=== PATIENT | male | born 2005 | race Caucasian/White ===

== ENCOUNTER 2023-04-02 07:39 | Emergency (ER) | payer OTHER, SELFPAY ==
[2023-04-02 07:46] VITALS: BP 142/86; PULSE 94; RESP 16; TEMP 36.8; O2SAT 97; BMI 22.1
--- NOTE | 2023-04-02 08:41 | ED.GENADUL1 ---
HPI - General Adult General Chief complaint: Upper Respiratory Infection Stated complaint: URTI/ FEVER Time Seen by Provider: 04/02/23 08:37 Source: patient Mode of arrival: walk-in History of Present Illness HPI narrative: Patient is a 17-year-old male who is presenting to the ER with chief complaint of flulike symptoms that started 2 days ago. Patient has had nausea and vomiting as well, patient is able to keep liquids then, patient cannot keep food down. Patient is having intermittent body aches and chills. Patient's fianc? is at bedside. 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 Patient missed work today. Patient has no headache or neck pain. Mild sore throat. Myalgia, arthralgia, nausea. No other acute complaints. Patient is having yellowish productive cough intermittently. Patient has no rash. All systems are negative except as noted/marked. All systems reviewed and otherwise negative. Nurses note and vital signs reviewed and patient is not hypoxic. General: The patient appears well and in no apparent distress. Patient is resting comfortably on cart. Patient is not toxic, lethargic, or listless Skin: Warm, dry, no pallor noted. There is no rash noted. No petechiae, purpura. Head: Normocephalic, atraumatic Eye: Normal conjunctiva, no drainage, EOMI. PERRL Ears, Nose, Mouth, and Throat: oral mucosa is moist. Patient has clear drainage noted to the posterior pharynx, mild cobblestoning, no unilateral swelling, no other acute pathology. No intraoral pathology. Nares patent. Mouth without vesicles. Cardiovascular: Regular Rate and Rhythm, no murmur, gallop, rub Respiratory: Patient is in no distress, no accessory muscle use, lungs are clear to auscultation, no wheezing, rales or rhonchi Back: non-tender, no CVA tenderness bilaterally to percussion. No CT LS midline pain GI: no tenderness to palpation, no masses appreciated. No rebound, guarding, or rigidity noted. No distention Musculoskeletal: Patient has full range of motion of all of the extremities, no motor, sensory, or focal neurological deficits Neurological: A&O x4, normal speech Psychiatric: Cooperative Related Data Previous Rx's Medication Instructions Recorded ondansetron 4 mg disintegrating 4 mg PO Q4H PRN nausea and 04/02/23 tablet vomiting 3 days #6 tabs Allergies Allergy/AdvReac Type Severity Reaction Status Date / Time amoxicillin AdvReac Unknown Verified 04/02/23 07:44 Exam Constitutional Vital Signs, click to edit/add: Last Vital Signs Temp 98.3 F 04/02/23 07:46 Pulse 94 H 04/02/23 07:46 Resp 16 04/02/23 07:46 BP 142/86 H 04/02/23 07:46 Pulse Ox 97 04/02/23 07:46 O2 Del Method Room Air 04/02/23 07:46 Course Vital Signs Vital signs: Vital Signs Temperature 98.3 F 04/02/23 07:46 Pulse Rate 94 H 04/02/23 07:46 Respiratory Rate 16 04/02/23 07:46 Blood Pressure 142/86 H 04/02/23 07:46 Pulse Oximetry 97 04/02/23 07:46 Oxygen Delivery Method Room Air 04/02/23 07:46 Temperature 98.3 F 04/02/23 07:46 Pulse Rate 94 H 04/02/23 07:46 Respiratory Rate 16 04/02/23 07:46 Blood Pressure 142/86 H 04/02/23 07:46 Pulse Oximetry 97 04/02/23 07:46 Oxygen Delivery Method Room Air 04/02/23 07:46 Medical Decision Making MDM Narrative Medical decision making narrative: Patient has flulike symptoms. Patient needs a work note. Patient was sent home with a prescription for Zofran. Patient was educated on hydration, using [id number] products to help with his symptoms and follow-up with PCP. Patient understands this, no questions at discharge. patient was told several times that he needs to continue to increase fluids at home, he can go several days without eating as long as he is drinking Gatorade, Powerade, staying hydrated. Discharge Plan Discharge Chief Complaint: Upper Respiratory Infection Clinical Impression: Flu-like symptoms, Nausea & vomiting Patient Disposition: Home, Self-Care Condition: Fair Prescriptions / Home Meds: New ondansetron 4 mg tablet,disintegrating 4 mg PO Q4H PRN (Reason: nausea and vomiting) 3 Days Qty: 6 0RF Instructions: Sinusitis (ED), Acute Nausea and Vomiting (DC) Additional Instructions: Use DayQuil, NyQuil and Flonase daily. Alternate Tylenol and Motrin every 4 hours for aches and pains. Use nausea medication to help increase fluids, use Gatorade, Powerade, or water. Work note given. Follow-up with PCP if no improvement in the next 2 or 3 days. Stand Alone Forms: Work/School Release, Portal Instructions Referrals: FAUSTINO WADE [Primary Care Provider] - 1 week Discharge Date/Time: 04/02/23 08:51
== END 2023-04-02 08:51 | disposition home or self-care (01) ==
PROVIDERS: Emergency Provider Emergency Medicine; PCP Family Medicine
DX: R11.2 Nausea with vomiting, unspecified (principal); R52 Pain, unspecified; R68.83 Chills (without fever)
CPT/HCPCS: 99283

== ENCOUNTER 2024-02-13 21:11 | Emergency (ER) | payer OTHER, SELFPAY ==
[2024-02-13 21:17] VITALS: BP 154/75; PULSE 104; TEMP 38.8; O2SAT 99; BMI 26.7
--- OUTSIDE RECORDS SUMMARY | 2024-02-13 21:22 | XMS_ITS | CCD ---
Author Organization [facility] Care Team Providers Care Health Information Administrator Name Role Phone BRITTANY RAMIREZ Primary Care Physician [phone] Unavailable Primary Care Provider Unavailabl e Ashley BRACELET [employer] BR[employer]CH MAKER, Meredith Primary Care Provider [phone] Ashley RESENDIZ, Meredith Primary Care Provider [phone] Marcos Donato MD Unavailable Ashley RESENDIZ Meredith Primary Care Provider [phone] Marcos Donato MD Unavailable [phone] RANDY BROWN Attending Unavailable MARCOS DONATO Referring Unavailable [facility] Primary Care Unavailable RANDY BROWN Referring Unavailable RANDY BROWN Attending Unavailable [facility] Primary Care Unavailable RANDY BROWN Referring Unavailable RANDY BROWN Attending Unavailable [facility] Primary Care Unavailable RANDY BROWN Referring Unavailable BAILEYRATIL, MEREDITH Primary Care Unavailable RANDY BROWN Referring Unavailable NAVRATIL, MEREDITH Primary Care Unavailable MARIYA, DR RODRÍGUEZ Consulting Unavailable MARIYA, DR RODRÍGUEZ Admitting Unavailable NAVRATIL, BRITTANY Primary Care Unavailable DONATO, DR RODRÍGUEZ Attending Unavailable KARIE RUELAS Consulting Unavailable DONATO, DR RODRÍGUEZ Consulting Unavailable NAVRATIL, BRITTANY Primary Care Unavailable DONATO, DR RODRÍGUEZ Admitting Unavailable MARIYA, DR RODRÍGUEZ Attending Unavailable MARIYA, DR RODRÍGUEZ Consulting Unavailable NAVRATIL, BRITTANY Primary Care Unavailable DONATO, DR RODRÍGUEZ Admitting Unavailable MARIYA, DR RODRÍGUEZ Attending Unavailable DANIEL LI Consulting Unavailable MARCI MARCH Consulting Unavaila ble MARIYA, DR RODRÍGUEZ Consulting Unavailable MARIYA, DR RODRÍGUEZ Admitting Unavailable NAVRATIL, BRITTANY Primary Care Unavailable MARIYA, DR RODRÍGUEZ Attending Unavailable JOVAN, DR GERRY Ross Consulting Unavailable MARIYA, DR RODRÍGUEZ Attending Unavailable NAVRATIL, BRITTANY Primary Care Unavailable DONATO, DR RODRÍGUEZ Consulting Unavailable MARIYA, DR RODRÍGUEZ Admitting Unavailable JOVAN, DR GERRY Ross Consulting Unavailable MICA, DR LOCKHART Admitting Unavailable ASHLEY, BRITTANY Primary Care Unavailable MICA, DR LOCKHART Attending Unavailable MICA, DR LOCKHART Consulting Unavailable ASHLEY, BRITTANY Primary Care Unavailable MICA, DR LOCKHART Admitting Unavailable MICA, DR LOCKHART Attending Unavailable MICA, DR LOCKHART Consulting Unavailable JOVAN, DR GERRY Ross Consulting Unavailable HAIM CARMONA Consulting Unavailable DONATO, Marcos R Attending Unavailable NAVSOCRATES, BRITTANY Referring Unavailable DONATO, aMrcos R Attending Unavailable DONATO, Marcos R Attending Unavailable DONATO, Marcos R Attending Unavailable DONATO, Marcos R Attending Unavailable DONATO, Marcos R Attending Unavailable DONATO, Marcos Ross Attending Unavailable Donato, Marcos Admitting Unavailable Donato, Marcos Attending Unavailable NON STAFF Primary Care Unavailable NON STAFF Primary Care Provider MD Marcos Vivas Attending Provider [phone] Allergies Allergy Classification Reported Allergen(s) Allergy Type Date of Onset Reaction(s) Facility (12 sources) Amoxicillin; Translations: [amoxicillin] Drug Allergy 2 Weal (disorder), Hives [facility] (1 source) Amoxicillin Drug Allergy [facility] Repository Medications Current Medications Medication Drug Class(es) Dates Sig (Normalized) Sig (Original) doxycycline hyclate 100 mg oral capsule (1 source) Tetracycline-clas s Drug Start: 11-12-2021 End: 12-03-2021 take 1 capsule by mouth twice daily doxycycline hyclate 100 mg Cap 100 mg = 1 cap(s), Oral, BID, X 3 week(s), # 42 cap(s), Refills(s) 0, Pharmacy: [facility] #[id number], 187, cm, 11/12/21 10:47:00 EDT, Height/Length Dosing, 72, kg, 11/12/21 10:47:00 EDT, Weight Dosing Start Date: 11/12/21 Stop Date: 12/03/21 Status: Ordered fluconazole 50 mg oral tablet (1 source) Azole Antifungal Start: 11-12-2021 take 1 mg by mouth once daily fluconazole 50 mg oral tablet mg tab(s), Oral, Daily, Refills(s) 0 Start Date: 11/12/21 Status: Ordered Completed/Discontinued Medications Medication Drug Class(es) Dates Sig (Normalized) Sig (Original) enteric contrast (will be provided with radiology test) (1 source) Start: 04-29-2022 End: 04-30-2022 enteric contrast (will be provided with radiology test) For CT CHESTABD/PEL W IVCON Routine order Administer, As Directed One Time Only, via Oral, Rectal, both Oral and Rectal, Enteric Tube, Stoma or Indwelling Catheter, Enteric Contrast as designated per enteric contrast guidelines 1 Each 0 04/29/2022 04/30/2022 Comment on above: For CT CHESTABD/PEL W IVCON Routine order Administer, As Directed One Time Only, via Oral, Rectal, both Oral and Rectal, Enteric Tube, Stoma or Indwelling Catheter, Enteric Contrast as designated per enteric contrast guidelines iv contrast (will be provided with radiology test) (1 source) Start: 04-29-2022 End: 04-30-2022 iv contrast (will be provided with radiology test) CT Chest ABD/PEL-Inject, intravenously, once for 1 dose.No IV access, insert saline lock prior to the beginning of sedation, infusion, injection of imaging exam. Discontinue saline lock post exam. If Pt. has a central line or IVAD, may access for administration according to line specific nursing protocol. Once exam is complete flush line and de-access according to line specific nursing protocol in the CT contrast administration guidelines link. 1 Each 0 04/29/2022 04/30/2022 Comment on above: CT Chest ABD/PEL-Inj ect, intravenously, once for 1 dose.No IV access, insert saline lock prior to the beginning of sedation, infusion, injection of imaging exam. Discontinue saline lock post exam. If Pt. has a central line or IVAD, may access for administration according to line specific nursing protocol. Once exam is complete flush line and de-access according to line specific nursing protocol in the CT contrast administration guidelines link. 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; Translations: [CA IN SITU OTH MALE GENITAL ORGANS] Onset: 01-01-2022 Chronic Cancer of testis (17 sources) Malignant tumor of testis; Translations: [Malignant neoplasm of unspecified testis, unspecified whether descended or undescended] Onset: 12-28-2021 Chronic Other male genital disorders (2 sources) Disorder of male genital organ; Translations: [Other specified disorders of the male genital organs] Onset: 11-12-2021 Episodic Other male genital disorders (5 sources) Testicular mass 11-12-2021 Episodic Unclassified (1 source) CONTACT W/AND (SUSP) EXPOS COVID-19; Translations: [CONTACT W/AND (SUSP) EXPOS COVID-19] Onset: 12-19-2021 Past or Other Problems Problem Classification Problem Date Documented Da te Episodic/Chronic Other male genital disorders (4 sources) Other specified disorders of the male genital organs; Translations: [OTHER SPEC D/O MALE GENITAL ORGANS] Onset: 12-07-2021 Episodic Other male genital disorders (1 source) Disorder of male genital organs, unspecified; Translations: [DISORDER MALE GENITAL ORGANS UNS] Onset: 12-13-2021 Episodic Results Test Name Value Interpretation Reference Range Facility No Panel InformationOrdered By: Alfred Saunders on 10-25-2023 Semen Analysis Comment . [facility] Comment on above: No Abnormal specimen characteristics noted. Semen Round Cell Concentration Moderate [facility] Semen WBC Concentration <1.0 M/mL <0.9 [facility] Sperm % Non-Motile 74 % [facility] Sperm Motility Total 26.0 % Low >40 [facility] Qualitative semen viscosityO rdered By: Alfred Saunders on 10-25-2023 Viscosity Ql (Ashlie) Abnormal Abnormal Normal [facility] Semen Analysis, Fertilityon 10-25-2023 Debris/Round Cells Moderate Normal [facility] Comment on above: Order Comment: Metho d of Collection:: Masturbation Has the patient had a vasectomy?: N Type of Specimen Container:: Sterile Container Abstinence Period:: 2 DAYS Kept at body temperature?: Y Any Collection or Transport Problems?: N/A Performed By: #### S EMCOMP #### [address] Immotile Sperm 74 % Normal [facility] Comment on above: Order Comment: Metho d of Collection:: Masturbation Has the patient had a vasectomy?: N Type of Specimen Container:: Sterile Container Abstinence Period:: 2 DAYS Kept at body temperature?: Y Any Collection or Transport Problems?: N/A Performed By: #### S EMCOMP #### [address] Non-Progression Sperm Motili 24 % Normal [facility] Comment on above: Order Comment: Metho d of Collection:: Masturbation Has the patient had a vasectomy?: N Type of Specimen Container:: Sterile Container Abstinence Period:: 2 DAYS Kept at body temperature?: Y Any Collection or Transport Problems?: N/A Performed By: #### S EMCOMP #### [address] Normal Sperm Morphology 2.0 % Low >=4.0 [facility] Comment on above: Order Comment: Metho d of Collection:: Masturbation Has the patient had a vasectomy?: N Type of Specimen Container:: Sterile Container Abstinence Period:: 2 DAYS Kept at body temperature?: Y Any Collection or Transport Problems?: N/A Performed By: #### S EMCOMP #### [address] Rapid Progression Sperm Motili 2 % Normal [facility] Comment on above: Order Comment: Metho d of Collection:: Masturbation Has the patient had a vasectomy?: N Type of Specimen Container:: Sterile Container Abstinence Period:: 2 DAYS Kept at body temperature?: Y Any Collection or Transport Problems?: N/A Performed By: #### S EMCOMP #### [address] Semen Comment . Normal [facility] Comment on above: Order Comment: Metho d of Collection:: Masturbation Has the patient had a vasectomy?: N Type of Specimen Container:: Sterile Container Abstinence Period:: 2 DAYS Kept at body temperature?: Y Any Collection or Transport Problems?: N/A Result Comment: No A bnormal specimen characteristics noted. PERFORMED BY: [place] [address] PATHOLOGIST DETAIL ASSEMBLER JIANLAN SUN M.D. Performed By: #### S EMCOMP #### [address] Semen Liquefaction Abnormal Critically abnormal <=60 min [facility] Comment on above: Order Comment: Metho d of Collection:: Masturbation Has the patient had a vasectomy?: N Type of Specimen Container:: Sterile Container Abstinence Period:: 2 DAYS Kept at body temperature?: Y Any Collection or Transport Problems?: N/A Performed By: #### S EMCOMP #### [address] Semen Viscosity Abnormal Critically abnormal Normal [facility] Comment on above: Order Comment: Metho d of Collection:: Masturbation Has the patient had a vasectomy?: N Type of Specimen Container:: Sterile Container Abstinence Period:: 2 DAYS Kept at body temperature?: Y Any Collection or Transport Problems?: N/A Performed By: #### S EMCOMP #### [address] Semen Volume 4.0 mL Normal >=1.5 [facility] Comment on above: Order Comment: Metho d of Collection:: Masturbation Has the patient had a vasectomy?: N Type of Specimen Container:: Sterile Container Abstinence Period:: 2 DAYS Kept at body temperature?: Y Any Collection or Transport Problems?: N/A Performed By: #### S EMCOMP #### [place] [address] [place] Sperm Concentration 7.5 Low >=15 [facility] Comment on above: Order Comment: Metho d of Collection:: Masturbation Has the patient had a vasectomy?: N Type of Specimen Container:: Sterile Container Abstinence Period:: 2 DAYS Kept at body temperature?: Y Any Collection or Transport Problems?: N/A Performed By: #### S EMCOMP #### [place] [address] [place] Total Motility ([place]+HOSTEL MANAGER) 26.0 % Low >=40 ([place]+HOSTEL MANAGER) [facility] Comment on above: Order Comment: Metho d of Collection:: Masturbation Has the patient had a vasectomy?: N Type of Specimen Container:: Sterile Container Abstinence Period:: 2 DAYS Kept at body temperature?: Y Any Collection or Transport Problems?: N/A Performed By: #### S EMCOMP #### [facility] [address] [place] [address] WBC Concent, Semen <1.0 Normal <1.0 [facility] Comment on above: Order Comment: Metho d of Collection:: Masturbation Has the patient had a vasectomy?: N Type of Specimen Container:: Sterile Container Abstinence Period:: 2 DAYS Kept at body temperature?: Y Any Collection or Transport Problems?: N/A Performed By: #### S EMCOMP #### [facility] [address] [place] [address] Semen Analysis, FertilityOrd ered By: Alfred Saunders on 10-25-2023 Semen Appearance Normal Normal Normal [facility] Comment on above: Order Comment: Metho d of Collection:: Masturbation Has the patient had a vasectomy?: N Type of Specimen Container:: Sterile Container Abstinence Period:: 2 DAYS Kept at body temperature?: Y Any Collection or Transport Problems?: N/A Performed By: #### S EMCOMP #### [facility] [address] [place] [address] Semen pH 8.5 Normal >=7.2 [facility] Comment on above: Order Comment: Metho d of Collection:: Masturbation Has the patient had a vasectomy?: N Type of Specimen Container:: Sterile Container Abstinence Period:: 2 DAYS Kept at body temperature?: Y Any Collection or Transport Problems?: N/A Performed By: #### S EMCOMP #### [facility] [address] [place] [address] Semen liquefaction time sherita urementOrdered By: Alfred Saunders on 10-25-2023 Liquefaction (Ashlie) [Time] Abnormal Abnormal <=60 min [facility] Semen volumeOrdered By: Yannick Saunders on 10-25-2023 Specimen volume (Ashlie) 4.0 mL >1.5 [facility] Sperm countOrdered By: Alfred Saunders on 10-25-2023 Spermatozoa (Ashlie) [#/Vol] 7.5 M/mL Low >15 [facility] Sperm morphologyOrdered By: Alfred Saunders on 10-25-2023 Spermat[place] Nom (Ashlie) 2.0 % Low >4.0 [facility] Provider Letteron 10-18-2022 Provider Letter (Inserted Image. Rosalva ble to display) October 18, 2022 [facility] [address] [place] [id number] : 2005 Dear Omaira Zavala , This letter is to inform you the the providers of [employer] (Dr. Marcos Donato) will no longer be responsible for your routine medical care due to your repeated non compliance with your cancer care follow up appointments. Emergency care only will be provided for the thirty (30) days following this letter. During this time period we suggest that you find another physician for your medical needs. A listing of area physicians can be found on [facility]'s website at [email or web address] or you may contact your health plan. We will be glad to forward your records to your new physician as long as we receive a signed release of records form. Sincerely, Marcos Donato M.D., F.A.C.S. [facility] [address] [place] [address] , option 3 SENT REGULAR/CERT MAIL [facility] Provider Letter (Inserted Image. Rosalva ble to display) October 18, 2022 OMAIRA ZAVALA [address] [address] : 2005 Dear Omaira Zavala , This letter is to inform you the the providers of [employer] (Dr. Marcos Donato) will no longer be responsible for your routine medical care due to your repeated non compliance with your cancer care follow up appointments. Emergency care only will be provided for the thirty (30) days following this letter. During this time period we suggest that you find another physician for your medical needs. A listing of area physicians can be found on [facility]'s website at [email or web address] or you may contact your health plan. We will be glad to forward your records to your new physician as long as we receive a signed release of records form. Sincerely, Marcos Donato M.D., F.A.C.S. [facility] [address] [place], [place] [address] , option 3 [facility] Provider Letter (Inserted Image. Rosalva ble to display) October 18, 2022 OMAIRA ZAVALA [address] [phone] : 2005 Dear Omaira Zavala , This letter is to inform you the the providers of [facility] [employer] [facility], [facility] (Dr. Marcos Donato) will no longer be responsible for your routine medical care due to your repeated non compliance with your cancer care. Emergency care only will be provided for the thirty (30) days following this letter. During this time period we suggest that you find another physician for your medical needs. A listing of area physicians can be found on [facility]'s website at [email or web address] or you may contact your health plan. We will be glad to forward your records to your new physician as long as we receive a signed release of records form. Sincerely, Marcos Donato M.D., F.A.C.S. [facility] [address] [place], [place] [address] , option 3 [facility] Patient Letter FTon 2022 Patient Letter [facility] (Inserted Image. Rosalva ble to display) August 01, 2022 OMAIRA ZAVALA [address] [address] Dear Mr. Omaira Cohen, Our records indicate you have missed 2 follow up appointments to your testicular cancer. It is very important you are seen and evaluated after surgery and treatments , so we can continue to monitor your progress. You advised the office you now are living in [place]. We will be more than willing to send your records to a new urologist and oncologist in your area if you schedule an appointment. Please call the office to get back on the schedule for a follow up appointment, or to forward your records. Thank you for your cooperation in this matter. Sincerely, Marcos Donato M.D., F.A.C.S. [facility] [address] [place], [place] [address] Option #3 SENT REGULAR/CERTIFIED MAIL [facility] Patient Letter [facility] (Inserted Image. Rosalva ble to display) August 01, 2022 OMAIRA ZAVALA [address] [address] Dear Frank Omaira Ole, Our records indicate you have missed 2 follow up appointments to your testicular cancer. It is very important you are seen and evaluated after surgery and treatments , so we can continue to monitor your progress. You advised the office you now are living in [place]. We will be more than willing to send your records to a new urologist and oncologist in your area if you schedule an appointment. Please call the office to get back on the schedule for a follow up appointment, or to forward your records. Thank you for your cooperation in this matter. Sincerely, Marcos Donato M.D., F.A.C.S. [facility] [address] [place], [place] [address] [facility] RAD - CT Reporton 07-25-20[address] - [address] Report [id number]:127 [facility] RAD - CT Report [id number]:127 [facility] Provider Letteron 07-19-2022 Provider Letter (Inserted Image. Rosalva ble to display) July 19, 2022 OMAIRA ZAVALA [address] [address] OMAIRA ZAVALA 2005 Dear Omaira , You missed your scheduled appointment on: July 19, [address] Marcos Donato and the purpose of this letter is to inform you of our *No Show Policy*. Our appointment slots fill rapidly and when we have a no show appointment that time is lost. We could have used that time slot to care for a patient who needed to see one of our providers. Therefore, we ask that you call 24 hours in advance to cancel your appointment. This policy is in place so that we can meet the needs of all of our patients and we do appreciate your understanding. Sincerely, [facility] [address], [place] [address] [facility] CT ABD/PELV W CONon 05-20-19 CT ABD/PELV W CON EXAMINATION: CT ABD/ PELV W CON HISTORY: Primary malignant neoplasm of descended testis COMPARISON: CT abdomen pelvis 12/31/2021 TECHNIQUE: Axial, Coronal, and Sagittal images were obtained without and/or with IV contrast as indicated by examination type. Dose reduction techniques were achieved by using automated exposure control and/or adjustment of mA and/or kV according to patient size and/or use of iterative reconstruction technique. FINDINGS: LUNG BASES: No visible pulmonary or pleural disease. LIVER: No enlargement, atrophy, suspicious density, or significant focal lesion. BILIARY: 4 mm stone within noninflamed gallbladder. PANCREAS: No lesion, fluid collection, or abnormal duct dilatation. SPLEEN: No enlargement or focal lesion. ADRENALS: No mass or enlargement. KIDNEYS: Incidental 5 mm left renal cyst. No mass, obstruction, or calcification. BOWEL/MESENTERY: No visible mass, obstruction, or bowel wall thickening. AORTA/VASCULAR: No aneurysm or dissection. RETROPERITONEUM: No mass or adenopathy. LYMPH NODES: No enlarged lymph nodes within the pelvis. Multiple lymph nodes within the subcutaneous tissue of the groin region bilaterally, not unexpected for patient's age. No suspicious lymph nodes. URINARY BLADDER: No visible focal wall thickening, lesion, or calculus. PELVIC ORGANS: No visible mass. Pelvic organs appropriate for patient age. ABDOMINAL WALL: No mass or hernia. BONES: No bony lesion or fracture. OTHER: Negative. IMPRESSION: 1. No mass or lymphadenopathy to suggest metastatic disease. 2.Cholelithiasis. Electronically authenticated by: GERRY ALDANA Date: 2022-05-20 16:27 [facility] CT CHEST W CONon 05-19-2022 CT CHEST W CON EXAMINATION: CT CHES T W CON HISTORY: Primary malignant neoplasm of descended testis diagnosed in 2022, status post left orchiectomy. No current complaints. This is a routine surveillance imaging. COMPARISON: Comparison is made to the study 12/31/2021. TECHNIQUE: Computed tomography of the chest was performed with intravenous contrast. Coronal sagittal reformations were provided. Concurrent CT of the abdomen and pelvis was performed. Dose reduction techniques were achieved by using automated exposure control and/or adjustment of mA and/or kV according to patient size and/or use of iterative reconstruction technique. FINDINGS: Lungs are well-expanded and clear. There is no discrete or suspicious noncalcified pulmonary nodule. No focal lung consolidation, effusion, or pneumothorax. There is no mediastinal, hilar, or axillary lymphadenopathy. Small amount of amorphous soft tissue in anterior mediastinum compatible with residual thymus. Thoracic aorta is normal. Heart size within normal limits. No pericardial effusion. Refer to separate report for findings of the abdomen and pelvis. Bony structures are normal for age. Bone scan would be more sensitive in detection of bony metastases, however. IMPRESSION: 1. Well-expanded and clear lungs. No acute pulmonary process. 2. No findings for soft tissue metastatic disease in the chest. Negative for thoracic lymphadenopathy, and no discrete or suspicious noncalcified pulmonary nodule. Continued surveillance is recommended. 3. Patient underwent concurrent CT of the abdomen and pelvis today. Refer to separate report for details. Electronically authenticated by: HAIM CARMONA Date: 2022-05-19 16:03 [facility] Consultation Noteon 05-06-19 Consultation Note [id number]:127 [facility] CNOVSPon 04-29-2022 CNOVS Visit (SP) Office ([facility]) -- OMAIRA COHEN ([id number]) 1 M Date Time Provider Department 04/29/22 3:45 PM RANDY BROWN During your visit today, we recorded the following information about you: Temperature Pulse Respiration Blood pressure 98.5 degrees 62/minute 16/minute 138/64 Weight Height 83.6 kg 1.905 m Randy Brown MD 05/01/2022 6:57 AM Signed PATIENT NAME: Omaira Cohen DATE: 04/29/2022 PRIMARY CARE PHYSICIAN: RYANN Jane OTHER PHYSICIANS: Dr. Donato Portions of this encounter note have been copied from my note from 01/29/2022 and has been updated where appropriate, and reflect my current medical decision making from today. CC: This is an 17 year old male with a history of testicular cancer, seen for scheduled follow-up. INTERIM HISTORY: Since the patient's last visit here he has had no significant medical changes. No new abnormalities involving his right testicle. No unusual pain, genitourinary symptoms, or other systemic complaints. He continues to work full-time and overall is doing quite well. MEDICATIONS: No current outpatient medications on file. No current facility-administered medications for this visit. ALLERGIES: ALLERGIES Allergen Reactions Amoxicillin Hives PAST MEDICAL HISTORY: PAST MEDICAL HISTORY Diagnosis Date Testicular cancer (HCC) 12/2021 PAST SURGICAL HISTORY: No past surgical history on file. FAMILY HISTORY: No family history on file. SOCIAL HISTORY: Social History Tobacco Use Smoking status: Never Passive exposure: Past Smokeless tobacco: Never Substance Use Topics Alcohol use: Not Currently Drug use: Never COMPLETE REVIEW OF SYSTEMS: CONSTITUTION: Negative for pain, fatigue, weight loss, or appetite loss. EENT: Negative for mouth soreness, antibiotics use, epistaxis, visual problems, neck or facial swelling, fever/chills, bleeding gums, or hearing loss. CV: Negative for edema, calf swelling, palpitations, or chest pain. RESPIRATORY: Negative for cough, SOB, hemoptysis, or wheezing. GI: Negative for nausea/vomiting, heartburn, vomiting blood, dysphasia, diarrhea, blood in stool, constipation, early satiety, PICA, vegetarian, poor nutrition, abdominal fullness, or abdominal pain. NEUROLOGICAL: Negative for numbness/tingling, dizziness, gait disturbance, headache, speech disturbance, tremor, hemiparesis/sensory loss, or change in mental status. MUSCULOSKELETAL: Negative for joint pain, joint swelling, or proximal muscle weakness. SKIN: Negative for hair loss, bruising, nail changes, rash, itching, pallor, or jaundice. ENDO/URO: Negative for hot flashes, cold or heat intolerance, urinary frequency, urinary hesitancy, menorrhagia, or hematuria. PSYCH: Negative for anxiety, depression, or other. PHYSICAL EXAM: BP 138/64 Pulse 62 Temp 36.9 ?C (98.5 ?F) (Temporal) Resp 16 Ht 190.5 cm (6' 3 ) Wt 83.6 kg (184 lb 6.4 oz) SpO2 99% BMI 23.05 kg/m? GENERAL EXAM: Well developed/well nourished; in no acute distress. SKIN: Negative for lesions, rashes, or ulcers on the upper and lower extremities and face. Negative for palpations/nodules, purpura, and ecchymosis. EENT: Negative for conjunctiva, mucosal pallor, JVD, LAP, thyromegaly, and glossitis. Supple AND PERRL. EXTREMITIES: Negative for cyanosis, clubbing, and crepitus. LUNGS: Negative to auscultation, respiratory effort, and percussion. CARDIOVASCULAR: Regular rate. Negative for murmurs/S3S4/abnormal sounds, edema, and carotid bruits. ABDOMEN: Negative for masses, hernia, and spleen/liver abnormalities. RECTAL: Not done PSYCHIATRIC: Negative for mood/affect changes, recent AND remote memory changes, and judgement and insight. NEUROLOGICAL: Alert, oriented x person, place, time. Cranial nerves 2-12 intact. Sensory for pain, light touch, vibration intact on all 4 extremities. Reflexes symmetric for biceps/brachioradial/mallory la/achilles. MUSCULOSKELETAL: Negative examination of joints, bones, muscles/tendons of all four extremities for inspection, percussion, and palpation. Negative for misallignment, asymmetry, crepitation, tenderness, mass, effusions. Range of motion normal. Negative for joint instability, laxity, dislocation. Gait steady. Negative for swelling, erythema, tenderness, soft tissue swelling, and atrophy. 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 The scar area measures 1.3 cm in greatest dimension. It is limited to the testis. Germ cell neoplasia in situ. Epididymis and spermatic cord with no significant pathological findings. LABS: 12/11/2021: CMP and CBC within normal limits AFP hCG LDH 12/11/2021 2.4 <1 164 04/08/2022 2.8 <1 136 RADIOLOGY/OTHER STUDIES: 12/31/2021 CT chest, abdomen, pelvis ([facility]) No evidence o (more content not included)... Normal [facility] AFP (TUMOR MARKER)on 022 AFP, Serum, Tumor Marker 2.8 ng/mL Normal 0.0-5.7 [facility] Comment on above: Result Comment: [employer] Electrochemiluminescence Immunoassay (ECLIA) . Values obtained with different assay methods or kits cannot be used interchangeably. Results cannot be interpreted as absolute evidence of the presence or absence of malignant disease. . This test is not interpretable in females. Performed By: #### A FP. ####[facility] [id number] [address]Dr. Janee Ordaz HCG QUANT TUMOR MARKERon HCG QNT TUMOR MARKER <1 Normal 0-3 [facility] Comment on above: Result Comment: Invisible Electrochemiluminescence Immunoassay (ECLIA) . The [employer] HCG + beta assay recognizes the holo-hormone, human chorionic gonadotropin (hCG), nicked forms of hCG, the beta-core fragment and the free beta-subunit in human serum and plasma. . Results obtained with different test methods or kits cannot be used interchangeably. This assay is intended for the early detection of . The result should not be used for treatment or for diagnostic purposes without confirmation of the diagnosis by another medically established diagnostic product or procedure. . This test was developed and its performance characteristics determined by [employer] It has not been cleared or approved by the Food and Drug Administration for use as a tumor marker. . This test is not interpretable as a tumor marker in females. Performed By: #### H CGTMOR ####[facility] [id number] [address]Dr. Janee rOdaz Lab Reportson 2022 Lab Reports [id number]:127 Normal [facility] Lab Reports [id number]:127 Normal [facility] CBC AUTO DIFFon 04-08-2022 BASO # 0.0 103/ul Normal 0.0-0.1 [facility] Comment on above: Performed By: #### C BC #### [facility] [address] [address] [address] Janee Ordaz Basophils/100 WBC (Bld) 0.3 % Normal 0.2-2.0 [facility] Comment on above: Performed By: #### C BC #### [facility] [address] [address] [address] Janee Ordaz EO # 0.8 103/ul Critically high 0.0-0.7 [facility] Comment on above: Performed By: #### C BC #### [facility] [address] [place] [address] Dr. Janee Ordaz Eosinophils/100 WBC (Bld) 5.9 % Normal 0.9-7.0 [facility] Comment on above: Performed By: #### C BC #### [facility] [address] [place] [address] Dr. Janee Ordaz Erythrocyte distribution width (RBC) [Ratio] 12.3 % Normal 11.0-15.0 [facility] Comment on above: Performed By: #### C BC #### [facility] [address] [place] [address] Dr. Janee Ordaz Hematocrit (Bld) [Volume fraction] 41.8 % Critically low 42.0-54.0 [facility] Comment on above: Performed By: #### C BC #### [facility] [address] [place] [address] Dr. Janee Ordaz Hemoglobin (Bld) [Mass/Vol] 13.9 g/dL Critically low 14.0-18.0 [facility] Comment on above: Performed By: #### C BC #### [facility] [address] [place] [address] Dr. Janee Ordaz IG # 0.05 10e3/ul Critically high 0.00-0.03 [facility] Comment on above: Performed By: #### C BC #### [facility] [address] [place] [address] Dr. Janee Ordaz IG % 0.4 % Normal 0.0-0.5 [facility] Comment on above: Performed By: #### C BC #### [facility] [address] [place] [address] Dr. Janee Ordaz LYMPH # 2.7 103/ul Normal 1.2-3.8 [facility] Comment on above: Performed By: #### C BC #### [facility] [address] [place] [address] Dr. Janee Ordaz Lymphocytes/100 WBC (Bld) 19.3 % Critically low 20.5-60.0 [facility] Comment on above: Performed By: #### C BC #### [facility] [address] [place] [address] Dr. Janee Ordaz MANUAL DIFF REQ NO Normal [facility] Comment on above: Performed By: #### C BC #### [facility] [address] [place] [address] Dr. Janee Ordaz MCH (RBC) [Entitic mass] 28.4 pg Normal 25.9-34.0 [facility] Comment on above: Performed By: #### C BC #### [facility] [address] [place] [address] Dr. Janee Ordaz MCHC (RBC) [Mass/Vol] 33.3 g/dL Normal 29.9-35.2 [facility] Comment on above: Performed By: #### C BC #### [facility] [address] [place] [address] Dr. Janee Ordaz MCV (RBC) [Entitic vol] 85.5 fL Normal 80.0-94.0 [facility] Comment on above: Performed By: #### C BC #### [facility] [address] [place] [address] Dr. Janee Ordaz MONO # 1.2 103/ul Critically high 0.3-0.8 [facility] Comment on above: Performed By: #### C BC #### [facility] [address] [place] [address] Dr. Janee Ordaz Monocytes/100 WBC (Bld) 8.5 % Normal 1.7-12.0 [facility] Comment on above: Performed By: #### C BC #### [facility] [address] [place] [address] Dr. Janee Ordaz NEUT # 9.2 103/ul Critically high 1.4-6.5 [facility] Comment on above: Performed By: #### C BC #### [facility] [address] [place] [address] Dr. Janee Ordaz Neutrophils/100 WBC (Bld) 65.6 % Normal 43.0-75.0 [facility] Comment on above: Performed By: #### C BC #### [facility] [address] [place] [address] Dr. Janee Ordaz Platelet mean volume (Bld) [Entitic vol] 10.3 fL Normal 9.5-13.5 [facility] Comment on above: Performed By: #### C BC #### [facility] [address] [place] [address] Dr. Janee Ordaz PLT 226 103/ul Normal 150-450 [facility] Comment on above: Performed By: #### C BC #### [facility] [address] [place] [address] Dr. Janee Ordaz RBC 4.89 106/ul Normal 4.70-6.10 [facility] Comment on above: Performed By: #### C BC #### [facility] [address] [place] [address] Dr. Janee Ordaz WBC 14.0 103/ul Critically high 4.0-11.0 [facility] Comment on above: Performed By: #### C BC #### [facility] [address] [place] [address] Dr. Janee Ordaz LDHon 04-08-2022 LDH 136 U/L Normal 85-227 [facility] Comment on above: Performed By: #### L DH, CMP #### [facility] [address] [place] [address] Dr. Janee Ordaz PROF 14(COMP METB)on 12-19-2 022 Albumin [Mass/Vol] 4.5 g/dL Normal 3.4-5.0 [facility] Comment on above: Performed By: #### L , CMP #### [facility] [address] [place] [address] Dr. Janee Ordaz Albumin/Globulin [Mass ratio] 1.3 {ratio} Normal [facility] Comment on above: Performed By: #### L , CMP #### [facility] [address] [place] [address] Dr. Janee Ordaz ALP [Catalytic activity/Vol] 87 U/L Normal 46-116 [facility] Comment on above: Performed By: #### L RITA, CMP #### [facility] [address] [place] [address] Dr. Janee Ordaz ALT [Catalytic activity/Vol] 17 U/L Normal 16-63 [facility] Comment on above: Performed By: #### L , CMP #### [facility] [address] [place] [address] Dr. Janee Ordaz Anion gap [Moles/Vol] 14.2 mmol/L Normal [facility] Comment on above: Performed By: #### L , CMP #### [facility] [address] [place] [address] Dr. Janee Ordaz AST [Catalytic activity/Vol] 15 U/L Normal 15-37 [facility] Comment on above: Performed By: #### L RITA, CMP #### [facility] [address] [place] [address] Dr. Janee Ordaz Bilirubin [Mass/Vol] 0.4 mg/dL Normal 0.2-1.0 [facility] Comment on above: Performed By: #### L , CMP #### [facility] [address] [place] [address] Dr. Janee Ordaz Calcium [Mass/Vol] 9.3 mg/dL Normal 8.5-10.1 [facility] Comment on above: Performed By: #### L RITA, CMP #### [facility] [address] [place] [address] Dr. Janee Ordaz Chloride [Moles/Vol] 103 mmol/L Normal 98-107 [facility] Comment on above: Performed By: #### L DH, CMP #### [facility] [address] [place] [address] Dr. Janee Ordaz CO2 [Moles/Vol] 28.8 mmol/L Normal 21.0-32.0 [facility] Comment on above: Performed By: #### L DH, CMP #### [facility] [address] [place] [address] Dr. Janee Ordaz Creatinine [Mass/Vol] 0.91 mg/dL Normal 0.70-1.30 [facility] Comment on above: Performed By: #### L DH, CMP #### [facility] [address] [place] [address] Dr. Janee Ordaz EGFR-AF CAMBODIAN >60 Normal >=60 [facility] Comment on above: Performed By: #### L DH, CMP #### [facility] [address] [place] [address] Dr. Janee Ordaz EGFR-NON AF CAMBODIAN >60 Normal >=60 [facility] Comment on above: Performed By: #### L DH, CMP #### [facility] [address] [place] [address] Dr. Janee Ordaz Globulin (S) [Mass/Vol] 3.4 g/dL Normal [facility] Comment on above: Performed By: #### L DH, CMP #### [facility] [address] [place] [address] Dr. Janee Ordaz Glucose [Mass/Vol] 55 mg/dL Critically low 74-106 [facility] Comment on above: Performed By: #### L DH, CMP #### [facility] [address] [place] [address] Dr. Janee Ordaz Potassium [Moles/Vol] 4.0 mmol/L Normal 3.5-5.1 [facility] Comment on above: Performed By: #### L DH, CMP #### [facility] [address] [place] [address] Dr. Janee Ordaz Protein [Mass/Vol] 7.9 g/dL Normal 6.4-8.2 [facility] Comment on above: Performed By: #### L DH, CMP #### [facility] [address] [address] [address] Janee Ordaz Sodium [Moles/Vol] 142 mmol/L Normal 136-145 [facility] Comment on above: Performed By: #### L DH, CMP #### [facility] [address] [address] [address] Janee Ordaz Urea nitrogen [Mass/Vol] 16.0 mg/dL Normal 6.4-19.3 [facility] Comment on above: Performed By: #### L DH, CMP #### [facility] [address] [address] [address] Janee Ordaz Urea nitrogen/Creatinine [Mass ratio] 17.6 mg/mg Normal [facility] Comment on above: Performed By: #### L DH, CMP #### [facility] [address] [address] [address] Janee Ordaz Pathology Noteon 02-01-2022 Pathology Note [id number]:127 Normal [facility] Consultation Noteon 01-31-20 Consultation Note [id number]:127 Normal [facility] CNOVSPon 01-29-2022 CNOVS Visit (SP) Office ([facility]) -- OMAIRA COHEN ([id number]) 1 M Date Time Provider Department 01/29/22 1:30 PM RANDY BROWN During your visit today, we recorded the following information about you: Temperature Pulse Respiration Blood pressure 97.1 degrees 64/minute 16/minute 133/62 Weight Height 84.8 kg 1.905 m Randy Brown MD 01/30/2022 6:53 AM Signed PATIENT NAME: Omaira Cohen DATE: 01/29/2022 PRIMARY CARE PHYSICIAN: RYANN Jane OTHER PHYSICIANS: Dr. Donato Portions of this encounter note have been copied from my note from 01/01/2022 and has been updated where appropriate, and reflect my current medical decision making from today. CC: This is an 16 year old male with recently diagnosed testicular cancer, referred for further management. 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 Since the patient's last visit here he has had no significant medical changes, and currently feels well. He has recovered from surgery. No genitourinary abnormalities or complaints. MEDICATIONS: No current outpatient medications on file. No current facility-administered medications for this visit. ALLERGIES: ALLERGIES Allergen Reactions Amoxicillin Hives PAST MEDICAL HISTORY: PAST MEDICAL HISTORY Diagnosis Date Testicular cancer (HCC) 12/2021 PAST SURGICAL HISTORY: No past surgical history on file. FAMILY HISTORY: No family history on file. SOCIAL HISTORY: Social History Tobacco Use Smoking status: Never Passive exposure: Past Smokeless tobacco: Never Substance Use Topics Alcohol use: Not Currently Drug use: Never COMPLETE REVIEW OF SYSTEMS: CONSTITUTION: Negative for pain, fatigue, weight loss, or appetite loss. EENT: Negative for mouth soreness, antibiotics use, epistaxis, visual problems, neck or facial swelling, fever/chills, bleeding gums, or hearing loss. CV: Negative for edema, calf swelling, palpitations, or chest pain. RESPIRATORY: Negative for cough, SOB, hemoptysis, or wheezing. GI: Negative for nausea/vomiting, heartburn, vomiting blood, dysphasia, diarrhea, blood in stool, constipation, early satiety, PICA, vegetarian, poor nutrition, abdominal fullness, or abdominal pain. NEUROLOGICAL: Negative for numbness/tingling, dizziness, gait disturbance, headache, speech disturbance, tremor, hemiparesis/sensory loss, or change in mental status. MUSCULOSKELETAL: Negative for joint pain, joint swelling, or proximal muscle weakness. SKIN: Negative for hair loss, bruising, nail changes, rash, itching, pallor, or jaundice. ENDO/URO: Negative for hot flashes, cold or heat intolerance, urinary frequency, urinary hesitancy, menorrhagia, or hematuria. PSYCH: Negative for anxiety, depression, or other. PHYSICAL EXAM: BP 133/62 Pulse 64 Temp 36.2 ?C (97.1 ?F) (Temporal) Resp 16 Ht 190.5 cm (6' 3 ) Wt 84.8 kg (187 lb) SpO2 100% BMI 23.37 kg/m? GENERAL EXAM: Well developed/well nourished; in no acute distress. SKIN: Negative for lesions, rashes, or ulcers on the upper and lower extremities and face. Negative for palpations/nodules, purpura, and ecchymosis. EENT: Negative for conjunctiva, mucosal pallor, JVD, LAP, thyromegaly, and glossitis. Supple AND PERRL. EXTREMITIES: Negative for cyanosis, clubbing, and crepitus. LUNGS: Negative to auscultation, respiratory effort, and percussion. CARDIOVASCULAR: Regular rate. Negative for murmurs/S3S4/abnormal sounds, edema, and carotid bruits. ABDOMEN: Negative for masses, hernia, and spleen/liver abnormalities. RECTAL: Not done PSYCHIATRIC: Negative for mood/affect changes, recent AND remote memory changes, and judgement and insight. NEUROLOGICAL: Alert, oriented x person, place, time. Cranial nerves 2-12 intact. Sensory for pain, light touch, vibration intact on all 4 extremities. Reflexes symmetric for biceps/brachioradial/mallory la/achilles. MUSCULOSKELETAL: Negative examination of joints, bones, muscles/tendons of all four extremities for inspection, percussion, and palpation. Negative for misallignment, asymmetry, crepitation, tenderness, mass, effusions. Range of motion normal. Negative for joint instability, laxity, dislocation. Gait steady. Negative for swelling, erythema, tenderness, soft tissue swelling, and atrophy. 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 The scar area measures 1.3 cm in greatest dimension. It is limited to the testis. Germ cell neoplasia in situ. Epididymis and spermatic cord with no significant pathological findings. LABS: 12/11/2021: CMP and CBC within normal limits AFP hCG LDH 12/11/2021 2.4 <1 164 RADIOLOGY/OTHER STUDIES: (more content not included)... Normal [facility] Ambulatory Visit Summaryon 1 Ambulatory Visit Summary OMAIRA ZAVALA :2005 Visit Date:11/06/2021 Ambulatory Visit Instructions Your Care Team Primary Care Physician - BRITTANY JORDAN Performed Orchiectomy (12/20/2021). What to do next Scheduled Follow-Up Appointments Friday 8:30 AM EST With: Marcos DONATO MD Where: [facility] Patient Educationon 01-26-20 22 Patient Education Oncology Testicular Cancer Testicular cancer is the presence of a cancerous (malignant) tumor in one or both of the male sex glands that produce testosterone and sperm (testicles). A tumor is an abnormal growth of cells and tissue. Testicular cancer is the most common cancer in men 20?45 years old. What are the causes? The cause of this condition is not known. What increases the risk? The following factors may make you more likely to develop this condition: ? Having had an undescended testicle. ? Having had abnormal development of the testicles. ? Having had testicular cancer in the past. ? Having a family history of testicular cancer, especially a father or brother. ? Having Klinefelter syndrome. This is a condition in which a male child shows some female characteristics. ? Being white. ? Having HIV infection. What are the signs or symptoms? Symptoms of this condition include: ? Swelling of the scrotum. ? A change in how your testicle feel. ? A painless bump or swelling in the testicle. ? Dull ache in the lower abdomen. ? Pain or discomfort in the testicles or scrotum. ? Sudden buildup of fluid in the scrotum. ? Growth of breast tissue. The breast area may feel painful or sore. Advanced symptoms of the condition include: ? Lower back pain. ? Shortness of breath. ? Chest pain. ? A cough. ? Abdominal pain. ? Headache. ? Feeling confused. How is this diagnosed? This condition is diagnosed based on your medical history and a physical exam, which will include checking your testicles for lumps, swelling, or pain. You may also have tests done, including: ? Testicle ultrasonogram. ? A blood test that looks for substances that are linked to specific types of cancer (serum tumor marker test). ? A biopsy to remove the entire testicle in order to test it for cancer cells (radical inguinal orchiectomy and biopsy). ? Imaging tests such as a CT scan, MRI, or bone scan. If testicular cancer is confirmed, it will be staged to determine its severity and extent. Staging is an assessment of: ? The size of the tumor. ? Whether or not the cancer has spread. ? Where the cancer has spread. How is this treated? Once your cancer has been diagnosed and staged, you should discuss a treatment plan with your health care provider. Based on the stage of the cancer, one treatment or a combination of treatments may be recommended. The most common forms of treatment are: ? Surgery. ? Radiation therapy. ? Chemotherapy. ? High-dose chemotherapy followed by stem cell transplant. Certain treatments for testicular cancer can cause infertility, a condition that could become permanent. Talk to your health care provider about the risks of treatment and your options if you want to have children. Follow these instructions at home: ? Take [id number] and prescription medicines only as told by your health care provider. ? Maintain a healthy diet. Talk with your dietitian, or your health care provider, about what dietary choices are best for you. ? If you have to go to the hospital, let your cancer specialist know. ? Consider joining a support group. This may help you learn to cope with the stress of having testicular cancer. ? Seek advice to help you manage treatment side effects. ? Keep all follow-up visits as told by your health care provider. This is important. Contact a health care provider if: ? You have a dull ache in your lower abdomen or groin. ? You have a sudden buildup of fluid in your scrotum. ? You have new symptoms such as headache, abdominal pain, or lower back pain. Get help right away if: ? You have an increase in pain, discomfort, or swelling in your testicle or scrotum. ? You have a cough, shortness of breath, or chest pain. ? You feel confused. Summary ? Testicular cancer is the presence of a cancerous (malignant) tumor in one or both of the male sex glands that produce testosterone and sperm (testicles). ? Once your testicular cancer has been diagnosed and staged, you should discuss a treatment plan with your health care provider. ? Based on the stage of the cancer, one treatment or a combination of treatments may be recommended. The most common forms of treatment are: surgery, radiation therapy, chemotherapy, and high-dose chemotherapy followed by stem cell transplant. This information is not intended to replace advice given to you by your health care provider. Make sure you discuss any questions you have with your health care provider. Document Released: 02/28/2006 Document Revised: 07/29/2019 Document Reviewed: 07/04/2017 [facility] Patient Education ? [address] [facility] Provider Letteron 01-25-2022 Provider Letter (Inserted Image. Rosalva ble to display) January 25, 2022 OMAIRA ZAVALA [address] [address] OMAIRA ZAVALA 2005 To Whom It May Concern, Please excuse above patient from work. Date of illness: From: _ To: 02/01/22 May Return to Work On:02/04/2022 Restrictions: None Comments: Any questions, please call our office. Sincerely, [facility] [address] [facility], [place] [address] [facility] Urology Office/Clinic Noteon 01-25-2022 Urology Office/Clinic Note Chief Complaint 1 month PO HPI Staff Omaira is a 16 y/o male here for a 1 month f/u PO Orchiectomy. Previous DX; testicular cancer. Dysuria: _Denies Incomplete bladder emptying: _Denies Hematuria: _Denies Frequency: _Denies Urgency: _Denies Nocturia: _Denies Stream: _steady Leaking: _Denies Post void dripping: _Denies Wearing pads/ Depends: _Denies Urge incontinence: _Denies Stress incontinence: _Denies Incontinence without Sensory Awareness: _Denies Abdominal pain: _Denies Flank pain: _Denies Sexual complaints: _ History of Present Illness Tests reviewed: reviewed CT. I have reviewed the previous health record information and history for this patient from Dr. Donato. I have reviewed and verified the staff HPI to be accurate for this encounter. There have been no associated fever, chills, flank pain, or blood in the urine. Denies any urinary infections since last encounter. Review of Systems ROS - Provider Constitutional: denies weight loss, denies hot flashes. Eyes: denies eye problems. Gastrointestinal: denies nausea, denies vomiting. Cardiovascular: denies chest pain or angina. Integumentary: no dryness Musculoskeletal: denies musculoskeletal symptoms. ENMT: denies otolaryngeal symptoms. Respiratory: no shortness of breath. Heme/Lymph: denies easy bleeding tendency, denies easy bruising tendency. Psychiatric: no confusion, no anxiety. Genitourinary: denies dysuria, denies hematuria, denies discharge, denies urinary frequency, denies urinary hesitancy, denies nocturia, denies incontinence, denies genital sores, denies decreased libido, and denies erectile dysfunction. Physical Exam Vitals & Measurements HR: 61(Peripheral) BP: 123/67 HT: 74 in HT: 187 cm WT: 82.9 kg WT: 182.38 lb BMI: 23.71 General Appearance: alert, no distress, well nourished, well developed male. Genitourinary: normal scrotum, normal testes, normal urethra, normal epididymis, normal vas deferens/spermatic cord. Flank Pain: none. Bladder: nonpalpable. Assessment/Plan 1. Testicular cancer (C62.90: Malignant neoplasm of unspecified testis, unspecified whether descended or undescended) Scrotal US done 12/06/21 showed a left 1.4 cm hypoechoic vascular mass within inferior pole. S/p Left Orchiectomy 12/20/21. 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 Findings explained to patient in full detail. Sutures removed in office today without complications, steri-strips applied. CT chest & AP done 12/31/21 shows no evidence of metastatic disease, no suspicious findings. Consulted with Dr. Brown on 01/01/22, consultation note reviewed. Surgical specimen was sent to [facility] pathology for second opinion. Assuming the diagnosis of a regressed germ cell tumor is confirmed and labs remain negative standard of care would be routine follow-up. Pt to follow up with Dr. Brown next week (1 month). thereafter, he will get repeat tumor markers and ct tests. Follow up in 5 months and then annually from there. 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 Follow-up With When Contact Information MARIYA VICENTE, Marcos Ross, [address] [place] [address]- Additional Instructions: 5 months Patient Education Testicular Cancer I, Yusra Kahn, personally scribed for Dr. Donato on 01/25/2022 11:16:54. . Documentation recorded by the scribe, Yusra Kahn, accurately reflects the services(s) I performed and decisions made by me. Authenticated by Dr. Donato on 01/25/2022 11:19:45. Problem List/Past Medical History Ongoing Testicular cancer Testicular mass Historical No qualifying data Procedure/Surgical History Orchiectomy (12/20/2021). Medications No active medications Allergies amoxicillin (Hives) Social History Tobacco Never (less than 100 in lifetime) Tobacco Use:., 12/28/2021 Immunizations Vaccine Date Status meningococcal conjugate vaccine 10/14/2019 Recorded human papillomavirus vaccine 10/14/2019 Recorded human papillomavirus vaccine 10/12/2018 Recorded diphtheria/pertussis, acel/tetanus adult 02/15/2016 Recorded meningococcal conjugate vaccine 02/15/2016 Recorded influenza virus vaccine, H1N1, live 02/23/2009 Recorded varicella virus vaccine 01/10/2009 Recorded measles/mumps/rubella virus vaccine 01/10/2009 Recorded diphtheria/pertussis,acel/ tetanus/polio 01/10/2009 Recorded diphtheria/pertussis, acel/tetanus ped 12/28/2007 Recorded measles/mumps/rubella/vari jae vaccine 05/20/2006 Recorded haemophilus b conjugate (PRP-T) vaccine 04/24/2006 Recorded diphth/hepB/pertussis,acel /polio/tetanus 04/24/2006 Recorded haemophilus b conjugate (PRP-T) vaccine 2003 Recorded dip (more content not included)... [facility] Comment on above: Result Comment: Elec tronically Signed By: Marcos DONATO MD\.br\Date and Time Signed: 01/25/22 11:19 EDT\.br\Electronically Co-Signed By: Yusra Kahn\Date and Time Co-Signed: 01/25/22 11:17 EDT OUTSIDE SURG PATH SLIDE REVI Kristopher 01-09-2022 CASE REPORT Normal [facility] Comment on above: Order Comment: Speci men Type: SLIDE Ordering Facility: [facility] Address: ATTN: [place] [address] Result Comment: Surg ical Pathology Report Case: [id number] Authorizing Provider: Randy Brown MD Collected: 01/09/2022 11:02 AM Ordering Location: [facility] Main Received: 01/09/2022 11:00 AM Pathologist: Morteza Larios MD Specimen: SLIDE(S), 12 SLIDES; [id number] Performed By: #### L [id number] #### [facility] CLIA [id number] [address] [place] [address] DIAGNOSIS COMMENT 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 The slides are reviewed with Dr. Thorne who concurs. 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 - Epididymis with no significant pathologic findings. - Spermatic cord with no significant pathologic findings. LEXIS/vipin 01/10/2022 Performed By: #### L [id number] #### [facility] CLIA [id number] [address] [place] [address] [place] FINAL PERFORMING LAB Normal [facility] Comment on above: Order Comment: Speci men Type: SLIDE Ordering Facility: [facility] Address: ATTN: [facility]ESSION[facility] DEPT, [place] [address] Result Comment: Diag nostic interpretation performed at [facility], [address] [place] [address] CLIA# [id number] Barrel Loader And Cleaner: Nilton Rubin M.D. Performed By: #### L [id number] #### [facility] CLIA [id number] [address] [place] [address] [place] Consultation Noteon 01-03-20 22 Consultation Note [id number]:127 Normal [facility] RAD - CT Reporton 01-02-2022 RAD - CT Report [id number]:127 Normal [facility] RAD - CT Report [id number]:127 Normal [facility] RAD - CT Report [id number]:127 Normal [facility] AFP SerPl-mCncon 01-01-2022 AFP [Mass/Vol] 3.2 ng/mL Normal <11.0 [facility] Comment on above: Order Comment: Speci men Type: BLOOD SPECIMEN Ordering Facility: [facility] Address: [address] [place], [place] [address] Result Comment: Resu lt rechecked. The test is typically used as an aid in managing hepatocellular carcinoma and non-seminomatous testicular cancer when used in conjunction with physical examination, histology, and other clinical evaluation procedures. Normal levels of AFP do not entirely exclude the possibility of the above-mentioned conditions, other malignancies, and chronic liver diseases. The normal range has not been established for newborns. The Siemens Centaur XP is used. Results obtained with different assay methods or kits cannot be used interchangeably. Performed By: #### 1 834-1 #### [facility] CLIA [id number] [address] [place], [place] [address] BETA HCG QUANT TUMOR MARKERo n 01-01-2022 BETA HCG QUANT TUMOR MARKER <1 Normal 0-3 [facility] Comment on above: Order Comment: Speci men Type: BLOOD SPECIMEN Ordering Facility: [facility] Address: [address] [place] [address] Result Comment: INTE RPRETIVE INFORMATION: Beta hCG, Serum Quantitation Tumor Marker Human chorionic gonadotropin (hCG) is a valuable aid in the management of patients with trophoblastic tumors, nonseminomatous testicular tumors and seminomas when used in conjunction with information available from the clinical evaluation and other diagnostic procedures. Increased serum HCG concentrations have also been observed in melanoma, carcinomas of the breast, gastrointestinal tract, lung, and ovaries, and in benign conditions, including cirrhosis, duodenal ulcer, and inflammatory bowel disease. This result cannot be interpreted as absolute evidence of the presence or absence of malignant disease. This result is not interpretable as a tumor marker in females. The combination of the specific monoclonal antibodies used in the Jody Beta HCG electrochemiluminescent immunoassay recognize the holo-hormone, nicked forms of hCG, the beta-core fragment, and the free beta-subunit. Results obtained with different test methods or kits cannot be used interchangeably. Although this assay is FDA cleared for use in the detection of , it is not labeled for use as a tumor marker. Access complete set of age- and/or gender-specific reference intervals for this test in the [facility] Test Directory (ItsOn). This test was developed and its performance characteristics determined by [facility]. It has not been cleared or approved by the US Food and Drug Administration. This test was performed in a CLIA certified laboratory and is intended for clinical purposes. Performed By: [facility] [address] [place] [address] Barrel Loader And Cleaner: Morteza Kay MD, PhD Performed By: #### B HCG #### [facility] CLIA [id number] [address] [place] [address] CBC W Auto Differential pane l (Bld)on 01-01-2022 Basophils (Bld) [#/Vol] 0.03 10*3/uL Normal <0.11 [facility] Comment on above: Order Comment: Speci men Type: BLOOD SPECIMEN Ordering Facility: [facility] Address: [address] [place] [place] [address] Performed By: #### 5 7021-8 #### [facility] CLIA [id number] [address] [place] [address] Basophils/100 WBC (Bld) 0.3 % Normal [facility] Comment on above: Order Comment: Speci men Type: BLOOD SPECIMEN Ordering Facility: [facility] Address: [address] [place] [address] Performed By: #### 5 7021-8 #### [facility] CLIA [id number] [address] [place] [address] Differential cell count method Nom (Bld) Auto Normal [facility] Comment on above: Order Comment: Speci men Type: BLOOD SPECIMEN Ordering Facility: [facility] Address: [address] [place] [address] Performed By: #### 5 7021-8 #### [facility] CLIA [id number] [address] [place] [address] Eosinophils (Bld) [#/Vol] 0.51 10*3/uL High <0.46 [facility] Comment on above: Order Comment: Speci men Type: BLOOD SPECIMEN Ordering Facility: [facility] Address: [address] [place] [address] Performed By: #### 5 7021-8 #### [facility] CLIA [id number] [address] [place] [address] Eosinophils/100 WBC (Bld) 5.4 % Normal [facility] Comment on above: Order Comment: Speci men Type: BLOOD SPECIMEN Ordering Facility: [facility] Address: [address] [place] [address] Performed By: #### 5 7021-8 #### [facility] CLIA [id number] [address] [place] [address] Erythrocyte distribution width (RBC) [Ratio] 12.3 % Normal 11.5-15.0 [facility] Comment on above: Order Comment: Speci men Type: BLOOD SPECIMEN Ordering Facility: [facility] Address: [address] [place] [address] Performed By: #### 5 7021-8 #### [facility] CLIA [id number] [address] [place] [address] Hematocrit (Bld) [Volume fraction] 42.8 % Normal 39.0-51.0 [facility] Comment on above: Order Comment: Speci men Type: BLOOD SPECIMEN Ordering Facility: [facility] Address: [address] [place] [address] Performed By: #### 5 7021-8 #### [facility] CLIA [id number] [address] [place] [address] Hemoglobin (Bld) [Mass/Vol] 14.4 g/dL Normal 13.0-17.0 [facility] Comment on above: Order Comment: Speci men Type: BLOOD SPECIMEN Ordering Facility: [facility] Address: [address] [place] [address] Performed By: #### 5 7021-8 #### [facility] CLIA [id number] [address] [place] [address] IMMATURE GRAN % 0.5 % Normal [facility] Comment on above: Order Comment: Speci men Type: BLOOD SPECIMEN Ordering Facility: [facility] Address: [address] [place] [address] Performed By: #### 5 7021-8 #### [facility] CLIA [id number] [address] [place] [address] IMMATURE GRAN ABS 0.05 k/uL Normal <0.10 [facility] Comment on above: Order Comment: Speci men Type: BLOOD SPECIMEN Ordering Facility: [facility] Address: [address] [place] [address] Performed By: #### 5 7021-8 #### [facility] CLIA [id number] [address] [place] [address] Lymphocytes (Bld) [#/Vol] 1.80 10*3/uL Normal 1.00-4.00 [facility] Comment on above: Order Comment: Speci men Type: BLOOD SPECIMEN Ordering Facility: [facility] Address: [address] [place] [address] Performed By: #### 5 7021-8 #### [facility] CLIA [id number] [address] [place] [address] Lymphocytes/100 WBC (Bld) 18.9 % Normal [facility] Comment on above: Order Comment: Speci men Type: BLOOD SPECIMEN Ordering Facility: [facility] Address: [address] [place] [address] Performed By: #### 5 7021-8 #### [facility] CLIA [id number] [address] [place] [address] MCH (RBC) [Entitic mass] 28.8 pg Normal 26.0-34.0 [facility] Comment on above: Order Comment: Speci men Type: BLOOD SPECIMEN Ordering Facility: [facility] Address: [address] [place], [place] [address] Performed By: #### 5 7021-8 #### [facility] CLIA [id number] [address] [place] [address] MCHC (RBC) [Mass/Vol] 33.6 g/dL Normal 30.5-36.0 [facility] Comment on above: Order Comment: Speci men Type: BLOOD SPECIMEN Ordering Facility: [facility] Address: [address] [place], [place] [address] Performed By: #### 5 7021-8 #### [facility] CLIA [id number] [address] [place] [address] MCV (RBC) [Entitic vol] 85.6 fL Normal 80.0-100.0 [facility] Comment on above: Order Comment: Speci men Type: BLOOD SPECIMEN Ordering Facility: [facility] Address: [address] [place] [address] Performed By: #### 5 7021-8 #### [facility] CLIA [id number] [address] [place] [address] Monocytes (Bld) [#/Vol] 0.87 10*3/uL High <0.87 [facility] Comment on above: Order Comment: Speci men Type: BLOOD SPECIMEN Ordering Facility: [facility] Address: [address] [place] [address] Performed By: #### 5 7021-8 #### [facility] CLIA [id number] [address] [place] [address] Monocytes/100 WBC (Bld) 9.2 % Normal [facility] Comment on above: Order Comment: Speci men Type: BLOOD SPECIMEN Ordering Facility: [facility] Address: [address] [place] [address] Performed By: #### 5 7021-8 #### [facility] CLIA [id number] [address] [place] [address] Neutrophils (Bld) [#/Vol] 6.24 10*3/uL Normal 1.45-7.50 [facility] Comment on above: Order Comment: Speci men Type: BLOOD SPECIMEN Ordering Facility: [facility] Address: [address] [place], [place] [address] Performed By: #### 5 7021-8 #### [facility] CLIA [id number] [address] [place] [address] Neutrophils/100 WBC (Bld) 65.7 % Normal [facility] Comment on above: Order Comment: Speci men Type: BLOOD SPECIMEN Ordering Facility: [facility] Address: [address] Performed By: #### 5 7021-8 #### [facility] CLIA [id number] [address] [place] [address] Nucleated RBC (Bld) [#/Vol] 10*3/uL Normal <0.01 [facility] Comment on above: Order Comment: Speci men Type: BLOOD SPECIMEN Ordering Facility: [facility] Address: [address] [place], [place] [address] Performed By: #### 5 7021-8 #### [facility] CLIA [id number] [address] [place] [address] Nucleated RBC/100 WBC (Bld) [Ratio] 0.0 /100 WBC Normal [facility] Comment on above: Order Comment: Speci men Type: BLOOD SPECIMEN Ordering Facility: [facility] Address: [address] [place], [place] [address] Performed By: #### 5 7021-8 #### [facility] CLIA [id number] [address] [place] [address] Platelet mean volume (Bld) [Entitic vol] 9.8 fL Normal 9.0-12.7 [facility] Comment on above: Order Comment: Speci men Type: BLOOD SPECIMEN Ordering Facility: [facility] Address: [address] [place], [place] [address] Performed By: #### 5 7021-8 #### [facility] CLIA [id number] [address] [place] [address] Platelets (Bld) [#/Vol] 202 10*3/uL Normal 150-400 [facility] Comment on above: Order Comment: Speci men Type: BLOOD SPECIMEN Ordering Facility: [facility] Address: [address] [place], [place] [address] Performed By: #### 5 7021-8 #### [facility] CLIA [id number] [address] [place] [address] RBC (Bld) [#/Vol] 5.00 10*6/uL Normal 4.20-6.00 [facility] Comment on above: Order Comment: Speci men Type: BLOOD SPECIMEN Ordering Facility: [facility] Address: [address] [place] [address] Performed By: #### 5 7021-8 #### [facility] CLIA [id number] [address] [place] [address] WBC (Bld) [#/Vol] 9.50 10*3/uL Normal 3.70-11.00 [facility] Comment on above: Order Comment: Speci men Type: BLOOD SPECIMEN Ordering Facility: [facility] Address: [address] [place] [address] Performed By: #### 5 7021-8 #### [facility] CLIA [id number] [address] [place], [place] [address] Abs Immature Gran 0.05 k/uL <0.10 k/uL [facility] Basophils (Bld) [#/Vol] 0.03 10*3/uL <0.11 k/uL [facility] Basophils/100 WBC (Bld) 0.3 % [facility] Differential cell count method Nom (Bld) Auto [facility] Eosinophils (Bld) [#/Vol] 0.51 10*3/uL High <0.46 k/uL [facility] Eosinophils/100 WBC (Bld) 5.4 % [facility] Erythrocyte distribution width (RBC) [Ratio] 12.3 % 11.5 - 15.0 % [facility] Hematocrit (Bld) [Volume fraction] 42.8 % 39.0 - 51.0 % [facility] Hemoglobin (Bld) [Mass/Vol] 14.4 g/dL 13.0 - 17.0 g/dL [facility] Immature Gran % 0.5 % [facility] Lymphocytes (Bld) [#/Vol] 1.80 10*3/uL 1.00 - 4.00 k/uL [facility] Lymphocytes/100 WBC (Bld) 18.9 % [facility] MCH (RBC) [Entitic mass] 28.8 pg 26.0 - 34.0 pg [facility] MCHC (RBC) [Mass/Vol] 33.6 g/dL 30.5 - 36.0 g/dL [facility] MCV (RBC) [Entitic vol] 85.6 fL 80.0 - 100.0 fL [facility] Monocytes (Bld) [#/Vol] 0.87 10*3/uL High <0.87 k/uL [facility] Monocytes/100 WBC (Bld) 9.2 % [facility] Neutrophils (Bld) [#/Vol] 6.24 10*3/uL 1.45 - 7.50 k/uL [facility] Neutrophils/100 WBC (Bld) 65.7 % [facility] Nucleated RBC (Bld) [#/Vol] <0.01 k/uL [facility] Nucleated RBC/100 WBC (Bld) [Ratio] 0.0 /100 WBC [facility] Platelet mean volume (Bld) [Entitic vol] 9.8 fL 9.0 - 12.7 fL [facility] Platelets (Bld) [#/Vol] 202 10*3/uL 150 - 400 k/uL [facility] RBC (Bld) [#/Vol] 5.00 10*6/uL 4.20 - 6.0 0 m/uL [facility] WBC (Bld) [#/Vol] 9.50 10*3/uL 3.70 - 11.00 k/uL [facility] CNOVSPon 01-01-2022 CNOVSP Visit (SP) Office ([facility]) -- OMAIRA COHEN ([id number]) 1 M Date Time Provider Department 01/01/22 11:00 AM RANDY BROWN During your visit today, we recorded the following information about you: Temperature Pulse Respiration Blood pressure 98.1 degrees 56/minute 16/minute 128/62 Weight Height 81.5 kg 1.905 m Randy Brown MD 01/02/2022 9:04 AM Signed PATIENT NAME: Omaira Cohen DATE: 01/01/2022 PRIMARY CARE PHYSICIAN: RYANN Jane OTHER PHYSICIANS: Dr. Donato HPI: This is an 16 year old male with recently diagnosed testicular cancer, referred for further management. The patient has no significant past medical history. He presented in October 2021 with a left scrotal mass. He was given a trial of antibiotics with doxycycline with no improvement. Scrotal ultrasound 12/05/2021 confirmed a 1.4 cm mass involving the left testicle. Subsequently the patient underwent a radical left orchiectomy on 12/20/2021. 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 The scar area measures 1.3 cm in greatest dimension and was limited to the testis. Also seen was germ cell neoplasia in situ. The patient has recovered from surgery, and currently feels back to baseline. He has no past medical history and currently takes no medications. He does not smoke or drink. Family history is negative. 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 MEDICATIONS: No current outpatient medications on file. No current facility-administered medications for this visit. ALLERGIES: ALLERGIES Allergen Reactions Amoxicillin Hives PAST MEDICAL HISTORY: PAST MEDICAL HISTORY Diagnosis Date Testicular cancer (HCC) 12/2021 PAST SURGICAL HISTORY: No past surgical history on file. FAMILY HISTORY: No family history on file. SOCIAL HISTORY: COMPLETE REVIEW OF SYSTEMS: CONSTITUTION: Negative for pain, fatigue, weight loss, or appetite loss. EENT: Negative for mouth soreness, antibiotics use, epistaxis, visual problems, neck or facial swelling, fever/chills, bleeding gums, or hearing loss. CV: Negative for edema, calf swelling, palpitations, or chest pain. RESPIRATORY: Negative for cough, SOB, hemoptysis, or wheezing. GI: Negative for nausea/vomiting, heartburn, vomiting blood, dysphasia, diarrhea, blood in stool, constipation, early satiety, PICA, vegetarian, poor nutrition, abdominal fullness, or abdominal pain. NEUROLOGICAL: Negative for numbness/tingling, dizziness, gait disturbance, headache, speech disturbance, tremor, hemiparesis/sensory loss, or change in mental status. MUSCULOSKELETAL: Negative for joint pain, joint swelling, or proximal muscle weakness. SKIN: Negative for hair loss, bruising, nail changes, rash, itching, pallor, or jaundice. ENDO/URO: Negative for hot flashes, cold or heat intolerance, urinary frequency, urinary hesitancy, menorrhagia, or hematuria. PSYCH: Negative for anxiety, depression, or other. PHYSICAL EXAM: BP 128/62 Pulse (!) 56 Temp 36.7 ?C (98.1 ?F) (Temporal) Resp 16 Ht 190.5 cm (6' 3 ) Wt 81.5 kg (179 lb 9.6 oz) SpO2 98% BMI 22.45 kg/m? GENERAL EXAM: Well developed/well nourished; in no acute distress. SKIN: Negative for lesions, rashes, or ulcers on the upper and lower extremities and face. Negative for palpations/nodules, purpura, and ecchymosis. EENT: Negative for conjunctiva, mucosal pallor, JVD, LAP, thyromegaly, and glossitis. Supple AND PERRL. EXTREMITIES: Negative for cyanosis, clubbing, and crepitus. LUNGS: Negative to auscultation, respiratory effort, and percussion. CARDIOVASCULAR: Regular rate. Negative for murmurs/S3S4/abnormal sounds, edema, and carotid bruits. ABDOMEN: Negative for masses, hernia, and spleen/liver abnormalities. RECTAL: Not done PSYCHIATRIC: Negative for mood/affect changes, recent AND remote memory changes, and judgement and insight. NEUROLOGICAL: Alert, oriented x person, place, time. Cranial nerves 2-12 intact. Sensory for pain, light touch, vibration intact on all 4 extremities. Reflexes symmetric for biceps/brachioradial/mallory la/achilles. MUSCULOSKELETAL: Negative examination of joints, bones, muscles/tendons of all four extremities for inspection, percussion, and palpation. Negative for misallignment, asymmetry, crepitation, tenderness, mass, effusions. Range of motion normal. Negative for joint instability, laxity, dislocation. Gait steady. Negative for swelling, erythema, tenderness, soft tissue swelling, and atrophy. 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 The scar area measures 1.3 cm in greatest dimension. It is limited to the testis. Germ cell neoplasia in situ. Epididymis and spermatic cord with no significant (more content not included)... Normal [facility] CNPNon 01-01-2022 CNPN Telephone ([facility]) -- OMAIRA COHEN ([id number]) 1 M Date Time Provider Department 01/01/22 RANDY BROWN During your visit today, we recorded the following information about you: Sherry Haile 01/01/2022 12:49 PM Signed 2nd opinion pathology requested to be sent from [facility] to [facility] for review. Allergies As of Date: 01/01/2022 Noted Allergy Reaction AMOXICILLIN 12/31/2021 4 - Hives Date Reviewed: 12/31/2021 Reviewed by: Montse Pederson - Fully Assessed Reason for Visit: 2nd opinion pathology [Other] Problem List As Of Date: 01/01/2022 (None) Encounter Status:Closed by SHERRY ARAYA on 01/01/22 Normal [facility] Comprehensive metabolic 2000 panelon 01-01-2022 Albumin [Mass/Vol] 5.1 g/dL High 3.9-4.9 [facility] Comment on above: Order Comment: Speci men Type: BLOOD SPECIMEN Ordering Facility: [facility] Address: [address] [place] [address] Performed By: #### 2 4323-8, 2531-0 #### [facility] CLIA [id number] [address] [place] [address] ALP [Catalytic activity/Vol] 90 U/L Normal 55-149 [facility] Comment on above: Order Comment: Speci men Type: BLOOD SPECIMEN Ordering Facility: [facility] Address: [address] [place] [address] Performed By: #### 2 4323-, 2532-0 #### [facility] CLIA [id number] [address] [place] [address] ALT [Catalytic activity/Vol] 15 U/L Normal 10-54 [facility] Comment on above: Order Comment: Speci men Type: BLOOD SPECIMEN Ordering Facility: [facility] Address: [address] [place] [place] [address] Performed By: #### 2 4323-8, 2-0 #### [facility] CLIA [id number] [address] [place] [address] Anion gap [Moles/Vol] 10 mmol/L Normal 9-18 [facility] Comment on above: Order Comment: Speci men Type: BLOOD SPECIMEN Ordering Facility: [facility] Address: [address] [place] [address] Performed By: #### 2 4328, 2531-0 #### [facility] CLIA [id number] [address] [place] [address] AST [Catalytic activity/Vol] 18 U/L Normal 14-40 [facility] Comment on above: Order Comment: Speci men Type: BLOOD SPECIMEN Ordering Facility: [facility] Address: [address] [place] [address] Performed By: #### 2 4328, 2531-0 #### [facility] CLIA [id number] [address] [place] [address] Bilirubin [Mass/Vol] 0.4 mg/dL Normal 0.2-1.3 [facility] Comment on above: Order Comment: Speci men Type: BLOOD SPECIMEN Ordering Facility: [facility] Address: [address] [place] [address] Performed By: #### 2 4323-8, 2532-0 #### [facility] CLIA [id number] [address] [place] [address] Calcium [Mass/Vol] 10.4 mg/dL High 8.5-10.2 [facility] Comment on above: Order Comment: Speci men Type: BLOOD SPECIMEN Ordering Facility: [facility] Address: [address] Performed By: #### 2 4323-8, 2532-0 #### [facility] CLIA [id number] [address] [place] [address] Chloride [Moles/Vol] 100 mmol/L Normal 97-105 [facility] Comment on above: Order Comment: Speci men Type: BLOOD SPECIMEN Ordering Facility: [facility] Address: [address] Performed By: #### 2 4323-8, 2532-0 #### [facility] CLIA [id number] [address] [place] [address] CO2 [Moles/Vol] 28 mmol/L Normal 22-30 [facility] Comment on above: Order Comment: Speci men Type: BLOOD SPECIMEN Ordering Facility: [facility] Address: [address] [place] [address] Performed By: #### 2 4323-8, 2532-0 #### [facility] CLIA [id number] [address] [place] [address] Creatinine [Mass/Vol] 0.87 mg/dL Normal 0.73-1.22 [facility] Comment on above: Order Comment: Speci men Type: BLOOD SPECIMEN Ordering Facility: [facility] Address: [address] Performed By: #### 2 4323-8, 2532-0 #### [facility] CLIA [id number] [address] [place] [address] ESTIMATED GLOMERULAR FILTRATION RATE 128 mL/min/1.73m??? Normal >=60 [facility] Comment on above: Order Comment: Speci men Type: BLOOD SPECIMEN Ordering Facility: [facility] Address: [address] [place] [address] Result Comment: Nannette mated Glomerular Filtration Rate (eGFR) is calculated using the 2020 CKD-EPI creatinine equation. This equation utilizes serum creatinine, sex, and age as parameters. The creatinine assay has traceable calibration to isotope dilution-mass spectrometry. Refer to KDIGO guidelines for clinical interpretation. In patients with unstable renal function, e.g. those with acute kidney injury, the eGFR may not accurately reflect actual GFR. Performed By: #### 2 4323-8, 2531-0 #### [facility] CLIA [id number] [address] [place] [address]693 Glucose [Mass/Vol] 102 mg/dL High 74-99 [facility] Comment on above: Order Comment: Edwin mcmillan Type: BLOOD SPECIMEN Ordering Facility: [facility] Address: [address] [place] [place] [id number] Result Comment: The [place] Diabetes [employer] (ADA) provides guidance for cutoff values for fasting glucose and random glucose. The ADA defines fasting as no caloric intake for at least 8 hours. Fasting plasma glucose results between 100 to 125 mg/dL indicate increased risk for diabetes (prediabetes). Fasting plasma glucose results greater than or equal to 126 mg/dL meet the criteria for diagnosis of diabetes. In the absence of unequivocal hyperglycemia, results should be confirmed by repeat testing. In a patient with classic symptoms of hyperglycemia or hyperglycemic crisis, random plasma glucose results greater than or equal to 200 mg/dL meet the criteria for diagnosis of diabetes. Reference: Standards of Medical Care in Diabetes 2016, [place] [employer]. Diabetes Care. 2016.39(Suppl 1). Performed By: #### 2 4323-8, 2531-0 #### [facility] CLIA [id number] [address] [place] [address] Potassium [Moles/Vol] 4.4 mmol/L Normal 3.7-5.1 [facility] Comment on above: Order Comment: Edwin mcmillan Type: BLOOD SPECIMEN Ordering Facility: [facility] Address: [address] [place] [address] Performed By: #### 2 4323-8, 2531-0 #### [facility] CLIA [id number] [address] [place] [address] Protein [Mass/Vol] 7.5 g/dL Normal 6.3-8.0 [facility] Comment on above: Order Comment: Speci men Type: BLOOD SPECIMEN Ordering Facility: [facility] Address: [address] Performed By: #### 2 4323-8, 2531-0 #### [facility] CLIA [id number] [address] [place] [address] Sodium [Moles/Vol] 138 mmol/L Normal 136-144 [facility] Comment on above: Order Comment: Speci men Type: BLOOD SPECIMEN Ordering Facility: [facility] Address: [facility] [place] [address] Performed By: #### 2 4323-8, 2531-0 #### [facility] CLIA [id number] [address] [place] [address]27 Urea nitrogen [Mass/Vol] 17 mg/dL Normal 9-24 [facility] Comment on above: Order Comment: Speci men Type: BLOOD SPECIMEN Ordering Facility: [facility] Address: [facility] [place] [address] Performed By: #### 2 4323-8, 0 #### [facility] CLIA [id number] [address] [place] [address] Albumin [Mass/Vol] 5.1 g/dL High 3.9 - 4.9 g/dL [facility] ALP [Catalytic activity/Vol] 90 U/L 55 - 149 U/L [facility] ALT [Catalytic activity/Vol] 15 U/L 10 - 54 U/L [facility] Anion gap [Moles/Vol] 10 mmol/L 9 - 18 mmol/L [facility] AST [Catalytic activity/Vol] 18 U/L 14 - 40 U/L [facility] Bilirubin [Mass/Vol] 0.4 mg/dL 0.2 - 1 .3 mg/dL [facility] Calcium [Mass/Vol] 10.4 mg/dL High 8.5 - 10. 2 mg/dL [facility] Chloride [Moles/Vol] 100 mmol/L 97 - 10 5 mmol/L [facility] CO2 [Moles/Vol] 28 mmol/L 22 - 30 mmol/L [facility] Creatinine [Mass/Vol] 0.87 mg/dL 0.73 - 1.22 mg/dL [facility] Estimated Glomerular Filtration Rate 128 mL/min/1.73m >=60 mL/min/1.73 m [facility] Glucose [Mass/Vol] 102 mg/dL High 74 - 99 mg/dL [facility] Potassium [Moles/Vol] 4.4 mmol/L 3.7 - 5.1 mmol/L [facility] Protein [Mass/Vol] 7.5 g/dL 6.3 - 8.0 g/dL [facility] Sodium [Moles/Vol] 138 mmol/L 136 - 144 mmol/L [facility] Urea nitrogen [Mass/Vol] 17 mg/dL 9 - 24 mg/dL [facility] LD LACTATE DEHYDROon 022 LDH [Catalytic activity/Vol] 164 U/L 135 - 225 U/L [facility] LDH SerPl-cCncon 01-01-2022 LDH [Catalytic activity/Vol] 164 U/L Normal 135-225 [facility] Comment on above: Order Comment: Speci men Type: BLOOD SPECIMEN Ordering Facility: [facility] Address: [address] [place], [place] [id number] Result Comment: Hemo lysis present. The origin of the hemolysis, in vitro versus an in vivo hemolytic process, cannot be distinguished via this assay alone. In vitro hemolysis may lead to non-physiological (spurious) elevation in lactate dehydrogenase (LDH) results. The result should be interpreted in context of the clinical setting and other test results. Suggest reorder as clinically indicated. Performed By: #### 2 4323-8, 2532-0 #### [facility] CLIA [id number] [address] [place], [place] [address] CT CHEST W CONon 12-31-2021 CT CHEST W CON EXAMINATION: CT CHES T W CON, CT ABD/PELV W CON HISTORY: Primary malignant neoplasm of testis COMPARISON: Ultrasound scrotum 12/05/2021 TECHNIQUE: Axial, Coronal, and Sagittal CT images were obtained without and/or with IV contrast as indicated by examination type. Dose reduction techniques were achieved by using automated exposure control and/or adjustment of mA and/or kV according to patient size and/or use of iterative reconstruction technique. FINDINGS: LUNGS: No visible pulmonary disease. PLEURA: No mass or effusion. VASCULATURE: No visible pulmonary arterial thrombus or attenuation. DARIAN: No mass or adenopathy. MEDIASTINUM: No mass or adenopathy. CARDIAC: No enlargement, pericardial thickening, or pericardial effusion. CHEST WALL: No mass or axillary adenopathy. LIVER: No enlargement, atrophy, abnormal density, or significant focal lesion. BILIARY: No dilatation or calcification. PANCREAS: No lesion, fluid collection, ductal dilatation, or atrophy. SPLEEN: No enlargement or focal lesion. ADRENALS: No mass or enlargement. KIDNEYS: 6 mm left renal cyst. No mass, obstruction, or calcification. BOWEL/MESENTERY: No visible mass, obstruction, or bowel wall thickening. AORTA/VASCULAR: No aneurysm. RETROPERITONEUM: No mass or adenopathy. LYMPH NODES: No adenopathy. URINARY BLADDER: No visible focal wall thickening, lesion, or calculus. PELVIC ORGANS: No visible mass. Pelvic organs appropriate for patient age. ABDOMINAL WALL: No mass or hernia. BONES: No bony lesion or fracture. OTHER: Negative. IMPRESSION: 1. No evidence of metastatic disease. 2. No suspicious findings. Electronically authenticated by: GERRY ALDANA Date: 2021-12-31 13:31 Normal [facility] Pathology Noteon 12-31-2021 Pathology Note [id number] Normal [facility] Ambulatory Visit Summaryon 0 12-28-2021 Ambulatory Visit Summary OMAIRA ZAVALA :2005 Visit Date:12/28/2021 Ambulatory Visit Instructions Your Diagnosis Testicular cancer Tests Performed CT Abdomen/Pelvis w/ Contrast -- Results Pending -- CT Chest w/ Contrast -- Results Pending -- Please visit your patient portal for your results or contact your primary care physician. Your Care Team Attending Physician - Marcos DONATO MD Primary Care Physician - BRITTANY JORDAN Discharge Vitals Heart Rate (Peripheral) 69 Respiratory Rate 16 Blood Pressure 125/68 Height 187.0 cm Height 187 cm Weight 72.0 kg Weight 72 kg BMI 20.59 What to do next You Need to Schedule the Following Appointments Follow Up with MARIYA VICENTE, BERNARDO Hines When: Where: [facility] [place] [address]- Someone Will Contact You Regarding These Appointments [facility] Ambulatory Referral, Oncology, [facility] oncology for testicular cancer, 12/28/21 9:36:00 EDT Allergies amoxicillin (Hives) Problems Ongoing - Any problem that you are currently receiving treatment for. Testicular cancer Testicular mass Education Materials Orchiectomy An orchiectomy is the removal of one or both testicles. It is most often done to treat cancer of the prostate or testicles. It may be done in men with breast cancer, or to prevent cancer in men whose testicles did not develop normally. An orchiectomy may also be needed when an injury to a testicle cannot be repaired. The testicles can be replaced with artificial testicles (prosthesis). Tell a health care provider about: ? Any allergies you have. ? All medicines you are taking, including vitamins, herbs, eye drops, creams, and dnij-tws-knehfsq medicines. ? Any problems you or family members have had with anesthetic medicines. ? Any blood disorders you have. ? Any surgeries you have had. ? Any medical conditions you have. What are the risks? ? Infection of the surgical site. ? Bleeding inside the sac that holds the testicles (scrotum). This is called a scrotal hematoma. ? Discharge from the surgical site. What happens before the procedure? Staying hydrated Follow instructions from your health care provider about hydration, which may include: ? Up to 2 hours before the procedure ? you may continue to drink clear liquids, such as water, clear fruit juice, black coffee, and plain tea. Eating and drinking restrictions Follow instructions from your health care provider about eating and drinking, which may include: ? 8 hours before the procedure ? stop eating heavy meals or foods such as meat, fried foods, or fatty foods. ? 6 hours before the procedure ? stop eating light meals or foods, such as toast or cereal. ? 6 hours before the procedure ? stop drinking milk or drinks that contain milk. ? 2 hours before the procedure ? stop drinking clear liquids. General instructions ? Ask your health care provider about: ? Changing or stopping your regular medicines. This is especially important if you are taking diabetes medicines or blood thinners. ? Taking medicines such as aspirin and ibuprofen. These medicines can thin your blood. Do not take these medicines before your procedure if your health care provider instructs you not to. ? You may be given an oral antibiotic medicine. Ask your health care provider about taking this medicine with a sip of water on the morning of the procedure. ? You may be asked to wash your genital area with germ-killing soap the morning of your procedure. ? Plan to have someone take you home from the hospital or clinic. What happens during the procedure? ? To reduce your risk of infection: ? Your health care team will wash or sanitize their hands. ? Your skin will be washed with soap. ? Hair may be removed from the surgical area. ? An IV tube will be inserted into one of your veins. You will be given one or more of the following: ? A medicine to help you relax (sedative). ? A medicine to numb the area (local anesthetic). ? A medicine to make you fall asleep (general anesthetic). ? This procedure may involve removal of one or both testicles. The steps for the procedure will depend on the reason for the procedure. ? If your procedure is for treatment of prostate cancer: ? A cut (incision) will be made in the scrotum. ? The testicle will be removed through the incision in the scrotum. ? A prosthetic filled with saline may be inserted to fill the space in the scrotum where the testicle was removed. ? If your procedure is for treatment of testicular cancer: ? A cut (incision) will be made in the groin. ? The testicle and the spermatic cord will be removed through the groin incision. ? A prosthetic filled with saline may be inserted to fill the space in the scrotum where the testicle was removed. ? After the removal, the incision will b (more content not included)... Normal [facility] Patient Educationon 12-29-19 Patient Education Oncology Orchiectomy An orchiectomy is the removal of one or both testicles. It is most often done to treat cancer of the prostate or testicles. It may be done in men with breast cancer, or to prevent cancer in men whose testicles did not develop normally. An orchiectomy may also be needed when an injury to a testicle cannot be repaired. The testicles can be replaced with artificial testicles (prosthesis). Tell a health care provider about: ? Any allergies you have. ? All medicines you are taking, including vitamins, herbs, eye drops, creams, and taga-gdx-fuukrrs medicines. ? Any problems you or family members have had with anesthetic medicines. ? Any blood disorders you have. ? Any surgeries you have had. ? Any medical conditions you have. What are the risks? ? Infection of the surgical site. ? Bleeding inside the sac that holds the testicles (scrotum). This is called a scrotal hematoma. ? Discharge from the surgical site. What happens before the procedure? Staying hydrated Follow instructions from your health care provider about hydration, which may include: ? Up to 2 hours before the procedure ? you may continue to drink clear liquids, such as water, clear fruit juice, black coffee, and plain tea. Eating and drinking restrictions Follow instructions from your health care provider about eating and drinking, which may include: ? 8 hours before the procedure ? stop eating heavy meals or foods such as meat, fried foods, or fatty foods. ? 6 hours before the procedure ? stop eating light meals or foods, such as toast or cereal. ? 6 hours before the procedure ? stop drinking milk or drinks that contain milk. ? 2 hours before the procedure ? stop drinking clear liquids. General instructions ? Ask your health care provider about: ? Changing or stopping your regular medicines. This is especially important if you are taking diabetes medicines or blood thinners. ? Taking medicines such as aspirin and ibuprofen. These medicines can thin your blood. Do not take these medicines before your procedure if your health care provider instructs you not to. ? You may be given an oral antibiotic medicine. Ask your health care provider about taking this medicine with a sip of water on the morning of the procedure. ? You may be asked to wash your genital area with germ-killing soap the morning of your procedure. ? Plan to have someone take you home from the hospital or clinic. What happens during the procedure? ? To reduce your risk of infection: ? Your health care team will wash or sanitize their hands. ? Your skin will be washed with soap. ? Hair may be removed from the surgical area. ? An IV tube will be inserted into one of your veins. You will be given one or more of the following: ? A medicine to help you relax (sedative). ? A medicine to numb the area (local anesthetic). ? A medicine to make you fall asleep (general anesthetic). ? This procedure may involve removal of one or both testicles. The steps for the procedure will depend on the reason for the procedure. ? If your procedure is for treatment of prostate cancer: ? A cut (incision) will be made in the scrotum. ? The testicle will be removed through the incision in the scrotum. ? A prosthetic filled with saline may be inserted to fill the space in the scrotum where the testicle was removed. ? If your procedure is for treatment of testicular cancer: ? A cut (incision) will be made in the groin. ? The testicle and the spermatic cord will be removed through the groin incision. ? A prosthetic filled with saline may be inserted to fill the space in the scrotum where the testicle was removed. ? After the removal, the incision will be closed with stitches (sutures), skin glue, or adhesive strips. ? A sterile bandage (dressing) will be applied to the incision site. The procedure may vary among health care providers and hospitals. What happens after the procedure? ? Your blood pressure, heart rate, breathing rate, and blood oxygen level will be monitored until the medicines you were given have worn off. ? Once you are awake, stable, and taking fluids well, without other problems, you will be allowed to go home. ? You may have scrotal support. If the scrotal support irritates your incision site, you may remove the support. ? You will have a sterile dressing. It is okay if the dressing comes off, especially at night. Air will help a scab to form, which will eliminate the need for dressings during the day. ? Do not drive for 24 hours if you were given a sedative. Summary ? Orchiectomy is a surgical procedure to remove one or both testicles. ? Orchiectomy is most often done to treat cancer of the prostate or testicles. ? A prosthetic filled with saline may be inserted to fill the space in the scrotum where the testicle was removed. This information is not intended to replace advice given to you by your health care provider (more content not included)... [facility] Urology Office/Clinic Noteon 12-28-2021 Urology Office/Clinic Note Chief Complaint PO orchiectomy HPI Staff Omaira is here today PO orchiectomy done on 12/20/21. 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 Previous DX: Testicular mass. Pt states he has been doing okay since the procedure, pt states he is still sore and has noticed some bruising. Dysuria: _Denies Incomplete bladder emptying: _Denies Hematuria: _Denies Frequency: _Denies Urgency: _Denies Nocturia: _Denies Stream: _steady Leaking: _Denies Post void dripping: _Denies Wearing pads/ Depends: _Denies Urge incontinence: _Denies Stress incontinence: _Denies Incontinence without Sensory Awareness: _Denies Abdominal pain: _Denies Flank pain: _Denies Sexual complaints: _ History of Present Illness Tests reviewed: reviewed path report. I have reviewed the previous health record information and history for this patient from Dr. Donato. I have reviewed and verified the staff HPI to be accurate for this encounter. There have been no associated fever, chills, flank pain, or blood in the urine. Denies any urinary infections since last encounter. Review of Systems ROS - Provider Constitutional: denies weight loss, denies hot flashes. Eyes: denies eye problems. Gastrointestinal: denies nausea, denies vomiting. Cardiovascular: denies chest pain or angina. Integumentary: no dryness Musculoskeletal: denies musculoskeletal symptoms. ENMT: denies otolaryngeal symptoms. Respiratory: no shortness of breath. Heme/Lymph: denies easy bleeding tendency, denies easy bruising tendency. Psychiatric: no confusion, no anxiety. Genitourinary: denies dysuria, denies hematuria, denies discharge, denies urinary frequency, denies urinary hesitancy, denies nocturia, denies incontinence, denies genital sores, denies decreased libido, and denies erectile dysfunction. Physical Exam Vitals & Measurements HR: 69(Peripheral) RR: 16 BP: 125/68 HT: 187.0 cm HT: 187 cm WT: 72.0 kg WT: 72 kg BMI: 20.59 General Appearance: alert, no distress, well nourished, well developed male. Genitourinary: normal scrotum, normal testes, normal urethra, normal epididymis, normal vas deferens/spermatic cord. Flank Pain: none. Bladder: nonpalpable. L inguinal incision looks great. maribeth removed and steris placed. Assessment/Plan 1. Testicular cancer (C62.90: Malignant neoplasm of unspecified testis, unspecified whether descended or undescended) Scrotal US done 12/06/21 showed a left 1.4 cm hypoechoic vascular mass within inferior pole. S/p Left Orchiectomy 12/20/21. 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 Findings explained to patient in full detail. Sutures removed in office today without complications, steri-strips applied. Will order CT chest & AP. Referral placed to [facility] oncology for a second opinion. Follow up in 1 month. Follow-up With When Contact Information MARIYA VICENTE, Marcos Ross, L [facility] [place] [id number]- Additional Instructions: 1 month Patient Education Orchiectomy I, Yusra Kahn, personally scribed for Dr. Donato on 12/28/2021 09:44:19. . Documentation recorded by the scribe, Yusra Kahn, accurately reflects the services(s) I performed and decisions made by me. Authenticated by Dr. Donato on 12/28/2021 09:46:29. Problem List/Past Medical History Ongoing Testicular cancer Testicular mass Historical No qualifying data Medications No active medications Allergies amoxicillin (Hives) Social History Tobacco Never (less than 100 in lifetime) Tobacco Use:., 12/28/2021 Immunizations Vaccine Date Status meningococcal conjugate vaccine 10/14/2019 Recorded human papillomavirus vaccine 10/14/2019 Recorded human papillomavirus vaccine 10/12/2018 Recorded diphtheria/pertussis, acel/tetanus adult 02/15/2016 Recorded meningococcal conjugate vaccine 02/15/2016 Recorded influenza virus vaccine, H1N1, live 02/23/2009 Recorded varicella virus vaccine 01/10/2009 Recorded measles/mumps/rubella virus vaccine 01/10/2009 Recorded diphtheria/pertussis,acel/ tetanus/polio 01/10/2009 Recorded diphtheria/pertussis, acel/tetanus ped 12/28/2007 Recorded measles/mumps/rubella/vari jae vaccine 05/20/2006 Recorded haemophilus b conjugate (PRP-T) vaccine 04/24/2006 Recorded diphth/hepB/pertussis,acel /polio/tetanus 04/24/2006 Recorded haemophilus b conjugate (PRP-T) vaccine 2003 Recorded diphth/hepB/pertussis,acel /polio/tetanus 2003 Recorded haemophilus b conjugate (PRP-T) vaccine 2003 Recorded diphth/hepB/pertussis,acel /polio/tetanus 2003 Recorded hepa (more content not included)... [facility] Comment on above: Result Comment: Elec tronically Signed By: Marcos DONATO MD\.br\Date and Time Signed: 12/28/21 09:46 EDT\.br\Electronically Co-Signed By: Yusra Kahn.br\Date and Time Co-Signed: 12/28/21 09:44 EDT Operative Reporton Operative Report [id number]:127 [facility] Lab Reportson 12-19-2021 Lab Reports [id number]:127 [facility] Covid-19 PCR (CVDTB)on 11-20 SARS-CoV-2 (COVID-19) RNA CHRISTIANO+probe Ql (Unsp spec) Not detected Normal NOT DETECTED [facility] Comment on above: Result Comment: This test is not yet approved or cleared by the [place] FDA. When there are no FDA-approved or cleared tests available, and other criteria are met, FDA can make tests available under an emergency access mechanism called an Emergency Use Authorization (EUA). The EUA for this test is supported by the [place] of Health and Human Service's (HHS's) declaration that circumstances exist to justify the emergency use of in vitro diagnostics for the detection and/or diagnosis of the virus that causes COVID-19. This EUA will remain in effect (meaning this test can be used) for the duration of the COVID-19 declaration justifying emergency of IVDs, unless it is terminated or revoked by FDA (after which the test may no longer be used). When diagnostic testing is negative, the possibility of a false negative should be considered in the context of a patient's recent exposures and the presence of clinical signs and symptoms consistent with SARS-CoV-2. Performed By: #### [facility] #### [facility] [address] [place] [address] Dr. Janee Ordaz Insurance Correspondenceon 0 12-14-2021 Insurance Correspondence [id number]:127 [facility] Lab Reportson 12-14-2021 Lab Reports [id number]:127 [facility] AFP (TUMOR MARKER)on 022 AFP, Serum, Tumor Marker 2.4 ng/mL Normal 0.0-5.7 [facility] Comment on above: Result Comment: Invisible Electrochemiluminescence Immunoassay (ECLIA) . Values obtained with different assay methods or kits cannot be used interchangeably. Results cannot be interpreted as absolute evidence of the presence or absence of malignant disease. . This test is not interpretable in females. Performed By: #### A . #### [facility] [address] [place] [address] Dr. Janee Ordaz HCG QUANT TUMOR MARKERon HCG QNT TUMOR MARKER <1 Normal 0-3 [facility] Comment on above: Result Comment: [employer] Electrochemiluminescence Immunoassay (ECLIA) . The [employer] Elecsys HCG + beta assay recognizes the holo-hormone, human chorionic gonadotropin (hCG), nicked forms of hCG, the beta-core fragment and the free beta-subunit in human serum and plasma. . Results obtained with different test methods or kits cannot be used interchangeably. This assay is intended for the early detection of . The result should not be used for treatment or for diagnostic purposes without confirmation of the diagnosis by another medically established diagnostic product or procedure. . This test was developed and its performance characteristics determined by [employer] It has not been cleared or approved by the Food and Drug Administration for use as a tumor marker. . This test is not interpretable as a tumor marker in females. Performed By: #### H CGTMOR ####[facility] [address] [place] [address]DrFrank Janee Orlin RAD - Ultrasound Reporton RAD - Ultrasound Report [id number]:127 [facility] CBC AUTO DIFFon 12-11-2021 BASO # 0.0 103/ul Normal 0.0-0.1 [facility] Comment on above: Performed By: #### C BC ####[facility] [address] [place] [address]DrFrank Ordaz Basophils/100 WBC (Bld) 0.4 % Normal 0.2-2.0 [facility] Comment on above: Performed By: #### C BC ####[facility] [address] [place], [place] [address]DrFrank Ordaz EO # 0.6 103/ul Normal 0.0-0.7 [facility] Comment on above: Performed By: #### C BC ####[facility] [address] [place] [address]DrFrank Ordaz Eosinophils/100 WBC (Bld) 7.7 % Critically high 0.9-7.0 [facility] Comment on above: Performed By: #### C BC ####[facility] [address] [place] [address]Dr. Janee Ordaz Erythrocyte distribution width (RBC) [Ratio] 12.6 % Normal 11.0-15.0 [facility] Comment on above: Performed By: #### C BC ####[facility] [address] [place], [place] [address]DrFrank Ordaz Hematocrit (Bld) [Volume fraction] 45.1 % Normal 42.0-54.0 [facility] Comment on above: Performed By: #### C BC ####[facility] [address] [place], [place] [address]DrFrank Ordaz Hemoglobin (Bld) [Mass/Vol] 14.8 g/dL Normal 14.0-18.0 [facility] Comment on above: Performed By: #### C BC ####[facility] [address] [place] [address]Dr. Janee Ordaz IG # 0.02 10e3/ul Normal 0.00-0.03 [facility] Comment on above: Performed By: #### C BC ####[facility] [address] [place] [address]Dr. Janee Ordaz IG % 0.2 % Normal 0.0-0.5 [facility] Comment on above: Performed By: #### C BC ####[facility] [address] [place], [place] [address]DrFrank Ordaz LYMPH # 2.2 103/ul Normal 1.2-3.8 [facility] Comment on above: Performed By: #### C BC ####[facility] [address] [place], [place] [address]Dr. Janee Ordaz Lymphocytes/100 WBC (Bld) 27.2 % Normal 20.5-60.0 [facility] Comment on above: Performed By: #### C BC ####[facility] [address] [place], [place] [address]DrFrank Ordaz MANUAL DIFF REQ NO Normal [facility] Comment on above: Performed By: #### C BC ####[facility] [address] [place] [address]Dr. Janee Ordaz MCH (RBC) [Entitic mass] 28.7 pg Normal 25.9-34.0 [facility] Comment on above: Performed By: #### C BC ####[facility] [address] [place], [place] [address]Dr. Janee Ordaz MCHC (RBC) [Mass/Vol] 32.8 g/dL Normal 29.9-35.2 [facility] [place] [facility] Comment on above: Performed By: #### C BC ####[facility] [address] [place] [address]Dr. Janee Ordaz MCV (RBC) [Entitic vol] 87.4 fL Normal 80.0-94.0 [facility] Comment on above: Performed By: #### C BC ####[facility] [address] [place] [address]Dr. Janee Ordaz MONO # 0.8 103/ul Normal 0.3-0.8 [facility] Comment on above: Performed By: #### C BC ####[facility] [address] [place] [address]Dr. Janee Ordaz Monocytes/100 WBC (Bld) 9.5 % Normal 1.7-12.0 [facility] Comment on above: Performed By: #### C BC ####[facility] N[address] [place], [place] [address]Dr. Janee Ordaz NEUT # 4.5 103/ul Normal 1.4-6.5 [facility] Comment on above: Performed By: #### C BC ####[facility] [address] [place], [place] [address]Dr. Janee Ordaz Neutrophils/100 WBC (Bld) 55.0 % Normal 43.0-75.0 [facility] Comment on above: Performed By: #### C BC ####[facility] [address] [place], [place] [address]Dr. Janee Ordaz Platelet mean volume (Bld) [Entitic vol] 9.9 fL Normal 9.5-13.5 [facility] Comment on above: Performed By: #### C BC ####[facility] [address] [place] [address]Dr. Janee Ordaz PLT 211 103/ul Normal 150-450 [facility] Comment on above: Performed By: #### C BC ####[facility] [address] [place], [place] [address]Dr. Janee Ordaz RBC 5.16 106/ul Normal 4.70-6.10 [facility] [place] [facility] Comment on above: Performed By: #### C BC ####[facility] [address] [place] [address]Dr. Janee Ordaz WBC 8.2 103/ul Normal 4.0-11.0 [facility] Comment on above: Performed By: #### C BC ####[facility] [address] [place] [address]Dr. Maddisonmaico Orlin LDHon 12-11-2021 LDH 135 U/L Normal 85-227 [facility] Comment on above: Performed By: #### B MP, LDH ####[facility] [address] [place] [address]Dr. Janee Ordaz PROF CHEM 8 (BAS METB)on Anion gap [Moles/Vol] 11.3 mmol/L Normal [facility] Comment on above: Performed By: #### B MP, LDH ####[facility] [address] [place] [address]Dr. Janee Ordaz Calcium [Mass/Vol] 9.8 mg/dL Normal 8.5-10.1 [facility] Comment on above: Performed By: #### B MP, LDH ####[facility] [address] [place], [place] [address]Dr. Janee Ordaz Chloride [Moles/Vol] 103 mmol/L Normal 98-107 [facility] Comment on above: Performed By: #### B MP, LDH ####[facility] [address] [place], [place] [address]Dr. Janee Ordaz CO2 [Moles/Vol] 30.7 mmol/L Normal 21.0-32.0 [facility] Comment on above: Performed By: #### B MP, LDH ####[facility] [address] [place], [place] [address]Dr. Janee Ordaz Creatinine [Mass/Vol] 0.96 mg/dL Normal 0.70-1.30 [facility] Comment on above: Performed By: #### B MP, LDH ####[facility] [address] [place] [address]Dr. Janee Ordaz EGFR-AF CAMBODIAN >60 Normal >=60 [facility] Comment on above: Performed By: #### B MP, LDH ####[facility] [address] [place] [address]Dr. Janee Ordaz EGFR-NON AF CAMBODIAN >60 Normal >=60 [facility] Comment on above: Performed By: #### B MP, LDH ####[facility] [address] [place] [address]Dr. Janee Ordaz Glucose [Mass/Vol] 90 mg/dL Normal 74-106 [facility] Comment on above: Performed By: #### B MP, LDH ####[facility] [address] [place] [address]Dr. Janee Ordaz Potassium [Moles/Vol] 4.0 mmol/L Normal 3.5-5.1 [facility] Comment on above: Performed By: #### B MP, LDH ####[facility] [address] [place] [address]Dr. Janee Ordaz Sodium [Moles/Vol] 141 mmol/L Normal 136-145 [facility] Comment on above: Performed By: #### B MP, LDH ####[facility] [address] [place] [address]Dr. Janee Ordaz Urea nitrogen [Mass/Vol] 18.0 mg/dL Normal 6.4-19.3 [facility] Comment on above: Performed By: #### B MP, LDH ####[facility] [address] [place] [address]Dr. Janee Ordaz Urea nitrogen/Creatinine [Mass ratio] 18.8 mg/mg Normal [facility] Comment on above: Performed By: #### B MP, LDH ####[facility] [address] [place] [address]Dr. Janee Ordaz PROTIMEon 12-11-2021 INR Coag (PPP) [Relative time] 1.00 {INR} Normal [facility] Comment on above: Performed By: #### P T, PTT #### [facility] [address] [place] [address] [address] Janee Ordaz INR GUIDELINES SEE BELOW Normal [facility] Comment on above: Result Comment: ADITYA RED INR: 2.0 - 3.0 CONDITIONS NOT LISTED BELOW 2.5 - 3.5 FOR PROSTHETIC HEART VALVE REPLACEMENT 2.5 - 3.5 RECURRENT THROMBOSIS Performed By: #### P T, PTT #### [facility] [address] [place], [place] [address] Dr. Janee Ordaz PT Coag (PPP) [Time] 10.8 s Normal 9.0-11.6 [facility] Comment on above: Performed By: #### P T, PTT #### [facility] [address] [place], [place] [address] Dr. Janee Ordaz PTTon 12-11-2021 aPTT Coag (Bld) [Time] 28.8 s Normal 22.3-36.2 [facility] Comment on above: Performed By: #### P T, PTT #### [facility] [address] [address] [address] Janee Ordaz Ambulatory Visit Summaryon 0 12-07-2021 Ambulatory Visit Summary OMAIRA ZAVALA Juhi :2005 Visit Date:12/07/2021 Ambulatory Visit Instructions Your Diagnosis Testicular mass Tests Performed Urnls Dip Stick Auto w/o Microscopy POC 30777 Your Care Team Attending Physician - Marcos DONATO MD Primary Care Physician - BRITTANY JORDAN Discharge Vitals Heart Rate (Peripheral) 61 Respiratory Rate 16 Blood Pressure 120/74 Height 187.0 cm Height 187 cm Weight 72.0 kg Weight 72 kg BMI 20.59 What to do next You Need to Schedule the Following Appointments Follow Up with Marcos DONATO MD, URL When: Where: [facility] [address] [place] [address]- Test Results Urnls Dip Stick Auto w/o Microscopy POC 32464 (12/07/2021) Bilirubin Urine Dipstick - Negative Blood Urine Dipstick - Trace-intact Glucose Urine Dipstick - Negative Ketones Urine Dipstick - Negative Leukocytes Urine Dipstick - Negative Nitrite Urine Dipstick - Negative Protein Urine Dipstick - Negative Specific Lindsay Urine Dipstick - 1.025 Urine Appearance Urine Dipstick - Clear Urine Color Urine Dipstick - Yellow Urobilinogen Urine Dipstick - Normal 0.2-1 EU/dl pH Urine Dipstick - 6.5 Allergies amoxicillin (Hives) Problems Ongoing - Any problem that you are currently receiving treatment for. Testicular mass Education Materials Testicular Self-Exam A self-examination of your testicles (testicular self-exam) involves looking at and feeling your testicles for abnormal lumps or swelling. Several things can cause swelling, lumps, or pain in your testicles. Some of these causes are: ? Injuries. ? Inflammation. ? Infection. ? Buildup of fluids around your testicle (hydrocele). ? Twisted testicles (testicular torsion). ? Testicular cancer. Why is it important to do a testicular self-exam? Self-examination of the testicles and the left and right groin areas may be recommended if you are at risk for testicular cancer. Your groin is where your lower abdomen meets your upper thighs. You may be at risk for testicular cancer if you have: ? An undescended testicle (cryptorchidism). ? A history of previous testicular cancer. ? A family history of testicular cancer. How to do a testicular self-exam The testicles are easiest to examine after a warm bath or shower. They are more difficult to examine when you are cold. This is because the muscles attached to the testicles retract and pull them up higher or into the abdomen. A normal testicle is egg-shaped and feels firm. It is smooth and not tender. The spermatic cord can be felt as a firm, spaghetti-like cord at the back of your testicle. Look and feel for changes ? Stand and hold your penis away from your body. ? Look at each testicle to check for lumps or swelling. ? Roll each testicle between your thumb and forefinger, feeling the entire testicle. Feel for: ? Lumps. ? Swelling. ? Discomfort. ? Check the groin area between your abdomen and upper thighs on both sides of your body. Look and feel for any swelling or bumps that are tender. These could be enlarged lymph nodes. Contact a health care provider if: ? You find any bumps or lumps, such as a small, hard, pea-sized lump. ? You find swelling, pain, or soreness. ? You see or feel any other changes in your testicles. Summary ? A self-examination of your testicles (testicular self-exam) involves looking at and feeling your testicles for any changes. ? Self-examination of the testicles and the left and right groin areas may be recommended if you are at risk for testicular cancer. ? You should check each of your testicles for lumps, swelling, or discomfort. ? You should check for swelling or tender bumps in your groin area between your lower abdomen and upper thighs. This information is not intended to replace advice given to you by your health care provider. Make sure you discuss any questions you have with your health care provider. Document Released: 07/14/2001 Document Revised: 07/29/2019 Document Reviewed: 03/03/2017 [employer] Patient Education ? [address] [facility] Patient Educationon 12-08-19 Patient Education Urology Testicular Self-Exam A self-examination of your testicles (testicular self-exam) involves looking at and feeling your testicles for abnormal lumps or swelling. Several things can cause swelling, lumps, or pain in your testicles. Some of these causes are: ? Injuries. ? Inflammation. ? Infection. ? Buildup of fluids around your testicle (hydrocele). ? Twisted testicles (testicular torsion). ? Testicular cancer. Why is it important to do a testicular self-exam? Self-examination of the testicles and the left and right groin areas may be recommended if you are at risk for testicular cancer. Your groin is where your lower abdomen meets your upper thighs. You may be at risk for testicular cancer if you have: ? An undescended testicle (cryptorchidism). ? A history of previous testicular cancer. ? A family history of testicular cancer. How to do a testicular self-exam The testicles are easiest to examine after a warm bath or shower. They are more difficult to examine when you are cold. This is because the muscles attached to the testicles retract and pull them up higher or into the abdomen. A normal testicle is egg-shaped and feels firm. It is smooth and not tender. The spermatic cord can be felt as a firm, spaghetti-like cord at the back of your testicle. Look and feel for changes ? Stand and hold your penis away from your body. ? Look at each testicle to check for lumps or swelling. ? Roll each testicle between your thumb and forefinger, feeling the entire testicle. Feel for: ? Lumps. ? Swelling. ? Discomfort. ? Check the groin area between your abdomen and upper thighs on both sides of your body. Look and feel for any swelling or bumps that are tender. These could be enlarged lymph nodes. Contact a health care provider if: ? You find any bumps or lumps, such as a small, hard, pea-sized lump. ? You find swelling, pain, or soreness. ? You see or feel any other changes in your testicles. Summary ? A self-examination of your testicles (testicular self-exam) involves looking at and feeling your testicles for any changes. ? Self-examination of the testicles and the left and right groin areas may be recommended if you are at risk for testicular cancer. ? You should check each of your testicles for lumps, swelling, or discomfort. ? You should check for swelling or tender bumps in your groin area between your lower abdomen and upper thighs. This information is not intended to replace advice given to you by your health care provider. Make sure you discuss any questions you have with your health care provider. Document Released: 07/14/2001 Document Revised: 07/29/2019 Document Reviewed: 03/03/2017 [employer] Patient Education ? 2019 [employer] [facility] Physician Orderon 12-07-2021 Physician Order [id number]:127 [facility] Provider Letter FTMCon 12-07 Provider Letter [facility] (Inserted Image. Un able to display) December 07, 2021 OMAIRA ZAVALA [address] [id number] OMAIRA ZAVALA 2005 To Whom It May Concern, Please excuse above patient from work. Date of Illness: From: 12/20/2021 To: 01/31/2022 May Return to Work On:02/01/2022 Restrictions: No work 12/20/21 to 01/31/2022, return to work 02/01/2022. Comments: Patient has appt 12/11/21 @ 8am, [facility], and surgery scheduled 12/20/2021. Sincerely, Marcos Donato M.D., F.A.C.S. [facility] [address] [place], [place] [address]dg D [place], [place] [address] Wally Issa [facility] Urology Office/Clinic Noteon 12-07-2021 Urology Office/Clinic Note Chief Complaint F/u to scrotal US187 HPI Staff Pt is here to f/u from scrotal US done 12/05/21. Previous dx of left testicular mass. Pt states he is doing well overall. Has some tenderness to the left side of his scrotum sometimes from the rubbing of his pants when he is physically active. He completed 3 weeks of Doxycycline BID. Dysuria: no Incomplete bladder emptying: no Hematuria: no Frequency: no Urgency: no Nocturia: pt does not get up Stream: good steady no straining Leaking: no Post void dripping: no Wearing pads/ Depends: no Urge incontinence: no Stress incontinence: no Incontinence without Sensory Awareness: no Abdominal pain: no Flank pain: no Sexual complaints: no History of Present Illness Tests Reviewed: Reviewed UA. I have reviewed and verified the staff HPI to be accurate for this encounter. I have reviewed the previous health record information and history for this patient from Dr. Donato There have been no associated fever, chills, flank pain, or blood in the urine. Denies any urinary infections since last encounter. Review of Systems PHQ Score Initial Depression Screen Score: 0 ROS - Provider Constitutional: denies weight loss, denies hot flashes. Eyes: denies eye problems. Gastrointestinal: denies nausea, denies vomiting. Cardiovascular: denies chest pain or angina. Integumentary: no dryness Musculoskeletal: denies musculoskeletal symptoms. ENMT: denies otolaryngeal symptoms. Respiratory: no shortness of breath. Heme/Lymph: denies easy bleeding tendency, denies easy bruising tendency. Psychiatric: no confusion, no anxiety. Genitourinary: denies dysuria, denies hematuria, denies discharge, denies urinary frequency, denies urinary hesitancy, denies nocturia, denies incontinence, denies genital sores, denies decreased libido, and denies erectile dysfunction. Physical Exam Vitals & Measurements HR: 61(Peripheral) RR: 16 BP: 120/74 HT: 187.0 cm HT: 187 cm WT: 72.0 kg WT: 72 kg BMI: 20.59 General Appearance: alert, no distress, well nourished, well developed male. Genitourinary: normal scrotum, abnormal L with indurated mass...stable. testes, normal urethra, normal epididymis, normal vas deferens/spermatic cord. Assessment/Plan UA today shows trace intact blood, but no signs of any infections 1. Testicular mass (N50.89: Other specified disorders of the male genital organs) Scrotal US done 12/06/21 at [facility] shows left 1.4cm hypoechoic vascular mass within inferior pole Pt was started on ABX Doxycycline BID for 3 weeks at last visit, and finished this course of ABX. Pt stated he did not notice any difference. Educated pt that there are 3 things that we can be dealing with, which are testicular infection, testicular cancer, or an infarction, but testicular infection was ruled out because pt was on ABX and the mass remained the same in size. Explained to pt that the next step will be to remove the mass, and that there is a chance that it may can be cancer, but won't know until the mass is removed. we discussed future fertility issues and possibly donating sperm. he wishes to forgo this for now. Also explained to pt that he can not to do any heavy lifting for 6 weeks after the procedure. Pt will like to move forward with left radical orchiectomy . All questions were answered, and pt acknowledges and understand. Discussed with pt about his fertility options (sperm banking). Educated pt that as long as his right testicle functions normally, it should produce enough sperm and testosterone for a normal male existence, but at this time he is not interested in sperm banking. Left radical orchiectomy under general with be scheduled. Follow-up With When Contact Information MARIYA VICENTE, Marcos Ross, URL [facility] [address], [place] [address]- Additional Instructions: Patient Education Testicular Self-Exam Maida, Yvrose Márquez, personally scribed for Dr. Donato on 12/07/2021 10:49:37. . Documentation recorded by the scribe, Yvrose Márquez, accurately reflects the services(s) I performed and decisions made by me. Authenticated by Dr. Donato on 12/07/2021 10:54:00. Problem List/Past Medical History Ongoing Testicular mass Historical No qualifying data Medications No active medications Allergies amoxicillin (Hives) Social History Tobacco Never (less than 100 in lifetime) Tobacco Use:., 11/12/2021 Lab Results Ambulatory Point of Care Results Bilirubin Urine Dipstick: Negative (12/07/21 09:30:00) Blood Urine Dipstick: Trace-intact (12/07/21 09:30:00) Glucose Urine Dipstick: Negative (12/07/21 09:30:00) Ketones Urine Dipstick: Negative (12/07/21 09:30:00) Leukocytes Urine Dipstick: Negative (12/07/21 09:30:00) Nitrite Urine Dipstick: Negative (12/07/21 09:30:00) Protein Urine Dipstick: Negative (12/07/21 09:30:00) Specific Lindsay Urine Dipstick: 1.025 (12/07/21 09:30:00 (more content not included)... [facility] Comment on above: Result Comment: Elec tronically Signed By: Tamra Vang.br\Date and Time Signed: 12/07/21 11:41 EDT US SCROTUMon 12-06-2021 US SCROTUM EXAMINATION: US SCRO LULU HISTORY: Disorder of male genital organ ; left scrotal mass COMPARISON: No relevant comparison available. TECHNIQUE: High-resolution sonographic imaging of the scrotum and contents was performed. FINDINGS: RIGHT TESTICLE: Homogeneous echotexture. No visible mass. Color Doppler flow is present. Spectral Doppler demonstrates normal arterial waveform and flow, 7/2 cm/s (PSV/EDV), and normal venous wave flow averaging 1 cm/s. LEFT TESTICLE: 1.4 x 1.3 x 0.8 cm hypoechoic area within pole of testicle with blood flow on color Doppler, and containing central calcification. Anechoic 1.7 x 1.3 x 0.8 cm benign-appearing cyst within left hemiscrotum. Color Doppler flow is present. Spectral Doppler demonstrates arterial waveform and flow, 4/1 cm/s (PSV/EDV), and normal venous flow averaging 1 cm/s. RIGHT EPIDIDYMIS: Normal size and echogenicity. LEFT EPIDIDYMIS: Normal size and echogenicity. OTHER: None. IMPRESSION: 1. Left testicle contains a 1.4 cm hypoechoic vascular mass within inferior pole months etiology; infectious etiology is felt less likely. No prior studies or reports available for comparison. Electronically authenticated by: GERRY ALDANA Date: 2021-12-06 09:30 Normal [facility] [place] [facility] Ambulatory Visit Summaryon 0 11-12-2021 Ambulatory Visit Summary OMAIRA ZAVALA :2005 Visit Date:11/12/2021 Ambulatory Visit Instructions Your Diagnosis Testicular mass Tests Performed Urnls Dip Stick Auto w/o Microscopy POC 54809 US Scrotum (Contents) -- Results Pending -- Please visit your patient portal for your results or contact your primary care physician. Your Care Team Attending Physician - Marcos DONATO MD Primary Care Physician - Meredith Wilkinson Referring Physician - BRITTANY JORDAN This Is Your Medications List doxycycline (doxycycline hyclate 100 mg Cap) Contact prescribing physician if questions or concerns fluconazole (fluconazole 50 mg oral tablet) Discharge Vitals Heart Rate (Peripheral) 80 Respiratory Rate 16 Blood Pressure 103/80 Height 187.0 cm Height 187 cm Weight 72.0 kg Weight 72 kg BMI 20.59 What to do next You Need to Schedule the Following Appointments Follow Up with Marcos DONATO MD, URL When: In 4 weeks 12/10/2021 EDT Comments: Scrotal US Where: [facility] [address] [place] [address] [phone] Medications What How Much When Instructions New doxycycline (doxycycline hyclate 100 mg Cap) 1 Capsules By Mouth 2 times a day Duration: 3 Weeks Pickup at [id number] Unchanged fluconazole (fluconazole 50 mg oral tablet) By Mouth Every day Contact prescribing physician if questions or concerns Pharmacy Information [id number]: [address] [place], [place] [phone] Test Results Urnls Dip Stick Auto w/o Microscopy POC 29123 (11/12/2021) Bilirubin Urine Dipstick - Negative Blood Urine Dipstick - Negative Glucose Urine Dipstick - Negative Ketones Urine Dipstick - Negative Leukocytes Urine Dipstick - Negative Nitrite Urine Dipstick - Negative Protein Urine Dipstick - Negative Specific Lindsay Urine Dipstick - 1.020 Urine Appearance Urine Dipstick - Clear Urine Color Urine Dipstick - Yellow Urobilinogen Urine Dipstick - Normal 0.2-1 EU/dl pH Urine Dipstick - 7 Allergies amoxicillin (Hives) Problems Ongoing - Any problem that you are currently receiving treatment for. Testicular mass Education Materials Testicular Self-Exam A self-exam of your testicles (testicular self-exam) is looking at and feeling your testicles for unusual lumps or swelling. Swelling, lumps, or pain can be caused by: ? Injuries. ? Puffiness, redness, and soreness (inflammation). ? Infection. ? Extra fluids around your testicle (hydrocele). ? Twisted testicles (testicular torsion). ? Cancer of the testicle (testicular cancer). Why is it important to do a self-exam of testicles? You may need to do self-exams if you are at risk for cancer of the testicles. You may be at risk if you have: ? A testicle that has not descended (cryptorchidism). ? A history of cancer of the testicle. ? A family history of cancer of the testicle. How to do a self-exam of testicles It is easiest to do a self-exam after a warm bath or shower. Testicles are harder to examine when you are cold. A normal testicle is egg-shaped and feels firm. It is smooth, and it is not tender. At the back of your testicles, there is a firm cord that feels like spaghetti (spermatic cord). Look and feel for changes ? Stand and hold your penis away from your body. ? Look at each testicle to check for lumps or swelling. ? Roll each testicle between your thumb and finger. Feel the whole testicle. Feel for: ? Lumps. ? Swelling. ? Discomfort. ? Check for swelling or tender bumps in the groin area. Your groin is where your lower belly (abdomen) meets your upper thighs. Contact a health care provider if: ? You find a bump or lump. This may be like a small, hard bump that is the size of a pea. ? You find swelling. ? You find pain. ? You find soreness. ? You see or feel any other changes. Summary ? A self-exam of your testicles is looking at and feeling your testicles for lumps or swelling. ? You may need to do self-exams if you are at risk for cancer of the testicle. ? You should check each of your testicles for lumps, swelling, or discomfort. ? You should check for swelling or tender bumps in the groin area. Your groin is where your lower belly (abdomen) meets your upper thighs. This information is not intended to replace advice given to you by your health care provider. Make sure you discuss any questions you have with your health care provider. Document Released: 07/04/2009 Document Revised: 07/29/2019 Document Reviewed: 03/03/2017 [employer] Patient Education ? [address] [facility] Formson 11-12-2021 Forms [id number]:127 [facility] Patient Educationon 11-13-19 Patient Education Urology Testicular Self-Exam A self-exam of your testicles (testicular self-exam) is looking at and feeling your testicles for unusual lumps or swelling. Swelling, lumps, or pain can be caused by: ? Injuries. ? Puffiness, redness, and soreness (inflammation). ? Infection. ? Extra fluids around your testicle (hydrocele). ? Twisted testicles (testicular torsion). ? Cancer of the testicle (testicular cancer). Why is it important to do a self-exam of testicles? You may need to do self-exams if you are at risk for cancer of the testicles. You may be at risk if you have: ? A testicle that has not descended (cryptorchidism). ? A history of cancer of the testicle. ? A family history of cancer of the testicle. How to do a self-exam of testicles It is easiest to do a self-exam after a warm bath or shower. Testicles are harder to examine when you are cold. A normal testicle is egg-shaped and feels firm. It is smooth, and it is not tender. At the back of your testicles, there is a firm cord that feels like spaghetti (spermatic cord). Look and feel for changes ? Stand and hold your penis away from your body. ? Look at each testicle to check for lumps or swelling. ? Roll each testicle between your thumb and finger. Feel the whole testicle. Feel for: ? Lumps. ? Swelling. ? Discomfort. ? Check for swelling or tender bumps in the groin area. Your groin is where your lower belly (abdomen) meets your upper thighs. Contact a health care provider if: ? You find a bump or lump. This may be like a small, hard bump that is the size of a pea. ? You find swelling. ? You find pain. ? You find soreness. ? You see or feel any other changes. Summary ? A self-exam of your testicles is looking at and feeling your testicles for lumps or swelling. ? You may need to do self-exams if you are at risk for cancer of the testicle. ? You should check each of your testicles for lumps, swelling, or discomfort. ? You should check for swelling or tender bumps in the groin area. Your groin is where your lower belly (abdomen) meets your upper thighs. This information is not intended to replace advice given to you by your health care provider. Make sure you discuss any questions you have with your health care provider. Document Released: 07/04/2009 Document Revised: 07/29/2019 Document Reviewed: 03/03/2017 [employer] Patient Education ? 2019 [employer] [facility] Physician Referralon 022 Physician Referral [id number]:127 [facility] Physician Referral [id number]:127 [facility] US Testicular/Scrotumon 10-19 US Testicular/Scrotum HISTORY: Lump FINDINGS: Right Testicle4.6 x 2.8 x 2.0 cm Left Testicle3.2 x 2.7 x 2.0 cm RIGHT HEMISCROTUM: Normal testicle and epididymis. No hydrocele. Small varicocele. LEFT HEMISCROTUM: Ill defined hypoechogenic intratesticular 1.5 x 1.0 x 1.5 cm intratesticular mass with lobular and somewhat ill defined margins. No extracapsular extension. Slight increase in vascularity. 1.0 x 1.0 x 2.0 cm epididymal head cyst. Small varicocele. Regional lymphadenopathy was not assessed on this examination. IMPRESSION: Left intratesticular approximately 1.0 x 1.5 cm mass. No additional evidence of regional inflammation. 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 Recommend urology consultation (chest, abdomen and pelvis CT Imaging for staging). Report reported and signed by Rich Banda on 11/05/2021 1102 Normal [facility] Specialist Vital Signs Date Time Vital Sign Value Performing Clinician Facility 04-29-2022 15:48-0500 Body height 190.5 cm Randy Brown MD Work Phone: [facility] 04-29-2022 15:48-0500 Body temperature 98.49 [degF] Randy Brown MD Work Phone: [facility] 04-29-2022 15:48-0500 Body weight 83.64 kg Randy Brown MD Work Phone: [facility] 04-29-2022 15:48-0500 Diastolic blood pressure 64 mm[Hg] Randy Brown MD Work Phone: [facility] 04-29-2022 15:48-0500 Heart rate 62 /min Randy Brown MD Work Phone: [facility] 04-29-2022 15:48-0500 Respiratory rate 16 /min Randy Brown MD Work Phone: [facility] 04-29-2022 15:48-0500 SaO2% (BldA) [Mass fraction] 99 % Randy Brown MD Work Phone: [facility] 04-29-2022 15:48-0500 Systolic blood pressure 138 mm[Hg] Randy Brown MD Work Phone: [facility] 01-29-2022 13:06-0400 Body height 190.5 cm Randy Brown MD Work Phone: [facility] 01-29-2022 13:06-0400 Body mass index (BMI) [Percentile] Per age and sex 62.51 % Randy Brown MD Work Phone: [facility] 01-29-2022 13:06-0400 Body temperature 97.11 [degF] Randy Brown MD Work Phone: [facility] 01-29-2022 13:06-0400 Body weight 84.82 kg Randy Brown MD Work Phone: [facility] 01-29-2022 13:06-0400 Diastolic blood pressure 62 mm[Hg] Randy Brown MD Work Phone: [facility] 01-29-2022 13:06-0400 Heart rate 64 /min Randy Brown MD Work Phone: [facility] 01-29-2022 13:06-0400 Respiratory rate 16 /min Randy Borwn MD Work Phone: [facility] 01-29-2022 13:06-0400 SaO2% (BldA) [Mass fraction] 100 % Randy Brown MD Work Phone: [facility] 01-29-2022 13:06-0400 Systolic blood pressure 133 mm[Hg] Randy Brown MD Work Phone: [facility] 01-25-2022 10:56-0400 Blood Pressure Location Marcos DONATO [facility] 01-25-2022 10:56-0400 Diastolic blood pressure 67 mm[Hg] Marcos DONATO [facility] 01-25-2022 10:56-0400 Heart rate 61 /min Marcos DONATO [facility] 01-25-2022 10:56-0400 Systolic blood pressure 123 mm[Hg] Marcos DONATO [facility] 01-01-2022 10:34-0400 Body height 190.5 cm Randy Brown MD Work Phone: [facility] 01-01-2022 10:34-0400 Body mass index (BMI) [Percentile] Per age and sex 51.74 % Randy Brown MD Work Phone: [facility] 01-01-2022 10:34-0400 Body temperature 98.1 [degF] Randy Brown MD Work Phone: [facility] 01-01-2022 10:34-0400 Body weight 81.47 kg Randy Brown MD Work Phone: [facility] 01-01-2022 10:34-0400 Diastolic blood pressure 62 mm[Hg] Randy Brown MD Work Phone: [facility] 01-01-2022 10:34-0400 Heart rate 56 /min Randy Brown MD Work Phone: [facility] 01-01-2022 10:34-0400 Respiratory rate 16 /min Randy Brown MD Work Phone: [facility] 01-01-2022 10:34-0400 SaO2% (BldA) [Mass fraction] 98 % Randy Brown MD Work Phone: [facility] 01-01-2022 10:34-0400 Systolic blood pressure 128 mm[Hg] Randy Brown MD Work Phone: [facility] 12-28-2021 09:04-0400 Blood Pressure Location Marcos DONATO [facility] 12-28-2021 09:04-0400 Diastolic blood pressure 68 mm[Hg] Marcos DONATO [facility] 12-28-2021 09:04-0400 Heart rate 69 /min Marcos DONATO [facility] 12-28-2021 09:04-0400 Respiratory rate 16 /min Marcos DONATO [facility] 12-28-2021 09:04-0400 Systolic blood pressure 125 mm[Hg] Marcos DONATO [facility] 12-07-2021 09:28-0400 Blood Pressure Location Marcos DONATO [facility] 12-07-2021 09:28-0400 Diastolic blood pressure 74 mm[Hg] Marcos DONATO [facility] 12-07-2021 09:28-0400 Heart rate 61 /min Marcos DONATO [facility] 12-07-2021 09:28-0400 Respiratory rate 16 /min Marcos DONATO [facility] 12-07-2021 09:28-0400 Systolic blood pressure 120 mm[Hg] Marcos DONATO [facility] 11-12-2021 10:30-0400 Blood Pressure Location Marcos DONATO [facility] 11-12-2021 10:30-0400 Diastolic blood pressure 80 mm[Hg] Marcos DOANTO [facility] 11-12-2021 10:30-0400 Heart rate 80 /min Marcos DONATO [facility] 11-12-2021 10:30-0400 Respiratory rate 16 /min Marcos DONATO [facility] 11-12-2021 10:30-0400 Systolic blood pressure 103 mm[Hg] Marcos DONATO [facility] Encounters Encounter Date Encounter Type Care Provider Facility Start: 10-25-2023 End: 10-25-2023 Patient encounter procedure [facility] Work Phone: Start: 10-25-2023 End: 10-25-2023 ambulatory Marcos Donato Facility:[facility] Start: 07-19-2022 End: 07-20-2022 ambulatory Marcos DONATO Facility:[facility] Start: 07-19-2022 End: 07-19-2022 Patient encounter procedure Marcos DONATO [facility] Start: 06-28-2022 End: 06-29-2022 ambulatory Marcos DONATO Facility:[facility] Start: 05-18-2022 End: 05-19-2022 ambulatory BRITTANY RAMIREZ Facility: Start: 04-29-2022 End: 04-29-2022 ambulatory RANDY BROWN Facility:[facility] Start: 04-29-2022 End: 04-29-2022 ambulatory Randy Brown MD Work Phone: Hematology/Oncology Comment on above: 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) Start: 04-29-2022 End: 04-29-2022 Patient encounter procedure Randy Brown MD Work Phone: [facility] Start: 04-08-2022 End: [address] RANDY BROWN Facility: Start: 01-29-2022 End: 01-29-2022 ambulatory RANDY BROWN Facility:[facility] Start: 01-29-2022 End: 01-29-2022 ambulatory Randy Brown MD Work Phone: Hematology/Oncology Comment on above: 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) Start: 01-29-2022 End: 01-29-2022 Patient encounter procedure Randy Brown MD Work Phone: [facility] Start: 01-25-2022 End: 01-26-2022 ambulatory Marcos DONATO Facility:[facility] Start: 01-25-2022 End: 01-25-2022 Patient encounter procedure Marcos DONATO [facility] Start: 01-01-2022 Telephone encounter Randy combs MD Work Phone: [facility] Comment on above: 2nd opinion patholog y Start: 01-01-2022 End: 01-01-2022 ambulatory Randy Brown MD Work Phone: Hematology/Oncology Comment on above: 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) Start: 01-01-2022 End: 01-01-2022 Patient encounter procedure Randy Brown MD Work Phone: [facility] Start: 12-31-2021 Chart abstracting Randy edge MD Work Phone: Hematology/Oncology Start: 12-31-2021 End: 01-01-[address] MARCOS DONATO Facility:[facility] Start: 12-28-2021 End: 12-29-2021 ambulatory Marcos DONATO Facility:[facility] Start: 12-28-2021 End: 12-28-2021 Patient encounter procedure Marcos DONATO [facility] Start: 12-20-2021 End: 12-21-[address] MARCOS DONATO Facility:[facility] Start: 12-19-2021 Encounter for preprocedural laboratory examination DR MARCOS DONATO [facility] Start: 12-17-2021 End: 12-18-[address] MARCOS DONATO Facility:[facility] Start: 12-17-2021 End: 12-18-2021 Encounter for preprocedural laboratory examination DR MARCOS DONATO Facility:[facility] Start: 12-11-2021 End: 12-12-[address] MARCOS DONATO Facility: Start: 12-07-2021 End: 12-08-2021 ambulatory Marcos DONATO Facility:[facility] [place] Start: 12-07-2021 End: 12-07-2021 Patient encounter procedure Marcos DONATO [facility] Start: 12-05-2021 End: 12-06-[address] MARCOS DONATO Facility: Start: 11-12-2021 End: 11-13-2021 ambulatory Marcos DONATO Facility:[facility] [place] Start: 11-12-2021 End: 11-12-2021 Patient encounter procedure Marcos DONATO [facility] Start: 11-06-2021 ambulatory Marcos DONATO Facility :[facility] [place] Start: 11-06-2021 ambulatory Marcos DONATO Facility : [facility] Procedures Date Procedure Procedure Detail Performing Clinician Start: 12-20-2021 Total orchidectomy Lisa DONATO Plan of Treatment Date Care Activity Detail Author Start: 02-14-2026 Urine microalbumin profile DTAP,TDAP,TD (6 - Td or Tdap) [facility] Start: 04-29-2022 End: 06-29-2022 Rmkio-0-[id number] [Mass/volume] in Serum or Plasma ALPHA FETOPROTEIN BL Lab Routine 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) Expected: 04/29/2022, Expires: 06/29/2022 [facility] Work Phone: Comment on above: Expected: 04/29/2022 , Expires: 06/29/2022 Start: 04-29-2022 End: 06-29-2022 CBC W Auto Differential panel - Blood CBC + DIFF Lab Routine 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) Expected: 04/29/2022, Expires: 06/29/2022 [facility] Work Phone: Comment on above: Expected: 04/29/2022 , Expires: 06/29/2022 Start: 04-29-2022 End: 06-29-2022 Choriogonadotropin.beta subunit [Units/volume] in Serum or Plasma BETA HCG QUANT TUMOR MARKER Lab Routine 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) Expected: 04/29/2022, Expires: 06/29/2022 [facility] Work Phone: Comment on above: Expected: 04/29/2022 , Expires: 06/29/2022 Start: 04-29-2022 End: 06-29-2022 Comprehensive metabolic 2000 panel - Serum or Plasma COMP METABOLIC PANEL Lab Routine 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) Expected: 04/29/2022, Expires: 06/29/2022 [facility] Work Phone: Comment on above: Expected: 04/29/2022 , Expires: 06/29/2022 Start: 04-29-2022 End: 06-29-2022 Lactate dehydrogenase [Enzymatic activity/volume] in Serum or Plasma LD LACTATE DEHYDRO Lab Routine 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) Expected: 04/29/2022, Expires: 06/29/2022 [facility] Work Phone: Comment on above: Expected: 04/29/2022 , Expires: 06/29/2022 Start: 04-21-2022 DEPRESSION ASSESSMENT DEPRESSION ASS ESSMENT [facility] Start: 02-26-2022 End: 04-28-2022 Bdioc-2-Rjxjfvmpktq [Mass/volume] in Serum or Plasma ALPHA FETOPROTEIN BL Lab Routine 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) Expected: 02/26/2022 (Approximate), Expires: 04/28/2022 [facility] Work Phone: Comment on above: Expected: 02/26/2022 (Approximate), Expires: 04/28/2022 Start: 02-26-2022 End: 04-28-2022 CBC W Auto Differential panel - Blood CBC + DIFF Lab Routine 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) Expected: 02/26/2022 (Approximate), Expires: 04/28/2022 [facility] Work Phone: Comment on above: Expected: 02/26/2022 (Approximate), Expires: 04/28/2022 Start: 02-26-2022 End: 04-28-2022 Choriogonadotropin.beta subunit [Units/volume] in Serum or Plasma BETA HCG QUANT TUMOR MARKER Lab Routine 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) Expected: 02/26/2022 (Approximate), Expires: 04/28/2022 [facility] Work Phone: Comment on above: Expected: 02/26/2022 (Approximate), Expires: 04/28/2022 Start: 02-26-2022 End: 04-28-2022 Comprehensive metabolic 2000 panel - Serum or Plasma COMP METABOLIC PANEL Lab Routine 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) Expected: 02/26/2022 (Approximate), Expires: 04/28/2022 [facility] Work Phone: Comment on above: Expected: 02/26/2022 (Approximate), Expires: 04/28/2022 Start: 02-26-2022 End: 04-28-2022 Lactate dehydrogenase [Enzymatic activity/volume] in Serum or Plasma LD LACTATE DEHYDRO Lab Routine 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) Expected: 02/26/2022 (Approximate), Expires: 04/28/2022 [facility] Work Phone: Comment on above: Expected: 02/26/2022 (Approximate), Expires: 04/28/2022 Start: 01-01-2022 End: 03-03-2022 Iqjuv-2-Smbqlgjnkbm [Mass/volume] in Serum or Plasma [facility] Work Phone: Comment on above: Expected: 01/01/2022 , Expires: 03/03/2022 Start: 01-01-2022 End: 03-03-2022 Choriogonadotropin.beta subunit [Units/volume] in Serum or Plasma [facility] Work Phone: Comment on above: Expected: 01/01/2022 , Expires: 03/03/2022 Start: 12-20-2021 Influenza vaccination INFLUENZA (#1) [facility] Start: 04-21-2021 DEPRESSION ASSESSMENT DEPRESSION ASS ESSMENT [facility] Start: 2021 HEPATITIS C SCREENING HEPATITIS C SC REENING [facility] Start: 2021 HIV SCREENING HIV SCREENING [facility] Start: 02-13-2020 HPV VACCINE (3 - Mal e 3-dose series) HPV VACCINE (3 - Male 3-dose series) [facility] Start: 2019 MENINGOCOCCAL CONJUG ATE (1 - 2-dose series) MENINGOCOCCAL CONJUGATE (1 - 2-dose series) [facility] Start: 2017 PEDS TO ADULT TRANSI TION ANNUAL ASSESSMENT PEDS TO ADULT TRANSITION ANNUAL ASSESSMENT [facility] Start: 2015 Adult depression screening assessment DEPRESSION SCREENING [facility] Start: 2015 PEDS TO ADULT TRANSI TION INITIAL DISCUSSION PEDS TO ADULT TRANSITION INITIAL DISCUSSION [facility] Start: 2014 HPV VACCINE (1 - Mal e 2-dose series) HPV VACCINE (1 - Male 2-dose series) [facility] Start: 2010 Urine microalbumin profile DTAP,TDAP,TD (1 - Tdap) [facility] Start: 2003 COVID-19 VACCINE (#1) COVID-19 VACCI NE (#1) [facility] Start: 2003 HEPATITIS B (1 of 3 - 3-dose series) HEPATITIS B (1 of 3 - 3-dose series) [facility] End: 05-29-2023 Ct abdomen & pelvis w/contrast material CT ABD/PEL W IVCON Radiology Routine 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) 1 Occurrences starting 04/29/2022 until 05/29/2023 [facility] Work Phone: Comment on above: 1 Occurrences starti ng 04/29/2022 until 05/29/2023 End: 05-29-2023 CT CHEST W IVCON CT CHEST W IVCON Radiology Routine 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) 1 Occurrences starting 04/29/2022 until 05/29/2023 [facility] Work Phone: Comment on above: 1 Occurrences starti ng 04/29/2022 until 05/29/2023 OUTSIDE SURG PATH SL MARLEE REVIEW OUTSIDE SURG PATH SLIDE REVIEW Lab Routine Ordered: 01/01/2022 [facility] Work Phone: Comment on above: Ordered: 01/01/2022 [facility] Immunizations Immunization Date Immunization Notes Care Provider Fa [facility] 10-14-2019 HPV, unspecified formulation Marcos DONATO [facility] 10-14-2019 human papilloma viru s vaccine, quadrivalent Randy Brown MD Work Phone: [facility] 10-14-2019 meningococcal ACWY vaccine, unspecified formulation Marcos DONATO [facility] 10-14-2019 meningococcal oligosaccharide (groups A, C, Y and W-135) diphtheria toxoid conjugate vaccine (MCV4O) Randy Brown MD Work Phone: [facility] 10-12-2018 HPV, unspecified formulation Marcos DONATO [facility] 10-12-2018 human papilloma viru s vaccine, quadrivalent Randy Brown MD Work Phone: [facility] 02-15-2016 meningococcal ACWY vaccine, unspecified formulation Marcos DONATO [facility] 02-15-2016 meningococcal oligosaccharide (groups A, C, Y and W-135) diphtheria toxoid conjugate vaccine (MCV4O) Randy Brown MD Work Phone: [facility] 02-15-2016 tetanus toxoid, redu ximena diphtheria toxoid, and acellular pertussis vaccine, adsorbed Marcos DONATO [facility] 02-23-2009 influenza virus vacc ine, H1N1, live Marcos DONATO [facility] 02-23-2009 novel Influenza-H1N1 -09, live virus for nasal administration Randy Brown MD Work Phone: [facility] 01-10-2009 Diphtheria, tetanus toxoids and acellular pertussis vaccine, and poliovirus vaccine, inactivated Marcos DONATO [facility] 01-10-2009 measles, mumps and rubella virus vaccine Marcos DONATO [facility] 01-10-2009 varicella virus vaccine Jessicar noemígraham DONATO [facility] 12-28-2007 diphtheria, tetanus toxoids and acellular pertussis vaccine Marcos DONATO [facility] 05-20-2006 measles, mumps, rube lla, and varicella virus vaccine Marcos DONATO [facility] 04-24-2006 DTaP-hepatitis B and poliovirus vaccine Marcos DONATO [facility] 04-24-2006 haemophilus influenz ae type b vaccine, PRP-T conjugate Marcos DONATO [facility] 04-24-2006 pneumococcal conjuga te vaccine, 7 valent Randy Brown MD Work Phone: [facility] 2003 DTaP-hepatitis B and poliovirus vaccine Marcoswin DONATO [facility] 2003 haemophilus influenz ae type b vaccine, PRP-T conjugate Marcoswin DONATO [facility] 2003 pneumococcal conjuga te vaccine, 7 valent Randy Brown MD Work Phone: [facility] 2003 DTaP-hepatitis B and poliovirus vaccine Marcos DONATO [facility] 2003 haemophilus influenz ae type b vaccine, PRP-T conjugate Marcos DONATO [facility] 2003 hepatitis B vaccine, pediatric or pediatric/adolescent dosage Marcos DONATO [facility] Payers Date Payer Category Payer Self-pay 2023 Unknown [id number] 2017 Private Health Insurance [employer] A ETNA CHOICE POS II [id number] 2017-Present [phone] [address] [place] [address] POS [id number] 2003 Unknown [id number] [id number]. 593 2003 Unknown [id number] 2.16.840.1.312491.3.579.2. 593 2003 Unknown [id number] 2.16.840.1.982657.3.579.2. 593 2003 Unknown [id number] 2.16.840.1.470373.3.579.2. 593 2003 Unknown [id number] 2.16.840.1.916935.3.579.2. 593 2003 Unknown [id number] 2.16.840.1.374880.3.579.2. 593 2003 Unknown [id number] 2.16.840.1.705681.3.579.2. 593 2003 Unknown [id number] 2.16.840.1.801284.3.579.2. 727 2003 Unknown [id number] 2.16.840.1.272918.3.579.2. 727 2003 Unknown [id number] 2.16.840.1.737415.3.579.2. 727 2003 Unknown [id number] 2.16.840.1.438231.3.579.2. 727 2003 Unknown [id number] 2.16.840.1.002853.3.579.2. 727 2003 Unknown [id number] 2.16.840.1.844344.3.579.2. 727 2003 Unknown [id number] 2.16.840.1.561696.3.579.2. 727 2003 Unknown [id number] 2.16.840.1.493188.3.579.2. 727 2003 Unknown [id number] 2.16.840.1.206851.3.579.2. 727 1959 Private Health Insurance [facility] [id number] Unknown [id number]. 531 Social History Date Type Detail Facility Start: 11-12-2021 End: 12-28-2021 Tobacco smoking status Never smoked tobacco (finding) [facility] Sex Assigned At Male [facility] Tobacco smoking status NHIS Tobacco smoking consumption unknown [facility] Start: 2003 Sex Assigned At Not on file [facility] History of tobacco use Passive smoker [facility] Start: 01-01-2022 Tobacco use and exposure Smokeless tobacco non-user [facility] Start: 01-01-2022 End: 04-29-2022 Alcohol intake Ex-drinker (finding) [facility] Start: 12-22-2021 End: 01-29-2022 Exposure to SARS-CoV-2 (event) Not sure [facility] Start: 2003 Sex Assigned At Male F [facility] Functional Status Date Assessment Result Facility 01-25-2022 Functional Status N/A [facility] 12-28-2021 Functional Status N/A [facility] 12-07-2021 N/A [facility] 11-12-2021 Functional Status N/A [facility] Clinical Notes 11-12-2021 to 10-25-2023 Randy Brown MD - 04/29/2022 8:16 AM Radha Brown MD - 01/29/2022 7:51 AM EDTTelephone Encounter - Sherry Turner [facility] - 01/01/2022 12:48 PM Jessica Brown MD - 01/01/2022 6:51 AM EDT Note Date & Type Note Facility 10-25-2023 Note [facility] Sperm Rapid Progressive October 25, 2023 11:20am 2 % 10-25-2023 Note [facility] Sperm Non-Progressive October 25, 2023 11:20am 24 % 06-28-2022 Hospital Discharge instructions Follow Up Care 06/28/2022 09:10:09 With:MARIYA VICENTE, Marcos Ross, URL Address: [address] [place], [place] [id number]- When: Unknown [facility] 04-29-2022 Note HNO ID: [id number] Author: Randy Brown MD Service: ? Author Type: Physician Type: Progress Notes Filed: 05/01/2022 6:57 AM Note Text: PATIENT NAME: Omaira Cohen DATE: 04/29/2022 PRIMARY CARE PHYSICIAN: Brittany Navratil, USED [employer] SAL[employer] OTHER PHYSICIANS: Dr. Donato Portions of this encounter note have been copied from my note from 01/29/2022 and has been updated where appropriate, and reflect my current medical decision making from today. CC: This is an 17 year old male with a history of testicular cancer, seen for scheduled follow-up. INTERIM HISTORY: Since the patient's last visit here he has had no significant medical changes. No new abnormalities involving his right testicle. No unusual pain, genitourinary symptoms, or other systemic complaints. He continues to work full-time and overall is doing quite well. MEDICATIONS: No current outpatient medications on file. No current facility-administered medications for this visit. ALLERGIES: ALLERGIES Allergen Reactions Amoxicillin Hives PAST MEDICAL HISTORY: PAST MEDICAL HISTORY Diagnosis Date Testicular cancer (HCC) 12/2021 PAST SURGICAL HISTORY: No past surgical history on file. FAMILY HISTORY: No family history on file. SOCIAL HISTORY: Social History Tobacco Use Smoking status: Never Passive exposure: Past Smokeless tobacco: Never Substance Use Topics Alcohol use: Not Currently Drug use: Never COMPLETE REVIEW OF SYSTEMS: CONSTITUTION: Negative for pain, fatigue, weight loss, or appetite loss. EENT: Negative for mouth soreness, antibiotics use, epistaxis, visual problems, neck or facial swelling, fever/chills, bleeding gums, or hearing loss. CV: Negative for edema, calf swelling, palpitations, or chest pain. RESPIRATORY: Negative for cough, SOB, hemoptysis, or wheezing. GI: Negative for nausea/vomiting, heartburn, vomiting blood, dysphasia, diarrhea, blood in stool, constipation, early satiety, PICA, vegetarian, poor nutrition, abdominal fullness, or abdominal pain. NEUROLOGICAL: Negative for numbness/tingling, dizziness, gait disturbance, headache, speech disturbance, tremor, hemiparesis/sensory loss, or change in mental status. MUSCULOSKELETAL: Negative for joint pain, joint swelling, or proximal muscle weakness. SKIN: Negative for hair loss, bruising, nail changes, rash, itching, pallor, or jaundice. ENDO/URO: Negative for hot flashes, cold or heat intolerance, urinary frequency, urinary hesitancy, menorrhagia, or hematuria. PSYCH: Negative for anxiety, depression, or other. PHYSICAL EXAM: BP 138/64 Pulse 62 Temp 36.9 ?C (98.5 ?F) (Temporal) Resp 16 Ht 190.5 cm (6' 3 ) Wt 83.6 kg (184 lb 6.4 oz) SpO2 99% BMI 23.05 kg/m? GENERAL EXAM: Well developed/well nourished; in no acute distress. SKIN: Negative for lesions, rashes, or ulcers on the upper and lower extremities and face. Negative for palpations/nodules, purpura, and ecchymosis. EENT: Negative for conjunctiva, mucosal pallor, JVD, LAP, thyromegaly, and glossitis. Supple AND PERRL. EXTREMITIES: Negative for cyanosis, clubbing, and crepitus. LUNGS: Negative to auscultation, respiratory effort, and percussion. CARDIOVASCULAR: Regular rate. Negative for murmurs/S3S4/abnormal sounds, edema, and carotid bruits. ABDOMEN: Negative for masses, hernia, and spleen/liver abnormalities. RECTAL: Not done PSYCHIATRIC: Negative for mood/affect changes, recent AND remote memory changes, and judgement and insight. NEUROLOGICAL: Alert, oriented x person, place, time. Cranial nerves 2-12 intact. Sensory for pain, light touch, vibration intact on all 4 extremities. Reflexes symmetric for biceps/brachioradial/patella/achil les. MUSCULOSKELETAL: Negative examination of joints, bones, muscles/tendons of all four extremities for inspection, percussion, and palpation. Negative for misallignment, asymmetry, crepitation, tenderness, mass, effusions. Range of motion normal. Negative for joint instability, laxity, dislocation. Gait steady. Negative for swelling, erythema, tenderness, soft tissue swelling, and atrophy. 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 The scar area measures 1.3 cm in greatest dimension. It is limited to the testis. Germ cell neoplasia in situ. Epididymis and spermatic cord with no significant pathological findings. LABS: 12/11/2021: CMP and CBC within normal limits AFP hCG LDH 12/11/2021 2.4 <1 164 04/08/2022 2.8 <1 136 RADIOLOGY/OTHER STUDIES: 12/31/2021 CT chest, abdomen, pelvis ([facility]) No evidence of metastatic disease. No suspicious findings. 12/06/2021 Scrotal ultrasound ([facility]) Left testicle contains a 1.4 cm hypoechoic vascular mass within the inferior pole. Right testicle homogeneous texture, no visible mass. ASSESSMENT/PLAN: 1. Malignant neoplasm of descended left testis (H (more content not included)... [facility] 04-29-2022 History of Present illness Narrative PATIENT NAME: Omaira Cohen DATE: 04/29/2022 PRIMARY CARE PHYSICIAN: RYANN Jane OTHER PHYSICIANS: Dr. Donato Portions of this encounter note have been copied from my note from 01/29/2022 and has been updated where appropriate, and reflect my current medical decision making from today. CC: This is an 17 year old male with a history of testicular cancer, seen for scheduled follow-up. INTERIM HISTORY: Since the patient's last visit here he has had no significant medical changes. No new abnormalities involving his right testicle. No unusual pain, genitourinary symptoms, or other systemic complaints. He continues to work full-time and overall is doing quite well. MEDICATIONS: No current outpatient medications on file. No current facility-administered medications for this visit. ALLERGIES: ALLERGIES Allergen Reactions Amoxicillin Hives PAST MEDICAL HISTORY: PAST MEDICAL HISTORY Diagnosis Date Testicular cancer (HCC) 12/2021 PAST SURGICAL HISTORY: No past surgical history on file. FAMILY HISTORY: No family history on file. SOCIAL HISTORY: Social History Tobacco Use Smoking status: Never Passive exposure: Past Smokeless tobacco: Never Substance Use Topics Alcohol use: Not Currently Drug use: Never COMPLETE REVIEW OF SYSTEMS: CONSTITUTION: Negative for pain, fatigue, weight loss, or appetite loss. EENT: Negative for mouth soreness, antibiotics use, epistaxis, visual problems, neck or facial swelling, fever/chills, bleeding gums, or hearing loss. CV: Negative for edema, calf swelling, palpitations, or chest pain. RESPIRATORY: Negative for cough, SOB, hemoptysis, or wheezing. GI: Negative for nausea/vomiting, heartburn, vomiting blood, dysphasia, diarrhea, blood in stool, constipation, early satiety, PICA, vegetarian, poor nutrition, abdominal fullness, or abdominal pain. NEUROLOGICAL: Negative for numbness/tingling, dizziness, gait disturbance, headache, speech disturbance, tremor, hemiparesis/sensory loss, or change in mental status. MUSCULOSKELETAL: Negative for joint pain, joint swelling, or proximal muscle weakness. SKIN: Negative for hair loss, bruising, nail changes, rash, itching, pallor, or jaundice. ENDO/URO: Negative for hot flashes, cold or heat intolerance, urinary frequency, urinary hesitancy, menorrhagia, or hematuria. PSYCH: Negative for anxiety, depression, or other. PHYSICAL EXAM: BP 138/64 Pulse 62 Temp 36.9 C (98.5 F) (Temporal) Resp 16 Ht 190.5 cm (6' 3 ) Wt 83.6 kg (184 lb 6.4 oz) SpO2 99% BMI 23.05 kg/m GENERAL EXAM: Well developed/well nourished; in no acute distress. SKIN: Negative for lesions, rashes, or ulcers on the upper and lower extremities and face. Negative for palpations/nodules, purpura, and ecchymosis. EENT: Negative for conjunctiva, mucosal pallor, JVD, LAP, thyromegaly, and glossitis. Supple & PERRL. EXTREMITIES: Negative for cyanosis, clubbing, and crepitus. LUNGS: Negative to auscultation, respiratory effort, and percussion. CARDIOVASCULAR: Regular rate. Negative for murmurs/S3S4/abnormal sounds, edema, and carotid bruits. ABDOMEN: Negative for masses, hernia, and spleen/liver abnormalities. RECTAL: Not done PSYCHIATRIC: Negative for mood/affect changes, recent & remote memory changes, and judgement and insight. NEUROLOGICAL: Alert, oriented x person, place, time. Cranial nerves 2-12 intact. Sensory for pain, light touch, vibration intact on all 4 extremities. Reflexes symmetric for biceps/brachioradial/patella/achil les. MUSCULOSKELETAL: Negative examination of joints, bones, muscles/tendons of all four extremities for inspection, percussion, and palpation. Negative for misallignment, asymmetry, crepitation, tenderness, mass, effusions. Range of motion normal. Negative for joint instability, laxity, dislocation. Gait steady. Negative for swelling, erythema, tenderness, soft tissue swelling, and atrophy. 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 The scar area measures 1.3 cm in greatest dimension. It is limited to the testis. Germ cell neoplasia in situ. Epididymis and spermatic cord with no significant pathological findings. LABS: 12/11/2021: CMP and CBC within normal limits AFP hCG LDH 12/11/2021 2.4 <1 164 04/08/2022 2.8 <1 136 RADIOLOGY/OTHER STUDIES: 12/31/2021 CT chest, abdomen, pelvis ([facility]) No evidence of metastatic disease. No suspicious findings. 12/06/2021 Scrotal ultrasound ([facility]) Left testicle contains a 1.4 cm hypoechoic vascular mass within the inferior pole. Right testicle homogeneous texture, no visible mass. ASSESSMENT/PLAN: 1. 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 The patient presented in October 2021 with a left scrotal mass. Scrotal ultrasound 12/05/2021 confirmed a 1.4 cm mass involving the left testicle. He underwent a radical left orchiectomy on 12/20/2021. 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 The scar area measured 1.3 cm in greatest dimension and was limited to the testis. Baseline staging scans revealed no evidence of metastases. Adjuvant therapy not indicated, and postop observation recommended. Currently the patient has no evidence of disease. At this time we will continue routine surveillance, to include follow-up with labs every 2 months the first year, every 3 months the second year, then every 6 months until year 5. Staging scans every 6 months the first 2 years, then annually year 3 through year 5. We will arrange for his next scans to be done at [facility] at the end of this month. I will see him back in 2 months for follow-up and labs. Randy Brown MD CC: Dr. Donato documented in this encounter [facility] 01-29-2022 Note HNO ID: [id number] Author: Randy Brown MD Service: ? Author Type: Physician Type: Progress Notes Filed: 01/30/2022 6:53 AM Note Text: PATIENT NAME: Omaira Cohen DATE: 01/29/2022 PRIMARY CARE PHYSICIAN: Brittany Ramirez, USED CAR SALESPERSON OTHER PHYSICIANS: Dr. Donato Portions of this encounter note have been copied from my note from 01/01/2022 and has been updated where appropriate, and reflect my current medical decision making from today. CC: This is an 16 year old male with recently diagnosed testicular cancer, referred for further management. 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 Since the patient's last visit here he has had no significant medical changes, and currently feels well. He has recovered from surgery. No genitourinary abnormalities or complaints. MEDICATIONS: No current outpatient medications on file. No current facility-administered medications for this visit. ALLERGIES: ALLERGIES Allergen Reactions Amoxicillin Hives PAST MEDICAL HISTORY: PAST MEDICAL HISTORY Diagnosis Date Testicular cancer (HCC) 12/2021 PAST SURGICAL HISTORY: No past surgical history on file. FAMILY HISTORY: No family history on file. SOCIAL HISTORY: Social History Tobacco Use Smoking status: Never Passive exposure: Past Smokeless tobacco: Never Substance Use Topics Alcohol use: Not Currently Drug use: Never COMPLETE REVIEW OF SYSTEMS: CONSTITUTION: Negative for pain, fatigue, weight loss, or appetite loss. EENT: Negative for mouth soreness, antibiotics use, epistaxis, visual problems, neck or facial swelling, fever/chills, bleeding gums, or hearing loss. CV: Negative for edema, calf swelling, palpitations, or chest pain. RESPIRATORY: Negative for cough, SOB, hemoptysis, or wheezing. GI: Negative for nausea/vomiting, heartburn, vomiting blood, dysphasia, diarrhea, blood in stool, constipation, early satiety, PICA, vegetarian, poor nutrition, abdominal fullness, or abdominal pain. NEUROLOGICAL: Negative for numbness/tingling, dizziness, gait disturbance, headache, speech disturbance, tremor, hemiparesis/sensory loss, or change in mental status. MUSCULOSKELETAL: Negative for joint pain, joint swelling, or proximal muscle weakness. SKIN: Negative for hair loss, bruising, nail changes, rash, itching, pallor, or jaundice. ENDO/URO: Negative for hot flashes, cold or heat intolerance, urinary frequency, urinary hesitancy, menorrhagia, or hematuria. PSYCH: Negative for anxiety, depression, or other. PHYSICAL EXAM: BP 133/62 Pulse 64 Temp 36.2 ?C (97.1 ?F) (Temporal) Resp 16 Ht 190.5 cm (6' 3 ) Wt 84.8 kg (187 lb) SpO2 100% BMI 23.37 kg/m? GENERAL EXAM: Well developed/well nourished; in no acute distress. SKIN: Negative for lesions, rashes, or ulcers on the upper and lower extremities and face. Negative for palpations/nodules, purpura, and ecchymosis. EENT: Negative for conjunctiva, mucosal pallor, JVD, LAP, thyromegaly, and glossitis. Supple AND PERRL. EXTREMITIES: Negative for cyanosis, clubbing, and crepitus. LUNGS: Negative to auscultation, respiratory effort, and percussion. CARDIOVASCULAR: Regular rate. Negative for murmurs/S3S4/abnormal sounds, edema, and carotid bruits. ABDOMEN: Negative for masses, hernia, and spleen/liver abnormalities. RECTAL: Not done PSYCHIATRIC: Negative for mood/affect changes, recent AND remote memory changes, and judgement and insight. NEUROLOGICAL: Alert, oriented x person, place, time. Cranial nerves 2-12 intact. Sensory for pain, light touch, vibration intact on all 4 extremities. Reflexes symmetric for biceps/brachioradial/patella/achil les. MUSCULOSKELETAL: Negative examination of joints, bones, muscles/tendons of all four extremities for inspection, percussion, and palpation. Negative for misallignment, asymmetry, crepitation, tenderness, mass, effusions. Range of motion normal. Negative for joint instability, laxity, dislocation. Gait steady. Negative for swelling, erythema, tenderness, soft tissue swelling, and atrophy. 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 The scar area measures 1.3 cm in greatest dimension. It is limited to the testis. Germ cell neoplasia in situ. Epididymis and spermatic cord with no significant pathological findings. LABS: 12/11/2021: CMP and CBC within normal limits AFP hCG LDH 12/11/2021 2.4 <1 164 RADIOLOGY/OTHER STUDIES: 12/31/2021 CT chest, abdomen, pelvis ([facility]) No evidence of metastatic disease. No suspicious findings. 12/06/2021 Scrotal ultrasound ([facility]) Left testicle contains a 1.4 cm hypoechoic vascular mass within the inferior pole. Right testicle homogeneous texture, no visible mass. (more content not included)... [facility] 01-29-2022 History of Present illness Narrative PATIENT NAME: Omaira Cohen DATE: 01/29/2022 PRIMARY CARE PHYSICIAN: Brittany Ramirez, USED CAR SALESPERSON OTHER PHYSICIANS: Dr. Donato Portions of this encounter note have been copied from my note from 01/01/2022 and has been updated where appropriate, and reflect my current medical decision making from today. CC: This is an 16 year old male with recently diagnosed testicular cancer, referred for further management. 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 Since the patient's last visit here he has had no significant medical changes, and currently feels well. He has recovered from surgery. No genitourinary abnormalities or complaints. MEDICATIONS: No current outpatient medications on file. No current facility-administered medications for this visit. ALLERGIES: ALLERGIES Allergen Reactions Amoxicillin Hives PAST MEDICAL HISTORY: PAST MEDICAL HISTORY Diagnosis Date Testicular cancer (HCC) 12/2021 PAST SURGICAL HISTORY: No past surgical history on file. FAMILY HISTORY: No family history on file. SOCIAL HISTORY: Social History Tobacco Use Smoking status: Never Passive exposure: Past Smokeless tobacco: Never Substance Use Topics Alcohol use: Not Currently Drug use: Never COMPLETE REVIEW OF SYSTEMS: CONSTITUTION: Negative for pain, fatigue, weight loss, or appetite loss. EENT: Negative for mouth soreness, antibiotics use, epistaxis, visual problems, neck or facial swelling, fever/chills, bleeding gums, or hearing loss. CV: Negative for edema, calf swelling, palpitations, or chest pain. RESPIRATORY: Negative for cough, SOB, hemoptysis, or wheezing. GI: Negative for nausea/vomiting, heartburn, vomiting blood, dysphasia, diarrhea, blood in stool, constipation, early satiety, PICA, vegetarian, poor nutrition, abdominal fullness, or abdominal pain. NEUROLOGICAL: Negative for numbness/tingling, dizziness, gait disturbance, headache, speech disturbance, tremor, hemiparesis/sensory loss, or change in mental status. MUSCULOSKELETAL: Negative for joint pain, joint swelling, or proximal muscle weakness. SKIN: Negative for hair loss, bruising, nail changes, rash, itching, pallor, or jaundice. ENDO/URO: Negative for hot flashes, cold or heat intolerance, urinary frequency, urinary hesitancy, menorrhagia, or hematuria. PSYCH: Negative for anxiety, depression, or other. PHYSICAL EXAM: BP 133/62 Pulse 64 Temp 36.2 C (97.1 F) (Temporal) Resp 16 Ht 190.5 cm (6' 3 ) Wt 84.8 kg (187 lb) SpO2 100% BMI 23.37 kg/m GENERAL EXAM: Well developed/well nourished; in no acute distress. SKIN: Negative for lesions, rashes, or ulcers on the upper and lower extremities and face. Negative for palpations/nodules, purpura, and ecchymosis. EENT: Negative for conjunctiva, mucosal pallor, JVD, LAP, thyromegaly, and glossitis. Supple & PERRL. EXTREMITIES: Negative for cyanosis, clubbing, and crepitus. LUNGS: Negative to auscultation, respiratory effort, and percussion. CARDIOVASCULAR: Regular rate. Negative for murmurs/S3S4/abnormal sounds, edema, and carotid bruits. ABDOMEN: Negative for masses, hernia, and spleen/liver abnormalities. RECTAL: Not done PSYCHIATRIC: Negative for mood/affect changes, recent & remote memory changes, and judgement and insight. NEUROLOGICAL: Alert, oriented x person, place, time. Cranial nerves 2-12 intact. Sensory for pain, light touch, vibration intact on all 4 extremities. Reflexes symmetric for biceps/brachioradial/patella/achil les. MUSCULOSKELETAL: Negative examination of joints, bones, muscles/tendons of all four extremities for inspection, percussion, and palpation. Negative for misallignment, asymmetry, crepitation, tenderness, mass, effusions. Range of motion normal. Negative for joint instability, laxity, dislocation. Gait steady. Negative for swelling, erythema, tenderness, soft tissue swelling, and atrophy. 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 The scar area measures 1.3 cm in greatest dimension. It is limited to the testis. Germ cell neoplasia in situ. Epididymis and spermatic cord with no significant pathological findings. LABS: 12/11/2021: CMP and CBC within normal limits AFP hCG LDH 12/11/2021 2.4 <1 164 RADIOLOGY/OTHER STUDIES: 12/31/2021 CT chest, abdomen, pelvis ([facility]) No evidence of metastatic disease. No suspicious findings. 12/06/2021 Scrotal ultrasound ([facility]) Left testicle contains a 1.4 cm hypoechoic vascular mass within the inferior pole. Right testicle homogeneous texture, no visible mass. ASSESSMENT/PLAN: 1. 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 Scrotal ultrasound 12/05/2021 confirmed a 1.4 cm mass involving the left testicle. He underwent a radical left orchiectomy on 12/20/2021. 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 The scar area measured 1.3 cm in greatest dimension and was limited to the testis. Also seen was germ cell neoplasia in situ. (The diagnosis of regressed germ cell tumor was confirmed by [facility] pathology.) Staging scans showed no evidence of metastases. Currently the patient has no evidence of disease. Options for further management were discussed at length with the patient and his mother. At this time we will continue surveillance per NCCN guidelines for low risk stage I testicular cancer. He will return in 1 month for follow-up and labs. We will restage again at 4 months (April 2022). Randy Brown MD CC: Dr. Donato documented in this encounter [facility] 01-25-2022 Hospital Discharge instructions Patient Education 01/25/2022 11:11:29 Testicular Cancer Testicular Cancer Testicular cancer is the presence of a cancerous (malignant) tumor in one or both of the male sex glands that produce testosterone and sperm (testicles). A tumor is an abnormal growth of cells and tissue. Testicular cancer is the most common cancer in men 20 45 years old. What are the causes? The cause of this condition is not known. What increases the risk? The following factors may make you more likely to develop this condition: Having had an undescended testicle. Having had abnormal development of the testicles. Having had testicular cancer in the past. Having a family history of testicular cancer, especially a father or brother. Having Klinefelter syndrome. This is a condition in which a male child shows some female characteristics. Being white. Having HIV infection. What are the signs or symptoms? Symptoms of this condition include: Swelling of the scrotum. A change in how your testicle feel. A painless bump or swelling in the testicle. Dull ache in the lower abdomen. Pain or discomfort in the testicles or scrotum. Sudden buildup of fluid in the scrotum. Growth of breast tissue. The breast area may feel painful or sore. Advanced symptoms of the condition include: Lower back pain. Shortness of breath. Chest pain. A cough. Abdominal pain. Headache. Feeling confused. How is this diagnosed? This condition is diagnosed based on your medical history and a physical exam, which will include checking your testicles for lumps, swelling, or pain. You may also have tests done, including: Testicle ultrasonogram. A blood test that looks for substances that are linked to specific types of cancer (serum tumor marker test). A biopsy to remove the entire testicle in order to test it for cancer cells (radical inguinal orchiectomy and biopsy). Imaging tests such as a CT scan, MRI, or bone scan. If testicular cancer is confirmed, it will be staged to determine its severity and extent. Staging is an assessment of: The size of the tumor. Whether or not the cancer has spread. Where the cancer has spread. How is this treated? Once your cancer has been diagnosed and staged, you should discuss a treatment plan with your health care provider. Based on the stage of the cancer, one treatment or a combination of treatments may be recommended. The most common forms of treatment are: Surgery. Radiation therapy. Chemotherapy. High-dose chemotherapy followed by stem cell transplant. Certain treatments for testicular cancer can cause infertility, a condition that could become permanent. Talk to your health care provider about the risks of treatment and your options if you want to have children. Follow these instructions at home: Take [id number] and prescription medicines only as told by your health care provider. Maintain a healthy diet. Talk with your dietitian, or your health care provider, about what dietary choices are best for you. If you have to go to the hospital, let your cancer specialist know. Consider joining a support group. This may help you learn to cope with the stress of having testicular cancer. Seek advice to help you manage treatment side effects. Keep all follow-up visits as told by your health care provider. This is important. Contact a health care provider if: You have a dull ache in your lower abdomen or groin. You have a sudden buildup of fluid in your scrotum. You have new symptoms such as headache, abdominal pain, or lower back pain. Get help right away if: You have an increase in pain, discomfort, or swelling in your testicle or scrotum. You have a cough, shortness of breath, or chest pain. You feel confused. Summary Testicular cancer is the presence of a cancerous (malignant) tumor in one or both of the male sex glands that produce testosterone and sperm (testicles). Once your testicular cancer has been diagnosed and staged, you should discuss a treatment plan with your health care provider. Based on the stage of the cancer, one treatment or a combination of treatments may be recommended. The most common forms of treatment are: surgery, radiation therapy, chemotherapy, and high-dose chemotherapy followed by stem cell transplant. This information is not intended to replace advice given to you by your health care provider. Make sure you discuss any questions you have with your health care provider. Document Released: 02/28/2006 Document Revised: 07/29/2019 Document Reviewed: 07/04/2017 [employer] Patient Education [address] Follow Up Care 12/28/2021 09:47:13 With:MARIYA VICENTE, Marcos Ross, URL Address: [address] [place], [place] [id number]- When: Unknown [facility] 01-01-2022 Miscellaneous Notes 2nd opinion pathology requested to be sent from [facility] to [facility] for review. documented in this encounter [facility] 01-01-2022 Note HNO ID: [id number] Author: Randy Brown MD Service: ? Author Type: Physician Type: Progress Notes Filed: 01/02/2022 9:04 AM Note Text: PATIENT NAME: Omaira Cohen DATE: 01/01/2022 PRIMARY CARE PHYSICIAN: Brittany Ramirez, RYANN OTHER PHYSICIANS: Dr. Donato HPI: This is an 16 year old male with recently diagnosed testicular cancer, referred for further management. The patient has no significant past medical history. He presented in October 2021 with a left scrotal mass. He was given a trial of antibiotics with doxycycline with no improvement. Scrotal ultrasound 12/05/2021 confirmed a 1.4 cm mass involving the left testicle. Subsequently the patient underwent a radical left orchiectomy on 12/20/2021. 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 The scar area measures 1.3 cm in greatest dimension and was limited to the testis. Also seen was germ cell neoplasia in situ. The patient has recovered from surgery, and currently feels back to baseline. He has no past medical history and currently takes no medications. He does not smoke or drink. Family history is negative. 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 MEDICATIONS: No current outpatient medications on file. No current facility-administered medications for this visit. ALLERGIES: ALLERGIES Allergen Reactions Amoxicillin Hives PAST MEDICAL HISTORY: PAST MEDICAL HISTORY Diagnosis Date Testicular cancer (HCC) 12/2021 PAST SURGICAL HISTORY: No past surgical history on file. FAMILY HISTORY: No family history on file. SOCIAL HISTORY: COMPLETE REVIEW OF SYSTEMS: CONSTITUTION: Negative for pain, fatigue, weight loss, or appetite loss. EENT: Negative for mouth soreness, antibiotics use, epistaxis, visual problems, neck or facial swelling, fever/chills, bleeding gums, or hearing loss. CV: Negative for edema, calf swelling, palpitations, or chest pain. RESPIRATORY: Negative for cough, SOB, hemoptysis, or wheezing. GI: Negative for nausea/vomiting, heartburn, vomiting blood, dysphasia, diarrhea, blood in stool, constipation, early satiety, PICA, vegetarian, poor nutrition, abdominal fullness, or abdominal pain. NEUROLOGICAL: Negative for numbness/tingling, dizziness, gait disturbance, headache, speech disturbance, tremor, hemiparesis/sensory loss, or change in mental status. MUSCULOSKELETAL: Negative for joint pain, joint swelling, or proximal muscle weakness. SKIN: Negative for hair loss, bruising, nail changes, rash, itching, pallor, or jaundice. ENDO/URO: Negative for hot flashes, cold or heat intolerance, urinary frequency, urinary hesitancy, menorrhagia, or hematuria. PSYCH: Negative for anxiety, depression, or other. PHYSICAL EXAM: BP 128/62 Pulse (!) 56 Temp 36.7 ?C (98.1 ?F) (Temporal) Resp 16 Ht 190.5 cm (6' 3 ) Wt 81.5 kg (179 lb 9.6 oz) SpO2 98% BMI 22.45 kg/m? GENERAL EXAM: Well developed/well nourished; in no acute distress. SKIN: Negative for lesions, rashes, or ulcers on the upper and lower extremities and face. Negative for palpations/nodules, purpura, and ecchymosis. EENT: Negative for conjunctiva, mucosal pallor, JVD, LAP, thyromegaly, and glossitis. Supple AND PERRL. EXTREMITIES: Negative for cyanosis, clubbing, and crepitus. LUNGS: Negative to auscultation, respiratory effort, and percussion. CARDIOVASCULAR: Regular rate. Negative for murmurs/S3S4/abnormal sounds, edema, and carotid bruits. ABDOMEN: Negative for masses, hernia, and spleen/liver abnormalities. RECTAL: Not done PSYCHIATRIC: Negative for mood/affect changes, recent AND remote memory changes, and judgement and insight. NEUROLOGICAL: Alert, oriented x person, place, time. Cranial nerves 2-12 intact. Sensory for pain, light touch, vibration intact on all 4 extremities. Reflexes symmetric for biceps/brachioradial/patella/achil les. MUSCULOSKELETAL: Negative examination of joints, bones, muscles/tendons of all four extremities for inspection, percussion, and palpation. Negative for misallignment, asymmetry, crepitation, tenderness, mass, effusions. Range of motion normal. Negative for joint instability, laxity, dislocation. Gait steady. Negative for swelling, erythema, tenderness, soft tissue swelling, and atrophy. 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 The scar area measures 1.3 cm in greatest dimension. It is limited to the testis. Germ cell neoplasia in situ. Epididymis and spermatic cord with no significant pathological findings. LABS: 12/11/2021: CMP and CBC within normal limits AFP hCG LDH 12/11/2021 2.4 <1 RADIOLOGY/OTHER STUDIES: 12/31/2021 CT chest, abdomen, pelvis ([facility]) No evidence of metastatic disease. No suspicious findings. 12/06/2021 Scrotal ultrasound ([facility]) Left (more content not included)... [facility] 01-01-2022 History of Present illness Narrative PATIENT NAME: Omaira Cohen DATE: 01/01/2022 PRIMARY CARE PHYSICIAN: Brittany Ramirez, USED CAR SALESPERSON OTHER PHYSICIANS: Dr. Donato HPI: This is an 16 year old male with recently diagnosed testicular cancer, referred for further management. The patient has no significant past medical history. He presented in October 2021 with a left scrotal mass. He was given a trial of antibiotics with doxycycline with no improvement. Scrotal ultrasound 12/05/2021 confirmed a 1.4 cm mass involving the left testicle. Subsequently the patient underwent a radical left orchiectomy on 12/20/2021. 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 The scar area measures 1.3 cm in greatest dimension and was limited to the testis. Also seen was germ cell neoplasia in situ. The patient has recovered from surgery, and currently feels back to baseline. He has no past medical history and currently takes no medications. He does not smoke or drink. Family history is negative. 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 MEDICATIONS: No current outpatient medications on file. No current facility-administered medications for this visit. ALLERGIES: ALLERGIES Allergen Reactions Amoxicillin Hives PAST MEDICAL HISTORY: PAST MEDICAL HISTORY Diagnosis Date Testicular cancer (HCC) 12/2021 PAST SURGICAL HISTORY: No past surgical history on file. FAMILY HISTORY: No family history on file. SOCIAL HISTORY: COMPLETE REVIEW OF SYSTEMS: CONSTITUTION: Negative for pain, fatigue, weight loss, or appetite loss. EENT: Negative for mouth soreness, antibiotics use, epistaxis, visual problems, neck or facial swelling, fever/chills, bleeding gums, or hearing loss. CV: Negative for edema, calf swelling, palpitations, or chest pain. RESPIRATORY: Negative for cough, SOB, hemoptysis, or wheezing. GI: Negative for nausea/vomiting, heartburn, vomiting blood, dysphasia, diarrhea, blood in stool, constipation, early satiety, PICA, vegetarian, poor nutrition, abdominal fullness, or abdominal pain. NEUROLOGICAL: Negative for numbness/tingling, dizziness, gait disturbance, headache, speech disturbance, tremor, hemiparesis/sensory loss, or change in mental status. MUSCULOSKELETAL: Negative for joint pain, joint swelling, or proximal muscle weakness. SKIN: Negative for hair loss, bruising, nail changes, rash, itching, pallor, or jaundice. ENDO/URO: Negative for hot flashes, cold or heat intolerance, urinary frequency, urinary hesitancy, menorrhagia, or hematuria. PSYCH: Negative for anxiety, depression, or other. PHYSICAL EXAM: BP 128/62 Pulse (!) 56 Temp 36.7 C (98.1 F) (Temporal) Resp 16 Ht 190.5 cm (6' 3 ) Wt 81.5 kg (179 lb 9.6 oz) SpO2 98% BMI 22.45 kg/m GENERAL EXAM: Well developed/well nourished; in no acute distress. SKIN: Negative for lesions, rashes, or ulcers on the upper and lower extremities and face. Negative for palpations/nodules, purpura, and ecchymosis. EENT: Negative for conjunctiva, mucosal pallor, JVD, LAP, thyromegaly, and glossitis. Supple & PERRL. EXTREMITIES: Negative for cyanosis, clubbing, and crepitus. LUNGS: Negative to auscultation, respiratory effort, and percussion. CARDIOVASCULAR: Regular rate. Negative for murmurs/S3S4/abnormal sounds, edema, and carotid bruits. ABDOMEN: Negative for masses, hernia, and spleen/liver abnormalities. RECTAL: Not done PSYCHIATRIC: Negative for mood/affect changes, recent & remote memory changes, and judgement and insight. NEUROLOGICAL: Alert, oriented x person, place, time. Cranial nerves 2-12 intact. Sensory for pain, light touch, vibration intact on all 4 extremities. Reflexes symmetric for biceps/brachioradial/patella/achil les. MUSCULOSKELETAL: Negative examination of joints, bones, muscles/tendons of all four extremities for inspection, percussion, and palpation. Negative for misallignment, asymmetry, crepitation, tenderness, mass, effusions. Range of motion normal. Negative for joint instability, laxity, dislocation. Gait steady. Negative for swelling, erythema, tenderness, soft tissue swelling, and atrophy. 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 The scar area measures 1.3 cm in greatest dimension. It is limited to the testis. Germ cell neoplasia in situ. Epididymis and spermatic cord with no significant pathological findings. LABS: 12/11/2021: CMP and CBC within normal limits AFP hCG LDH 12/11/2021 2.4 <1 RADIOLOGY/OTHER STUDIES: 12/31/2021 CT chest, abdomen, pelvis ([facility]) No evidence of metastatic disease. No suspicious findings. 12/06/2021 Scrotal ultrasound ([facility]) Left testicle contains a 1.4 cm hypoechoic vascular mass within the inferior pole. Right testicle homogeneous texture, no visible mass. ASSESSMENT/PLAN: 1. 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 Scrotal ultrasound 12/05/2021 confirmed a 1.4 cm mass involving the left testicle. He underwent a radical left orchiectomy on 12/20/2021. 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 The scar area measures 1.3 cm in greatest dimension and was limited to the testis. Also seen was germ cell neoplasia in situ. Staging scans showed no evidence of metastases. Currently the patient has no evidence disease. Options for further management were discussed at length with the patient and his mother. We have elected to refer his recent surgical specimen to [facility] pathology for second opinion. We will repeat labs today. Assuming the diagnosis of a regressed germ cell tumor is confirmed and labs remain negative standard of care would be routine follow-up. I will see him back in 4 weeks for follow-up. Randy Brown MD documented in this encounter [facility] 12-28-2021 Hospital Discharge instructions Patient Education 12/28/2021 09:43:48 Orchiectomy Orchiectomy An orchiectomy is the removal of one or both testicles. It is most often done to treat cancer of the prostate or testicles. It may be done in men with breast cancer, or to prevent cancer in men whose testicles did not develop normally. An orchiectomy may also be needed when an injury to a testicle cannot be repaired. The testicles can be replaced with artificial testicles (prosthesis). Tell a health care provider about: Any allergies you have. All medicines you are taking, including vitamins, herbs, eye drops, creams, and ihii-pvi-lvtfxer medicines. Any problems you or family members have had with anesthetic medicines. Any blood disorders you have. Any surgeries you have had. Any medical conditions you have. What are the risks? Infection of the surgical site. Bleeding inside the sac that holds the testicles (scrotum). This is called a scrotal hematoma. Discharge from the surgical site. What happens before the procedure? Staying hydrated Follow instructions from your health care provider about hydration, which may include: Up to 2 hours before the procedure you may continue to drink clear liquids, such as water, clear fruit juice, black coffee, and plain tea. Eating and drinking restrictions Follow instructions from your health care provider about eating and drinking, which may include: 8 hours before the procedure stop eating heavy meals or foods such as meat, fried foods, or fatty foods. 6 hours before the procedure stop eating light meals or foods, such as toast or cereal. 6 hours before the procedure stop drinking milk or drinks that contain milk. 2 hours before the procedure stop drinking clear liquids. General instructions Ask your health care provider about: ?Changing or stopping your regular medicines. This is especially important if you are taking diabetes medicines or blood thinners. ?Taking medicines such as aspirin and ibuprofen. These medicines can thin your blood. Do not take these medicines before your procedure if your health care provider instructs you not to. You may be given an oral antibiotic medicine. Ask your health care provider about taking this medicine with a sip of water on the morning of the procedure. You may be asked to wash your genital area with germ-killing soap the morning of your procedure. Plan to have someone take you home from the hospital or clinic. What happens during the procedure? To reduce your risk of infection: ?Your health care team will wash or sanitize their hands. ?Your skin will be washed with soap. ?Hair may be removed from the surgical area. An IV tube will be inserted into one of your veins. You will be given one or more of the following: ?A medicine to help you relax (sedative). ?A medicine to numb the area (local anesthetic). ?A medicine to make you fall asleep (general anesthetic). This procedure may involve removal of one or both testicles. The steps for the procedure will depend on the reason for the procedure. ?If your procedure is for treatment of prostate cancer: ?A cut (incision) will be made in the scrotum. ?The testicle will be removed through the incision in the scrotum. ?A prosthetic filled with saline may be inserted to fill the space in the scrotum where the testicle was removed. ?If your procedure is for treatment of testicular cancer: ?A cut (incision) will be made in the groin. ?The testicle and the spermatic cord will be removed through the groin incision. ?A prosthetic filled with saline may be inserted to fill the space in the scrotum where the testicle was removed. ?After the removal, the incision will be closed with stitches (sutures), skin glue, or adhesive strips. ?A sterile bandage (dressing) will be applied to the incision site. The procedure may vary among health care providers and hospitals. What happens after the procedure? Your blood pressure, heart rate, breathing rate, and blood oxygen level will be monitored until the medicines you were given have worn off. Once you are awake, stable, and taking fluids well, without other problems, you will be allowed to go home. You may have scrotal support. If the scrotal support irritates your incision site, you may remove the support. You will have a sterile dressing. It is okay if the dressing comes off, especially at night. Air will help a scab to form, which will eliminate the need for dressings during the day. Do not drive for 24 hours if you were given a sedative. Summary Orchiectomy is a surgical procedure to remove one or both testicles. Orchiectomy is most often done to treat cancer of the prostate or testicles. A prosthetic filled with saline may be inserted to fill the space in the scrotum where the testicle was removed. This information is not intended to replace advice given to you by your health care provider. Make sure you discuss any questions you have with your health care provider. Document Released: 03/07/2006 Document Revised: 03/20/2018 Document Reviewed: 02/27/2017 [employer] Patient Education [address] Follow Up Care 12/07/2021 10:58:41 With:MARIYA VICENTE, Marcos Ross, URL Address: [address] [place] [address] [place] [id number]- When: Unknown [facility] 12-07-2021 Hospital Discharge instructions Patient Education 12/07/2021 09:55:32 Testicular Self-Exam Testicular Self-Exam A self-examination of your testicles (testicular self-exam) involves looking at and feeling your testicles for abnormal lumps or swelling. Several things can cause swelling, lumps, or pain in your testicles. Some of these causes are: Injuries. Inflammation. Infection. Buildup of fluids around your testicle (hydrocele). Twisted testicles (testicular torsion). Testicular cancer. Why is it important to do a testicular self-exam? Self-examination of the testicles and the left and right groin areas may be recommended if you are at risk for testicular cancer. Your groin is where your lower abdomen meets your upper thighs. You may be at risk for testicular cancer if you have: An undescended testicle (cryptorchidism). A history of previous testicular cancer. A family history of testicular cancer. How to do a testicular self-exam The testicles are easiest to examine after a warm bath or shower. They are more difficult to examine when you are cold. This is because the muscles attached to the testicles retract and pull them up higher or into the abdomen. A normal testicle is egg-shaped and feels firm. It is smooth and not tender. The spermatic cord can be felt as a firm, spaghetti-like cord at the back of your testicle. Look and feel for changes Stand and hold your penis away from your body. Look at each testicle to check for lumps or swelling. Roll each testicle between your thumb and forefinger, feeling the entire testicle. Feel for: ?Lumps. ?Swelling. ?Discomfort. Check the groin area between your abdomen and upper thighs on both sides of your body. Look and feel for any swelling or bumps that are tender. These could be enlarged lymph nodes. Contact a health care provider if: You find any bumps or lumps, such as a small, hard, pea-sized lump. You find swelling, pain, or soreness. You see or feel any other changes in your testicles. Summary A self-examination of your testicles (testicular self-exam) involves looking at and feeling your testicles for any changes. Self-examination of the testicles and the left and right groin areas may be recommended if you are at risk for testicular cancer. You should check each of your testicles for lumps, swelling, or discomfort. You should check for swelling or tender bumps in your groin area between your lower abdomen and upper thighs. This information is not intended to replace advice given to you by your health care provider. Make sure you discuss any questions you have with your health care provider. Document Released: 07/14/2001 Document Revised: 07/29/2019 Document Reviewed: 03/03/2017 [employer] Patient Education [address] Follow Up Care 11/12/2021 11:41:21 With:MARIYA VICENTE, Marcos Ross, URL Address: [facility] [address], [place] [address]- When: Unknown [facility] 11-12-2021 Note Chief Complaint Referral for testicular mass HPI Staff New pt referral for testicular mass. Scrotal US done 11/05/21 shows left intratesticular mass measuring 1.5x1.0x1.5 cm. Pt states that he does have some pain off and on and when it comes on he rates it at 6. Pt is currently taking Fluconazole 50mg qd for the rash he was having on his skin. Dysuria: no Incomplete bladder emptying: no Hematuria: no Frequency: no Urgency: no Nocturia: no Stream: good steady stream Leaking: no Post void dripping: no Wearing pads/ Depends: no Urge incontinence: no Stress incontinence: no Incontinence without Sensory Awareness: no Abdominal pain: no Flank pain: no Sexual complaints: no History of Present Illness I have reviewed and verified the staff HPI to be accurate for this encounter. Review of Systems PHQ Score Initial Depression Screen Score: 0 ROS - Provider Constitutional: denies weight loss, denies hot flashes. Eyes: denies eye problems. Gastrointestinal: denies nausea, denies vomiting. Cardiovascular: denies chest pain or angina. Integumentary: no dryness Musculoskeletal: denies musculoskeletal symptoms. ENMT: denies otolaryngeal symptoms. Respiratory: no shortness of breath. Heme/Lymph: denies easy bleeding tendency, denies easy bruising tendency. Psychiatric: no confusion, no anxiety. Genitourinary: denies dysuria, denies hematuria, denies discharge, denies urinary frequency, denies urinary hesitancy, denies nocturia, denies incontinence, denies genital sores, denies decreased libido, and denies erectile dysfunction. Physical Exam Vitals & Measurements HR: 80(Peripheral) RR: 16 BP: 103/80 HT: 187.0 cm HT: 187 cm WT: 72.0 kg WT: 72 kg BMI: 20.59 General Appearance: alert, no distress, well nourished, well developed male. Head: normocephalic . Eyes: normal orbit and globe. ENMT: normal examination of external ears. Chest: Lungs CTA, respirations non labored. Cardiovascular: regular rate and rhythm. Abdomen: soft, non distended, no tenderness, no mass or organomegaly, no hernia. Genitourinary: left intratesticular mass in upper half 1,5-2cm. indurated and mildly tender. Flank Pain: none. Bladder: nonpalpable. Penis: normal shaft, normal glans. Lymph Nodes: unremarkable palpation of the cervical area. Skin: warm, dry, no bruising. Psychiatric: cooperative, affect appropriate for age, normal judgement, euthymic mood. Assessment/Plan 1. Testicular mass (N50.89: Other specified disorders of the male genital organs) Scrotal US done 11/05/21 shows left intratesticular mass measuring 1.5x1.0x1.5 cm. Pt states that he does have some pain off and on and when it comes on he rates it at 6. Pt states he initially felt a lump in the shower and then later he started to have pain in his testicle. Pt states that in the past week he woke up at night and had excruciating pain. Educated pt that there are 3 things that we can be dealing with, which are testicular infection, testicular cancer, or an infarction. Discussed with pt that we want to have him on ABX for 3 weeks and then do a repeat Scrotal US. Will send Doxycycline BID to pt's pharmacy today for 3 weeks. Discussed with pt about his fertility options (sperm banking) if this turns about to be testicular cancer. Educated pt that as long as his right testicle functions normally, it will produce enough sperm and testosterone for a normal male existence. Follow-up With When Contact Information MARIYA VICENTE, BERNARDO Hines In 4 weeks 12/10/2021 EDT [facility] [address], [place] [address]- [phone] Additional Instructions: Scrotal US Patient Education Testicular Self-Exam, [id number] I, Terrie Almendarez, personally scribed for Dr. Donato on 11/12/2021 11:30:59. . Documentation recorded by the scribe, Terrie Almendarez, accurately reflects the services(s) I performed and decisions made by me. Problem List/Past Medical History Ongoing Testicular mass Historical No qualifying data Medications fluconazole 50 mg oral tablet, Oral, Daily Allergies amoxicillin (Hives) Social History Tobacco Never (less than 100 in lifetime) Tobacco Use:., 11/12/2021 Lab Results Ambulatory Point of Care Results Bilirubin Urine Dipstick: Negative (11/12/21 10:39:00) Blood Urine Dipstick: Negative (11/12/21 10:39:00) Glucose Urine Dipstick: Negative (11/12/21 10:39:00) Ketones Urine Dipstick: Negative (11/12/21 10:39:00) Leukocytes Urine Dipstick: Negative (11/12/21 10:39:00) Nitrite Urine Dipstick: Negative (11/12/21 10:39:00) Protein Urine Dipstick: Negative (11/12/21 10:39:00) Specific Lindsay Urine Dipstick: 1.020 (11/12/21 10:39:00) Urine Appearance Urine Dipstick: Clear (11/12/21 10:39:00) Urine Color Urine Dipstick: Yellow (11/12/21 10:39:00) Urobilinogen Urine Dipstick: Normal 0.2-1 EU/dl (11/12/21 10:39:00) pH Urine Dipstick: 7 (11/12/21 10:39:00) D (more content not included)... [facility] Comment on above: Result Comment: Elec tronically Signed By: Marcos DONATO MD\.br\Date and Time Signed: 11/12/21 11:37 EDT\.br\Electronically Co-Signed By: Terrie Almendarez MA\.br\Date and Time Co-Signed: 11/12/21 11:31 EDT 11-12-2021 Hospital Discharge instructions Patient Education 11/12/2021 11:14:03 Testicular Self-Exam, [id number] Testicular Self-Exam A self-exam of your testicles (testicular self-exam) is looking at and feeling your testicles for unusual lumps or swelling. Swelling, lumps, or pain can be caused by: Injuries. Puffiness, redness, and soreness (inflammation). Infection. Extra fluids around your testicle (hydrocele). Twisted testicles (testicular torsion). Cancer of the testicle (testicular cancer). Why is it important to do a self-exam of testicles? You may need to do self-exams if you are at risk for cancer of the testicles. You may be at risk if you have: A testicle that has not descended (cryptorchidism). A history of cancer of the testicle. A family history of cancer of the testicle. How to do a self-exam of testicles It is easiest to do a self-exam after a warm bath or shower. Testicles are harder to examine when you are cold. A normal testicle is egg-shaped and feels firm. It is smooth, and it is not tender. At the back of your testicles, there is a firm cord that feels like spaghetti (spermatic cord). Look and feel for changes Stand and hold your penis away from your body. Look at each testicle to check for lumps or swelling. Roll each testicle between your thumb and finger. Feel the whole testicle. Feel for: ?Lumps. ?Swelling. ?Discomfort. Check for swelling or tender bumps in the groin area. Your groin is where your lower belly (abdomen) meets your upper thighs. Contact a health care provider if: You find a bump or lump. This may be like a small, hard bump that is the size of a pea. You find swelling. You find pain. You find soreness. You see or feel any other changes. Summary A self-exam of your testicles is looking at and feeling your testicles for lumps or swelling. You may need to do self-exams if you are at risk for cancer of the testicle. You should check each of your testicles for lumps, swelling, or discomfort. You should check for swelling or tender bumps in the groin area. Your groin is where your lower belly (abdomen) meets your upper thighs. This information is not intended to replace advice given to you by your health care provider. Make sure you discuss any questions you have with your health care provider. Document Released: 07/04/2009 Document Revised: 07/29/2019 Document Reviewed: 03/03/2017 [employer] Patient Education [address] Follow Up Care 11/06/2021 11:13:38 With:Marcos DONATO MD, URL Address: [facility] [address], [place] [address]- [phone] When:12/10/2021 Comments:Scrotal US [facility] Evaluation + Plan note Future Appointments Appointment Date:12/07/2021 09:15:00 AM Scheduled Provider:Marcos DONATO MD Location:[facility] Appointment Type:URO Office Visit [facility] Evaluation + Plan note Future Appointments Appointment Date:12/28/2021 08:45:00 AM Scheduled Provider:Marcos DONATO MD Location:[facility] Appointment Type:URO Office Visit [facility] Evaluation + Plan note Future Appointments Appointment Date:01/25/2022 09:45:00 AM Scheduled Provider:Marcos DONATO MD Location:[facility] Appointment Type:URO Office Visit [facility] Evaluation + Plan note Future Appointments Appointment Date:06/28/2022 08:30:00 AM Scheduled Provider:Marcos DONATO MD Location:[facility] Appointment Type:URO Office Visit [facility] [place] Evaluation note Diagnosis 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 Malignant neoplasm of other and unspecified 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 Malignant neoplasm of other and unspecified testis [facility] Diagnosis 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 Malignant neoplasm of other and unspecified testis [facility] Work Phone: Hospital course Narrative No data available for this section [facility] progress note No data available for this section [facility] reason for referral (narrative) Referred by: Marcos DONATO MD [facility] Summary Purpose Family History No Family History Records FoundNo Family History Records FoundNo Family History Records FoundNo Family History Records FoundNo Family History Records Found Advance Directives Advance Directive Response Recorded Date/ Time Advance Directives No October 12 11:58am Reason for Referral Specialty Diagnoses / Procedures Referred By Contdomonique t Referred To Contact CT IMAGING Diagnoses 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) Procedures CT CHEST W IVCON DIAGNOSTIC COMPUTED TOMOGRAPHY THORAX W/CONTRAST Randy Brown MD [address] [place] [address] [place] [address] Ct Imaging Referral ID Status Reason Start Date Expiration Date Visits Requested Visits Authorized [id number] Pending Review Auto-Generat ed Referral 04/29/2022 05/29/2023 1 1 Specialty Diagnoses / Procedures Referred By Doug montalvo Referred To Contact CT IMAGING Diagnoses 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) Procedures CT ABD/PEL W IVCON CT ABD & PELVIS W/CONTRAST Randy Brown MD [address] [place] [address] [place] [address] Ct Imaging Referral ID Status Reason Start Date Expiration Date Visits Requested Visits Authorized [id number] Pending Review Auto-Generat ed Referral 04/29/2022 05/29/2023 1 1 Chief Complaint and Reason for Visit Chief Complaint See order Additional Source Comments (unrecognized sect ion and content) No Status Records FoundNo Status Records FoundNo Status Records FoundNo Status Records FoundNo Status Records Found INFORMATION SOURCE (unrecogn ized section and content) DATE CREATED AUTHOR 11/09/2021 [facility] dical Specialist DATE CREATED AUTHOR AUTHOR'S ORGANIZ ATION 05/01/2022 [facility] DATE CREATED AUTHOR AUTHOR'S ORGANIZ ATION 05/23/2022 [facility] DATE CREATED AUTHOR AUTHOR'S ORGANIZ ATION 10/19/2022 [facility] DATE CREATED AUTHOR AUTHOR'S ORGANIZ ATION 10/26/2023 [facility] Care Team (unrecognized sect ion and content) Health Information Administrator Relationship Specialty Start Date End Date KarlenehayleyMeredith, [employer] [address] [place] [address] PCP - General Family Practice 01/01/22 Health Information Administrator Relationship Specialty Start Date End Date KarlenehayleyMeredith, [employer] [address] [place] [address] PCP - General Family Practice 01/01/22 Health Information Administrator Relationship Specialty Start Date End Date Ashley Meredith, [employer] [address] [place] [address] PCP - General Family Medicine 01/01/22 Marcos Donato MD [address] [place] [address] Urology 01/29/22 Health Information Administrator Relationship Specialty Start Date End Date Meredith Ramirez, [employer] [address] [place], [place] [id number] PCP - General Family Medicine 01/01/22 Marcos Donato MD [address] [place] [address] Urology 01/29/22 Team Status: Active Member Role Status Dates NON STAFF Primary Care Provider Active Team Status: Inactive Member Role Status Dates NON STAFF Primary Care Provider Active Start: October 25, 2023 End: October 25, 2023 Marcos Donato MD Attending Provider Active St art: October 25, 2023 End: October 25, 2023 Source Comments (unrecognize d section and content) In the event this informatio n is protected by the Federal Confidentiality of Alcohol and Drug Abuse Patient Records regulations: The Federal rules restrict any use of the information to criminally investigate or prosecute any alcohol or drug abuse patient.[facility] the event this information is protected by the Federal Confidentiality of Alcohol and Drug Abuse Patient Records regulations: The Federal rules restrict any use of the information to criminally investigate or prosecute any alcohol or drug abuse patient.[facility] MemorialIn the event this information is protected by the Federal Confidentiality of Alcohol and Drug Abuse Patient Records regulations: The Federal rules restrict any use of the information to criminally investigate or prosecute any alcohol or drug abuse patient.[facility] MemorialIn the event this information is protected by the Federal Confidentiality of Alcohol and Drug Abuse Patient Records regulations: The Federal rules restrict any use of the information to criminally investigate or prosecute any alcohol or drug abuse patient.[facility] MemorialIn the event this information is protected by the Federal Confidentiality of Alcohol and Drug Abuse Patient Records regulations: The Federal rules restrict any use of the information to criminally investigate or prosecute any alcohol or drug abuse patient.[facility] Reason for Visit (unrecogniz ed section and content) Reason Comments 2nd opinion pathology Reason Comments Testicular Cancer New patient consulta tion ref Dr Donato Reason Comments Testicular Cancer Follow up Reason Comments Testicular Cancer 4 week follow up Goals (unrecognized section and content) Goals may be documented in a n alternate section FOR RECORDS PERTAINING TO PATIENTS WHO ARE OR HAVE BEEN ENROLLED IN A CHEMICAL DEPENDENCY/SUBSTANCEABUSE PROGRAM, SOME INFORMATION MAY BE OMITTED. This clinical summary was aggregated from multiple sources. Caution should be exercised in using it in the provision of clinical care. This summary normalizes information from multiple sources, and as a consequence, information in this document may materially change the coding, format and clinical context of patient data. In addition, data may be omitted in some cases. CLINICAL DECISIONS SHOULD BE BASED ON THE PRIMARY CLINICAL RECORDS. [facility]. provides no warranty or guarantee of the accuracy or completeness of information in this document.
--- NOTE | 2024-02-13 21:33 | XR_ITS ---
[facility] [place] [address] Patient Name: OMAIRA ZAVAAL MRN: [id number] date: 2005 Sex: M Assigned Patient Location: ER Current Patient Location: ER Accession/Order Number: [id number] Exam Date: 02/13/2024 21:40 Report Date: 02/13/2024 23:27 At the request of: ALECIA JIMENEZ Procedure: XR chest 1V PORTABLE CHEST X-RAY. INDICATION: Fever. COMPARISON: None. TECHNIQUE: Single AP portable chest radiograph. FINDINGS: TUBES AND LINES: None. LUNGS: There is a subtle right perihilar focal opacity. PLEURA: No effusions or pneumothorax. HEART AND MEDIASTINUM: Within normal limits for portable technique. OSSEOUS STRUCTURES: No acute abnormality. XR/XR chest 1V IMPRESSION: Subtle right perihilar focal opacity suspicious for pneumonia. Electronically authenticated by: JAX LOPEZ Date: 02/13/2024 23:27
--- NOTE | 2024-02-13 21:34 | ED.BACK1 ---
HPI HPI - Back Pain/Injury General Chief Complaint: Back Pain/Injury Stated Complaint: BWC-BACK PAIN Time Seen by Provider: 02/13/24 21:29 Source: patient Mode of arrival: walk-in Limitations: no limitations History of Present Illness HPI Narrative: describes lifting and pulling on a heavy cable at work and injuring his right thoracic back. Has been taking ibuprofen and it has been helping. Continued to work. Now has pain that is tolerable but also has a cough and fever. not short of breath. No nausea Related Data Allergies Allergy/AdvReac Type Severity Reaction Status Date / Time amoxicillin AdvReac Unknown Hives Verified 02/13/24 21:17 Opioid HPI Opioid Management Most Recent Opioid Data: Last Pain Scale 4 02/13/24 21:53 02/13/24 Review of Systems ROS Status of ROS 10 or more systems reviewed and unremarkable except as noted in history and below PFSH PFSH Social History Little interest or pleasure in doing things: not at all Feeling down, depressed, or hopeless: not at all Exam Constitutional Vital Signs, click to edit/add: Last Vital Signs Temp 101.2 F H 02/13/24 23:30 Pulse 104 H 02/13/24 21:17 Resp 20 02/13/24 21:17 BP 154/75 H 02/13/24 21:17 Pulse Ox 99 02/13/24 21:17 O2 Del Method Room Air 02/13/24 21:17 Common normals: no apparent distress, average body habitus, oriented x3, no limitations, healthy appearing, alert and well nourished [facility] Common normals: normocephalic and head/scalp atraumatic Eye Common normals: EOMs intact bilaterally and conjunctivae normal Chest Other: mild tenderness mid thoracic right back. No pain noted when rising from supine to sitting or leaning forward from sitting position Respiratory Common normals: normal respiratory effort, no retractions, no use of accessory muscles and clear to auscultation bilaterally Cardio Common normals: regular rate, regular rhythm, S1 normal heart sound and S2 normal heart sound GI Common normals: Normal to inspection, nondistended, normoactive bowel sounds present, soft to palpation and non-tender Extremity Common normals: normal to inspection and full ROM Neuro Common normals: oriented x3, CN's II-XII intact bilaterally and moves all extremities Psych Appearance: grossly normal Course Vital Signs Vital signs: Vital Signs Temperature 101.8 F H 02/13/24 21:17 Pulse Rate 104 H 02/13/24 21:17 Respiratory Rate 20 02/13/24 21:17 Blood Pressure 154/75 H 02/13/24 21:17 Pulse Oximetry 99 02/13/24 21:17 Oxygen Delivery Method Room Air 02/13/24 21:17 Temperature 101.2 F H 02/13/24 23:30 Pulse Rate 104 H 02/13/24 21:17 Respiratory Rate 20 02/13/24 21:17 Blood Pressure 154/75 H 02/13/24 21:17 Pulse Oximetry 99 02/13/24 21:17 Oxygen Delivery Method Room Air 02/13/24 21:17 MDM - Back Pain/Injury MDM Narrative Medical decision making narrative: patient describes straining right back earlier this week at work. Was able to continue working and use Advil for pain with successful control . Pain has increased again and he has a fever and decided to come in. Found to have mild tenderness or right thoracic musculature but no problem sitting up or changing position. Fever 101.2. cxray demonstrated early infiltrate right chest. Patient provided a prescription for ceftin and zithromax to treat CAP and discharged home Lab Data Labs: Lab Results 02/13/24 02/13/24 Range/Units 21:45 21:50 WBC 10.4 (4.0-11.0) 10^3/uL RBC 4.81 (4.70-6.10) 10^6/uL Hgb 14.1 (14.0-18.0) g/dL Hct 41.7 L (42.0-54.0) % MCV 86.7 (80.0-94.0) fL MCH 29.3 (25.9-34.0) pg MCHC 33.8 (29.9-35.2) g/dL RDW 12.2 (11.0-15.0) % Plt Count 196 (150-450) 10^3/uL MPV 10.2 (9.5-13.5) fL Neut % (Auto) 77.0 H (43.0-75.0) % Lymph % (Auto) 10.3 L (20.5-60.0) % [place] % (Auto) 10.7 (1.7-12.0) % Eos % (Auto) 1.5 (0.9-7.0) % Baso % (Auto) 0.3 (0.2-2.0) % Neut # (Auto) 8.0 H (1.4-6.5) 10^3/uL Lymph # (Auto) 1.1 L (1.2-3.8) 10^3/uL [place]land # (Auto) 1.1 H (0.3-0.8) 10^3/uL Eos # (Auto) 0.2 (0.0-0.7) 10^3/uL Baso # (Auto) 0.0 (0.0-0.1) 10^3/uL Abs Immat Gran (auto) 0.02 (0.00-0.03) 10^3/uL Imm/Tot Granulo (auto) 0.2 (0.0-0.5) % Sodium 138 (136-145) mmol/L Potassium 3.6 (3.5-5.1) mmol/L Chloride 101 (98-107) mmol/L Carbon Dioxide 25.1 (21.0-32.0) mmol/L Anion Gap 15.5 BUN 12.0 (7.0-18.0) mg/dL Creatinine 1.34 H (0.70-1.30) mg/dL Est GFR ( Amer) >60 (>=60 mL/min/1.73m^2) Est GFR (Non-Af Amer) >60 (>=60 mL/min/1.73m^2) BUN/Creatinine Ratio 9.0 Glucose 121 H (74-106) mg/dL Calcium 9.4 (8.5-10.1) mg/dL Influenza Type A Ag Negative Influenza Type B Ag Negative SARS-CoV-2 Ag (CV2AG) Negative (NEGATIVE) Imaging Data Chest x-ray: Radiologist's impression: ITS Impressions Chest X-Ray 02/13/24 21:33 IMPRESSION: Subtle right perihilar focal opacity suspicious for pneumonia. Electronically authenticated by: JAX LOPEZ Date: 02/13/2024 23:27 Discharge Plan Discharge Chief Complaint: Back Pain/Injury Clinical Impression: Thoracic back pain, Pneumonia Patient Disposition: Home, Self-Care Print Language: Romanian Instructions: Thoracic Pain (ED), Pneumonia (ED) Additional Instructions: continue ibuprofen for back pain and fever Referrals: FAUSTINO WADE [Primary Care Provider] - 1 week
[2024-02-13] MEDS: IBUPROFEN 400 MG TABLET 800 MG PO (21:43)
[2024-02-13 21:57] LABS: Basophils Percent Auto 0.3 % (0.2-2.0); Eosinophils Absolute Auto 0.2 10^3/uL (0.0-0.7); Eosinophils Percent Auto 1.5 % (0.9-7.0); Hematocrit 41.7 % (42.0-54.0); Hemoglobin 14.1 g/dL (14.0-18.0); Immature Granulocytes Abs Auto 0.02 10^3/uL (0.00-0.03); Immature Granulocytes Pct Auto 0.2 % (0.0-0.5); Lymphocytes Absolute Auto 1.1 10^3/uL (1.2-3.8); Lymphocytes Percent Auto 10.3 % (20.5-60.0); Mean Corpuscular HGB Conc 33.8 g/dL (29.9-35.2); Mean Corpuscular Hemoglobin 29.3 pg (25.9-34.0); Mean Corpuscular Volume 86.7 fL (80.0-94.0); Mean Platelet Volume 10.2 fL (9.5-13.5); Monocytes Absolute Auto 1.1 10^3/uL (0.3-0.8); Monocytes Percent Auto 10.7 % (1.7-12.0); Platelet Count 196 10^3/uL (150-450); Red Blood Count 4.81 10^6/uL (4.70-6.10); Red Cell Distribution Width 12.2 % (11.0-15.0); White Blood Count 10.4 10^3/uL (4.0-11.0)
[2024-02-13 22:07] LABS: Anion Gap 15.5; Calcium 9.4 mg/dL (8.5-10.1); Carbon Dioxide 25.1 mmol/L (21.0-32.0); Chloride 101 mmol/L (98-107); Estimated GFR (African America >60 (>=60 mL/min/1.73m^2); Estimated GFR (Non-African Ame >60 (>=60 mL/min/1.73m^2); Glucose 121 mg/dL (74-106); Potassium 3.6 mmol/L (3.5-5.1); Sodium 138 mmol/L (136-145)
[2024-02-13 22:10] LABS: Influenza Virus A Antigen Negative; Influenza Virus B Antigen Negative; Internal Control Within Normal Limits; SARS-CoV-2 Ag NEGATIVE (NEGATIVE)
[2024-02-13 23:24] VITALS: TEMP 38.4
[2024-02-13 23:30] VITALS: TEMP 38.4
[2024-02-13] MEDS: ACETAMINOPHEN 500 MG TABLET 1000 MG PO (23:30)
[2024-02-13] MEDS: AZITHROMYCIN 250 MG TABLET 500 MG PO (23:40)
[2024-02-14 00:03] VITALS: BP 140/88; PULSE 100; TEMP 38.3; O2SAT 98
== END 2024-02-14 00:05 | disposition home or self-care (01) ==
PROVIDERS: Emergency Provider Internal Medicine; PCP Family Medicine
DX: S29.012A Strain of muscle and tendon of back wall of thorax, initial encounter (principal); J18.9 Pneumonia, unspecified organism; M54.6 Pain in thoracic spine; Z20.822 Contact with and (suspected) exposure to COVID-19
CPT/HCPCS: 36415; 71045; 80048; 85025; 87804; 87811; 99284

== ENCOUNTER 2024-10-16 09:44 | Outpatient (OUT) | payer OTHER, BC, SELFPAY ==
--- OUTSIDE RECORDS SUMMARY | 2024-10-15 15:47 | XMS_ITS | Clinical Summary ---
Author Organization [facility] Healthcare Address [address] [place] [address] Care Team Providers Care Pad Machine Offbearer Name Role Phone Dorothy Posey MD Primary Care Provider [phone] Social History Tobacco Use Types Packs/Day Years Used Date Smoking Tobacco: Never Assessed Sex and Gender Information Value Date Recorded Sex Assigned at Not on file Legal Sex Male 9:34 PM EDT Gender Identity Not on file Sexual Orientation Not on file Last Filed Vital Signs Vital Sign Reading Time Taken Comments Blood Pressure 140/86 11/02/2021 12:00 PM EDT Pulse - - Temperature - - Respiratory Rate - - Oxygen Saturation - - Inhaled Oxygen Concentration - - Weight 78.9 kg (174 lb) 11/02/2021 12:00 PM EDT Height 188 cm (6' 2 ) 11/02/2021 12:00 PM EDT Body Mass Index 22.34 11/02/2021 12:00 PM EDT Plan of Treatment Health Maintenance Due Date Last Done Comments Influenza Vaccine (Season Ended) 2024 Insurance [facility] [place] [facility] [place] Address: [facility] [id number] [place] [phone] Care Teams Pad Machine Offbearer Relationship Specialty Start Date End Date Dorothy Posey MD [address] [place] [address] PCP - General Family Medicine 08/27/22
--- OUTSIDE RECORDS SUMMARY | 2024-10-15 15:47 | XMS_ITS | Encounter Summary ---
Author Organization [facility] Address [address] [place] [address] Care Team Providers Care Dairy Lab Technician Name Role Phone Marisol Billingsberly ADAN.HUMAN RESOURCE CONSULTANT Primary Care Provide r Jacky Donato MD Unavailable [phone] Source Comments In the event this information is protected by the Federal Confidentiality of Alcohol and Drug AbusePatient Records regulations: The Federal rules restrict any use of the information to criminally investigate or prosecute any alcohol or drug abuse patient.[facility] Encounter Details Date Type Department Care Team (Late st Contact Info) Description 01/09/2022 Lab Requisition [facility] [address] [place] [id number] Randy Brown MD [address] [place] [address] [place] [address] Person encountering health services to consult on behalf of another person Social History Tobacco Use Types Packs/Day Years Used Date Smoking Tobacco: Never Passive Smoke Exposure: Past Smokeless Tobacco: Never Alcohol Use Standard Drinks/Week Comments Not Currently 0 (1 standard drink = 0.6 oz pur e alcohol) Sex and Gender Information Value Date Recorded Sex Assigned at Not on file Legal Sex Male 9:52 AM EDT Gender Identity Not on file Sexual Orientation Not on file COVID-19 Exposure Response Date Recorded In the last 10 days, have yo u been in contact with someone who was confirmed or suspected to have Coronavirus/COVID-19? No / Unsure 01/01/2022 10:23 AM EDT documented as of this encounter Plan of Treatment Not on file documented as of this encounter Procedures Procedure Name Priority Date/Time Associated Diagnosis Comments OUTSIDE SURG PATH SLIDE REVIEW Routine 01/09/2022 11:02 AM EDT Person encountering health services to consult on behalf of another person documented in this encounter Results * OUTSIDE SURG PATH SLIDE REVIEW (01/09/2022 11:02 AM EDT) Case Report Surgical Pathology Report Case: [id number] Authorizing Provider: Randy Brown MD Collected: 01/09/2022 11:02 AM Ordering Location[facility] Received: 01/09/2022 11:00 AM Pathologist: Morteza Larios MD Specimen: SLIDE(S), 12 SLIDES; [id number] 01/10/2022 8:42 AM EDT [facility] FINAL DIAGNOSIS Left testicle, orchiectomy ([id number], 12/20/2021): - 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 - Epididymis with no significant pathologic findings. - Spermatic cord with no significant pathologic findings. LEXIS/vipin 01/10/2022 01/10/2022 8:42 AM EDT [facility] at 0842 EDT Diagnosis Comment 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 The slides are reviewed with Dr. Thorne who concurs. 01/10/2022 8:42 AM EDT [facility] Performing Lab Diagnostic interpretation performed at [facility], [address] [place], [place] [address]IA# [id number] Experimental Mechanic Electrical: Nilton Rubin M.D. 01/10/2022 8:42 AM EDT [facility] Blocks or Slides MICROSCOPE SLIDE / Unknown 01/09/2022 11:02 AM EDT 01/09/2022 11:00 AM EDT us Randy Brown MD SURGICAL PATHOLOGY Final Resul t [facility] [address] documented in this encounter Visit Diagnoses Diagnosis Person encountering health services to consult on behalf of another person Other person consulting on behalf of another person documented in this encounter Care Teams Dairy Lab Technician Relationship Specialty Start Date End Date Meredith Billings APRN.CNS PCP - General Family Medicine 01/01/22 Jacky Donato MD Urology 01/29/22 documented as of this encounter
--- OUTSIDE RECORDS SUMMARY | 2024-10-15 15:59 | XMS_ITS | CCD ---
Author Organization [facility] Care Team Providers Care Welfare Specialist Name Role Phone BRITTANY RAMIREZ Primary Care Physician [phone] Unavailable Primary Care Provider Unavailabl e Ashley BELT GLASS SANDER, Meredith Primary Care Provider [phone] Ashley RESENDIZ, Meredith Primary Care Provider [phone] Marcos Donato MD Unavailable [phone] Ashley RESENDIZ Meredith Primary Care Provider [phone] Marcos Donato MD Unavailable [phone] RANDY BROWN Attending Unavailable MARCOS DONATO Referring Unavailable [facility] Primary Care Unavailable RANDY BROWN Referring Unavailable RANDY BROWN Attending Unavailable [facility] Primary Care Unavailable RANDY BROWN Referring Unavailable RANDY BROWN Attending Unavailable [facility] Primary Care Unavailable RANDY BROWN Referring [...] Attending Unavailable NAVSOCRATES, BRITTANY Referring Unavailable DONATO, Marcos R Attending Unavailable DONATO, Marcos R Attending Unavailable DONATO, Marcos R Attending Unavailable DONATO, Marcos R Attending Unavailable DONATO, Marcos R Attending Unavailable DONATO, Marcos Ross Attending Unavailable Donato, Marcos Admitting Unavailable Donato, Marcos Attending Unavailable NON STAFF Primary Care Unavailable NON STAFF Primary Care Provider MD Marcos Vivas Attending Provider Allergies Allergy Classification Reported Allergen(s) Allergy Type Date of Onset Reaction(s) Facility (12 sources) Amoxicillin; Translations: [amoxicillin] Drug Allergy 2 Weal (disorder), Hives [facility] (1 source) Amoxicillin Drug Allergy [facility] Repository Medications Current Medications Medication Drug Class(es) Dates Sig (Normalized) Sig (Original) doxycycline hyclate 100 mg oral capsule (1 source) Tetracycline-clas s Drug Start: 11-12-2021 End: 12-03-2021 take 1 capsule by mouth twice daily doxycycline hyclate 100 mg Cap 100 mg = 1 cap(s), Oral, BID, X 3 week(s), # 42 cap(s), Refills(s) 0, Pharmacy: [facility] #[id number], 187, cm, 11/12/21 10:47:00 EDT, Height/Length Dosing, [...] Saunders on 10-25-2023 Semen Analysis Comment . [facility] Comment on above: No Abnormal specimen characteristics noted. Semen Round Cell Concentration Moderate [facility] Semen WBC Concentration <1.0 M/mL <0.9 [facility] Sperm % Non-Motile 74 % [facility] Sperm Motility Total 26.0 % Low >40 [facility] Qualitative semen viscosityO rdered By: Alfred Saunders on 10-25-2023 Viscosity Ql (Ashlie) Abnormal Abnormal Normal [facility] Semen Analysis, Fertilityon 10-25-2023 Debris/Round Cells Moderate Normal [facility] Comment on above: Order Comment: Metho d of Collection:: Masturbation Has the patient had a vasectomy?: N Type of Specimen Container:: Sterile Container Abstinence Period:: 2 DAYS Kept at body temperature?: Y Any Collection or Transport Problems?: N/A Performed By: #### S EMCOMP #### [address] Immotile Sperm 74 % Normal [facility] Comment on above: Order Comment: Metho d of Collection:: Masturbation Has the patient had a vasectomy?: N Type of Specimen Container:: Sterile Container Abstinence Period:: 2 DAYS Kept at body temperature?: Y Any Collection or Transport Problems?: N/A Performed By: #### S EMCOMP #### [address] Non-Progression Sperm Motili 24 % Normal [facility] Comment on above: Order Comment: Metho d of Collection:: Masturbation Has the patient had a vasectomy?: N Type of Specimen Container:: Sterile Container Abstinence Period:: 2 DAYS Kept at body temperature?: Y Any Collection or Transport Problems?: N/A Performed By: #### S EMCOMP #### [address] Normal Sperm Morphology 2.0 % Low >=4.0 [facility] Comment on above: Order Comment: Metho d of Collection:: Masturbation Has the patient had a vasectomy?: N Type of Specimen Container:: Sterile Container Abstinence Period:: 2 DAYS Kept at body temperature?: Y Any Collection or Transport Problems?: N/A Performed By: #### S EMCOMP #### [address] Rapid Progression Sperm Motili 2 % Normal [facility] Comment on above: Order Comment: Metho d of Collection:: Masturbation Has the patient had a vasectomy?: N Type of Specimen Container:: Sterile Container Abstinence Period:: 2 DAYS Kept at body temperature?: Y Any Collection or Transport Problems?: N/A Performed By: #### S EMCOMP #### [address] Semen Comment . Normal [facility] Comment on above: Order Comment: Metho d of Collection:: Masturbation Has the patient had a vasectomy?: N Type of Specimen Container:: Sterile Container Abstinence Period:: 2 DAYS Kept at body temperature?: Y Any Collection or Transport Problems?: N/A Result Comment: No A bnormal specimen characteristics noted. PERFORMED BY: [place] [address] PATHOLOGIST BRAKE LINING DRILLER JIANLAN SUN M.D. Performed By: #### S EMCOMP #### [address] Semen Liquefaction Abnormal Critically abnormal <=60 min [facility] Comment on above: Order Comment: Metho d of Collection:: Masturbation Has the patient had a vasectomy?: N Type of Specimen Container:: Sterile Container Abstinence Period:: 2 DAYS Kept at body temperature?: Y Any Collection or Transport Problems?: N/A Performed By: #### S EMCOMP #### [address] Semen Viscosity Abnormal Critically abnormal Normal [facility] Comment on above: Order Comment: Metho d of Collection:: Masturbation Has the patient had a vasectomy?: N Type of Specimen Container:: Sterile Container Abstinence Period:: 2 DAYS Kept at body temperature?: Y Any Collection or Transport Problems?: N/A Performed By: #### S EMCOMP #### [address] Semen Volume 4.0 mL Normal >=1.5 [facility] Comment on above: Order Comment: Metho d of Collection:: Masturbation Has the patient had a vasectomy?: N Type of Specimen Container:: Sterile Container Abstinence Period:: 2 DAYS Kept at body temperature?: Y Any Collection or Transport Problems?: N/A Performed By: #### S EMCOMP #### [place] [address] [place] Sperm Concentration 7.5 Low >=15 [facility] Comment on above: Order Comment: Metho d of Collection:: Masturbation Has the patient had a vasectomy?: N Type of Specimen Container:: Sterile Container Abstinence Period:: 2 DAYS Kept at body temperature?: Y Any Collection or Transport Problems?: N/A Performed By: #### S EMCOMP #### [place] [address] [place] Total Motility (UT+AGILE TESTER) 26.0 % Low >=40 (UT+AGILE TESTER) [facility] Comment on above: Order Comment: Metho d of Collection:: Masturbation Has the patient had a vasectomy?: N Type of Specimen Container:: Sterile Container Abstinence Period:: 2 DAYS Kept at body temperature?: Y Any Collection or Transport Problems?: N/A Performed By: #### S EMCOMP #### [facility] [address] [place] [address] WBC Concent, Semen <1.0 Normal <1.0 [facility] Comment on above: Order Comment: Metho d of Collection:: Masturbation Has the patient had a vasectomy?: N Type of Specimen Container:: Sterile Container Abstinence Period:: 2 DAYS Kept at body temperature?: Y Any Collection or Transport Problems?: N/A Performed By: #### S EMCOMP #### [facility] [address] [place] [address] Semen Analysis, FertilityOrd ered By: Alfred Saunders on 10-25-2023 Semen Appearance Normal Normal Normal [facility] Comment on above: Order Comment: Metho d of Collection:: Masturbation Has the patient had a vasectomy?: N Type of Specimen Container:: Sterile Container Abstinence Period:: 2 DAYS Kept at body temperature?: Y Any Collection or Transport Problems?: N/A Performed By: #### S EMCOMP #### [facility] [address] [place] [address] Semen pH 8.5 Normal >=7.2 [facility] Comment on above: Order Comment: Metho d of Collection:: Masturbation Has the patient had a vasectomy?: N Type of Specimen Container:: Sterile Container Abstinence Period:: 2 DAYS Kept at body temperature?: Y Any Collection or Transport Problems?: N/A Performed By: #### S EMCOMP #### [facility] [address] [place] [address] Semen liquefaction time sherita urementOrdered By: Alfred Saunders on 10-25-2023 Liquefaction (Ashlie) [Time] Abnormal Abnormal <=60 min [facility] Semen volumeOrdered By: Yannick Saunders on 10-25-2023 Specimen volume (Ashlie) 4.0 mL >1.5 [facility] Sperm countOrdered By: Alfred Saunders on 10-25-2023 Spermatozoa (Ashlie) [#/Vol] 7.5 M/mL Low >15 [facility] Sperm morphologyOrdered By: Alfred Saunders on 10-25-2023 Spermatozoa Nom (Ashlie) 2.0 % Low >4.0 [facility] Provider Letteron 10-18-2022 Provider Letter (Inserted Image. Rosalva ble to display) October 18, 2022 OMAIRA JERSEY [facility] JOEY [address] [place] [id number] : 2005 Dear Omaira Zavala , This letter is to inform you the the providers of [facility] [employer] (Dr. Marcos Donato) will no longer be [...] of area physicians can be found on [facility]'s website at [email or web address] or you may contact your health plan. We will be glad to forward your records to your new physician as long as we receive a signed release of records form. Sincerely, Marcos Donato M.D., F.A.C.S. [facility] [address] [place] [address] , option 3 SENT REGULAR/CERT MAIL Normal [facility] Provider Letter (Inserted Image. Rosalva ble to display) October 18, 2022 OMAIRA ZAVALA [address] [address] : 2005 Dear Omaira Zavala , This letter is to inform you the the providers of [employer] (Dr. Marcos Donato) will no longer be [...] of area physicians can be found on [facility]'s website at [email or web address] or you may contact your health plan. We will be glad to forward your records to your new physician as long as we receive a signed release of records form. Sincerely, Marcos Donato M.D., F.A.C.S. [facility] [address] [place], [place] [address] , option 3 Normal [facility] Provider Letter (Inserted Image. Rosalva ble to display) October 18, 2022 OMAIRA ZAVALA [address] [address] : 2005 Dear Omaira Zavala , This letter is to inform you the the providers of [facility] [employer] [facility] (Dr. Marcos Donato) will no longer be responsible for your routine medical care due to your repeated non compliance with your cancer care. Emergency care only will be provided for the thirty (30) days following this letter. During this time period we suggest that you find another physician for your medical needs. A listing of area physicians can be found on [facility]'s website at [email or web address] or you may contact your health plan. We will be glad to forward your records to your new physician as long as we receive a signed release of records form. Sincerely, Marcos Donato M.D., F.A.C.S. [facility] [address] [place], [place] [address] , option 3 Normal [facility] Patient Letter FTon 2022 Patient Letter [facility] (Inserted Image. Rosalva ble to display) August 01, 2022 OMAIRA ZAVALA [address] [address] Dear Mr. Omaira Cohen, Our records indicate you have missed 2 follow up appointments to your testicular cancer. It is very important you are seen and evaluated after surgery and treatments , so we can continue to monitor your progress. You advised the office you now are living in [place]. We will be more than willing to send your records to a new urologist and oncologist in your area if you schedule an appointment. Please call the office to get back on the schedule for a follow up appointment, or to forward your records. Thank you for your cooperation in this matter. Sincerely, Marcos Donato M.D., F.A.C.S. [facility] [address] [place], [place] [address] Option #3 SENT REGULAR/CERTIFIED MAIL [facility] Patient Letter [facility] (Inserted Image. Rosalva ble to display) August 01, 2022 OMAIRA ZAVALA [address] [address] Dear Frank Omaira Ole, Our records indicate you have missed 2 follow up appointments to your testicular cancer. It is very important you are seen and evaluated after surgery and treatments , so we can continue to monitor your progress. You advised the office you now are living in [place]. We will be more than willing to send your records to a new urologist and oncologist in your area if you schedule an appointment. Please call the office to get back on the schedule for a follow up appointment, or to forward your records. Thank you for your cooperation in this matter. Sincerely, Marcos Donato M.D., F.A.C.S. [facility] [address] [place], [place] [address] [facility] RAD - CT Reporton 07-25-2022 RAD - CT Report [id number]:127 [facility] RAD - CT Report [id number]:127 [facility] Provider Letteron 07-19-2022 Provider Letter (Inserted Image. Rosalva ble to display) July 19, 2022 OMAIRA ZAVALA [address] [address] OMAIRA ZAVALA 2005 Dear Omaira , You [...] [facility] [address], [place] [address] Normal [facility] CT ABD/PELV W CONon 05-20-19 CT ABD/PELV [...] by: GERRY ALDANA Date: 2022-05-20 16:27 Normal [facility] CT CHEST W CONon 05-19-2022 CT CHEST [...] by: HAIM CARMONA Date: 2022-05-19 16:03 Normal [facility] Consultation Noteon 05-06-19 Consultation Note [id number]:127 Normal [facility] CNOVSPon 04-29-2022 CNOVS Visit (SP) Office ([facility]) -- OMAIRA COHEN ([id number]) 1 M Date Time Provider Department 04/29/22 [...] swelling, and atrophy. 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 The scar area measures 1.3 cm in greatest dimension. It is limited to the testis. Germ cell neoplasia in situ. Epididymis and spermatic cord with no significant pathological findings. LABS: 12/11/2021: CMP and CBC within normal limits AFP hCG LDH 12/11/2021 2.4 <1 164 04/08/2022 2.8 <1 136 RADIOLOGY/OTHER STUDIES: 12/31/2021 CT chest, abdomen, pelvis ([facility]) No evidence o (more content not included)... Normal [facility] AFP (TUMOR MARKER)on 022 AFP, Serum, Tumor Marker 2.8 ng/mL Normal 0.0-5.7 [facility] Comment on above: Result Comment: [employer] Electrochemiluminescence Immunoassay (ECLIA) . Values obtained with different assay methods or kits cannot be used interchangeably. Results cannot be interpreted as absolute evidence of the presence or absence of malignant disease. . This test is not interpretable in females. Performed By: #### A FP. ####[facility] [id number] [address]Dr. Janee Ordaz HCG QUANT TUMOR MARKERon HCG QNT TUMOR MARKER <1 Normal 0-3 [facility] Comment on above: Result Comment: [employer] Electrochemiluminescence Immunoassay (ECLIA) . The [employer] [...] developed and its performance characteristics determined by [employer]. It has not been cleared or approved by the Food and Drug Administration for use as a tumor marker. . This test is not interpretable as a tumor marker in females. Performed By: #### H CGTMOR ####[facility] [id number] [place] [address]Dr. aJnee Ordaz Lab Reportson 2022 Lab Reports [id number]:127 Normal [facility] Lab Reports [id number]:127 Normal [facility] CBC AUTO DIFFon 04-08-2022 BASO # 0.0 103/ul Normal 0.0-0.1 [facility] Comment on above: Performed By: #### C BC #### [facility] Laboratory [address] [address] [address] Janee Ordaz Basophils/100 WBC (Bld) 0.3 % Normal 0.2-2.0 [facility] Comment on above: Performed By: #### C BC #### [facility] [address] [address] [address] Janee Ordaz EO # 0.8 103/ul Critically high 0.0-0.7 [facility] Comment on above: Performed By: #### C BC #### [facility] [address] [place] [address] Dr. Janee Ordaz Eosinophils/100 WBC (Bld) 5.9 % Normal 0.9-7.0 [facility] Comment on above: Performed By: #### C BC #### [facility] [address] [place] [address] Dr. Janee Ordaz Erythrocyte distribution width (RBC) [Ratio] 12.3 % Normal 11.0-15.0 [facility] Comment on above: Performed By: #### C BC #### [facility] [address] [place] [address] Dr. Janee Ordaz Hematocrit (Bld) [Volume fraction] 41.8 % Critically low 42.0-54.0 [facility] Comment on above: Performed By: #### C BC #### [facility] [address] [place] [address] Dr. Janee Ordaz Hemoglobin (Bld) [Mass/Vol] 13.9 g/dL Critically low 14.0-18.0 [facility] Comment on above: Performed By: #### C BC #### [facility] [address] [place] [address] Dr. Janee Ordaz IG # 0.05 10e3/ul Critically high 0.00-0.03 [facility] Comment on above: Performed By: #### C BC #### [facility] [address] [place] [address] Dr. Janee Ordaz IG % 0.4 % Normal 0.0-0.5 [facility] Comment on above: Performed By: #### C BC #### [facility] [address] [place] [address] Dr. Janee Ordaz LYMPH # 2.7 103/ul Normal 1.2-3.8 [facility] Comment on above: Performed By: #### C BC #### [facility] [address] [place] [address] Dr. Janee Ordaz Lymphocytes/100 WBC (Bld) 19.3 % Critically low 20.5-60.0 [facility] Comment on above: Performed By: #### C BC #### [facility] [address] [place] [address] Dr. Janee Ordaz MANUAL DIFF REQ NO Normal [facility] Comment on above: Performed By: #### C BC #### [facility] [address] [place] [address] Dr. Janee Ordaz MCH (RBC) [Entitic mass] 28.4 pg Normal 25.9-34.0 [facility] Comment on above: Performed By: #### C BC #### [facility] [address] [place] [address] Dr. Janee Ordaz MCHC (RBC) [Mass/Vol] 33.3 g/dL Normal 29.9-35.2 [facility] Comment on above: Performed By: #### C BC #### [facility] [address] [place] [address] Dr. Janee Ordaz MCV (RBC) [Entitic vol] 85.5 fL Normal 80.0-94.0 [facility] Comment on above: Performed By: #### C BC #### [facility] [address] [place] [address] Dr. Janee Ordaz MONO # 1.2 103/ul Critically high 0.3-0.8 [facility] Comment on above: Performed By: #### C BC #### [facility] [address] [place] [address] Dr. Janee Ordaz Monocytes/100 WBC (Bld) 8.5 % Normal 1.7-12.0 [facility] Comment on above: Performed By: #### C BC #### [facility] [address] [place] [address] Dr. Janee Ordaz NEUT # 9.2 103/ul Critically high 1.4-6.5 [facility] Comment on above: Performed By: #### C BC #### [facility] [address] [place] [address] Dr. Janee Ordaz Neutrophils/100 WBC (Bld) 65.6 % Normal 43.0-75.0 [facility] Comment on above: Performed By: #### C BC #### [facility] [address] [place] [address] Dr. Janee Ordaz Platelet mean volume (Bld) [Entitic vol] 10.3 fL Normal 9.5-13.5 [facility] Comment on above: Performed By: #### C BC #### [facility] [address] [place] [address] Dr. Janee Ordaz PLT 226 103/ul Normal 150-450 [facility] Comment on above: Performed By: #### C BC #### [facility] [address] [place] [address] Dr. Janee Ordaz RBC 4.89 106/ul Normal 4.70-6.10 [facility] Comment on above: Performed By: #### C BC #### [facility] [address] [place] [address] Dr. Janee Ordaz WBC 14.0 103/ul Critically high 4.0-11.0 [facility] Comment on above: Performed By: #### C BC #### [facility] [address] [place] [address] Dr. Janee Ordaz LDHon 04-08-2022 LDH 136 U/L Normal 85-227 [facility] Comment on above: Performed By: #### L DH, CMP #### [facility] [address] [place] [address] Dr. Janee Ordaz PROF 14(COMP METB)on 12-19-2 022 Albumin [Mass/Vol] 4.5 g/dL Normal 3.4-5.0 [facility] Comment on above: Performed By: #### L , CMP #### [facility] [address] [place] [address] Dr. Janee Ordaz Albumin/Globulin [Mass ratio] 1.3 {ratio} Normal [facility] Comment on above: Performed By: #### L , CMP #### [facility] [address] [place] [address] Dr. Janee Ordaz ALP [Catalytic activity/Vol] 87 U/L Normal 46-116 [facility] Comment on above: Performed By: #### L RITA, CMP #### [facility] [address] [place] [address] Dr. Janee Ordaz ALT [Catalytic activity/Vol] 17 U/L Normal 16-63 [facility] Comment on above: Performed By: #### L , CMP #### [facility] [address] [place] [address] Dr. Janee Ordaz Anion gap [Moles/Vol] 14.2 mmol/L Normal [facility] Comment on above: Performed By: #### L , CMP #### [facility] [address] [place] [address] Dr. Janee Ordaz AST [Catalytic activity/Vol] 15 U/L Normal 15-37 [facility] Comment on above: Performed By: #### L RITA, CMP #### [facility] [address] [place] [address] Dr. Janee Ordaz Bilirubin [Mass/Vol] 0.4 mg/dL Normal 0.2-1.0 [facility] Comment on above: Performed By: #### L , CMP #### [facility] [address] [place] [address] Dr. Janee Ordaz Calcium [Mass/Vol] 9.3 mg/dL Normal 8.5-10.1 [facility] Comment on above: Performed By: #### L RITA, CMP #### [facility] [address] [place] [address] Dr. Janee Ordaz Chloride [Moles/Vol] 103 mmol/L Normal 98-107 [facility] Comment on above: Performed By: #### L DH, CMP #### [facility] [address] [place] [address] Dr. Janee Ordaz CO2 [Moles/Vol] 28.8 mmol/L Normal 21.0-32.0 [facility] Comment on above: Performed By: #### L DH, CMP #### [facility] [address] [place] [address] Dr. Janee Ordaz Creatinine [Mass/Vol] 0.91 mg/dL Normal 0.70-1.30 [facility] Comment on above: Performed By: #### L DH, CMP #### [facility] [address] [place] [address] Dr. Janee Ordaz EGFR-AF JAMAICAN >60 Normal >=60 [facility] Comment on above: Performed By: #### L DH, CMP #### [facility] [address] [place] [address] Dr. Janee Ordaz EGFR-NON AF JAMAICAN >60 Normal >=60 [facility] Comment on above: Performed By: #### L DH, CMP #### [facility] [address] [place] [address] Dr. Janee Ordaz Globulin (S) [Mass/Vol] 3.4 g/dL Normal [facility] Comment on above: Performed By: #### L DH, CMP #### [facility] [address] [place] [address] Dr. Janee Ordaz Glucose [Mass/Vol] 55 mg/dL Critically low 74-106 [facility] Comment on above: Performed By: #### L DH, CMP #### [facility] [address] [place] [address] Dr. Janee Ordaz Potassium [Moles/Vol] 4.0 mmol/L Normal 3.5-5.1 [facility] Comment on above: Performed By: #### L DH, CMP #### [facility] [address] [place] [address] Dr. Janee Ordaz Protein [Mass/Vol] 7.9 g/dL Normal 6.4-8.2 [facility] Comment on above: Performed By: #### L DH, CMP #### [facility] [address] [address] [address] Janee Ordaz Sodium [Moles/Vol] 142 mmol/L Normal 136-145 [facility] Comment on above: Performed By: #### L DH, CMP #### [facility] [address] [address] [address] Janee Ordaz Urea nitrogen [Mass/Vol] 16.0 mg/dL Normal 6.4-19.3 [facility] Comment on above: Performed By: #### L DH, CMP #### [facility] [address] [address] [address] Janee Ordaz Urea nitrogen/Creatinine [Mass ratio] 17.6 mg/mg Normal [facility] Comment on above: Performed By: #### L DH, CMP #### [facility] [address] [address] [address] Janee Ordaz Pathology Noteon 02-01-2022 Pathology Note [id number]#[id number]:127 Normal [facility] Consultation Noteon 01-31-20 Consultation Note [id number]#1.00CD:127 Normal [facility] CNOVSPon 01-29-2022 CNOVS Visit (SP) Office ([facility]) -- OMAIRA COHEN ([id number]) 1 M Date Time Provider Department 01/29/22 [...] visit here his pathology was reviewed at [facility], and the diagnosis of testicular scar [...] swelling, and atrophy. 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 The scar area measures 1.3 cm in greatest dimension. It is limited to the testis. Germ cell neoplasia in situ. Epididymis and spermatic cord with no significant pathological findings. LABS: 12/11/2021: CMP and CBC within normal limits AFP hCG LDH 12/11/2021 2.4 <1 164 RADIOLOGY/OTHER STUDIES: (more content not included)... Normal [facility] Ambulatory Visit Summaryon 1 Ambulatory Visit Summary OMAIRA ZAVALA :2005 Visit Date:11/06/2021 Ambulatory Visit Instructions Your Care Team Primary Care Physician - BRITTANY JORDAN Performed Orchiectomy (12/20/2021). What to do next Scheduled Follow-Up Appointments Friday 8:30 AM EST With: Marcos DONATO MD Where: [facility] Patient Educationon 01-26-20 22 Patient [...] Follow these instructions at home: ? Take fszx-blr-diutaug and prescription medicines only as told by [...] 02/28/2006 Document Revised: 07/29/2019 Document Reviewed: 07/04/2017 [employer] Patient Education ? 2019 [employer]. [facility] Provider Letteron 01-25-2022 Provider Letter (Inserted Image. Rosalva ble to display) January 25, 2022 OMAIRA ZAVALA [address] [address] OMAIRA ZAVALA 2005 To Whom It May Concern, Please excuse above patient from work. Date of illness: From: _ To: 02/01/22 May Return to Work On:02/04/2022 Restrictions: None Comments: Any questions, please call our office. Sincerely, [facility] [address] [facility], [place] [address] [facility] Urology Office/Clinic Noteon 01-25-2022 Urology Office/Clinic [...] note reviewed. Surgical specimen was sent to [facility] pathology for second opinion. Assuming the [...] Information MARIYA VICENTE, Marcos Ross, URL [address] [place] [address]- Additional Instructions: 5 months Patient Education Testicular [...] 2005 Recorded dip (more content not included)... [facility] Comment on above: Result Comment: Elec tronically Signed By: Marcos DONATO MD\.br\Date and Time Signed: 01/25/22 11:19 EDT\.br\Electronically Co-Signed By: Yusra Kahn\Date and Time Co-Signed: 01/25/22 11:17 EDT OUTSIDE SURG PATH SLIDE REVI Kristopher 01-09-2022 CASE REPORT Normal [facility] Comment on above: Order Comment: Speci men Type: SLIDE Ordering Facility: [facility] Address: ATTN: [place] [address] Result Comment: Surg ical Pathology Report Case: [id number] Authorizing Provider: Randy Brown MD Collected: 01/09/2022 11:02 AM Ordering Location: 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 The slides are reviewed with Dr. Thorne who concurs. 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 - Epididymis with no significant pathologic findings. - Spermatic cord with no significant pathologic findings. LEXIS/vipin 01/10/2022 Performed By: #### L [id number] #### [facility] CLIA [id number] [address] [place] [address] [place] FINAL PERFORMING LAB Normal [facility] Comment on above: Order Comment: Speci men Type: SLIDE Ordering Facility: [facility] Address: ATTN: SPECIMEN ACCESSIONING DEPT, [place] [address] Result Comment: Diag nostic interpretation performed at [facility], [address] [place] [address] CLIA# [id number] Tungsten Refiner: Nilton Rubin M.D. Performed By: #### L [id number] #### [facility] CLIA [id number] [address] [place] [address] [place] Consultation Noteon 01-03-20 22 Consultation Note [id number]#1.00CD:127 Normal [facility] RAD - CT Reporton 01-02-2022 RAD - CT Report [id number]#1.00CD:127 Normal [facility] RAD - CT Report [id number]#1.00CD:127 Normal [facility] RAD - CT Report [id number]#1.00CD:127 Normal [facility] AFP SerPl-mCncon 01-01-2022 AFP [Mass/Vol] 3.2 ng/mL Normal <11.0 [facility] Comment on above: Order Comment: Speci men Type: BLOOD SPECIMEN Ordering Facility: [facility] Address: [address] [place], [place] [address] Result Comment: Resu lt rechecked. The test [...] interchangeably. Performed By: #### 1 834-1 #### [facility] CLIA [id number] [address] [place], [place] [address] BETA HCG QUANT TUMOR MARKERo n 01-01-2022 BETA HCG QUANT TUMOR MARKER <1 Normal 0-3 [facility] Comment on above: Order Comment: Speci men Type: BLOOD SPECIMEN Ordering Facility: [facility] Address: [address] [place] [address] Result Comment: INTE RPRETIVE INFORMATION: Beta hCG, [...] reference intervals for this test in the [facility] Test Directory (nWay). This test was developed and its performance characteristics determined by [facility]. It has not been cleared or approved by the [place] Food and Drug Administration. This test was performed in a CLIA certified laboratory and is intended for clinical purposes. Performed By: [facility] [address] [place] [address] Tungsten Refiner: Morteza Kay MD, PhD Performed By: #### B HCG #### [facility] CLIA [id number] [address] [place] [address] CBC W Auto Differential pane l (Bld)on 01-01-2022 Basophils (Bld) [#/Vol] 0.03 10*3/uL Normal <0.11 [facility] Comment on above: Order Comment: Speci men Type: BLOOD SPECIMEN Ordering Facility: [facility] Address: [address] [place] [address] Performed By: #### 5 7021-8 #### [facility] CLIA [id number] [address] [place] [address] Basophils/100 WBC (Bld) 0.3 % Normal [facility] Comment on above: Order Comment: Speci men Type: BLOOD SPECIMEN Ordering Facility: [facility] Address: [address] [place] [address] Performed By: #### 5 7021-8 #### [facility] CLIA [id number] [address] [place] [address] Differential cell count method Nom (Bld) Auto Normal [facility] Comment on above: Order Comment: Speci men Type: BLOOD SPECIMEN Ordering Facility: [facility] Address: [address] [place] [address] Performed By: #### 5 7021-8 #### [facility] CLIA [id number] [address] [place] [address] Eosinophils (Bld) [#/Vol] 0.51 10*3/uL High <0.46 [facility] Comment on above: Order Comment: Speci men Type: BLOOD SPECIMEN Ordering Facility: [facility] Address: [address] [place] [address] Performed By: #### 5 7021-8 #### [facility] CLIA [id number] [address] [place] [address] Eosinophils/100 WBC (Bld) 5.4 % Normal [facility] Comment on above: Order Comment: Speci men Type: BLOOD SPECIMEN Ordering Facility: [facility] Address: [address] [place] [address] Performed By: #### 5 7021-8 #### [facility] CLIA [id number] [address] [place] [address] Erythrocyte distribution width (RBC) [Ratio] 12.3 % Normal 11.5-15.0 [facility] Comment on above: Order Comment: Speci men Type: BLOOD SPECIMEN Ordering Facility: [facility] Address: [address] [place] [address] Performed By: #### 5 7021-8 #### [facility] CLIA [id number] [address] [place] [address] Hematocrit (Bld) [Volume fraction] 42.8 % Normal 39.0-51.0 [facility] Comment on above: Order Comment: Speci men Type: BLOOD SPECIMEN Ordering Facility: [facility] Address: [address] [place] [address] Performed By: #### 5 7021-8 #### [facility] CLIA [id number] [address] [place] [address] Hemoglobin (Bld) [Mass/Vol] 14.4 g/dL Normal 13.0-17.0 [facility] Comment on above: Order Comment: Speci men Type: BLOOD SPECIMEN Ordering Facility: [facility] Address: [address] [place] [address] Performed By: #### 5 7021-8 #### [facility] CLIA [id number] [address] [place] [address] IMMATURE GRAN % 0.5 % Normal [facility] Comment on above: Order Comment: Speci men Type: BLOOD SPECIMEN Ordering Facility: [facility] Address: [address] [place] [address] Performed By: #### 5 7021-8 #### [facility] CLIA [id number] [address] [place] [address] IMMATURE GRAN ABS 0.05 k/uL Normal <0.10 [facility] Comment on above: Order Comment: Speci men Type: BLOOD SPECIMEN Ordering Facility: [facility] Address: [address] [place] [address] Performed By: #### 5 7021-8 #### [facility] CLIA [id number] [address] [place] [address]359 Lymphocytes (Bld) [#/Vol] 1.80 10*3/uL Normal 1.00-4.00 [facility] Comment on above: Order Comment: Speci men Type: BLOOD SPECIMEN Ordering Facility: [facility] Address: [address] [place] [address] Performed By: #### 5 7021-8 #### [facility] CLIA [id number] [address] [place] [address]99 Lymphocytes/100 WBC (Bld) 18.9 % Normal [facility] Comment on above: Order Comment: Speci men Type: BLOOD SPECIMEN Ordering Facility: [facility] Address: [address] [place] [address] Performed By: #### 5 7021-8 #### [facility] CLIA [id number] [address] [place] [address]50 MCH (RBC) [Entitic mass] 28.8 pg Normal 26.0-34.0 [facility] Comment on above: Order Comment: Speci men Type: BLOOD SPECIMEN Ordering Facility: [facility] Address: [address] [place], [place] [address] Performed By: #### 5 7021-8 #### [facility] CLIA [id number] [address] [place] [address] 29099 MCHC (RBC) [Mass/Vol] 33.6 g/dL Normal 30.5-36.0 [facility] Comment on above: Order Comment: Speci men Type: BLOOD SPECIMEN Ordering Facility: [facility] Address: [address] [place], [place] [address] Performed By: #### 5 7021-8 #### [facility] CLIA [id number] [address] [place] [address]69 MCV (RBC) [Entitic vol] 85.6 fL Normal 80.0-100.0 [facility] Comment on above: Order Comment: Speci men Type: BLOOD SPECIMEN Ordering Facility: [facility] Address: [address] [place] [address] Performed By: #### 5 7021-8 #### [facility] CLIA [id number] [address] [place] [address] 60021 Monocytes (Bld) [#/Vol] 0.87 10*3/uL High <0.87 [facility] Comment on above: Order Comment: Speci men Type: BLOOD SPECIMEN Ordering Facility: [facility] Address: [address] [place] [address] Performed By: #### 5 7021-8 #### [facility] CLIA [id number] [address] [place] [address]804 Monocytes/100 WBC (Bld) 9.2 % Normal [facility] Comment on above: Order Comment: Speci men Type: BLOOD SPECIMEN Ordering Facility: [facility] Address: [address] [place] [address] Performed By: #### 5 7021-8 #### [facility] CLIA [id number] [address] [place] [address]647 Neutrophils (Bld) [#/Vol] 6.24 10*3/uL Normal 1.45-7.50 [facility] Comment on above: Order Comment: Speci men Type: BLOOD SPECIMEN Ordering Facility: [facility] Address: [address] [place], [place] [address] Performed By: #### 5 7021-8 #### [facility] CLIA [id number] [address] [place] [address] 12674 Neutrophils/100 WBC (Bld) 65.7 % Normal [facility] Comment on above: Order Comment: Speci men Type: BLOOD SPECIMEN Ordering Facility: [facility] Address: [address] Performed By: #### 5 7021-8 #### [facility] CLIA [id number] [address] [place] [address]69 Nucleated RBC (Bld) [#/Vol] 10*3/uL Normal <0.01 [facility] Comment on above: Order Comment: Speci men Type: BLOOD SPECIMEN Ordering Facility: [facility] Address: [address] [place], [place] [address] Performed By: #### 5 7021-8 #### [facility] CLIA [id number] [address] [place] [address]9932 Nucleated RBC/100 WBC (Bld) [Ratio] 0.0 /100 WBC Normal [facility] Comment on above: Order Comment: Speci men Type: BLOOD SPECIMEN Ordering Facility: [facility] Address: [address] [place], [place] [address] Performed By: #### 5 7021-8 #### [facility] CLIA [id number] [address] [place] [address]236 Platelet mean volume (Bld) [Entitic vol] 9.8 fL Normal 9.0-12.7 [facility] Comment on above: Order Comment: Speci men Type: BLOOD SPECIMEN Ordering Facility: [facility] Address: [address] [place], [place] [address] Performed By: #### 5 7021-8 #### [facility] CLIA [id number] [address] [place] [address]88 Platelets (Bld) [#/Vol] 202 10*3/uL Normal 150-400 [facility] Comment on above: Order Comment: Speci men Type: BLOOD SPECIMEN Ordering Facility: [facility] Address: [address] [place], [place] [address] Performed By: #### 5 7021-8 #### [facility] CLIA [id number] [address] [place] [address] 43794 RBC (Bld) [#/Vol] 5.00 10*6/uL Normal 4.20-6.00 [facility] Comment on above: Order Comment: Speci men Type: BLOOD SPECIMEN Ordering Facility: [facility] Address: [address] [place] [address] Performed By: #### 5 7021-8 #### [facility] CLIA [id number] [address] [place] [address]64 WBC (Bld) [#/Vol] 9.50 10*3/uL Normal 3.70-11.00 [facility] Comment on above: Order Comment: Speci men Type: BLOOD SPECIMEN Ordering Facility: [facility] Address: [address] [place] [address] Performed By: #### 5 7021-8 #### [facility] CLIA [id number] [address] [place], [place] [address] Abs Immature Gran 0.05 k/uL <0.10 k/uL [facility] Basophils (Bld) [#/Vol] 0.03 10*3/uL <0.11 k/uL [facility] Basophils/100 WBC (Bld) 0.3 % [facility] Differential cell count method Nom (Bld) Auto [facility] Eosinophils (Bld) [#/Vol] 0.51 10*3/uL High <0.46 k/uL [facility] Eosinophils/100 WBC (Bld) 5.4 % [facility] Erythrocyte distribution width (RBC) [Ratio] 12.3 % 11.5 - 15.0 % [facility] Hematocrit (Bld) [Volume fraction] 42.8 % 39.0 - 51.0 % [facility] Hemoglobin (Bld) [Mass/Vol] 14.4 g/dL 13.0 - 17.0 g/dL [facility] Immature Gran % 0.5 % [facility] Lymphocytes (Bld) [#/Vol] 1.80 10*3/uL 1.00 - 4.00 k/uL [facility] Lymphocytes/100 WBC (Bld) 18.9 % [facility] MCH (RBC) [Entitic mass] 28.8 pg 26.0 - 34.0 pg [facility] MCHC (RBC) [Mass/Vol] 33.6 g/dL 30.5 - 36.0 g/dL [facility] MCV (RBC) [Entitic vol] 85.6 fL 80.0 - 100.0 fL [facility] Monocytes (Bld) [#/Vol] 0.87 10*3/uL High <0.87 k/uL [facility] Monocytes/100 WBC (Bld) 9.2 % [facility] Neutrophils (Bld) [#/Vol] 6.24 10*3/uL 1.45 - 7.50 k/uL [facility] Neutrophils/100 WBC (Bld) 65.7 % [facility] Nucleated RBC (Bld) [#/Vol] <0.01 k/uL [facility] Nucleated RBC/100 WBC (Bld) [Ratio] 0.0 /100 WBC [facility] Platelet mean volume (Bld) [Entitic vol] 9.8 fL 9.0 - 12.7 fL [facility] Platelets (Bld) [#/Vol] 202 10*3/uL 150 - 400 k/uL [facility] RBC (Bld) [#/Vol] 5.00 10*6/uL 4.20 - 6.0 0 m/uL [facility] WBC (Bld) [#/Vol] 9.50 10*3/uL 3.70 - 11.00 k/uL [facility] CNOVSPon 01-01-2022 CNOVSP Visit (SP) Office ([facility]) -- OMAIRA COHEN ([id number]) 1 M Date Time Provider Department 01/01/22 [...] 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 MEDICATIONS: No current outpatient medications on [...] swelling, and atrophy. 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 The scar area measures 1.3 cm in greatest dimension. It is limited to the testis. Germ cell neoplasia in situ. Epididymis and spermatic cord with no significant (more content not included)... Normal [facility] CNPNon 01-01-2022 CNPN Telephone ([facility]) -- OMAIRA COHEN ([id number]) 1 M Date Time Provider Department 01/01/22 RANDY BROWN During your visit today, we recorded the following information about you: Sherry Haile 01/01/2022 12:49 PM Signed 2nd opinion pathology requested to be sent from [facility] to [facility] for review. Allergies As of Date: 01/01/2022 Noted Allergy Reaction AMOXICILLIN 12/31/2021 4 - Hives Date Reviewed: 12/31/2021 Reviewed by: Montse Pederson - Fully Assessed Reason for Visit: 2nd opinion pathology [Other] Problem List As Of Date: 01/01/2022 (None) Encounter Status:Closed by SHERRY ARAYA on 01/01/22 Normal [facility] Comprehensive metabolic 2000 panelon 01-01-2022 Albumin [Mass/Vol] 5.1 g/dL High 3.9-4.9 [facility] Comment on above: Order Comment: Speci men Type: BLOOD SPECIMEN Ordering Facility: [facility] Address: [address] [place] [address] Performed By: #### 2 4323-8, 2531-0 #### [facility] CLIA [id number] [address] [place] [address] ALP [Catalytic activity/Vol] 90 U/L Normal 55-149 [facility] Comment on above: Order Comment: Speci men Type: BLOOD SPECIMEN Ordering Facility: [facility] Address: [address] [place] [address] Performed By: #### 2 4323-, 2532-0 #### [facility] CLIA [id number] [address] [place] [address] ALT [Catalytic activity/Vol] 15 U/L Normal 10-54 [facility] Comment on above: Order Comment: Speci men Type: BLOOD SPECIMEN Ordering Facility: [facility] Address: [address] [place] [address] Performed By: #### 2 4323-8, 2-0 #### [facility] CLIA [id number] [address] [place] [address] Anion gap [Moles/Vol] 10 mmol/L Normal 9-18 [facility] Comment on above: Order Comment: Speci men Type: BLOOD SPECIMEN Ordering Facility: [facility] Address: [address] [place] [address] Performed By: #### 2 4328, 2531-0 #### [facility] CLIA [id number] [address] [place] [address]71 AST [Catalytic activity/Vol] 18 U/L Normal 14-40 [facility] Comment on above: Order Comment: Speci men Type: BLOOD SPECIMEN Ordering Facility: [facility] Address: [address] [place] [address] Performed By: #### 2 4328, 2531-0 #### [facility] CLIA [id number] [address] [place] [address] Bilirubin [Mass/Vol] 0.4 mg/dL Normal 0.2-1.3 [place] [facility] Comment on above: Order Comment: Speci men Type: BLOOD SPECIMEN Ordering Facility: [facility] Address: [address] [place] [address] Performed By: #### 2 4323-8, 2532-0 #### [facility] CLIA [id number] [address] [place] [address]007 Calcium [Mass/Vol] 10.4 mg/dL High 8.5-10.2 [facility] Comment on above: Order Comment: Speci men Type: BLOOD SPECIMEN Ordering Facility: [facility] Address: [address] Performed By: #### 2 4323-8, 2532-0 #### [facility] CLIA [id number] [address] [place] [address] 70163 Chloride [Moles/Vol] 100 mmol/L Normal 97-105 [facility] Comment on above: Order Comment: Speci men Type: BLOOD SPECIMEN Ordering Facility: [facility] Address: [address] Performed By: #### 2 4323-8, 2532-0 #### [facility] CLIA [id number] [address] [place] [address] 14661 CO2 [Moles/Vol] 28 mmol/L Normal 22-30 [facility] Comment on above: Order Comment: Speci men Type: BLOOD SPECIMEN Ordering Facility: [facility] Address: [address] [place] [address] Performed By: #### 2 4323-8, 2532-0 #### [facility] CLIA [id number] [address] [place] [address] 33518 Creatinine [Mass/Vol] 0.87 mg/dL Normal 0.73-1.22 [facility] Comment on above: Order Comment: Speci men Type: BLOOD SPECIMEN Ordering Facility: [facility] Address: [address] Performed By: #### 2 4323-8, 2532-0 #### [facility] CLIA [id number] [address] [place] [address] 12513 ESTIMATED GLOMERULAR FILTRATION RATE 128 mL/min/1.73m??? Normal >=60 [facility] Comment on above: Order Comment: Speci men Type: BLOOD SPECIMEN Ordering Facility: [facility] Address: [address] [place] [address] Result Comment: Nannette mated Glomerular Filtration Rate [...] Performed By: #### 2 4323-8, 2531-0 #### [facility] CLIA [id number] [address] [place] [address] 71202 Glucose [Mass/Vol] 102 mg/dL High 74-99 [facility] Comment on above: Order Comment: Edwin mcmillan Type: BLOOD SPECIMEN Ordering Facility: [facility] Address: [address] [id number] Result Comment: The [place] Diabetes Association (ADA) provides guidance for cutoff [...] Standards of Medical Care in Diabetes 2016, [place] Diabetes Association. Diabetes Care. 2016.39(Suppl 1). Performed By: #### 2 4323-8, 2531-0 #### [facility] CLIA [id number] [address] [place] [address] 25169 Potassium [Moles/Vol] 4.4 mmol/L Normal 3.7-5.1 [facility] Comment on above: Order Comment: Edwin mcmillan Type: BLOOD SPECIMEN Ordering Facility: [facility] Address: [address] [place] [address] Performed By: #### 2 4323-8, 2531-0 #### [facility] CLIA [id number] [address] [place] [address] 61903 Protein [Mass/Vol] 7.5 g/dL Normal 6.3-8.0 [facility] Comment on above: Order Comment: Speci men Type: BLOOD SPECIMEN Ordering Facility: [facility] Address: [address] Performed By: #### 2 4323-8, 2531-0 #### [facility] CLIA [id number] [address] [place] [address] 47655 Sodium [Moles/Vol] 138 mmol/L Normal 136-144 [facility] Comment on above: Order Comment: Speci men Type: BLOOD SPECIMEN Ordering Facility: [facility] Address: [facility] [address] [place] [address] Performed By: #### 2 4323-8, 2531-0 #### [facility] CLIA [id number] [address] [place] [address] 20747 Urea nitrogen [Mass/Vol] 17 mg/dL Normal 9-24 [facility] Comment on above: Order Comment: Speci men Type: BLOOD SPECIMEN Ordering Facility: [facility] Address: [facility] [address] [place] [address] Performed By: #### 2 4323-8, 0 #### [facility] CLIA [id number] [address] [place] [address] 47158 Albumin [Mass/Vol] 5.1 g/dL High 3.9 - 4.9 g/dL [facility] ALP [Catalytic activity/Vol] 90 U/L 55 - 149 U/L [facility] ALT [Catalytic activity/Vol] 15 U/L 10 - 54 U/L [facility] Anion gap [Moles/Vol] 10 mmol/L 9 - 18 mmol/L [facility] AST [Catalytic activity/Vol] 18 U/L 14 - 40 U/L [facility] Bilirubin [Mass/Vol] 0.4 mg/dL 0.2 - 1 .3 mg/dL [facility] Calcium [Mass/Vol] 10.4 mg/dL High 8.5 - 10. 2 mg/dL [facility] Chloride [Moles/Vol] 100 mmol/L 97 - 10 5 mmol/L [facility] CO2 [Moles/Vol] 28 mmol/L 22 - 30 mmol/L [facility] Creatinine [Mass/Vol] 0.87 mg/dL 0.73 - 1.22 mg/dL [facility] Estimated Glomerular Filtration Rate 128 mL/min/1.73m >=60 mL/min/1.73 m [facility] Glucose [Mass/Vol] 102 mg/dL High 74 - 99 mg/dL [facility] Potassium [Moles/Vol] 4.4 mmol/L 3.7 - 5.1 mmol/L [facility] Protein [Mass/Vol] 7.5 g/dL 6.3 - 8.0 g/dL [facility] Sodium [Moles/Vol] 138 mmol/L 136 - 144 mmol/L [facility] Urea nitrogen [Mass/Vol] 17 mg/dL 9 - 24 mg/dL [facility] LD LACTATE DEHYDROon 022 LDH [Catalytic activity/Vol] 164 U/L 135 - 225 U/L [facility] LDH SerPl-cCncon 01-01-2022 LDH [Catalytic activity/Vol] 164 U/L Normal 135-225 [facility] Comment on above: Order Comment: Speci men Type: BLOOD SPECIMEN Ordering Facility: [facility] Address: [address] [place], [place] [address] Result Comment: Hemo lysis present. The origin [...] Performed By: #### 2 4323-8, 2532-0 #### [facility] CLIA [id number] [address] [place], [place] [address] CT CHEST W CONon 12-31-2021 CT CHEST [...] by: GERRY ALDANA Date: 2021-12-31 13:31 Normal [facility] Pathology Noteon 12-31-2021 Pathology Note [id number]#[id number]:127 Normal [facility] Ambulatory Visit Summaryon 0 12-28-2021 Ambulatory Visit [...] with MARIYA VICENTE, BERNARDO Hines When: Where: [facility] [facility] [address]- Someone Will Contact You Regarding These Appointments [facility] Ambulatory Referral, Oncology, [facility]ology for [...] including vitamins, herbs, eye drops, creams, and sgep-buj-khpibrm medicines. ? Any problems you or family [...] will b (more content not included)... Normal [facility] Patient Educationon 12-29-19 Patient Education Oncology Orchiectomy [...] including vitamins, herbs, eye drops, creams, and txnk-sdm-hhendce medicines. ? Any problems you or family [...] care provider (more content not included)... Normal [facility] Urology Office/Clinic Noteon 12-28-2021 Urology Office/Clinic Note [...] CT chest & AP. Referral placed to [facility] oncology for a second opinion. Follow up in 1 month. Follow-up With When Contact Information MARIYA VICENTE, Marcos Ross, L [facility] [place] [phone]- Additional Instructions: 1 month Patient Education Orchiectomy [...] Recorded hepa (more content not included)... Normal [facility] Comment on above: Result Comment: Elec tronically Signed By: Marcos DONATO MD\.br\Date and Time Signed: 12/28/21 09:46 EDT\.br\Electronically Co-Signed By: Yusra Kahn.br\Date and Time Co-Signed: 12/28/21 09:44 EDT Operative Reporton Operative Report [id number]#1.00CD:127 Normal [facility] Lab Reportson 12-19-2021 Lab Reports [id number]#[id number]:127 [facility] Covid-19 PCR (CVDTB)on 11-20 SARS-CoV-2 (COVID-19) RNA CHRISTIANO+probe Ql (Unsp spec) Not detected Normal NOT DETECTED [facility] Comment on above: Result Comment: This test is not yet approved or cleared by the [place] FDA. When there are no FDA-approved or cleared tests available, and other criteria are met, FDA can make tests available under an emergency access mechanism called an Emergency Use Authorization (EUA). The EUA for this test is supported by the [employer] Operator of Health and Human Service's (HHS's) declaration [...] consistent with SARS-CoV-2. Performed By: #### [facility] #### [facility] Laboratory [address] [place] [address] Dr. Janee Ordaz Insurance Correspondenceon 0 12-14-2021 Insurance Correspondence [id number]:127 Normal [facility] Lab Reportson 12-14-2021 Lab Reports [id number]#1.00CD:127 Normal [facility] AFP (TUMOR MARKER)on 022 AFP, Serum, Tumor Marker 2.4 ng/mL Normal 0.0-5.7 [facility] Comment on above: Result Comment: [employer] Electrochemiluminescence Immunoassay (ECLIA) . Values obtained with different assay methods or kits cannot be used interchangeably. Results cannot be interpreted as absolute evidence of the presence or absence of malignant disease. . This test is not interpretable in females. Performed By: #### A . #### [facility] [address] [place] [address] Dr. Janee Ordaz HCG QUANT TUMOR MARKERon HCG QNT TUMOR MARKER <1 Normal 0-3 [facility] Comment on above: Result Comment: [employer] Electrochemiluminescence Immunoassay (ECLIA) . The Jody [...] developed and its performance characteristics determined by [employer]. It has not been cleared or approved by the Food and Drug Administration for use as a tumor marker. . This test is not interpretable as a tumor marker in females. Performed By: #### H CGTMOR ####[facility] [address] [address]DrFrank Janee Orlin RAD - Ultrasound Reporton RAD - Ultrasound Report [id number]:127 Normal [facility] CBC AUTO DIFFon 12-11-2021 BASO # 0.0 103/ul Normal 0.0-0.1 [facility] Comment on above: Performed By: #### C BC ####[facility] [address] [place] [address]DrFrank Ordaz Basophils/100 WBC (Bld) 0.4 % Normal 0.2-2.0 [facility] Comment on above: Performed By: #### C BC ####[facility] [address] [place], [place] [address]DrFrank Ordaz EO # 0.6 103/ul Normal 0.0-0.7 [facility] Comment on above: Performed By: #### C BC ####[facility] [address] [place] [address]DrFrank Ordaz Eosinophils/100 WBC (Bld) 7.7 % Critically high 0.9-7.0 [facility] Comment on above: Performed By: #### C BC ####[facility] [address] [place] [address]Dr. Janee Ordaz Erythrocyte distribution width (RBC) [Ratio] 12.6 % Normal 11.0-15.0 [facility] Comment on above: Performed By: #### C BC ####[facility] [address] [place], [place] [address]DrFrank Ordaz Hematocrit (Bld) [Volume fraction] 45.1 % Normal 42.0-54.0 [facility] Comment on above: Performed By: #### C BC ####[facility] [address] [place], [place] [address]DrFrank Ordaz Hemoglobin (Bld) [Mass/Vol] 14.8 g/dL Normal 14.0-18.0 [facility] Comment on above: Performed By: #### C BC ####[facility] [address] [place] [address]Dr. Janee Ordaz IG # 0.02 10e3/ul Normal 0.00-0.03 [facility] Comment on above: Performed By: #### C BC ####[facility] [address] [place] [address]Dr. Janee Ordaz IG % 0.2 % Normal 0.0-0.5 [facility] Comment on above: Performed By: #### C BC ####[facility] [address] [place], [place] [address]DrFrank Ordaz LYMPH # 2.2 103/ul Normal 1.2-3.8 [facility] Comment on above: Performed By: #### C BC ####[facility] [address] [place], [place] [address]Dr. Janee Ordaz Lymphocytes/100 WBC (Bld) 27.2 % Normal 20.5-60.0 [facility] Comment on above: Performed By: #### C BC ####[facility] [address] [place], [place] [address]DrFrank Ordaz MANUAL DIFF REQ NO Normal [facility] Comment on above: Performed By: #### C BC ####[facility] [address] [place] [address]Dr. Janee Ordaz MCH (RBC) [Entitic mass] 28.7 pg Normal 25.9-34.0 [facility] Comment on above: Performed By: #### C BC ####[facility] [address] [place], [place] [address]Dr. Janee Ordaz MCHC (RBC) [Mass/Vol] 32.8 g/dL Normal 29.9-35.2 [facility] Comment on above: Performed By: #### C BC ####[facility] [address] [place] [address]Dr. Janee Ordaz MCV (RBC) [Entitic vol] 87.4 fL Normal 80.0-94.0 [facility] Comment on above: Performed By: #### C BC ####[facility] [address] [place] [id number]. Janee Ordaz MONO # 0.8 103/ul Normal 0.3-0.8 [facility] Comment on above: Performed By: #### C BC ####[facility] [address] [place] [address]Dr. Janee Ordaz Monocytes/100 WBC (Bld) 9.5 % Normal 1.7-12.0 [facility] Comment on above: Performed By: #### C BC ####[facility] [address] [place], [place] [address]Dr. Janee Ordaz NEUT # 4.5 103/ul Normal 1.4-6.5 [facility] Comment on above: Performed By: #### C BC ####[facility] [address] [place], [place] [address]Dr. aJnee Ordaz Neutrophils/100 WBC (Bld) 55.0 % Normal 43.0-75.0 [facility] Comment on above: Performed By: #### C BC ####[facility] [address] [place], [place] [address]Dr. Janee Ordaz Platelet mean volume (Bld) [Entitic vol] 9.9 fL Normal 9.5-13.5 [facility] Comment on above: Performed By: #### C BC ####[facility] [address] [place] [id number]. Janee Ordaz PLT 211 103/ul Normal 150-450 [facility] Comment on above: Performed By: #### C BC ####[facility] [address] [place], [place] [address]Dr. Janee Ordaz RBC 5.16 106/ul Normal 4.70-6.10 [facility] Comment on above: Performed By: #### C BC ####[facility] [address] [place] [address]Dr. Janee Ordaz WBC 8.2 103/ul Normal 4.0-11.0 [facility] Comment on above: Performed By: #### C BC ####[facility] [address] [place] [address]Dr. Maddisonmaico Orlin LDHon 12-11-2021 LDH 135 U/L Normal 85-227 [facility] Comment on above: Performed By: #### B MP, LDH ####[facility] [address] [place] [address]Dr. Janee Ordaz PROF CHEM 8 (BAS METB)on Anion gap [Moles/Vol] 11.3 mmol/L Normal [facility] Comment on above: Performed By: #### B MP, LDH ####[facility] [address] [place] [address]Dr. Janee Ordaz Calcium [Mass/Vol] 9.8 mg/dL Normal 8.5-10.1 [facility] Comment on above: Performed By: #### B MP, LDH ####[facility] [address] [place], [place] [address]Dr. Janee Ordaz Chloride [Moles/Vol] 103 mmol/L Normal 98-107 [facility] Comment on above: Performed By: #### B MP, LDH ####[facility] [address] [place], [place] [address]Dr. Janee Ordaz CO2 [Moles/Vol] 30.7 mmol/L Normal 21.0-32.0 [facility] Comment on above: Performed By: #### B MP, LDH ####[facility] [address] [place], [place] [address]Dr. Janee Ordaz Creatinine [Mass/Vol] 0.96 mg/dL Normal 0.70-1.30 [facility] Comment on above: Performed By: #### B MP, LDH ####[facility] [address] [place] [address]Dr. Janee Ordaz EGFR-AF JAMAICAN >60 Normal >=60 [facility] Comment on above: Performed By: #### B MP, LDH ####[facility] [address] [place] [address]Dr. Janee Ordaz EGFR-NON AF JAMAICAN >60 Normal >=60 [facility] Comment on above: Performed By: #### B MP, LDH ####[facility] [address] [place] [address]Dr. Janee Ordaz Glucose [Mass/Vol] 90 mg/dL Normal 74-106 [facility] Comment on above: Performed By: #### B MP, LDH ####[facility] [address] [place] [address]Dr. Janee Ordaz Potassium [Moles/Vol] 4.0 mmol/L Normal 3.5-5.1 [facility] Comment on above: Performed By: #### B MP, LDH ####[facility] [address] [place] [address]Dr. Janee Ordaz Sodium [Moles/Vol] 141 mmol/L Normal 136-145 [facility] Comment on above: Performed By: #### B MP, LDH ####[facility] [address] [place] [address]Dr. Janee Ordaz Urea nitrogen [Mass/Vol] 18.0 mg/dL Normal 6.4-19.3 [facility] Comment on above: Performed By: #### B MP, LDH ####[facility] [address] [place] [address]Dr. Janee Ordaz Urea nitrogen/Creatinine [Mass ratio] 18.8 mg/mg Normal [facility] Comment on above: Performed By: #### B MP, LDH ####[facility] [address] [place] [address]Dr. Janee Ordaz PROTIMEon 12-11-2021 INR Coag (PPP) [Relative time] 1.00 {INR} Normal [facility] Comment on above: Performed By: #### P T, PTT #### [facility] Laboratory [address] [address] [address] Janee Ordaz INR GUIDELINES SEE BELOW Normal [facility] Comment on above: Result Comment: ADITYA RED INR: 2.0 - 3.0 CONDITIONS NOT LISTED BELOW 2.5 - 3.5 FOR PROSTHETIC HEART VALVE REPLACEMENT 2.5 - 3.5 RECURRENT THROMBOSIS Performed By: #### P T, PTT #### [facility] [address] [place], [place] [address] Dr. Janee Ordaz PT Coag (PPP) [Time] 10.8 s Normal 9.0-11.6 [facility] Comment on above: Performed By: #### P T, PTT #### [facility] [address] [place], [place] [address] Dr. Janee Ordaz PTTon 12-11-2021 aPTT Coag (Bld) [Time] 28.8 s Normal 22.3-36.2 [facility] Comment on above: Performed By: #### P T, PTT #### [facility] [address] [address] [address] Janee Ordaz Ambulatory Visit Summaryon 0 12-07-2021 Ambulatory Visit Summary OMAIRA ZAVALA Juhi :2005 Visit Date:12/07/2021 Ambulatory Visit Instructions Your Diagnosis Testicular mass Tests Performed Urnls Dip Stick Auto w/o Microscopy POC 18655 Your Care Team Attending Physician - Marcos [...] Where: [facility] [address] [place] [address]- Test Results Urnls Dip Stick Auto w/o Microscopy POC 59509 (12/07/2021) Bilirubin Urine Dipstick - Negative Blood Urine Dipstick - Trace-intact Glucose Urine Dipstick - Negative Ketones Urine Dipstick - Negative Leukocytes Urine Dipstick - Negative Nitrite Urine Dipstick - Negative Protein Urine Dipstick - Negative Specific [place] Urine Dipstick - 1.025 Urine Appearance Urine [...] 07/14/2001 Document Revised: 07/29/2019 Document Reviewed: 03/03/2017 [employer] Patient Education ? 2019 [employer]. Normal [facility] Patient Educationon 12-08-19 Patient Education Urology Testicular [...] 07/14/2001 Document Revised: 07/29/2019 Document Reviewed: 03/03/2017 [employer] Patient Education ? 2019 [employer] [facility] Physician Orderon 12-07-2021 Physician Order [id number]#[id number]:127 [facility] Provider Letter FTMCon 12-07 Provider Letter [facility] (Inserted Image. Un able to display) December 07, 2021 OMAIRA ZAVALA [address] [address] OMAIRA ZAVALA 2005 To Whom It May Concern, Please excuse above patient from work. Date of Illness: From: 12/20/2021 To: 01/31/2022 May Return to Work On:02/01/2022 Restrictions: No work 12/20/21 to 01/31/2022, return to work 02/01/2022. Comments: Patient has appt 12/11/21 @ 8am, [facility], and surgery scheduled 12/20/2021. Sincerely, Marcos Donato M.D., F.A.C.S. [facility] [address] [place], [place] [address]dg D [place], [place] [address] Wally Issa [facility] Urology Office/Clinic Noteon 12-07-2021 Urology Office/Clinic Note [...] genital organs) Scrotal US done 12/06/21 at [facility] shows left 1.4cm hypoechoic vascular mass within [...] [facility] [address], [place] [address]- Additional Instructions: Patient Education Testicular Self-Exam Maida, [...] Protein Urine Dipstick: Negative (12/07/21 09:30:00) Specific [place] Urine Dipstick: 1.025 (12/07/21 09:30:00 (more content not included)... Normal [facility] Comment on above: Result Comment: Elec tronically [...] GERRY ALDANA Date: 2021-12-06 09:30 Normal [facility] Ambulatory Visit Summaryon 0 11-12-2021 Ambulatory Visit Summary OMAIRA ZAVALA :2005 Visit Date:11/12/2021 Ambulatory Visit Instructions Your Diagnosis Testicular mass Tests Performed Urnls Dip Stick Auto w/o Microscopy POC 89834 US Scrotum (Contents) -- Results Pending -- [...] Where: [facility] [address] [place] [phone] Medications What How Much When Instructions New doxycycline (doxycycline hyclate 100 mg Cap) 1 Capsules By Mouth 2 times a day Duration: 3 Weeks Pickup at [id number] Unchanged fluconazole (fluconazole 50 mg oral tablet) By Mouth Every day Contact prescribing physician if questions or concerns Pharmacy Information [id number]: [address] [place], [place] [id number] [phone] Test Results Urnls Dip Stick Auto w/o Microscopy POC 38772 (11/12/2021) Bilirubin Urine Dipstick - Negative Blood Urine Dipstick - Negative Glucose Urine Dipstick - Negative Ketones Urine Dipstick - Negative Leukocytes Urine Dipstick - Negative Nitrite Urine Dipstick - Negative Protein Urine Dipstick - Negative Specific [place] Urine Dipstick - 1.020 Urine Appearance Urine [...] 07/04/2009 Document Revised: 07/29/2019 Document Reviewed: 03/03/2017 [employer] Patient Education ? 2019 [employer]. Normal [facility] Formson 11-12-2021 Forms [id number]#[id number]:127 Normal [facility] Patient Educationon 11-13-19 Patient Education Urology Testicular [...] 07/04/2009 Document Revised: 07/29/2019 Document Reviewed: 03/03/2017 [employer] Patient Education ? 2019 [employer] Normal [facility] Physician Referralon 022 Physician Referral [phone] [id number]:127 Normal [facility] Physician Referral [id number]:127 Normal [facility] US Testicular/Scrotumon 10-19 US Testicular/Scrotum HISTORY: Lump [...] by Rich Banda on 11/05/2021 1102 Normal [facility] Specialist Vital Signs Date Time Vital Sign Value Performing Clinician Facility 04-29-2022 15:48-0500 Body height 190.5 cm Randy Brown MD Work Phone: [facility] 04-29-2022 15:48-0500 Body temperature 98.49 [degF] Randy Brown MD Work Phone: [facility] 04-29-2022 15:48-0500 Body weight 83.64 kg Randy Brown MD Work Phone: [facility] 04-29-2022 15:48-0500 Diastolic blood pressure 64 mm[Hg] Randy Brown MD Work Phone: [facility] 04-29-2022 15:48-0500 Heart rate 62 /min Randy Brown MD Work Phone: [facility] 04-29-2022 15:48-0500 Respiratory rate 16 /min Randy Brown MD Work Phone: [facility] 04-29-2022 15:48-0500 SaO2% (BldA) [Mass fraction] 99 % Randy Brown MD Work Phone: [facility] 04-29-2022 15:48-0500 Systolic blood pressure 138 mm[Hg] Randy Brown MD Work Phone: [facility] 01-29-2022 13:06-0400 Body height 190.5 cm Randy Brown MD Work Phone: [facility] 01-29-2022 13:06-0400 Body mass index (BMI) [Percentile] Per age and sex 62.51 % Randy Brown MD Work Phone: [facility] 01-29-2022 13:06-0400 Body temperature 97.11 [degF] Randy Brown MD Work Phone: [facility] 01-29-2022 13:06-0400 Body weight 84.82 kg Randy Borwn MD Work Phone: [facility] 01-29-2022 13:06-0400 Diastolic blood pressure 62 mm[Hg] Randy Brown MD Work Phone: [facility] 01-29-2022 13:06-0400 Heart rate 64 /min Randy Brown MD Work Phone: [facility] 01-29-2022 13:06-0400 Respiratory rate 16 /min Randy Brown MD Work Phone: [facility] 01-29-2022 13:06-0400 SaO2% (BldA) [Mass fraction] 100 % Randy Brown MD Work Phone: [facility] 01-29-2022 13:06-0400 Systolic blood pressure 133 mm[Hg] Randy Brown MD Work Phone: [facility] 01-25-2022 10:56-0400 Blood Pressure Location Marcos DONATO [facility] 01-25-2022 10:56-0400 Diastolic blood pressure 67 mm[Hg] Marcos DONATO [facility] 01-25-2022 10:56-0400 Heart rate 61 /min Marcos DONATO [facility] 01-25-2022 10:56-0400 Systolic blood pressure 123 mm[Hg] Marcos DONATO [facility] 01-01-2022 10:34-0400 Body height 190.5 cm Randy Brown MD Work Phone: [facility] 01-01-2022 10:34-0400 Body mass index (BMI) [Percentile] Per age and sex 51.74 % Randy Brown MD Work Phone: [facility] 01-01-2022 10:34-0400 Body temperature 98.1 [degF] Randy Brown MD Work Phone: [facility] 01-01-2022 10:34-0400 Body weight 81.47 kg Randy Brown MD Work Phone: [facility] 01-01-2022 10:34-0400 Diastolic blood pressure 62 mm[Hg] Randy Brown MD Work Phone: [facility] 01-01-2022 10:34-0400 Heart rate 56 /min Randy Brown MD Work Phone: [facility] 01-01-2022 10:34-0400 Respiratory rate 16 /min Randy Brown MD Work Phone: [facility] 01-01-2022 10:34-0400 SaO2% (BldA) [Mass fraction] 98 % Randy Brown MD Work Phone: [facility] 01-01-2022 10:34-0400 Systolic blood pressure 128 mm[Hg] Randy Brown MD Work Phone: [facility] 12-28-2021 09:04-0400 Blood Pressure Location Marcos DONATO [facility] 12-28-2021 09:04-0400 Diastolic blood pressure 68 mm[Hg] Marcos DONATO [facility] 12-28-2021 09:04-0400 Heart rate 69 /min Marcos DONATO [facility] 12-28-2021 09:04-0400 Respiratory rate 16 /min Marcos DONATO [facility] 12-28-2021 09:04-0400 Systolic blood pressure 125 mm[Hg] Marcos DONATO [facility] 12-07-2021 09:28-0400 Blood Pressure Location Marcos DONATO [facility] 12-07-2021 09:28-0400 Diastolic blood pressure 74 mm[Hg] Marcos DONATO [facility] 12-07-2021 09:28-0400 Heart rate 61 /min Marcos DONATO [facility] 12-07-2021 09:28-0400 Respiratory rate 16 /min Marcos DONATO [facility] 12-07-2021 09:28-0400 Systolic blood pressure 120 mm[Hg] Marcos DONATO [facility] 11-12-2021 10:30-0400 Blood Pressure Location Marcos DONATO [facility] 11-12-2021 10:30-0400 Diastolic blood pressure 80 mm[Hg] Marcos DONATO [facility] 11-12-2021 10:30-0400 Heart rate 80 /min Marcos DONATO [facility] 11-12-2021 10:30-0400 Respiratory rate 16 /min Marcos DONATO [facility] 11-12-2021 10:30-0400 Systolic blood pressure 103 mm[Hg] Marcos DONATO [facility] Encounters Encounter Date Encounter Type Care Provider Facility Start: 10-25-2023 End: 10-25-2023 Patient encounter procedure [facility] [place] Work Phone: Start: 10-25-2023 End: 10-25-2023 ambulatory Marcos Donato Facility:[facility] Start: 07-19-2022 End: 07-20-2022 ambulatory Marcos DONATO Facility:[facility] Start: 07-19-2022 End: 07-19-2022 Patient encounter procedure Marcos DONATO [facility] Start: 06-28-2022 End: 06-29-2022 ambulatory Marcos DONATO Facility:[facility] Start: 05-18-2022 End: 05-19-2022 ambulatory BRITTANY RAMIREZ Facility: Start: 04-29-2022 End: 04-29-2022 ambulatory RANDY BROWN Facility:[facility] Start: 04-29-2022 End: 04-29-2022 ambulatory Randy Brown MD Work Phone: Hematology/Oncology Comment on above: 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) Start: 04-29-2022 End: 04-29-2022 Patient encounter procedure Randy Brown MD Work Phone: [facility] Start: 04-08-2022 End: [address] RANDY BROWN Facility: Start: 01-29-2022 End: 01-29-2022 ambulatory RANDY BROWN Facility:[facility] Start: 01-29-2022 End: 01-29-2022 ambulatory Randy Brown MD Work Phone: Hematology/Oncology Comment on above: 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) Start: 01-29-2022 End: 01-29-2022 Patient encounter procedure Randy Brown MD Work Phone: [facility] Start: 01-25-2022 End: 01-26-2022 ambulatory Marcos DONATO Facility:[facility] Start: 01-25-2022 End: 01-25-2022 Patient encounter procedure Marcos DONATO [facility] Start: 01-01-2022 Telephone encounter Randy combs MD Work Phone: [facility] Comment on above: 2nd opinion patholog y Start: 01-01-2022 End: 01-01-2022 ambulatory Randy Brown MD Work Phone: Hematology/Oncology Comment on above: 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) Start: 01-01-2022 End: 01-01-2022 Patient encounter procedure Randy Brown MD Work Phone: [facility] Start: 12-31-2021 Chart abstracting Randy edge MD Work Phone: Hematology/Oncology Start: 12-31-2021 End: 01-01-[address] MARCOS DONATO Facility:[facility] Start: 12-28-2021 End: 12-29-2021 ambulatory Marcos DONATO Facility:[facility] Start: 12-28-2021 End: 12-28-2021 Patient encounter procedure Marcos DONATO [facility] Start: 12-20-2021 End: 12-21-[address] MARCOS DONATO Facility:[facility] Start: 12-19-2021 Encounter for preprocedural laboratory examination DR MARCOS DONATO [facility] Start: 12-17-2021 End: 12-18-[address] MARCOS DONATO Facility:[facility] Start: 12-17-2021 End: 12-18-2021 Encounter for preprocedural laboratory examination DR MARCOS DONATO Facility:[facility] Start: 12-11-2021 End: 12-12-[address] MARCOS DONATO Facility: Start: 12-07-2021 End: 12-08-2021 ambulatory Marcos DONATO Facility:[facility] Start: 12-07-2021 End: 12-07-2021 Patient encounter procedure Marcos DONATO [facility] Start: 12-05-2021 End: 12-06-[address] MARCOS DONATO Facility: Start: 11-12-2021 End: 11-13-2021 ambulatory Marcos DONATO Facility:[facility] Start: 11-12-2021 End: 11-12-2021 Patient encounter procedure Marcos DONATO [facility] Start: 11-06-2021 ambulatory Marcos DONATO Facility :[facility] Start: 11-06-2021 ambulatory Marcos DONATO Facility : [facility] Procedures Date Procedure Procedure Detail Performing Clinician Start: 12-20-2021 Total orchidectomy Lisa DONATO Plan of Treatment Date Care Activity Detail Author Start: 02-14-2026 Urine microalbumin profile DTAP,TDAP,TD (6 - Td or Tdap) [facility] Start: 04-29-2022 End: 06-29-2022 [id number] [Mass/volume] in Serum or Plasma ALPHA FETOPROTEIN BL Lab Routine 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) Expected: 04/29/2022, Expires: 06/29/2022 [facility] Work Phone: Comment on above: Expected: 04/29/2022 , Expires: 06/29/2022 Start: 04-29-2022 End: 06-29-2022 CBC W Auto Differential panel - Blood CBC + DIFF Lab Routine 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) Expected: 04/29/2022, Expires: 06/29/2022 [facility] Work Phone: Comment on above: Expected: 04/29/2022 , Expires: 06/29/2022 Start: 04-29-2022 End: 06-29-2022 Choriogonadotropin.beta subunit [Units/volume] in Serum or Plasma BETA HCG QUANT TUMOR MARKER Lab Routine 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) Expected: 04/29/2022, Expires: 06/29/2022 [facility] Work Phone: Comment on above: Expected: 04/29/2022 , Expires: 06/29/2022 Start: 04-29-2022 End: 06-29-2022 Comprehensive metabolic 2000 panel - Serum or Plasma COMP METABOLIC PANEL Lab Routine 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) Expected: 04/29/2022, Expires: 06/29/2022 [facility] Work Phone: Comment on above: Expected: 04/29/2022 , Expires: 06/29/2022 Start: 04-29-2022 End: 06-29-2022 Lactate dehydrogenase [Enzymatic activity/volume] in Serum or Plasma LD LACTATE DEHYDRO Lab Routine 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) Expected: 04/29/2022, Expires: 06/29/2022 [facility] Work Phone: Comment on above: Expected: 04/29/2022 , Expires: 06/29/2022 Start: 04-21-2022 DEPRESSION ASSESSMENT DEPRESSION ASS ESSMENT [facility] Start: 02-26-2022 End: 04-28-2022 [id number]-[id number] [Mass/volume] in Serum or Plasma ALPHA FETOPROTEIN BL Lab Routine 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) Expected: 02/26/2022 (Approximate), Expires: 04/28/2022 [facility] Work Phone: Comment on above: Expected: 02/26/2022 (Approximate), Expires: 04/28/2022 Start: 02-26-2022 End: 04-28-2022 CBC W Auto Differential panel - Blood CBC + DIFF Lab Routine 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) Expected: 02/26/2022 (Approximate), Expires: 04/28/2022 [facility] Work Phone: Comment on above: Expected: 02/26/2022 (Approximate), Expires: 04/28/2022 Start: 02-26-2022 End: 04-28-2022 Choriogonadotropin.beta subunit [Units/volume] in Serum or Plasma BETA HCG QUANT TUMOR MARKER Lab Routine 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) Expected: 02/26/2022 (Approximate), Expires: 04/28/2022 [facility] Work Phone: Comment on above: Expected: 02/26/2022 (Approximate), Expires: 04/28/2022 Start: 02-26-2022 End: 04-28-2022 Comprehensive metabolic 2000 panel - Serum or Plasma COMP METABOLIC PANEL Lab Routine 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) Expected: 02/26/2022 (Approximate), Expires: 04/28/2022 [facility] Work Phone: Comment on above: Expected: 02/26/2022 (Approximate), Expires: 04/28/2022 Start: 02-26-2022 End: 04-28-2022 Lactate dehydrogenase [Enzymatic activity/volume] in Serum or Plasma LD LACTATE DEHYDRO Lab Routine 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) Expected: 02/26/2022 (Approximate), Expires: 04/28/2022 [facility] Work Phone: Comment on above: Expected: 02/26/2022 (Approximate), Expires: 04/28/2022 Start: 01-01-2022 End: 03-03-2022 [id number]-[id number] [Mass/volume] in Serum or Plasma [facility] Work Phone: Comment on above: Expected: 01/01/2022 , Expires: 03/03/2022 Start: 01-01-2022 End: 03-03-2022 Choriogonadotropin.beta subunit [Units/volume] in Serum or Plasma [facility] Work Phone: Comment on above: Expected: 01/01/2022 , Expires: 03/03/2022 Start: 12-20-2021 Influenza vaccination INFLUENZA (#1) [facility] Start: 04-21-2021 DEPRESSION ASSESSMENT DEPRESSION ASS ESSMENT [facility] Start: 2021 HEPATITIS C SCREENING HEPATITIS C SC REENING [facility] Start: 2021 HIV SCREENING HIV SCREENING [facility] Start: 02-13-2020 HPV VACCINE (3 - Mal e 3-dose series) HPV VACCINE (3 - Male 3-dose series) [facility] Start: 2019 MENINGOCOCCAL CONJUG ATE (1 - 2-dose series) MENINGOCOCCAL CONJUGATE (1 - 2-dose series) [facility] Start: 2017 PEDS TO ADULT TRANSI TION ANNUAL ASSESSMENT PEDS TO ADULT TRANSITION ANNUAL ASSESSMENT [facility] Start: 2015 Adult depression screening assessment DEPRESSION SCREENING [facility] Start: 2015 PEDS TO ADULT TRANSI TION INITIAL DISCUSSION PEDS TO ADULT TRANSITION INITIAL DISCUSSION [facility] Start: 2014 HPV VACCINE (1 - Mal e 2-dose series) HPV VACCINE (1 - Male 2-dose series) [facility] Start: 2010 Urine microalbumin profile DTAP,TDAP,TD (1 - Tdap) [facility] Start: 2003 COVID-19 VACCINE (#1) COVID-19 VACCI NE (#1) [facility] Start: 2003 HEPATITIS B (1 of 3 - 3-dose series) HEPATITIS B (1 of 3 - 3-dose series) [facility] End: 05-29-2023 Ct abdomen & pelvis w/contrast material CT ABD/PEL W IVCON Radiology Routine 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) 1 Occurrences starting 04/29/2022 until 05/29/2023 [facility] Work Phone: Comment on above: 1 Occurrences starti ng 04/29/2022 until 05/29/2023 End: 05-29-2023 CT CHEST W IVCON CT CHEST W IVCON Radiology Routine 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) 1 Occurrences starting 04/29/2022 until 05/29/2023 [facility] Work Phone: Comment on above: 1 Occurrences starti ng 04/29/2022 until 05/29/2023 OUTSIDE SURG PATH SL MARLEE REVIEW OUTSIDE SURG PATH SLIDE REVIEW Lab Routine Ordered: 01/01/2022 [facility] Work Phone: Comment on above: Ordered: 01/01/2022 [facility] Immunizations Immunization Date Immunization Notes Care Provider Fa [facility] 10-14-2019 HPV, unspecified formulation Marcos DONATO [facility] 10-14-2019 human papilloma viru s vaccine, quadrivalent Randy Brown MD Work Phone: [facility] 10-14-2019 meningococcal ACWY vaccine, unspecified formulation Marcos DONATO [facility] 10-14-2019 meningococcal oligosaccharide (groups A, C, Y and W-135) diphtheria toxoid conjugate vaccine (MCV4O) Randy Brown MD Work Phone: [facility] 10-12-2018 HPV, unspecified formulation Marcos DONATO [facility] 10-12-2018 human papilloma viru s vaccine, quadrivalent Randy Brown MD Work Phone: [facility] 02-15-2016 meningococcal ACWY vaccine, unspecified formulation Marcos DONATO [facility] 02-15-2016 meningococcal oligosaccharide (groups A, C, Y and W-135) diphtheria toxoid conjugate vaccine (MCV4O) Randy Brown MD Work Phone: [facility] 02-15-2016 tetanus toxoid, redu ximena diphtheria toxoid, and acellular pertussis vaccine, adsorbed Marcos DONATO [facility] 02-23-2009 influenza virus vacc ine, H1N1, live Marcos DONATO [facility] 02-23-2009 novel Influenza-H1N1 -09, live virus for nasal administration Randy Brown MD Work Phone: [facility] 01-10-2009 Diphtheria, tetanus toxoids and acellular pertussis vaccine, and poliovirus vaccine, inactivated Marcos DONATO [facility] 01-10-2009 measles, mumps and rubella virus vaccine Marcos DONATO [facility] 01-10-2009 varicella virus vaccine Jessicar noemígraham DONATO [facility] 12-28-2007 diphtheria, tetanus toxoids and acellular pertussis vaccine Marcos DONATO [facility] 05-20-2006 measles, mumps, rube lla, and varicella virus vaccine Marcos DONATO [facility] 04-24-2006 DTaP-hepatitis B and poliovirus vaccine Marcos DONATO [facility] 04-24-2006 haemophilus influenz ae type b vaccine, PRP-T conjugate Marcos DONATO [facility] 04-24-2006 pneumococcal conjuga te vaccine, 7 valent Randy Brown MD Work Phone: [facility] 2003 DTaP-hepatitis B and poliovirus vaccine Marcoswin DONATO [facility] 2003 haemophilus influenz ae type b vaccine, PRP-T conjugate Marcoswin DONATO [facility] 2003 pneumococcal conjuga te vaccine, 7 valent Randy Brown MD Work Phone: [facility] 2003 DTaP-hepatitis B and poliovirus vaccine Marcos DONATO [facility] 2003 haemophilus influenz ae type b vaccine, PRP-T conjugate Marcos DONATO [facility] 2003 hepatitis B vaccine, pediatric or pediatric/adolescent dosage Marcos DONATO [facility] Payers Date Payer Category Payer Self-pay 2023 Unknown [id number] 2017 Private Health Insurance [employer] A ETNA CHOICE POS II [id number] 2017-Present [phone] [address] [place] [address] POS [id number] 2003 Unknown [id number] [id number]. 593 2003 Unknown [id number] 2.16.840.1.535605.3.579.2. 593 2003 Unknown [id number] 2.16.840.1.837241.3.579.2. 593 2003 Unknown [id number] 2.16.840.1.762617.3.579.2. 593 2003 Unknown [id number] 2.16.840.1.245790.3.579.2. 593 2003 Unknown [id number] 2.16.840.1.452503.3.579.2. 593 2003 Unknown [id number] 2.16.840.1.100832.3.579.2. 593 2003 Unknown [id number] 2.16.840.1.611278.3.579.2. 727 2003 Unknown [id number] 2.16.840.1.598111.3.579.2. 727 2003 Unknown [id number] 2.16.840.1.780947.3.579.2. 727 2003 Unknown [id number] 2.16.840.1.700737.3.579.2. 727 2003 Unknown [id number] 2.16.840.1.408131.3.579.2. 727 2003 Unknown [id number] 2.16.840.1.392133.3.579.2. 727 2003 Unknown [id number] 2.16.840.1.946911.3.579.2. 727 2003 Unknown [id number] 2.16.840.1.717387.3.579.2. 727 2003 Unknown [id number] 2.16.840.1.550591.3.579.2. 727 1959 Private Health Insurance [facility] [id number] Unknown [id number]. 531 Social History Date Type Detail Facility Start: 11-12-2021 End: 12-28-2021 Tobacco smoking status Never smoked tobacco (finding) [facility] Sex Assigned At Male [facility] Tobacco smoking status NHIS Tobacco smoking consumption unknown [facility] Start: 2003 Sex Assigned At Not on file [facility] History of tobacco use Passive smoker [facility] Start: 01-01-2022 Tobacco use and exposure Smokeless tobacco non-user [facility] Start: 01-01-2022 End: 04-29-2022 Alcohol intake Ex-drinker (finding) [facility] Start: 12-22-2021 End: 01-29-2022 Exposure to SARS-CoV-2 (event) Not sure [facility] Start: 2003 Sex Assigned At Male [facility] Functional Status Date Assessment Result Facility 01-25-2022 Functional Status N/A [facility] 12-28-2021 Functional Status N/A [facility] 12-07-2021 N/A [facility] 11-12-2021 Functional Status N/A [facility] Clinical Notes 11-12-2021 to 10-25-2023 Randy Brown MD - 04/29/2022 8:16 AM Radha Brown MD - 01/29/2022 7:51 AM EDTTelephone Encounter - Sherry Turner [facility] - 01/01/2022 12:48 PM Jessica Brown MD - 01/01/2022 6:51 AM EDT Note Date & Type Note Facility 10-25-2023 Note [facility] Sperm Rapid Progressive October 25, 2023 11:20am 2 % 10-25-2023 Note [facility] Sperm Non-Progressive October 25, 2023 11:20am 24 % 06-28-2022 Hospital Discharge instructions Follow Up Care 06/28/2022 09:10:09 With:MARIYA VICENTE, Marcos Ross, URL Address: [address] [place], [place] [id number]- When: Unknown [facility] 04-29-2022 Note HNO ID: [id number] Author: Randy rBown MD Service: ? Author Type: Physician Type: Progress Notes Filed: 05/01/2022 6:57 AM Note Text: PATIENT NAME: Omaira Cohen DATE: 04/29/2022 PRIMARY CARE PHYSICIAN: Brittany Navratil, [employer]QUID [employer]LAV[employer] COMPOUNDER OTHER PHYSICIANS: Dr. Donato Portions of this [...] swelling, and atrophy. 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 The scar area measures 1.3 cm in greatest dimension. It is limited to the testis. Germ cell neoplasia in situ. Epididymis and spermatic cord with no significant pathological findings. LABS: 12/11/2021: CMP and CBC within normal limits AFP hCG LDH 12/11/2021 2.4 <1 164 04/08/2022 2.8 <1 136 RADIOLOGY/OTHER STUDIES: 12/31/2021 CT chest, abdomen, pelvis ([facility]) No evidence of metastatic disease. No suspicious findings. 12/06/2021 Scrotal ultrasound ([facility]) Left testicle contains a 1.4 cm hypoechoic vascular mass within the inferior pole. Right testicle homogeneous texture, no visible mass. ASSESSMENT/PLAN: 1. Malignant neoplasm of descended left testis (H (more content not included)... [facility] 04-29-2022 History of Present illness [...] swelling, and atrophy. 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 The scar area measures 1.3 cm in greatest dimension. It is limited to the testis. Germ cell neoplasia in situ. Epididymis and spermatic cord with no significant pathological findings. LABS: 12/11/2021: CMP and CBC within normal limits AFP hCG LDH 12/11/2021 2.4 <1 164 04/08/2022 2.8 <1 136 RADIOLOGY/OTHER STUDIES: 12/31/2021 CT chest, abdomen, pelvis ([facility]) No evidence of metastatic disease. No suspicious findings. 12/06/2021 Scrotal ultrasound ([facility]) Left testicle contains a 1.4 cm hypoechoic [...] his next scans to be done at [facility] at the end of this month. I will see him back in 2 months for follow-up and labs. Randy Brown MD CC: Dr. Donato documented in this encounter [facility] 01-29-2022 Note HNO ID: [id number] Author: Randy Brown MD Service: ? Author Type: Physician Type: Progress Notes Filed: 01/30/2022 6:53 AM Note Text: PATIENT NAME: Omaira Cohen DATE: 01/29/2022 PRIMARY CARE PHYSICIAN: Brittany Ramirez, LIQUID FLAVOR COMPOUNDER OTHER PHYSICIANS: Dr. Donato Portions of this encounter note have been copied from my note from 01/01/2022 and has been updated where appropriate, and reflect my current medical decision making from today. CC: This is an 16 year old male with recently diagnosed testicular cancer, referred for further management. INTERIM HISTORY: Since the patient's initial visit here his pathology was reviewed at [facility], and the diagnosis of testicular scar [...] swelling, and atrophy. 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 The scar area measures 1.3 cm in greatest dimension. It is limited to the testis. Germ cell neoplasia in situ. Epididymis and spermatic cord with no significant pathological findings. LABS: 12/11/2021: CMP and CBC within normal limits AFP hCG LDH 12/11/2021 2.4 <1 164 RADIOLOGY/OTHER STUDIES: 12/31/2021 CT chest, abdomen, pelvis ([facility]) No evidence of metastatic disease. No suspicious findings. 12/06/2021 Scrotal ultrasound ([facility]) Left testicle contains a 1.4 cm hypoechoic vascular mass within the inferior pole. Right testicle homogeneous texture, no visible mass. (more content not included)... [facility] 01-29-2022 History of Present illness Narrative PATIENT NAME: Omaira Cohen DATE: 01/29/2022 PRIMARY CARE PHYSICIAN: Brittany Ramirez, LIQUID FLAVOR COMPOUNDER OTHER PHYSICIANS: Dr. Donato Portions of this encounter note have been copied from my note from 01/01/2022 and has been updated where appropriate, and reflect my current medical decision making from today. CC: This is an 16 year old male with recently diagnosed testicular cancer, referred for further management. INTERIM HISTORY: Since the patient's initial visit here his pathology was reviewed at [facility], and the diagnosis of testicular scar [...] swelling, and atrophy. 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 The scar area measures 1.3 cm in greatest dimension. It is limited to the testis. Germ cell neoplasia in situ. Epididymis and spermatic cord with no significant pathological findings. LABS: 12/11/2021: CMP and CBC within normal limits AFP hCG LDH 12/11/2021 2.4 <1 164 RADIOLOGY/OTHER STUDIES: 12/31/2021 CT chest, abdomen, pelvis ([facility]) No evidence of metastatic disease. No suspicious findings. 12/06/2021 Scrotal ultrasound ([facility]) Left testicle contains a 1.4 cm hypoechoic [...] regressed germ cell tumor was confirmed by [facility] pathology.) Staging scans showed no evidence [...] CC: Dr. Donato documented in this encounter [facility] 01-25-2022 Hospital Discharge instructions Patient Education 01/25/2022 [...] children. Follow these instructions at home: Take vwzg-vuc-jyzzxfj and prescription medicines only as told by [...] 02/28/2006 Document Revised: 07/29/2019 Document Reviewed: 07/04/2017 [employer] Patient Education 2020 [employer]. Follow Up Care 12/28/2021 09:47:13 With:MARIYA VICENTE, Marcos Ross, URL Address: [address] [place], [place] [id number]- When: Unknown [facility] 01-01-2022 Miscellaneous Notes 2nd opinion pathology requested to be sent [facility] to [facility] for review. documented in this encounter [facility] 01-01-2022 Note HNO ID: [id number] Author: Randy Brown MD Service: ? 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 MEDICATIONS: No current outpatient medications on [...] swelling, and atrophy. 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 The scar area measures 1.3 cm in greatest dimension. It is limited to the testis. Germ cell neoplasia in situ. Epididymis and spermatic cord with no significant pathological findings. LABS: 12/11/2021: CMP and CBC within normal limits AFP hCG LDH 12/11/2021 2.4 <1 RADIOLOGY/OTHER STUDIES: 12/31/2021 CT chest, abdomen, pelvis ([facility]) No evidence of metastatic disease. No suspicious findings. 12/06/2021 Scrotal ultrasound ([facility]) Left (more content not included)... [facility] 01-01-2022 History of Present illness Narrative PATIENT NAME: Omaira Cohen DATE: 01/01/2022 PRIMARY CARE PHYSICIAN: Brittany Ramirez, LIQUID FLAVOR COMPOUNDER OTHER PHYSICIANS: Dr. 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 MEDICATIONS: No current outpatient medications on [...] swelling, and atrophy. 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 The scar area measures 1.3 cm in greatest dimension. It is limited to the testis. Germ cell neoplasia in situ. Epididymis and spermatic cord with no significant pathological findings. LABS: 12/11/2021: CMP and CBC within normal limits AFP hCG LDH 12/11/2021 2.4 <1 RADIOLOGY/OTHER STUDIES: 12/31/2021 CT chest, abdomen, pelvis ([facility]) No evidence of metastatic disease. No suspicious findings. 12/06/2021 Scrotal ultrasound ([facility]) Left testicle contains a 1.4 cm hypoechoic [...] to refer his recent surgical specimen to [facility] pathology for second opinion. We will repeat labs today. Assuming the diagnosis of a regressed germ cell tumor is confirmed and labs remain negative standard of care would be routine follow-up. I will see him back in 4 weeks for follow-up. Randy Brown MD documented in this encounter [facility] 12-28-2021 Hospital Discharge instructions Patient Education 12/28/2021 [...] including vitamins, herbs, eye drops, creams, and lfox-eft-wndxxoz medicines. Any problems you or family members [...] 03/07/2006 Document Revised: 03/20/2018 Document Reviewed: 02/27/2017 [employer] Patient Education 2020 OpenX. Follow Up Care 12/07/2021 10:58:41 With:MARIYA VICENTE, Marcos Ross, URL Address: [address] [place] [address] [place] [id number]- When: Unknown [facility] [place] 12-07-2021 Hospital Discharge instructions Patient [...] 07/14/2001 Document Revised: 07/29/2019 Document Reviewed: 03/03/2017 [employer] Patient Education 2020 OpenX. Follow Up Care 11/12/2021 11:41:21 With:MARIYA VICENTE, Marcos Ross, URL Address: [facility] [address], [place] [address]- When: Unknown [facility] 11-12-2021 Note Chief Complaint Referral for [...] [facility] [address], [place] [address] [phone] Additional Instructions: Scrotal US Patient Education Testicular Self-Exam, Rciv-ef-Cmgo I, Terrie Almendarez, personally scribed for Dr. [...] Protein Urine Dipstick: Negative (11/12/21 10:39:00) Specific [place] Urine Dipstick: 1.020 (11/12/21 10:39:00) Urine Appearance Urine Dipstick: Clear (11/12/21 10:39:00) Urine Color Urine Dipstick: Yellow (11/12/21 10:39:00) Urobilinogen Urine Dipstick: Normal 0.2-1 EU/dl (11/12/21 10:39:00) pH Urine Dipstick: 7 (11/12/21 10:39:00) D (more content not included)... [facility] Comment on above: Result Comment: Elec tronically Signed By: Marcos DONATO MD\.br\Date and Time Signed: 11/12/21 11:37 EDT\.br\Electronically Co-Signed By: Terrie Almendarez MA\.br\Date and Time Co-Signed: 11/12/21 11:31 EDT 11-12-2021 Hospital Discharge instructions Patient Education 11/12/2021 11:14:03 Testicular Self-Exam, Kgft-tl-Qaot Testicular Self-Exam A self-exam of your testicles [...] 07/04/2009 Document Revised: 07/29/2019 Document Reviewed: 03/03/2017 [employer] Patient Education 2020 OpenX. Follow Up Care 11/06/2021 11:13:38 With:Marcos DONATO MD, URL Address: [facility] [address], [place] [address]- [phone] When:12/10/2021 Comments:Scrotal US [facility] Evaluation + Plan note Future Appointments Appointment Date:12/07/2021 09:15:00 AM Scheduled Provider:Marcos DONATO MD Location:[facility] Appointment Type:URO Office Visit [facility] Evaluation + Plan note Future Appointments Appointment Date:12/28/2021 08:45:00 AM Scheduled Provider:Marcos DONATO MD Location:[facility] Appointment Type:URO Office Visit [facility] Evaluation + Plan note Future Appointments Appointment Date:01/25/2022 09:45:00 AM Scheduled Provider:Marcos DONATO MD Location:[facility] Appointment Type:URO Office Visit [facility] Evaluation + Plan note Future Appointments Appointment Date:06/28/2022 08:30:00 AM Scheduled Provider:Marcos DONATO MD Location:[facility] Appointment Type:URO Office Visit [facility] Evaluation note Diagnosis 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 Malignant neoplasm of other and unspecified testis [facility] 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 Malignant neoplasm of other and unspecified testis [facility] Diagnosis 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 Malignant neoplasm of other and unspecified testis [facility] noteNo [facility] information [facility]Tr[facility] Work Phone: Hospital course Narrative No data available for this section [facility] progress note No data available for this section [facility] reason for referral (narrative) Referred by: Marcos DONATO MD [facility] Summary Purpose Family History No Family History [...] COMPUTED TOMOGRAPHY THORAX W/CONTRAST Randy Brown MD [address] [place] [address] [place] [address] Ct Imaging Referral ID Status Reason Start Date Expiration Date Visits Requested Visits Authorized [id number] Pending Review Auto-Generat ed Referral 04/29/2022 05/29/2023 1 1 Specialty Diagnoses / Procedures Referred By Doug montalvo Referred To Contact CT IMAGING Diagnoses 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) Procedures CT ABD/PEL W IVCON CT ABD & PELVIS W/CONTRAST Randy Brown MD [address] [place] [address] [place] [address] Ct Imaging Referral ID Status Reason Start Date Expiration Date Visits Requested Visits Authorized [id number] Pending Review Auto-Generat ed Referral 04/29/2022 05/29/2023 1 1 Chief Complaint and Reason for Visit Chief Complaint See order Additional Source Comments (unrecognized sect ion and content) No Status Records FoundNo Status Records FoundNo Status Records FoundNo Status Records FoundNo Status Records Found INFORMATION SOURCE (unrecogn ized section and content) DATE CREATED AUTHOR 11/09/2021 [facility] dical Specialist DATE CREATED AUTHOR AUTHOR'S ORGANIZ ATION 05/01/2022 [facility] DATE CREATED AUTHOR AUTHOR'S ORGANIZ ATION 05/23/2022 [facility] [place] [facility] DATE CREATED AUTHOR AUTHOR'S ORGANIZ ATION 10/19/2022 [facility] DATE CREATED AUTHOR AUTHOR'S ORGANIZ ATION 10/26/2023 [facility] Care Team (unrecognized sect ion and content) Welfare Specialist Relationship Specialty Start Date End Date KarlenehayleyMeredith, BELT GLASS SANDER [address] [place] [address] PCP - General Family Practice 01/01/22 Welfare Specialist Relationship Specialty Start Date End Date KarlenehayleyMeredith, BELT GLASS SANDER [address] [place] [address] PCP - General Family Practice 01/01/22 Welfare Specialist Relationship Specialty Start Date End Date Ashley Meredith, BELT GLASS SANDER [address] [place] [address] PCP - General Family Medicine 01/01/22 Marcos Donato MD [address] [place] [address] Urology 01/29/22 Welfare Specialist Relationship Specialty Start Date End Date Meredith Ramirez, BELT GLASS SANDER [address] [place] [address] PCP - General Family Medicine 01/01/22 Marcos Donato MD [address] [place] [address] Urology 01/29/22 Team Status: Active Member Role [...] or prosecute any alcohol or drug abuse patient.[facility] the event this information is protected by the Federal Confidentiality of Alcohol and Drug Abuse Patient Records regulations: The Federal rules restrict any use of the information to criminally investigate or prosecute any alcohol or drug abuse patient.[facility] the event this information is protected by the Federal Confidentiality of Alcohol and Drug Abuse Patient Records regulations: The Federal rules restrict any use of the information to criminally investigate or prosecute any alcohol or drug abuse patient.[facility] the event this information is protected by the Federal Confidentiality of Alcohol and Drug Abuse Patient Records regulations: The Federal rules restrict any use of the information to criminally investigate or prosecute any alcohol or drug abuse patient.[facility] Hospital[facility] the event this information is protected by the Federal Confidentiality of Alcohol and Drug Abuse Patient Records regulations: The Federal rules restrict any use of the information to criminally investigate or prosecute any alcohol or drug abuse patient.[facility] Reason for Visit (unrecogniz ed section and [...] BE BASED ON THE PRIMARY CLINICAL RECORDS. [facility]. provides no warranty or guarantee of the accuracy or completeness of information in this document.
[2024-10-16 10:22] LABS: Basophils Percent Auto 0.4 % (0.2-2.0); Eosinophils Absolute Auto 0.8 10^3/uL (0.0-0.7); Eosinophils Percent Auto 11.1 % (0.9-7.0); Hematocrit 42.2 % (42.0-54.0); Hemoglobin 13.9 g/dL (14.0-18.0); Immature Granulocytes Abs Auto 0.02 10^3/uL (0.00-0.03); Immature Granulocytes Pct Auto 0.3 % (0.0-0.5); Lymphocytes Percent Auto 27.2 % (20.5-60.0); Mean Corpuscular HGB Conc 32.9 g/dL (29.9-35.2); Mean Corpuscular Hemoglobin 28.8 pg (25.9-34.0); Mean Corpuscular Volume 87.6 fL (80.0-94.0); Monocytes Absolute Auto 0.6 10^3/uL (0.3-0.8); Monocytes Percent Auto 8.8 % (1.7-12.0); Neutrophils Absolute Auto 3.8 10^3/uL (1.4-6.5); Neutrophils Percent Auto 52.2 % (43.0-75.0); Platelet Count 249 10^3/uL (150-450); Red Blood Count 4.82 10^6/uL (4.70-6.10); White Blood Count 7.3 10^3/uL (4.0-11.0)
[2024-10-16 11:04] LABS: Estimated Average Glucose 105 mg/dL; Glycohemoglobin A1C 5.3 % (4.5-6.2)
[2024-10-16 11:10] LABS: Alanine Aminotransferase 31 U/L (16-63); Albumin Globulin Ratio 1.3; Albumin Level 4.3 g/dL (3.4-5.0); Alkaline Phosphatase 75 U/L (46-116); Anion Gap 15.6; Aspartate Amino Transferase 19 U/L (15-37); BUN Creatinine Ratio 18.4; Bilirubin Total 0.9 mg/dL (0.2-1.0); Calcium 9.1 mg/dL (8.5-10.1); Carbon Dioxide 26.6 mmol/L (21.0-32.0); Chloride 105 mmol/L (98-107); Chol HDL Ratio 4.2; Cholesterol 202 mg/dL (<=200); Estimated GFR (African America >60 (>=60 mL/min/1.73m^2); Estimated GFR (Non-African Ame >60 (>=60 mL/min/1.73m^2); Free T3 3.51 pg/mL (2.18-3.98); Globulin 3.2 g/dL; Glucose 103 mg/dL (74-106); HDL Cholesterol 48 mg/dL (40-60); Potassium 4.2 mmol/L (3.5-5.1); Sodium 143 mmol/L (136-145); Thyroid Stimulating Hormone 1.255 uIU/mL (0.358-3.740); Total Protein 7.5 g/dL (6.4-8.2); Triglycerides 130 mg/dL (<=150)
[2024-10-17 07:07] LABS: AFP, Serum, Tumor Marker 2.8 ng/mL (0.0-5.7); HCG Tumor Marker <1 mIU/mL (0-3)
--- OUTSIDE RECORDS SUMMARY | 2024-10-18 09:46 | XMS_ITS | Clinical Summary ---
Author Organization [facility] Healthcare Address [address] [place] [address] Care Team Providers Care Battery Repairer Name Role Phone Dorothy Posey MD Primary Care Provider [phone] Social History Tobacco Use Types Packs/Day Years [...] Influenza Vaccine (Season Ended) 2024 Insurance [facility] Address: [facility] [id number] [place] [id number] Care Teams Battery Repairer Relationship Specialty Start Date End Date Dorothy Posey MD [address] [place] [address] PCP - General Family Medicine 08/27/22
--- OUTSIDE RECORDS SUMMARY | 2024-10-18 09:46 | XMS_ITS | Encounter Summary ---
Author Organization [facility] Address [address] [place] [address] Care Team Providers Care Physical Sciences Instructor Name Role Phone Marisol Billingsberly ADAN.FARM EQUIPMENT ENGINE MECHANIC Primary Care Provide r Jacky Donato MD Unavailable [phone] Source Comments In the event this information is protected by the Federal Confidentiality of Alcohol and Drug AbusePatient Records regulations: The Federal rules restrict any use of the information to criminally investigate or prosecute any alcohol or drug abuse patient.[facility] Encounter Details Date Type Department Care Team (Late st Contact Info) Description 01/09/2022 Lab Requisition [facility] [address] [place] [id number] Randy Brown MD [address] [place] [address] [place] [address] Person encountering health services to consult on [...] EDT) Case Report Surgical Pathology Report Case: [id number] Authorizing Provider: Randy Brown MD Collected: 01/09/2022 11:02 AM Ordering Location: [facility] Main Received: 01/09/2022 11:00 AM Pathologist: Morteza Larios MD Specimen: SLIDE(S), 12 SLIDES; [id number] 01/10/2022 8:42 AM EDT [facility] FINAL DIAGNOSIS Left testicle, orchiectomy ([id number], 12/20/2021): - 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 - Epididymis with no significant pathologic findings. - Spermatic cord with no significant pathologic findings. LEXIS/vipin 01/10/2022 01/10/2022 8:42 AM EDT [facility] at 0842 EDT Diagnosis Comment 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 The slides are reviewed with Dr. Thorne who concurs. 01/10/2022 8:42 AM EDT [facility] Performing Lab Diagnostic interpretation performed at [facility], [address] [place], [place] [address]IA# [id number] Kindergarten Classroom Teacher: Nilton Rubin M.D. 01/10/2022 8:42 AM EDT [facility] Blocks or Slides MICROSCOPE SLIDE / Unknown 01/09/2022 11:02 AM EDT 01/09/2022 11:00 AM EDT us Randy Brown MD SURGICAL PATHOLOGY Final Resul t [facility] [address] documented in this encounter Visit Diagnoses Diagnosis Person encountering health services to consult on behalf of another person Other person consulting on behalf of another person documented in this encounter Care Teams Physical Sciences Instructor Relationship Specialty Start Date End Date Meredith Billings APRN.CNS PCP - General Family Medicine 01/01/22 Jacky Donato MD Urology 01/29/22 documented as of this encounter
--- OUTSIDE RECORDS SUMMARY | 2024-10-18 10:05 | XMS_ITS | CCD ---
Author Organization [facility] Care Team Providers Care Shuttle Preparation Supervisor Name Role Phone BRITTANY RAMIREZ Primary Care Physician [phone] Unavailable Primary Care Provider Unavailabl e Ashley AIR LIAISON AND SPECIAL STAFF, Meredith Primary Care Provider [phone] Ashley RESENDIZ, Meredith Primary Care Provider [phone] Marcos Donato MD Unavailable Ashley RESENDIZ Meredith Primary Care Provider [phone] Marcos Donato MD Unavailable [phone] RANDY BROWN Attending Unavailable MARCOS DONATO Referring Unavailable [facility] Primary Care Unavailable RANDY BROWN Referring Unavailable RANDY BROWN Attending Unavailable [facility] Primary Care Unavailable RANDY BROWN Referring Unavailable RANDY BROWN Attending Unavailable [facility] Primary Care Unavailable RANDY BROWN [...] Care Provider MD Marcos Vivas Attending Provider [phone] Allergies Allergy Classification Reported Allergen(s) Allergy Type Date of Onset Reaction(s) Facility (12 sources) Amoxicillin; Translations: [amoxicillin] Drug Allergy 2 Weal (disorder), Hives [facility] (1 source) Amoxicillin Drug Allergy [facility] Repository Medications Current Medications Medication Drug Class(es) Dates Sig (Normalized) Sig (Original) doxycycline hyclate 100 mg oral capsule (1 source) Tetracycline-clas s Drug Start: 11-12-2021 End: 12-03-2021 take 1 capsule by mouth twice daily doxycycline hyclate 100 mg Cap 100 mg = 1 cap(s), Oral, BID, X 3 week(s), # 42 cap(s), Refills(s) 0, Pharmacy: [id number], 187, cm, 11/12/21 10:47:00 EDT, Height/Length Dosing, [...] Saunders on 10-25-2023 Semen Analysis Comment . [facility] Comment on above: No Abnormal specimen characteristics noted. Semen Round Cell Concentration Moderate [facility] Semen WBC Concentration <1.0 M/mL <0.9 [facility] Sperm % Non-Motile 74 % [facility] Sperm Motility Total 26.0 % Low >40 [facility] Qualitative semen viscosityO rdered By: Alfred Saunders on 10-25-2023 Viscosity Ql (Ashlie) Abnormal Abnormal Normal [facility] Semen Analysis, Fertilityon 10-25-2023 Debris/Round Cells Moderate Normal [facility] Comment on above: Order Comment: Metho d of Collection:: Masturbation Has the patient had a vasectomy?: N Type of Specimen Container:: Sterile Container Abstinence Period:: 2 DAYS Kept at body temperature?: Y Any Collection or Transport Problems?: N/A Performed By: #### S EMCOMP #### [address] Immotile Sperm 74 % Normal [facility] Comment on above: Order Comment: Metho d of Collection:: Masturbation Has the patient had a vasectomy?: N Type of Specimen Container:: Sterile Container Abstinence Period:: 2 DAYS Kept at body temperature?: Y Any Collection or Transport Problems?: N/A Performed By: #### S EMCOMP #### [address] Non-Progression Sperm Motili 24 % Normal [facility] Comment on above: Order Comment: Metho d of Collection:: Masturbation Has the patient had a vasectomy?: N Type of Specimen Container:: Sterile Container Abstinence Period:: 2 DAYS Kept at body temperature?: Y Any Collection or Transport Problems?: N/A Performed By: #### S EMCOMP #### [address] Normal Sperm Morphology 2.0 % Low >=4.0 [facility] Comment on above: Order Comment: Metho d of Collection:: Masturbation Has the patient had a vasectomy?: N Type of Specimen Container:: Sterile Container Abstinence Period:: 2 DAYS Kept at body temperature?: Y Any Collection or Transport Problems?: N/A Performed By: #### S EMCOMP #### [address] Rapid Progression Sperm Motili 2 % Normal [facility] Comment on above: Order Comment: Metho d of Collection:: Masturbation Has the patient had a vasectomy?: N Type of Specimen Container:: Sterile Container Abstinence Period:: 2 DAYS Kept at body temperature?: Y Any Collection or Transport Problems?: N/A Performed By: #### S EMCOMP #### [address] Semen Comment . Normal [facility] Comment on above: Order Comment: Metho d of Collection:: Masturbation Has the patient had a vasectomy?: N Type of Specimen Container:: Sterile Container Abstinence Period:: 2 DAYS Kept at body temperature?: Y Any Collection or Transport Problems?: N/A Result Comment: No A bnormal specimen characteristics noted. PERFORMED BY: [place] [address] PATHOLOGIST CORNETIST JIANLAN SUN M.D. Performed By: #### S EMCOMP #### [address] Semen Liquefaction Abnormal Critically abnormal <=60 min [facility] Comment on above: Order Comment: Metho d of Collection:: Masturbation Has the patient had a vasectomy?: N Type of Specimen Container:: Sterile Container Abstinence Period:: 2 DAYS Kept at body temperature?: Y Any Collection or Transport Problems?: N/A Performed By: #### S EMCOMP #### [address] Semen Viscosity Abnormal Critically abnormal Normal [facility] Comment on above: Order Comment: Metho d of Collection:: Masturbation Has the patient had a vasectomy?: N Type of Specimen Container:: Sterile Container Abstinence Period:: 2 DAYS Kept at body temperature?: Y Any Collection or Transport Problems?: N/A Performed By: #### S EMCOMP #### [address] Semen Volume 4.0 mL Normal >=1.5 [facility] Comment on above: Order Comment: Metho d of Collection:: Masturbation Has the patient had a vasectomy?: N Type of Specimen Container:: Sterile Container Abstinence Period:: 2 DAYS Kept at body temperature?: Y Any Collection or Transport Problems?: N/A Performed By: #### S EMCOMP #### [place] [address] [place] Sperm Concentration 7.5 Low >=15 [facility] Comment on above: Order Comment: Metho d of Collection:: Masturbation Has the patient had a vasectomy?: N Type of Specimen Container:: Sterile Container Abstinence Period:: 2 DAYS Kept at body temperature?: Y Any Collection or Transport Problems?: N/A Performed By: #### S EMCOMP #### [place] [address] [place] Total Motility (CA+FRACTIONATING STILL OPERATOR) 26.0 % Low >=40 (CA+FRACTIONATING STILL OPERATOR) [facility] Comment on above: Order Comment: Metho d of Collection:: Masturbation Has the patient had a vasectomy?: N Type of Specimen Container:: Sterile Container Abstinence Period:: 2 DAYS Kept at body temperature?: Y Any Collection or Transport Problems?: N/A Performed By: #### S EMCOMP #### [facility] [address] [place] [address] WBC Concent, Semen <1.0 Normal <1.0 [facility] Comment on above: Order Comment: Metho d of Collection:: Masturbation Has the patient had a vasectomy?: N Type of Specimen Container:: Sterile Container Abstinence Period:: 2 DAYS Kept at body temperature?: Y Any Collection or Transport Problems?: N/A Performed By: #### S EMCOMP #### [facility] [address] [place] [address] Semen Analysis, FertilityOrd ered By: Alfred Saunders on 10-25-2023 Semen Appearance Normal Normal Normal [facility] Comment on above: Order Comment: Metho d of Collection:: Masturbation Has the patient had a vasectomy?: N Type of Specimen Container:: Sterile Container Abstinence Period:: 2 DAYS Kept at body temperature?: Y Any Collection or Transport Problems?: N/A Performed By: #### S EMCOMP #### [facility] [address] [place] [address] Semen pH 8.5 Normal >=7.2 [facility] Comment on above: Order Comment: Metho d of Collection:: Masturbation Has the patient had a vasectomy?: N Type of Specimen Container:: Sterile Container Abstinence Period:: 2 DAYS Kept at body temperature?: Y Any Collection or Transport Problems?: N/A Performed By: #### S EMCOMP #### [facility] [address] [place] [address] Semen liquefaction time sherita urementOrdered By: Alfred Saunders on 10-25-2023 Liquefaction (Ashlie) [Time] Abnormal Abnormal <=60 min [facility] Semen volumeOrdered By: Yannick Saunders on 10-25-2023 Specimen volume (Ashlie) 4.0 mL >1.5 [facility] Sperm countOrdered By: Alfred Saunders on 10-25-2023 Spermatozoa (Ashlie) [#/Vol] 7.5 M/mL Low >15 [facility] Sperm morphologyOrdered By: Alfred Saunders on 10-25-2023 Spermatozoa Nom (Ashlie) 2.0 % Low >4.0 [facility] Provider Letteron 10-18-2022 Provider Letter (Inserted Image. Rosalva ble to display) October 18, 2022 [facility] JOEY [address] [place] [id number] : 2005 Dear Omaira Zavala , This letter is to inform you the the providers of [facility] (Dr. Marcos Donato) will no longer be [...] of area physicians can be found on [facility]'s website at [email or web address] or you may contact your health plan. We will be glad to forward your records to your new physician as long as we receive a signed release of records form. Sincerely, Marcos Donato M.D., F.A.C.S. [facility] [address] [place] [address] , option 3 SENT REGULAR/CERT MAIL Normal [facility] Provider Letter (Inserted Image. Rosalva ble to display) October 18, 2022 OMAIRA ZAVALA [address] [address] : 2005 Dear Omaira Zavala , This letter is to inform you the the providers of [facility] (Dr. Marcos Donato) will no longer be [...] of area physicians can be found on [facility]'s website at [email or web address] or you may contact your health plan. We will be glad to forward your records to your new physician as long as we receive a signed release of records form. Sincerely, Marcos Donato M.D., F.A.C.S. [facility] [address] [facility] [address] [place], [place] [address] , option 3 Normal [facility] Provider Letter (Inserted Image. Rosalva ble to display) October 18, 2022 OMAIRA ZAVALA [address] [address] : 2005 Dear Omaira Zavala , This letter is to inform you the the providers of [facility], [facility] (Dr. Marcos Donato) will no longer be responsible for your routine medical care due to your repeated non compliance with your cancer care. Emergency care only will be provided for the thirty (30) days following this letter. During this time period we suggest that you find another physician for your medical needs. A listing of area physicians can be found on [facility]'s website at [email or web address] or you may contact your health plan. We will be glad to forward your records to your new physician as long as we receive a signed release of records form. Sincerely, Marcos Donato M.D., F.A.C.S. [facility] [address] [place], [place] [address] , option 3 Normal [facility] Patient Letter FTon 2022 Patient Letter [facility] (Inserted Image. Rosalva ble to display) August 01, 2022 OMAIRA ZAVALA [address] [address] Dear Mr. Omaira Cohen, Our records indicate you have missed 2 follow up appointments to your testicular cancer. It is very important you are seen and evaluated after surgery and treatments , so we can continue to monitor your progress. You advised the office you now are living in [place]. We will be more than willing to send your records to a new urologist and oncologist in your area if you schedule an appointment. Please call the office to get back on the schedule for a follow up appointment, or to forward your records. Thank you for your cooperation in this matter. Sincerely, Marcos Donato M.D., F.A.C.S. [facility] [address] [place], [place] [address] Option #3 SENT REGULAR/CERTIFIED MAIL [facility] Patient Letter [facility] (Inserted Image. Rosalva ble to display) August 01, 2022 OMAIRA ZAVALA [address] [address] Dear Frank Omaira Ole, Our records indicate you have missed 2 follow up appointments to your testicular cancer. It is very important you are seen and evaluated after surgery and treatments , so we can continue to monitor your progress. You advised the office you now are living in [place]. We will be more than willing to send your records to a new urologist and oncologist in your area if you schedule an appointment. Please call the office to get back on the schedule for a follow up appointment, or to forward your records. Thank you for your cooperation in this matter. Sincerely, Marcos Donato M.D., F.A.C.S. [facility] [address] [place], [place] [address] [facility] RAD - CT Reporton 07-25-2022 RAD - CT Report [id number]#[id number]:127 [facility] RAD - CT Report [id number]#[id number]:127 [facility] Provider Letteron 07-19-2022 Provider Letter (Inserted Image. Rosalva ble to display) July 19, 2022 OMAIRA ZAVALA [address] [address] OMAIRA ZAVALA 2005 Dear Omaira , You [...] [facility] [address], [place] [address] Normal [facility] [address] ABD/PELV W CONon 05-20-19 CT ABD/PELV [...] by: GERRY ALDANA Date: 2022-05-20 16:27 Normal [facility] CT CHEST W CONon 05-19-2022 CT CHEST [...] by: HAIM CARMONA Date: 2022-05-19 16:03 Normal [facility] Consultation Noteon 05-06-19 Consultation Note [id number]#[id number]:127 Normal [facility] CNOVSPon 04-29-2022 CNOVS Visit (SP) Office ([facility]) -- OMAIRA COHEN ([id number]) 1 M Date Time Provider Department 04/29/22 3:45 PM RANDY BROWN During your visit today, we recorded the following information about you: Temperature Pulse Respiration Blood pressure 98.5 degrees 62/minute 16/minute 138/64 Weight Height 83.6 kg 1.905 m Randy Borwn MD 05/01/2022 6:57 AM Signed PATIENT NAME: [...] swelling, and atrophy. PATHOLOGY: 12/20/2021 Left orchiectomy ([facility]) Testicular scar consistent with regressed germ [...] RADIOLOGY/OTHER STUDIES: 12/31/2021 CT chest, abdomen, pelvis ([facility]) No evidence o (more content not included)... Normal [facility] AFP (TUMOR MARKER)on 022 AFP, Serum, Tumor Marker 2.8 ng/mL Normal 0.0-5.7 [facility] Comment on above: Result Comment: [employer] Electrochemiluminescence Immunoassay (ECLIA) . Values obtained with different assay methods or kits cannot be used interchangeably. Results cannot be interpreted as absolute evidence of the presence or absence of malignant disease. . This test is not interpretable in females. Performed By: #### A FP. ####[facility] [id number] [address]Dr. Janee Ordaz HCG QUANT TUMOR MARKERon HCG QNT TUMOR MARKER <1 Normal 0-3 [facility] Comment on above: Result Comment: [employer] Electrochemiluminescence Immunoassay (ECLIA) . The [employer] [...] developed and its performance characteristics determined by [employer]. It has not been cleared or approved by the Food and Drug Administration for use as a tumor marker. . This test is not interpretable as a tumor marker in females. Performed By: #### H CGTMOR ####[facility] [id number] [address]Dr. Janee Ordaz Lab Reportson 2022 Lab Reports [id number]#[id number]:127 Normal [facility] Lab Reports [id number]#[id number]:127 Normal [facility] CBC AUTO DIFFon 04-08-2022 BASO # 0.0 103/ul Normal 0.0-0.1 [facility] Comment on above: Performed By: #### C BC #### [facility] [address] [address] [address] Janee Ordaz Basophils/100 WBC (Bld) 0.3 % Normal 0.2-2.0 [facility] Comment on above: Performed By: #### C BC #### [facility] [address] [address] [address] Janee Ordaz EO # 0.8 103/ul Critically high 0.0-0.7 [facility] Comment on above: Performed By: #### C BC #### [facility] [address] [place] [address] Dr. Janee Ordaz Eosinophils/100 WBC (Bld) 5.9 % Normal 0.9-7.0 [facility] Comment on above: Performed By: #### C BC #### [facility] [address] [place] [address] Dr. Janee Ordaz Erythrocyte distribution width (RBC) [Ratio] 12.3 % Normal 11.0-15.0 [facility] Comment on above: Performed By: #### C BC #### [facility] [address] [place] [address] Dr. Janee Ordaz Hematocrit (Bld) [Volume fraction] 41.8 % Critically low 42.0-54.0 [facility] Comment on above: Performed By: #### C BC #### [facility] [address] [place] [address] Dr. Janee Ordaz Hemoglobin (Bld) [Mass/Vol] 13.9 g/dL Critically low 14.0-18.0 [facility] Comment on above: Performed By: #### C BC #### [facility] [address] [place] [address] Dr. Janee Ordaz IG # 0.05 10e3/ul Critically high 0.00-0.03 [facility] Comment on above: Performed By: #### C BC #### [facility] [address] [place] [address] Dr. Janee Ordaz IG % 0.4 % Normal 0.0-0.5 [facility] Comment on above: Performed By: #### C BC #### [facility] [address] [place] [address] Dr. Janee Ordaz LYMPH # 2.7 103/ul Normal 1.2-3.8 [facility] Comment on above: Performed By: #### C BC #### [facility] [address] [place] [address] Dr. Janee Ordaz Lymphocytes/100 WBC (Bld) 19.3 % Critically low 20.5-60.0 [facility] Comment on above: Performed By: #### C BC #### [facility] [address] [place] [address] Dr. Janee Ordaz MANUAL DIFF REQ NO Normal [facility] Comment on above: Performed By: #### C BC #### [facility] [address] [place] [address] Dr. Janee Ordaz MCH (RBC) [Entitic mass] 28.4 pg Normal 25.9-34.0 [facility] Comment on above: Performed By: #### C BC #### [facility] [address] [place] [address] Dr. Janee Ordaz MCHC (RBC) [Mass/Vol] 33.3 g/dL Normal 29.9-35.2 [facility] Comment on above: Performed By: #### C BC #### [facility] [address] [place] [address] Dr. Janee Ordaz MCV (RBC) [Entitic vol] 85.5 fL Normal 80.0-94.0 [facility] Comment on above: Performed By: #### C BC #### [facility] [address] [place] [address] Dr. Janee Ordaz MONO # 1.2 103/ul Critically high 0.3-0.8 [facility] Comment on above: Performed By: #### C BC #### [facility] [address] [place] [address] Dr. Janee Ordaz Monocytes/100 WBC (Bld) 8.5 % Normal 1.7-12.0 [facility] Comment on above: Performed By: #### C BC #### [facility] [address] [place] [address] Dr. Janee Ordaz NEUT # 9.2 103/ul Critically high 1.4-6.5 [facility] Comment on above: Performed By: #### C BC #### [facility] [address] [place] [address] Dr. Janee Ordaz Neutrophils/100 WBC (Bld) 65.6 % Normal 43.0-75.0 [facility] Comment on above: Performed By: #### C BC #### [facility] [address] [place] [address] Dr. Janee Ordaz Platelet mean volume (Bld) [Entitic vol] 10.3 fL Normal 9.5-13.5 [facility] Comment on above: Performed By: #### C BC #### [facility] [address] [place] [address] Dr. Janee Ordaz PLT 226 103/ul Normal 150-450 [facility] Comment on above: Performed By: #### C BC #### [facility] [address] [place] [address] Dr. Janee Ordaz RBC 4.89 106/ul Normal 4.70-6.10 [facility] Comment on above: Performed By: #### C BC #### [facility] [address] [place] [address] Dr. Janee Ordaz WBC 14.0 103/ul Critically high 4.0-11.0 [facility] Comment on above: Performed By: #### C BC #### [facility] [address] [place] [address] Dr. Janee Ordaz LDHon 04-08-2022 LDH 136 U/L Normal 85-227 [facility] Comment on above: Performed By: #### L DH, CMP #### [facility] [address] [place] [address] Dr. Janee Ordaz PROF 14(COMP METB)on 12-19-2 022 Albumin [Mass/Vol] 4.5 g/dL Normal 3.4-5.0 [facility] Comment on above: Performed By: #### L , CMP #### [facility] [address] [place] [address] Dr. Janee Ordaz Albumin/Globulin [Mass ratio] 1.3 {ratio} Normal [facility] Comment on above: Performed By: #### L , CMP #### [facility] [address] [place] [address] Dr. Janee Ordaz ALP [Catalytic activity/Vol] 87 U/L Normal 46-116 [facility] Comment on above: Performed By: #### L RITA, CMP #### [facility] [address] [place] [address] Dr. Janee Ordaz ALT [Catalytic activity/Vol] 17 U/L Normal 16-63 [facility] Comment on above: Performed By: #### L , CMP #### [facility] [address] [place] [address] Dr. Janee Ordaz Anion gap [Moles/Vol] 14.2 mmol/L Normal [facility] Comment on above: Performed By: #### L , CMP #### [facility] [address] [place] [address] Dr. Janee Ordaz AST [Catalytic activity/Vol] 15 U/L Normal 15-37 [facility] Comment on above: Performed By: #### L RITA, CMP #### [facility] [address] [place] [address] Dr. Janee Ordaz Bilirubin [Mass/Vol] 0.4 mg/dL Normal 0.2-1.0 [facility] Comment on above: Performed By: #### L , CMP #### [facility] [address] [place] [address] Dr. Janee Ordaz Calcium [Mass/Vol] 9.3 mg/dL Normal 8.5-10.1 [facility] Comment on above: Performed By: #### L RITA, CMP #### [facility] [address] [place] [address] Dr. Janee Ordaz Chloride [Moles/Vol] 103 mmol/L Normal 98-107 [facility] [facility] Comment on above: Performed By: #### L DH, CMP #### [facility] [address] [place] [address] Dr. Janee Ordaz CO2 [Moles/Vol] 28.8 mmol/L Normal 21.0-32.0 [facility] Comment on above: Performed By: #### L DH, CMP #### [facility] [address] [place] [address] Dr. Janee Ordaz Creatinine [Mass/Vol] 0.91 mg/dL Normal 0.70-1.30 [facility] Comment on above: Performed By: #### L DH, CMP #### [facility] [address] [place] [address] Dr. Janee Ordaz EGFR-AF NIUEAN >60 Normal >=60 [facility] Comment on above: Performed By: #### L DH, CMP #### [facility] [address] [place] [address] Dr. Janee Ordaz EGFR-NON AF NIUEAN >60 Normal >=60 [facility] Comment on above: Performed By: #### L DH, CMP #### [facility] [address] [place] [address] Dr. Janee Ordaz Globulin (S) [Mass/Vol] 3.4 g/dL Normal [facility] Comment on above: Performed By: #### L DH, CMP #### [facility] [address] [place] [address] Dr. Janee Ordaz Glucose [Mass/Vol] 55 mg/dL Critically low 74-106 Th [facility] Comment on above: Performed By: #### L DH, CMP #### [facility] [address] [place] [address] Dr. Janee Ordaz Potassium [Moles/Vol] 4.0 mmol/L Normal 3.5-5.1 [facility] Comment on above: Performed By: #### L DH, CMP #### [facility] [address] [place] [address] Dr. Janee Ordaz Protein [Mass/Vol] 7.9 g/dL Normal 6.4-8.2 [facility] Comment on above: Performed By: #### L DH, CMP #### [facility] [address] [address] [address] Janee Ordaz Sodium [Moles/Vol] 142 mmol/L Normal 136-145 [facility] Comment on above: Performed By: #### L DH, CMP #### [facility] [address] [address] [address] Janee Ordaz Urea nitrogen [Mass/Vol] 16.0 mg/dL Normal 6.4-19.3 [facility] Comment on above: Performed By: #### L DH, CMP #### [facility] [address] [address] [address] Janee Ordaz Urea nitrogen/Creatinine [Mass ratio] 17.6 mg/mg Normal [facility] Comment on above: Performed By: #### L DH, CMP #### [facility] [address] [address] [address] Janee Ordaz Pathology Noteon 02-01-2022 Pathology Note [id number]#[id number]:127 Normal [facility] Consultation Noteon 01-31-20 Consultation Note [id number]#[id number]:127 Normal [facility] CNOVSPon 01-29-2022 CNOVS Visit (SP) Office ([facility]) -- OMAIRA COHEN ([id number]) 1 M Date Time Provider Department 01/29/22 [...] visit here his pathology was reviewed at [facility], and the diagnosis of testicular scar consistent [...] swelling, and atrophy. 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 The scar area measures 1.3 cm in greatest dimension. It is limited to the testis. Germ cell neoplasia in situ. Epididymis and spermatic cord with no significant pathological findings. LABS: 12/11/2021: CMP and CBC within normal limits AFP hCG LDH 12/11/2021 2.4 <1 164 RADIOLOGY/OTHER STUDIES: (more content not included)... [facility] Ambulatory Visit Summaryon 1 Ambulatory Visit Summary OMAIRA ZAVALA :2005 Visit Date:11/06/2021 Ambulatory Visit Instructions Your Care Team Primary Care Physician - BRITTANY JORDAN Performed Orchiectomy (12/20/2021). What to do next Scheduled Follow-Up Appointments Friday 8:30 AM EST With: Marcos DONATO MD Where: [facility] Patient Educationon 01-26-20 22 Patient Education Oncology [...] Follow these instructions at home: ? Take waqu-bdq-lrilsuq and prescription medicines only as told by [...] 02/28/2006 Document Revised: 07/29/2019 Document Reviewed: 07/04/2017 [employer] Patient Education ? 2019 [employer]. [facility] Provider Letteron 01-25-2022 Provider Letter (Inserted Image. Rosalva ble to display) January 25, 2022 OMAIRA ZAVALA [address] [address] OMAIRA ZAVALA 2005 To Whom It May Concern, Please excuse above patient from work. Date of illness: From: _ To: 02/01/22 May Return to Work On:02/04/2022 Restrictions: None Comments: Any questions, please call our office. Sincerely, [facility] [address] [facility], [place] [address] [facility] Urology Office/Clinic Noteon 01-25-2022 Urology Office/Clinic Note [...] note reviewed. Surgical specimen was sent to [facility] pathology for second opinion. Assuming the diagnosis [...] Information MARIYA VICENTE, Marcos Ross, URL [address] [place] [address]- Additional Instructions: 5 months Patient Education Testicular [...] 2005 Recorded dip (more content not included)... [facility] Comment on above: Result Comment: Elec tronically Signed By: Marcos DONATO MD\.br\Date and Time Signed: 01/25/22 11:19 EDT\.br\Electronically Co-Signed By: Yusra Kahn\Date and Time Co-Signed: 01/25/22 11:17 EDT OUTSIDE SURG PATH SLIDE REVI Kristopher 01-09-2022 CASE REPORT [facility] Comment on above: Order Comment: Speci men Type: SLIDE Ordering Facility: [facility] Address: ATTN: [place] [address] Result Comment: Surg ical Pathology Report Case: [id number] Authorizing Provider: Randy Brown MD Collected: 01/09/2022 11:02 AM Ordering Location: [facility] Main Received: 01/09/2022 11:00 AM Pathologist: Morteza Larios MD Specimen: SLIDE(S), 12 SLIDES; [id number] Performed By: #### L [id number] #### 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 The slides are reviewed with Dr. Thorne who concurs. [facility] Comment on above: Order Comment: Speci men Type: SLIDE Ordering Facility: [facility] Address: ATTN: [place] [address] Performed By: #### L [id number] #### 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 - Epididymis with no significant pathologic findings. - Spermatic cord with no significant pathologic findings. LEXIS/vipin 01/10/2022 Performed By: #### L [id number] #### [facility] CLIA [id number] [address] [place] [address] [place] FINAL PERFORMING LAB Normal [facility] Comment on above: Order Comment: Speci men Type: SLIDE Ordering Facility: [facility] Address: ATTN: SPECIMEN ACCESSIONING DEPT, [place] [address] Result Comment: Diag nostic interpretation performed at [facility], [address] [place] [address] CLIA# [id number] Warehouse Stock Clerk: Nilton Rubin M.D. Performed By: #### L [id number] #### [facility] CLIA [id number] [address] [place] [address] [place] Consultation Noteon 01-03-20 22 Consultation Note [id number]#[id number]:127 Normal [facility] RAD - CT Reporton 01-02-2022 RAD - CT Report [id number]#1.00CD:127 Normal [facility] RAD - CT Report [id number]#1.00CD:127 Normal [facility] RAD - CT Report [id number]#[id number]:127 Normal [facility] AFP SerPl-mCncon 01-01-2022 AFP [Mass/Vol] 3.2 ng/mL Normal <11.0 [facility] Comment on above: Order Comment: Speci men Type: BLOOD SPECIMEN Ordering Facility: [facility] Address: [address] [place], [place] [address] Result Comment: Resu lt rechecked. The test [...] interchangeably. Performed By: #### 1 [id number] #### [facility] CLIA [id number] [address] [place], [place] [address] BETA HCG QUANT TUMOR MARKERo n 01-01-2022 BETA HCG QUANT TUMOR MARKER <1 Normal 0-3 [facility] Comment on above: Order Comment: Speci men Type: BLOOD SPECIMEN Ordering Facility: [facility] Address: [address] [place] [address] Result Comment: INTE RPRETIVE INFORMATION: Beta hCG, [...] reference intervals for this test in the [employer] [facility] Test Directory ([employer]). This test was developed and its performance characteristics determined by [facility]. It has not been cleared or approved by the [place] Food and Drug Administration. This test was performed in a CLIA certified laboratory and is intended for clinical purposes. Performed By: [facility] [address] [place] [address] Warehouse Stock Clerk: Morteza Kay MD, PhD Performed By: #### B HCG #### [facility] CLIA [id number] [address] [place] [address] CBC W Auto Differential pane l (Bld)on 01-01-2022 Basophils (Bld) [#/Vol] 0.03 10*3/uL Normal <0.11 [facility] Comment on above: Order Comment: Speci men Type: BLOOD SPECIMEN Ordering Facility: [facility] Address: [address] [place] [address] Performed By: #### 5 7021-8 #### [facility] CLIA [id number] [address] [place] [address] Basophils/100 WBC (Bld) 0.3 % Normal [facility] Comment on above: Order Comment: Speci men Type: BLOOD SPECIMEN Ordering Facility: [facility] Address: [address] [place] [address] Performed By: #### 5 7021-8 #### [facility] CLIA [id number] [address] [place] [address] Differential cell count method Nom (Bld) Auto Normal [facility] Comment on above: Order Comment: Speci men Type: BLOOD SPECIMEN Ordering Facility: [facility] Address: [address] [place] [address] Performed By: #### 5 7021-8 #### [facility] CLIA [id number] [address] [place] [address] Eosinophils (Bld) [#/Vol] 0.51 10*3/uL High <0.46 [facility] Comment on above: Order Comment: Speci men Type: BLOOD SPECIMEN Ordering Facility: [facility] Address: [address] [place] [address] Performed By: #### 5 7021-8 #### [facility] CLIA [id number] [address] [place] [address]227 Eosinophils/100 WBC (Bld) 5.4 % Normal [facility] Comment on above: Order Comment: Speci men Type: BLOOD SPECIMEN Ordering Facility: [facility] Address: [address] [place] [address] Performed By: #### 5 7021-8 #### [facility] CLIA [id number] [address] [place] [address]51 Erythrocyte distribution width (RBC) [Ratio] 12.3 % Normal 11.5-15.0 [facility] Comment on above: Order Comment: Speci men Type: BLOOD SPECIMEN Ordering Facility: [facility] Address: [address] [place] [address] Performed By: #### 5 7021-8 #### [facility] CLIA [id number] [address] [place] [address] Hematocrit (Bld) [Volume fraction] 42.8 % Normal 39.0-51.0 [facility] Comment on above: Order Comment: Speci men Type: BLOOD SPECIMEN Ordering Facility: [facility] Address: [address] [place] [address] Performed By: #### 5 7021-8 #### [facility] CLIA [id number] [address] [place] [address] Hemoglobin (Bld) [Mass/Vol] 14.4 g/dL Normal 13.0-17.0 [facility] Comment on above: Order Comment: Speci men Type: BLOOD SPECIMEN Ordering Facility: [facility] Address: [address] [place] [address] Performed By: #### 5 7021-8 #### [facility] CLIA [id number] [address] [place] [address] IMMATURE GRAN % 0.5 % Normal [facility] Comment on above: Order Comment: Speci men Type: BLOOD SPECIMEN Ordering Facility: [facility] Address: [address] [place] [address] Performed By: #### 5 7021-8 #### [facility] CLIA [id number] [address] [place] [address] 39547 IMMATURE GRAN ABS 0.05 k/uL Normal <0.10 [facility] Comment on above: Order Comment: Speci men Type: BLOOD SPECIMEN Ordering Facility: [facility] Address: [address] [place] [address] Performed By: #### 5 7021-8 #### [facility] CLIA [id number] [address] [place] [address] 44847 Lymphocytes (Bld) [#/Vol] 1.80 10*3/uL Normal 1.00-4.00 [facility] Comment on above: Order Comment: Speci men Type: BLOOD SPECIMEN Ordering Facility: [facility] Address: [address] [place] [address] Performed By: #### 5 7021-8 #### [facility] CLIA [id number] [address] [place] [address] 65095 Lymphocytes/100 WBC (Bld) 18.9 % Normal [facility] Comment on above: Order Comment: Speci men Type: BLOOD SPECIMEN Ordering Facility: [facility] Address: [address] [place] [address] Performed By: #### 5 7021-8 #### [facility] CLIA [id number] [address] [place] [address] 06163 MCH (RBC) [Entitic mass] 28.8 pg Normal 26.0-34.0 [facility] Comment on above: Order Comment: Speci men Type: BLOOD SPECIMEN Ordering Facility: [facility] Address: [address] [place], [place] [address] Performed By: #### 5 7021-8 #### [facility] CLIA [id number] [address] [place] [address] 71354 MCHC (RBC) [Mass/Vol] 33.6 g/dL Normal 30.5-36.0 [facility] Comment on above: Order Comment: Speci men Type: BLOOD SPECIMEN Ordering Facility: [facility] Address: [address] [place], [place] [address] Performed By: #### 5 7021-8 #### [facility] CLIA [id number] [address] [place] [address] 32152 MCV (RBC) [Entitic vol] 85.6 fL Normal 80.0-100.0 [facility] Comment on above: Order Comment: Speci men Type: BLOOD SPECIMEN Ordering Facility: [facility] Address: [address] [place] [address] Performed By: #### 5 7021-8 #### [facility] CLIA [id number] [address] [place] [address] 58539 Monocytes (Bld) [#/Vol] 0.87 10*3/uL High <0.87 [facility] Comment on above: Order Comment: Speci men Type: BLOOD SPECIMEN Ordering Facility: [facility] Address: [address] [place] [address] Performed By: #### 5 7021-8 #### [facility] CLIA [id number] [address] [place] [address] 53384 Monocytes/100 WBC (Bld) 9.2 % Normal [facility] Comment on above: Order Comment: Speci men Type: BLOOD SPECIMEN Ordering Facility: [facility] Address: [address] [place] [address] Performed By: #### 5 7021-8 #### [facility] CLIA [id number] [address] [place] [address] 13571 Neutrophils (Bld) [#/Vol] 6.24 10*3/uL Normal 1.45-7.50 [facility] Comment on above: Order Comment: Speci men Type: BLOOD SPECIMEN Ordering Facility: [facility] Address: [address] [place], [place] [address] Performed By: #### 5 7021-8 #### [facility] CLIA [id number] [address] [place] [address] 03834 Neutrophils/100 WBC (Bld) 65.7 % Normal [facility] Comment on above: Order Comment: Speci men Type: BLOOD SPECIMEN Ordering Facility: [facility] Address: [address] Performed By: #### 5 7021-8 #### [facility] CLIA [id number] [address] [place] [address]72 Nucleated RBC (Bld) [#/Vol] 10*3/uL Normal <0.01 [facility] Comment on above: Order Comment: Speci men Type: BLOOD SPECIMEN Ordering Facility: [facility] Address: [address] [place], [place] [address] Performed By: #### 5 7021-8 #### [facility] CLIA [id number] [address] [place] [address] 98066 Nucleated RBC/100 WBC (Bld) [Ratio] 0.0 /100 WBC Normal [facility] Comment on above: Order Comment: Speci men Type: BLOOD SPECIMEN Ordering Facility: [facility] Address: [address] [place], [place] [address] Performed By: #### 5 7021-8 #### [facility] CLIA [id number] [address] [place] [address] 12358 Platelet mean volume (Bld) [Entitic vol] 9.8 fL Normal 9.0-12.7 [facility] Comment on above: Order Comment: Speci men Type: BLOOD SPECIMEN Ordering Facility: [facility] Address: [address] [place], [place] [address] Performed By: #### 5 7021-8 #### [facility] CLIA [id number] [address] [place] [address]39 Platelets (Bld) [#/Vol] 202 10*3/uL Normal 150-400 [facility] Comment on above: Order Comment: Speci men Type: BLOOD SPECIMEN Ordering Facility: [facility] Address: [address] [place], [place] [address] Performed By: #### 5 7021-8 #### [facility] CLIA [id number] [address] [place] [address] 49556 RBC (Bld) [#/Vol] 5.00 10*6/uL Normal 4.20-6.00 [facility] Comment on above: Order Comment: Speci men Type: BLOOD SPECIMEN Ordering Facility: [facility] Address: [address] [place] [address] Performed By: #### 5 7021-8 #### [facility] CLIA [id number] [address] [place] [address] 75558 WBC (Bld) [#/Vol] 9.50 10*3/uL Normal 3.70-11.00 [facility] Comment on above: Order Comment: Speci men Type: BLOOD SPECIMEN Ordering Facility: [facility] Address: [address] [place] [address] Performed By: #### 5 7021-8 #### [facility] CLIA [id number] [address] [place], [place] [address] Abs Immature Gran 0.05 k/uL <0.10 k/uL [facility] Basophils (Bld) [#/Vol] 0.03 10*3/uL <0.11 k/uL [facility] Basophils/100 WBC (Bld) 0.3 % [facility] Differential cell count method Nom (Bld) Auto [facility] Eosinophils (Bld) [#/Vol] 0.51 10*3/uL High <0.46 k/uL [facility] Eosinophils/100 WBC (Bld) 5.4 % [facility] Erythrocyte distribution width (RBC) [Ratio] 12.3 % 11.5 - 15.0 % [facility] Hematocrit (Bld) [Volume fraction] 42.8 % 39.0 - 51.0 % [facility] Hemoglobin (Bld) [Mass/Vol] 14.4 g/dL 13.0 - 17.0 g/dL [facility] Immature Gran % 0.5 % [facility] Lymphocytes (Bld) [#/Vol] 1.80 10*3/uL 1.00 - 4.00 k/uL [facility] Lymphocytes/100 WBC (Bld) 18.9 % [facility] MCH (RBC) [Entitic mass] 28.8 pg 26.0 - 34.0 pg [facility] MCHC (RBC) [Mass/Vol] 33.6 g/dL 30.5 - 36.0 g/dL [facility] MCV (RBC) [Entitic vol] 85.6 fL 80.0 - 100.0 fL [facility] Monocytes (Bld) [#/Vol] 0.87 10*3/uL High <0.87 k/uL [facility] Monocytes/100 WBC (Bld) 9.2 % [facility] Neutrophils (Bld) [#/Vol] 6.24 10*3/uL 1.45 - 7.50 k/uL [facility] Neutrophils/100 WBC (Bld) 65.7 % [facility] Nucleated RBC (Bld) [#/Vol] <0.01 k/uL [facility] Nucleated RBC/100 WBC (Bld) [Ratio] 0.0 /100 WBC [facility] Platelet mean volume (Bld) [Entitic vol] 9.8 fL 9.0 - 12.7 fL [facility] Platelets (Bld) [#/Vol] 202 10*3/uL 150 - 400 k/uL [facility] RBC (Bld) [#/Vol] 5.00 10*6/uL 4.20 - 6.0 0 m/uL [facility] WBC (Bld) [#/Vol] 9.50 10*3/uL 3.70 - 11.00 k/uL [facility] CNOVSPon 01-01-2022 CNOVSP Visit (SP) Office ([facility]) -- OMAIRA COHEN ([id number]) 1 M Date Time Provider Department 01/01/22 [...] 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 MEDICATIONS: No current outpatient medications on [...] swelling, and atrophy. 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 The scar area measures 1.3 cm in greatest dimension. It is limited to the testis. Germ cell neoplasia in situ. Epididymis and spermatic cord with no significant (more content not included)... Normal [facility] CNPNon 01-01-2022 CNPN Telephone ([facility]) -- OMAIRA COHEN ([id number]) 1 M Date Time Provider Department 01/01/22 RANDY BROWN During your visit today, we recorded the following information about you: Sherry Haile 01/01/2022 12:49 PM Signed 2nd opinion pathology requested to be sent from [facility] to [facility] for review. Allergies As of Date: 01/01/2022 Noted Allergy Reaction AMOXICILLIN 12/31/2021 4 - Hives Date Reviewed: 12/31/2021 Reviewed by: Montse Pederson - Fully Assessed Reason for Visit: 2nd opinion pathology [Other] Problem List As Of Date: 01/01/2022 (None) Encounter Status:Closed by SHERRY ARAYA on 01/01/22 Normal [facility] Comprehensive metabolic 2000 panelon 01-01-2022 Albumin [Mass/Vol] 5.1 g/dL High 3.9-4.9 [facility] Comment on above: Order Comment: Speci men Type: BLOOD SPECIMEN Ordering Facility: [facility] Address: [address] [place] [address] Performed By: #### 2 4323-8, 2531-0 #### [facility] CLIA [id number] [address] [place] [address]361 ALP [Catalytic activity/Vol] 90 U/L Normal 55-149 [facility] Comment on above: Order Comment: Speci men Type: BLOOD SPECIMEN Ordering Facility: [facility] Address: [address] [place] [address] Performed By: #### 2 4323-, 2532-0 #### [facility] CLIA [id number] [address] [place] [address] ALT [Catalytic activity/Vol] 15 U/L Normal 10-54 [facility] Comment on above: Order Comment: Speci men Type: BLOOD SPECIMEN Ordering Facility: [facility] Address: [address] [place] [address] Performed By: #### 2 4323-8, 2-0 #### [facility] CLIA [id number] [address] [place] [address] 33003 Anion gap [Moles/Vol] 10 mmol/L Normal 9-18 [facility] Comment on above: Order Comment: Speci men Type: BLOOD SPECIMEN Ordering Facility: [facility] Address: [address] [place] [address] Performed By: #### 2 4328, 2531-0 #### [facility] CLIA [id number] [address] [place] [address] 98444 AST [Catalytic activity/Vol] 18 U/L Normal 14-40 [facility] Comment on above: Order Comment: Speci men Type: BLOOD SPECIMEN Ordering Facility: [facility] Address: [address] [place] [address] Performed By: #### 2 4328, 2531-0 #### [facility] CLIA [id number] [address] [place] [address] 63527 Bilirubin [Mass/Vol] 0.4 mg/dL Normal 0.2-1.3 [facility] Comment on above: Order Comment: Speci men Type: BLOOD SPECIMEN Ordering Facility: [facility] Address: [address] [place] [address] Performed By: #### 2 4323-8, 2532-0 #### [facility] CLIA [id number] [address] [place] [address] 91692 Calcium [Mass/Vol] 10.4 mg/dL High 8.5-10.2 [facility] Comment on above: Order Comment: Speci men Type: BLOOD SPECIMEN Ordering Facility: [facility] Address: [address] Performed By: #### 2 4323-8, 2532-0 #### [facility] CLIA [id number] [address] [place] [address] 10476 Chloride [Moles/Vol] 100 mmol/L Normal 97-105 [facility] Comment on above: Order Comment: Speci men Type: BLOOD SPECIMEN Ordering Facility: [facility] Address: [address] Performed By: #### 2 4323-8, 2532-0 #### [facility] CLIA [id number] [address] [place] [address] 88058 CO2 [Moles/Vol] 28 mmol/L Normal 22-30 [facility] Comment on above: Order Comment: Speci men Type: BLOOD SPECIMEN Ordering Facility: [facility] Address: [address] [place] [address] Performed By: #### 2 4323-8, 2532-0 #### [facility] CLIA [id number] [address] [place] [address] 66969 Creatinine [Mass/Vol] 0.87 mg/dL Normal 0.73-1.22 [facility] Comment on above: Order Comment: Speci men Type: BLOOD SPECIMEN Ordering Facility: [facility] Address: [address] Performed By: #### 2 4323-8, 2532-0 #### [facility] CLIA [id number] [address] [place] [address] 72186 ESTIMATED GLOMERULAR FILTRATION RATE 128 mL/min/1.73m??? Normal >=60 [facility] Comment on above: Order Comment: Speci men Type: BLOOD SPECIMEN Ordering Facility: [facility] Address: [address] [place] [address] Result Comment: Nannette mated Glomerular Filtration Rate [...] Performed By: #### 2 4323-8, 2531-0 #### [facility] CLIA [id number] [address] [place] [address] 28639 Glucose [Mass/Vol] 102 mg/dL High 74-99 [facility] Comment on above: Order Comment: Edwin mcmillan Type: BLOOD SPECIMEN Ordering Facility: [facility] Address: [address] [id number] Result Comment: The [place] Diabetes Association (ADA) provides guidance for cutoff [...] Standards of Medical Care in Diabetes 2016, [place] Diabetes Association. Diabetes Care. 2016.39(Suppl 1). Performed By: #### 2 4323-8, 2531-0 #### [facility] CLIA [id number] [address] [place] [address] 76656 Potassium [Moles/Vol] 4.4 mmol/L Normal 3.7-5.1 [facility] Comment on above: Order Comment: Edwin mcmillan Type: BLOOD SPECIMEN Ordering Facility: [facility] Address: [address] [place] [address] Performed By: #### 2 4323-8, 2531-0 #### [facility] CLIA [id number] [address] [place] [address] 78687 Protein [Mass/Vol] 7.5 g/dL Normal 6.3-8.0 [facility] Comment on above: Order Comment: Speci men Type: BLOOD SPECIMEN Ordering Facility: [facility] Address: [address] Performed By: #### 2 4323-8, 2531-0 #### [facility] CLIA [id number] [address] [place] [address] 86494 Sodium [Moles/Vol] 138 mmol/L Normal 136-144 [facility] Comment on above: Order Comment: Speci men Type: BLOOD SPECIMEN Ordering Facility: [facility] Address: [facility] [address] [place] [address] Performed By: #### 2 4323-8, 2531-0 #### [facility] CLIA [id number] [address] [place] [address] 76047 Urea nitrogen [Mass/Vol] 17 mg/dL Normal 9-24 [facility] Comment on above: Order Comment: Speci men Type: BLOOD SPECIMEN Ordering Facility: [facility] Address: [facility] [address] [place] [address] Performed By: #### 2 4323-8, 0 #### [facility] CLIA [id number] [address] [place] [address] 91953 Albumin [Mass/Vol] 5.1 g/dL High 3.9 - 4.9 g/dL [facility] ALP [Catalytic activity/Vol] 90 U/L 55 - 149 U/L [facility] ALT [Catalytic activity/Vol] 15 U/L 10 - 54 U/L [facility] Anion gap [Moles/Vol] 10 mmol/L 9 - 18 mmol/L [facility] AST [Catalytic activity/Vol] 18 U/L 14 - 40 U/L [facility] Bilirubin [Mass/Vol] 0.4 mg/dL 0.2 - 1 .3 mg/dL [facility] Calcium [Mass/Vol] 10.4 mg/dL High 8.5 - 10. 2 mg/dL [facility] Chloride [Moles/Vol] 100 mmol/L 97 - 10 5 mmol/L [facility] CO2 [Moles/Vol] 28 mmol/L 22 - 30 mmol/L [facility] Creatinine [Mass/Vol] 0.87 mg/dL 0.73 - 1.22 mg/dL [facility] Estimated Glomerular Filtration Rate 128 mL/min/1.73m >=60 mL/min/1.73 m [facility] Glucose [Mass/Vol] 102 mg/dL High 74 - 99 mg/dL [facility] Potassium [Moles/Vol] 4.4 mmol/L 3.7 - 5.1 mmol/L [facility] Protein [Mass/Vol] 7.5 g/dL 6.3 - 8.0 g/dL [facility] Sodium [Moles/Vol] 138 mmol/L 136 - 144 mmol/L [facility] Urea nitrogen [Mass/Vol] 17 mg/dL 9 - 24 mg/dL [facility] LD LACTATE DEHYDROon 022 LDH [Catalytic activity/Vol] 164 U/L 135 - 225 U/L [facility] LDH SerPl-cCncon 01-01-2022 LDH [Catalytic activity/Vol] 164 U/L Normal 135-225 [facility] Comment on above: Order Comment: Speci men Type: BLOOD SPECIMEN Ordering Facility: [facility] Address: [address] [place], [place] [id number] Result Comment: Hemo lysis present. The origin [...] Performed By: #### 2 4323-8, 2532-0 #### [facility] CLIA [id number] [address] [place], [place] [id number] CT CHEST W CONon 12-31-2021 CT CHEST [...] by: GERRY ALDANA Date: 2021-12-31 13:31 Normal [facility] Pathology Noteon 12-31-2021 Pathology Note [id number]#[id number]:127 Normal [facility] Ambulatory Visit Summaryon 0 12-28-2021 Ambulatory Visit [...] with MARIYA VICENTE, BERNARDO Hines When: Where: [place] [place] [address]- Someone Will Contact You Regarding These Appointments [facility] Ambulatory Referral, Oncology, [facility] oncology for testicular [...] including vitamins, herbs, eye drops, creams, and nclb-fta-qiijjvp medicines. ? Any problems you or family [...] will b (more content not included)... Normal [facility] Patient Educationon 12-29-19 Patient Education Oncology Orchiectomy [...] including vitamins, herbs, eye drops, creams, and afws-rkk-jhxwrqb medicines. ? Any problems you or family [...] care provider (more content not included)... Normal [facility] Urology Office/Clinic Noteon 12-28-2021 Urology Office/Clinic Note [...] CT chest & AP. Referral placed to [facility] oncology for a second opinion. Follow up in 1 month. Follow-up With When Contact Information MARIYA VICENTE, Marcos Ross, L [place] [place] [id number]- Additional Instructions: 1 month Patient Education Orchiectomy [...] Recorded hepa (more content not included)... Normal [facility] Comment on above: Result Comment: Elec tronically Signed By: Marcos DONATO MD\.br\Date and Time Signed: 12/28/21 09:46 EDT\.br\Electronically Co-Signed By: Yusra Kahn.br\Date and Time Co-Signed: 12/28/21 09:44 EDT Operative Reporton Operative Report [id number]#1.00CD:127 Normal [facility] Lab Reportson 12-19-2021 Lab Reports [id number]#1.00CD:127 [facility] Covid-19 PCR (CVDTB)on 11-20 SARS-CoV-2 (COVID-19) RNA CHRISTIANO+probe Ql (Unsp spec) Not detected Normal NOT DETECTED [facility] Comment on above: Result Comment: This test is not yet approved or cleared by the [place] FDA. When there are no FDA-approved or cleared tests available, and other criteria are met, FDA can make tests available under an emergency access mechanism called an Emergency Use Authorization (EUA). The EUA for this test is supported by the Maintenance And Custodian Supervisor of Health and Human Service's (HHS's) declaration [...] consistent with SARS-CoV-2. Performed By: #### [facility] #### [facility] [address] [place] [address] Dr. Janee Ordaz Insurance Correspondenceon 0 12-14-2021 Insurance Correspondence [id number]:127 Normal [facility] Lab Reportson 12-14-2021 Lab Reports [id number]#1.00CD:127 Normal [facility] AFP (TUMOR MARKER)on 022 AFP, Serum, Tumor Marker 2.4 ng/mL Normal 0.0-5.7 [facility] Comment on above: Result Comment: [employer] Electrochemiluminescence Immunoassay (ECLIA) . Values obtained with different assay methods or kits cannot be used interchangeably. Results cannot be interpreted as absolute evidence of the presence or absence of malignant disease. . This test is not interpretable in females. Performed By: #### A . #### [facility] [address] [place] [address] Dr. Janee Ordaz HCG QUANT TUMOR MARKERon HCG QNT TUMOR MARKER <1 Normal 0-3 [facility] Comment on above: Result Comment: [employer] Electrochemiluminescence Immunoassay (ECLIA) . The Jody [...] developed and its performance characteristics determined by [employer]. It has not been cleared or approved by the Food and Drug Administration for use as a tumor marker. . This test is not interpretable as a tumor marker in females. Performed By: #### H CGTMOR ####[facility] [address] [address]DrFrank Janee Orlin RAD - Ultrasound Reporton RAD - Ultrasound Report [id number]#[id number]:127 Normal [facility] CBC AUTO DIFFon 12-11-2021 BASO # 0.0 103/ul Normal 0.0-0.1 [facility] Comment on above: Performed By: #### C BC ####[facility] [address] [address]DrFrank Ordaz Basophils/100 WBC (Bld) 0.4 % Normal 0.2-2.0 [facility] Comment on above: Performed By: #### C BC ####[facility] [address] [place], [place] [address]DrFrank Ordaz EO # 0.6 103/ul Normal 0.0-0.7 [facility] Comment on above: Performed By: #### C BC ####[facility] [address] [address]DrFrank Ordaz Eosinophils/100 WBC (Bld) 7.7 % Critically high 0.9-7.0 [facility] Comment on above: Performed By: #### C BC ####[facility] [address] [address]Dr. Janee Ordaz Erythrocyte distribution width (RBC) [Ratio] 12.6 % Normal 11.0-15.0 [facility] Comment on above: Performed By: #### C BC ####[facility] [address] [place], [place] [address]DrFrank Ordaz Hematocrit (Bld) [Volume fraction] 45.1 % Normal 42.0-54.0 [facility] Comment on above: Performed By: #### C BC ####[facility] [address] [place], [place] [address]DrFrank Ordaz Hemoglobin (Bld) [Mass/Vol] 14.8 g/dL Normal 14.0-18.0 [facility] Comment on above: Performed By: #### C BC ####[facility] [address] [address]Dr. Janee Ordaz IG # 0.02 10e3/ul Normal 0.00-0.03 [facility] Comment on above: Performed By: #### C BC ####[facility] [address] [address]Dr. Janee Ordaz IG % 0.2 % Normal 0.0-0.5 [facility] Comment on above: Performed By: #### C BC ####[facility] [address] [place], [place] [address]DrFrank Ordaz LYMPH # 2.2 103/ul Normal 1.2-3.8 [facility] Comment on above: Performed By: #### C BC ####[facility] [address] [place], [place] [address]Dr. Janee Ordaz Lymphocytes/100 WBC (Bld) 27.2 % Normal 20.5-60.0 [facility] Comment on above: Performed By: #### C BC ####[facility] [address] [place], [place] [address]DrFrank Ordaz MANUAL DIFF REQ NO Normal [facility] Comment on above: Performed By: #### C BC ####[facility] [address] [address]Dr. Janee Ordaz MCH (RBC) [Entitic mass] 28.7 pg Normal 25.9-34.0 [facility] Comment on above: Performed By: #### C BC ####[facility] [address] [place], [place] [address]Dr. Janee Ordaz MCHC (RBC) [Mass/Vol] 32.8 g/dL Normal 29.9-35.2 [facility] Comment on above: Performed By: #### C BC ####[facility] [address] [address]Dr. Janee Ordaz MCV (RBC) [Entitic vol] 87.4 fL Normal 80.0-94.0 [facility] Comment on above: Performed By: #### C BC ####[facility] [address] [address]Dr. Janee Ordaz MONO # 0.8 103/ul Normal 0.3-0.8 [facility] Comment on above: Performed By: #### C BC ####[facility] [address] [address]Dr. Janee Ordaz Monocytes/100 WBC (Bld) 9.5 % Normal 1.7-12.0 [facility] Comment on above: Performed By: #### C BC ####[facility] [address] [place], [place] [address]Dr. Janee Ordaz NEUT # 4.5 103/ul Normal 1.4-6.5 [facility] Comment on above: Performed By: #### C BC ####[facility] [address] [place], [place] [address]Dr. Janee Ordaz Neutrophils/100 WBC (Bld) 55.0 % Normal 43.0-75.0 [facility] Comment on above: Performed By: #### C BC ####[facility] [address] [place], [place] [address]Dr. Janee Ordaz Platelet mean volume (Bld) [Entitic vol] 9.9 fL Normal 9.5-13.5 [facility] Comment on above: Performed By: #### C BC ####[facility] [address] [address]Dr. Janee Ordaz PLT 211 103/ul Normal 150-450 [facility] Comment on above: Performed By: #### C BC ####[facility] [address] [place], [place] [address]Dr. Janee Ordaz RBC 5.16 106/ul Normal 4.70-6.10 [facility] Comment on above: Performed By: #### C BC ####[facility] [address] [address]Dr. Janee Ordaz WBC 8.2 103/ul Normal 4.0-11.0 [facility] Comment on above: Performed By: #### C BC ####[facility] [address] [address]Dr. Maddisonmaico Orlin LDHon 12-11-2021 LDH 135 U/L Normal 85-227 [facility] Comment on above: Performed By: #### B MP, LDH ####[facility] [address] [address]Dr. Janee Ordaz PROF CHEM 8 (BAS METB)on Anion gap [Moles/Vol] 11.3 mmol/L Normal [facility] Comment on above: Performed By: #### B MP, LDH ####[facility] [address] [address]Dr. Janee Ordaz Calcium [Mass/Vol] 9.8 mg/dL Normal 8.5-10.1 [facility] Comment on above: Performed By: #### B MP, LDH ####[facility] [address] [place], [place] [address]Dr. Janee Ordaz Chloride [Moles/Vol] 103 mmol/L Normal 98-107 [facility] Comment on above: Performed By: #### B MP, LDH ####[facility] [address] [place], [place] [address]Dr. Janee Ordaz CO2 [Moles/Vol] 30.7 mmol/L Normal 21.0-32.0 [facility] Comment on above: Performed By: #### B MP, LDH ####[facility] [address] [place], [place] [address]Dr. Janee Ordaz Creatinine [Mass/Vol] 0.96 mg/dL Normal 0.70-1.30 [facility] Comment on above: Performed By: #### B MP, LDH ####[facility] [address] [address]Dr. Janee Ordaz EGFR-AF NIUEAN >60 Normal >=60 [facility] Comment on above: Performed By: #### B MP, LDH ####[facility] [address] [address]Dr. Janee Ordaz EGFR-NON AF NIUEAN >60 Normal >=60 [facility] Comment on above: Performed By: #### B MP, LDH ####[facility] [address] [place] [address]Dr. Janee Ordaz Glucose [Mass/Vol] 90 mg/dL Normal 74-106 [facility] Comment on above: Performed By: #### B MP, LDH ####[facility] [address] [place] [address]Dr. Janee Ordaz Potassium [Moles/Vol] 4.0 mmol/L Normal 3.5-5.1 [facility] Comment on above: Performed By: #### B MP, LDH ####[facility] [address] [place] [address]Dr. Janee Ordaz Sodium [Moles/Vol] 141 mmol/L Normal 136-145 [facility] Comment on above: Performed By: #### B MP, LDH ####[facility] [address] [place] [address]Dr. Janee Ordaz Urea nitrogen [Mass/Vol] 18.0 mg/dL Normal 6.4-19.3 [facility] Comment on above: Performed By: #### B MP, LDH ####[facility] [address] [place] [address]Dr. Janee Ordaz Urea nitrogen/Creatinine [Mass ratio] 18.8 mg/mg Normal [facility] Comment on above: Performed By: #### B MP, LDH ####[facility] [address] [place] [address]Dr. Janee Ordaz PROTIMEon 12-11-2021 INR Coag (PPP) [Relative time] 1.00 {INR} Normal [facility] Comment on above: Performed By: #### P T, PTT #### [facility] [address] [address] [address] Janee Ordaz INR GUIDELINES SEE BELOW Normal [facility] Comment on above: Result Comment: ADITYA RED INR: 2.0 - 3.0 CONDITIONS NOT LISTED BELOW 2.5 - 3.5 FOR PROSTHETIC HEART VALVE REPLACEMENT 2.5 - 3.5 RECURRENT THROMBOSIS Performed By: #### P T, PTT #### [facility] [address] [place], [place] [address] Dr. Janee Ordaz PT Coag (PPP) [Time] 10.8 s Normal 9.0-11.6 [facility] Comment on above: Performed By: #### P T, PTT #### [facility] [address] [place], [place] [address] Dr. Janee Ordaz PTTon 12-11-2021 aPTT Coag (Bld) [Time] 28.8 s Normal 22.3-36.2 [facility] Comment on above: Performed By: #### P T, PTT #### [facility] [address] [address] [address] Janee Ordaz Ambulatory Visit Summaryon 0 12-07-2021 Ambulatory Visit Summary OMAIRA ZAVALA Juhi :2005 Visit Date:12/07/2021 Ambulatory Visit Instructions Your Diagnosis Testicular mass Tests Performed Urnls Dip Stick Auto w/o Microscopy POC 04300 Your Care Team Attending Physician - Marcos [...] Where: [facility] [address] [place] [address]- Test Results Urnls Dip Stick Auto w/o Microscopy POC 76328 (12/07/2021) Bilirubin Urine Dipstick - Negative Blood Urine Dipstick - Trace-intact Glucose Urine Dipstick - Negative Ketones Urine Dipstick - Negative Leukocytes Urine Dipstick - Negative Nitrite Urine Dipstick - Negative Protein Urine Dipstick - Negative Specific Tarpley Urine Dipstick - 1.025 Urine Appearance Urine [...] 07/14/2001 Document Revised: 07/29/2019 Document Reviewed: 03/03/2017 [employer] Patient Education ? 2019 [employer]. Normal [facility] Patient Educationon 12-08-19 Patient Education Urology Testicular [...] 07/14/2001 Document Revised: 07/29/2019 Document Reviewed: 03/03/2017 [employer] Patient Education ? 2019 [employer] [facility] Physician Orderon 12-07-2021 Physician Order [id number]#[id number]:127 [facility] Provider Letter FTMCon 12-07 Provider Letter [facility] (Inserted Image. Un able to display) December 07, 2021 OMAIRA ZAVALA [address] [address] OMAIRA ZAVALA 2005 To Whom It May Concern, Please excuse above patient from work. Date of Illness: From: 12/20/2021 To: 01/31/2022 May Return to Work On:02/01/2022 Restrictions: No work 12/20/21 to 01/31/2022, return to work 02/01/2022. Comments: Patient has appt 12/11/21 @ 8am, [facility], and surgery scheduled 12/20/2021. Sincerely, Marcos Donato M.D., F.A.C.S. [facility] [address] [place], [place] [address]dg [place], [place] [address] Wally Issa [facility] Urology [...] genital organs) Scrotal US done 12/06/21 at [facility] shows left 1.4cm hypoechoic vascular mass [...] [facility] [address], [place] [address]- Additional Instructions: Patient Education Testicular Self-Exam Maida, [...] Protein Urine Dipstick: Negative (12/07/21 09:30:00) Specific Tarpley Urine Dipstick: 1.025 (12/07/21 09:30:00 (more content not included)... Normal [facility] Comment on above: Result Comment: Elec [...] GERRY ALDANA Date: 2021-12-06 09:30 Normal [facility] Ambulatory Visit Summaryon 0 11-12-2021 Ambulatory Visit Summary OMAIRA ZAVALA :2005 Visit Date:11/12/2021 Ambulatory Visit Instructions Your Diagnosis Testicular mass Tests Performed Urnls Dip Stick Auto w/o Microscopy POC 93533 US Scrotum (Contents) -- Results Pending -- [...] Where: [facility] [address] [place] [address] [phone] Medications What How Much When Instructions New doxycycline (doxycycline hyclate 100 mg Cap) 1 Capsules By Mouth 2 times a day Duration: 3 Weeks Pickup at [id number] Unchanged fluconazole (fluconazole 50 mg oral tablet) By Mouth Every day Contact prescribing physician if questions or concerns Pharmacy Information [id number]: [address] [place], [place] [id number] [phone] Test Results Urnls Dip Stick Auto w/o Microscopy POC 45232 (11/12/2021) Bilirubin Urine Dipstick - Negative Blood Urine Dipstick - Negative Glucose Urine Dipstick - Negative Ketones Urine Dipstick - Negative Leukocytes Urine Dipstick - Negative Nitrite Urine Dipstick - Negative Protein Urine Dipstick - Negative Specific Tarpley Urine Dipstick - 1.020 Urine Appearance Urine [...] 07/04/2009 Document Revised: 07/29/2019 Document Reviewed: 03/03/2017 [employer] Patient Education ? 2019 [employer]. Normal [facility] Formson 11-12-2021 Forms [id number]:127 Normal [facility] Patient Educationon 11-13-19 Patient Education Urology Testicular [...] 07/04/2009 Document Revised: 07/29/2019 Document Reviewed: 03/03/2017 [employer] Patient Education ? 2019 [employer] Normal [facility] Physician Referralon 022 Physician Referral [id number]:127 Normal [facility] Physician Referral [id number]:127 Normal [facility] US Testicular/Scrotumon 10-19 US Testicular/Scrotum HISTORY: Lump [...] by Rich Banda on 11/05/2021 1102 Normal [facility] Specialist Vital Signs Date Time Vital Sign Value Performing Clinician Facility 04-29-2022 15:48-0500 Body height 190.5 cm Randy Brown MD Work Phone: [facility] 04-29-2022 15:48-0500 Body temperature 98.49 [degF] Randy Brown MD Work Phone: [facility] 04-29-2022 15:48-0500 Body weight 83.64 kg Randy Brown MD Work Phone: [facility] 04-29-2022 15:48-0500 Diastolic blood pressure 64 mm[Hg] Randy Brown MD Work Phone: [facility] 04-29-2022 15:48-0500 Heart rate 62 /min Randy Brown MD Work Phone: [facility] 04-29-2022 15:48-0500 Respiratory rate 16 /min Randy Brown MD Work Phone: [facility] 04-29-2022 15:48-0500 SaO2% (BldA) [Mass fraction] 99 % Randy Brown MD Work Phone: [facility] 04-29-2022 15:48-0500 Systolic blood pressure 138 mm[Hg] Randy Brown MD Work Phone: [facility] 01-29-2022 13:06-0400 Body height 190.5 cm Randy Brown MD Work Phone: [facility] 01-29-2022 13:06-0400 Body mass index (BMI) [Percentile] Per age and sex 62.51 % Randy Brown MD Work Phone: [facility] 01-29-2022 13:06-0400 Body temperature 97.11 [degF] Randy Brown MD Work Phone: [facility] 01-29-2022 13:06-0400 Body weight 84.82 kg Randy Brown MD Work Phone: [facility] 01-29-2022 13:06-0400 Diastolic blood pressure 62 mm[Hg] Randy Brown MD Work Phone: [facility] 01-29-2022 13:06-0400 Heart rate 64 /min Randy Brown MD Work Phone: [facility] 01-29-2022 13:06-0400 Respiratory rate 16 /min Randy Brown MD Work Phone: [facility] 01-29-2022 13:06-0400 SaO2% (BldA) [Mass fraction] 100 % Randy rBown MD Work Phone: [facility] 01-29-2022 13:06-0400 Systolic blood pressure 133 mm[Hg] Randy Brown MD Work Phone: [facility] 01-25-2022 10:56-0400 Blood Pressure Location Marcos DONATO [facility] 01-25-2022 10:56-0400 Diastolic blood pressure 67 mm[Hg] Marcos DONATO [facility] 01-25-2022 10:56-0400 Heart rate 61 /min Marcos DONATO [facility] 01-25-2022 10:56-0400 Systolic blood pressure 123 mm[Hg] Marcos DONATO [facility] 01-01-2022 10:34-0400 Body height 190.5 cm Randy Brown MD Work Phone: [facility] 01-01-2022 10:34-0400 Body mass index (BMI) [Percentile] Per age and sex 51.74 % Randy Brown MD Work Phone: [facility] 01-01-2022 10:34-0400 Body temperature 98.1 [degF] Randy Brown MD Work Phone: [facility] 01-01-2022 10:34-0400 Body weight 81.47 kg Randy Brown MD Work Phone: [facility] 01-01-2022 10:34-0400 Diastolic blood pressure 62 mm[Hg] Randy Brown MD Work Phone: [facility] 01-01-2022 10:34-0400 Heart rate 56 /min Randy Brown MD Work Phone: [facility] 01-01-2022 10:34-0400 Respiratory rate 16 /min Randy Brown MD Work Phone: [facility] 01-01-2022 10:34-0400 SaO2% (BldA) [Mass fraction] 98 % Randy Brown MD Work Phone: [facility] 01-01-2022 10:34-0400 Systolic blood pressure 128 mm[Hg] Randy Brown MD Work Phone: [facility] 12-28-2021 09:04-0400 Blood Pressure Location Marcos DONATO [facility] 12-28-2021 09:04-0400 Diastolic blood pressure 68 mm[Hg] Marcos DONATO [facility] 12-28-2021 09:04-0400 Heart rate 69 /min Marcos DONATO [facility] 12-28-2021 09:04-0400 Respiratory rate 16 /min Marcos DONATO [facility] 12-28-2021 09:04-0400 Systolic blood pressure 125 mm[Hg] Marcos DONATO [facility] 12-07-2021 09:28-0400 Blood Pressure Location Marcos DONATO [facility] 12-07-2021 09:28-0400 Diastolic blood pressure 74 mm[Hg] Marcos DONATO [facility] 12-07-2021 09:28-0400 Heart rate 61 /min Marcos DONATO [facility] 12-07-2021 09:28-0400 Respiratory rate 16 /min Marcos DONATO [facility] 12-07-2021 09:28-0400 Systolic blood pressure 120 mm[Hg] Marcos DONATO [facility] 11-12-2021 10:30-0400 Blood Pressure Location Marcos DONATO [facility] 11-12-2021 10:30-0400 Diastolic blood pressure 80 mm[Hg] Marcos DONATO [facility] 11-12-2021 10:30-0400 Heart rate 80 /min Marcos DONATO [facility] 11-12-2021 10:30-0400 Respiratory rate 16 /min Marcos DONATO [facility] 11-12-2021 10:30-0400 Systolic blood pressure 103 mm[Hg] Marcos DONATO [facility] Encounters Encounter Date Encounter Type Care Provider Facility Start: 10-25-2023 End: 10-25-2023 Patient encounter procedure [facility] [place] Work Phone: Start: 10-25-2023 End: 10-25-2023 ambulatory Marcos Donato Facility:[facility] Start: 07-19-2022 End: 07-20-2022 ambulatory Marcos DONATO Facility:[facility] Start: 07-19-2022 End: 07-19-2022 Patient encounter procedure Marcos DONATO [facility] Start: 06-28-2022 End: 06-29-2022 ambulatory Marcos DONATO Facility:[facility] Start: 05-18-2022 End: 05-19-2022 ambulatory BRITTANY RAMIREZ Facility: Start: 04-29-2022 End: 04-29-2022 ambulatory RANDY BROWN Facility:[facility] Start: 04-29-2022 End: 04-29-2022 ambulatory Randy Brown MD Work Phone: Hematology/Oncology Comment on above: 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) Start: 04-29-2022 End: 04-29-2022 Patient encounter procedure Randy Brown MD Work Phone: [facility] Start: 04-08-2022 End: [address] RANDY BROWN Facility: Start: 01-29-2022 End: 01-29-2022 ambulatory RANDY BROWN Facility:[facility] Start: 01-29-2022 End: 01-29-2022 ambulatory Randy Brown MD Work Phone: Hematology/Oncology Comment on above: 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) Start: 01-29-2022 End: 01-29-2022 Patient encounter procedure Randy Brown MD Work Phone: [facility] Start: 01-25-2022 End: 01-26-2022 ambulatory Marcos DONATO Facility:[facility] Start: 01-25-2022 End: 01-25-2022 Patient encounter procedure Marcos DONATO [facility] Start: 01-01-2022 Telephone encounter Randy combs MD Work Phone: [facility] Comment on above: 2nd opinion patholog y Start: 01-01-2022 End: 01-01-2022 ambulatory Randy Brown MD Work Phone: Hematology/Oncology Comment on above: 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) Start: 01-01-2022 End: 01-01-2022 Patient encounter procedure Randy Brown MD Work Phone: [facility] Start: 12-31-2021 Chart abstracting Randy edge MD Work Phone: Hematology/Oncology Start: 12-31-2021 End: 01-01-[address] MARCOS DONATO Facility:[facility] Start: 12-28-2021 End: 12-29-2021 ambulatory Marcos DONATO Facility:[facility] Start: 12-28-2021 End: 12-28-2021 Patient encounter procedure Marcos DONATO [facility] Start: 12-20-2021 End: 12-21-[address] MARCOS DONATO Facility:[facility] Start: 12-19-2021 Encounter for preprocedural laboratory examination DR MARCOS DONATO [facility] Start: 12-17-2021 End: 12-18-[address] MARCOS DONATO Facility:[facility] Start: 12-17-2021 End: 12-18-2021 Encounter for preprocedural laboratory examination DR MARCOS DONATO Facility:[facility] Start: 12-11-2021 End: 12-12-[address] MARCOS DONATO Facility: Start: 12-07-2021 End: 12-08-2021 ambulatory Marcos DONATO Facility:[facility] Start: 12-07-2021 End: 12-07-2021 Patient encounter procedure Marcos DONATO [facility] Start: 12-05-2021 End: 12-06-[address] MARCOS DONATO Facility: Start: 11-12-2021 End: 11-13-2021 ambulatory Marcos DONATO Facility:[facility] Start: 11-12-2021 End: 11-12-2021 Patient encounter procedure Marcos DONATO [facility] Start: 11-06-2021 ambulatory Marcos DONATO Facility :[facility] Start: 11-06-2021 ambulatory Marcos DONATO Facility : [facility] Procedures Date Procedure Procedure Detail Performing Clinician Start: 12-20-2021 Total orchidectomy Lisa DONATO Plan of Treatment Date Care Activity Detail Author Start: 02-14-2026 Urine microalbumin profile DTAP,TDAP,TD (6 - Td or Tdap) [facility] Start: 04-29-2022 End: 06-29-2022 Dfdup-2-Phcyiwczofv [Mass/volume] in Serum or Plasma ALPHA FETOPROTEIN BL Lab Routine 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) Expected: 04/29/2022, Expires: 06/29/2022 [facility] Work Phone: Comment on above: Expected: 04/29/2022 , Expires: 06/29/2022 Start: 04-29-2022 End: 06-29-2022 CBC W Auto Differential panel - Blood CBC + DIFF Lab Routine 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) Expected: 04/29/2022, Expires: 06/29/2022 [facility] Work Phone: Comment on above: Expected: 04/29/2022 , Expires: 06/29/2022 Start: 04-29-2022 End: 06-29-2022 Choriogonadotropin.beta subunit [Units/volume] in Serum or Plasma BETA HCG QUANT TUMOR MARKER Lab Routine 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) Expected: 04/29/2022, Expires: 06/29/2022 [facility] Work Phone: Comment on above: Expected: 04/29/2022 , Expires: 06/29/2022 Start: 04-29-2022 End: 06-29-2022 Comprehensive metabolic 2000 panel - Serum or Plasma COMP METABOLIC PANEL Lab Routine 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) Expected: 04/29/2022, Expires: 06/29/2022 [facility] Work Phone: Comment on above: Expected: 04/29/2022 , Expires: 06/29/2022 Start: 04-29-2022 End: 06-29-2022 Lactate dehydrogenase [Enzymatic activity/volume] in Serum or Plasma LD LACTATE DEHYDRO Lab Routine 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) Expected: 04/29/2022, Expires: 06/29/2022 [facility] Work Phone: Comment on above: Expected: 04/29/2022 , Expires: 06/29/2022 Start: 04-21-2022 DEPRESSION ASSESSMENT DEPRESSION ASS ESSMENT [facility] Start: 02-26-2022 End: 04-28-2022 Zosff-2-Owarlyfmomi [Mass/volume] in Serum or Plasma ALPHA FETOPROTEIN BL Lab Routine 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) Expected: 02/26/2022 (Approximate), Expires: 04/28/2022 [facility] Work Phone: Comment on above: Expected: 02/26/2022 (Approximate), Expires: 04/28/2022 Start: 02-26-2022 End: 04-28-2022 CBC W Auto Differential panel - Blood CBC + DIFF Lab Routine 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) Expected: 02/26/2022 (Approximate), Expires: 04/28/2022 [facility] Work Phone: Comment on above: Expected: 02/26/2022 (Approximate), Expires: 04/28/2022 Start: 02-26-2022 End: 04-28-2022 Choriogonadotropin.beta subunit [Units/volume] in Serum or Plasma BETA HCG QUANT TUMOR MARKER Lab Routine 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) Expected: 02/26/2022 (Approximate), Expires: 04/28/2022 [facility] Work Phone: Comment on above: Expected: 02/26/2022 (Approximate), Expires: 04/28/2022 Start: 02-26-2022 End: 04-28-2022 Comprehensive metabolic 2000 panel - Serum or Plasma COMP METABOLIC PANEL Lab Routine 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) Expected: 02/26/2022 (Approximate), Expires: 04/28/2022 [facility] Work Phone: Comment on above: Expected: 02/26/2022 (Approximate), Expires: 04/28/2022 Start: 02-26-2022 End: 04-28-2022 Lactate dehydrogenase [Enzymatic activity/volume] in Serum or Plasma LD LACTATE DEHYDRO Lab Routine 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) Expected: 02/26/2022 (Approximate), Expires: 04/28/2022 [facility] Work Phone: Comment on above: Expected: 02/26/2022 (Approximate), Expires: 04/28/2022 Start: 01-01-2022 End: 03-03-2022 Snmns-7-Uounexglung [Mass/volume] in Serum or Plasma [facility] Work Phone: Comment on above: Expected: 01/01/2022 , Expires: 03/03/2022 Start: 01-01-2022 End: 03-03-2022 Choriogonadotropin.beta subunit [Units/volume] in Serum or Plasma [facility] Work Phone: Comment on above: Expected: 01/01/2022 , Expires: 03/03/2022 Start: 12-20-2021 Influenza vaccination INFLUENZA (#1) [facility] Start: 04-21-2021 DEPRESSION ASSESSMENT DEPRESSION ASS ESSMENT [facility] Start: 2021 HEPATITIS C SCREENING HEPATITIS C SC REENING [facility] Start: 2021 HIV SCREENING HIV SCREENING [facility] Start: 02-13-2020 HPV VACCINE (3 - Mal e 3-dose series) HPV VACCINE (3 - Male 3-dose series) [facility] Start: 2019 MENINGOCOCCAL CONJUG ATE (1 - 2-dose series) MENINGOCOCCAL CONJUGATE (1 - 2-dose series) [facility] Start: 2017 PEDS TO ADULT TRANSI TION ANNUAL ASSESSMENT PEDS TO ADULT TRANSITION ANNUAL ASSESSMENT [facility] Start: 2015 Adult depression screening assessment DEPRESSION SCREENING [facility] Start: 2015 PEDS TO ADULT TRANSI TION INITIAL DISCUSSION PEDS TO ADULT TRANSITION INITIAL DISCUSSION [facility] Start: 2014 HPV VACCINE (1 - Mal e 2-dose series) HPV VACCINE (1 - Male 2-dose series) [facility] Start: 2010 Urine microalbumin profile DTAP,TDAP,TD (1 - Tdap) [facility] Start: 2003 COVID-19 VACCINE (#1) COVID-19 VACCI NE (#1) [facility] Start: 2003 HEPATITIS B (1 of 3 - 3-dose series) HEPATITIS B (1 of 3 - 3-dose series) [facility] End: 05-29-2023 Ct abdomen & pelvis w/contrast material CT ABD/PEL W IVCON Radiology Routine 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) 1 Occurrences starting 04/29/2022 until 05/29/2023 [facility] Work Phone: Comment on above: 1 Occurrences starti ng 04/29/2022 until 05/29/2023 End: 05-29-2023 CT CHEST W IVCON CT CHEST W IVCON Radiology Routine 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) 1 Occurrences starting 04/29/2022 until 05/29/2023 [facility] Work Phone: Comment on above: 1 Occurrences starti ng 04/29/2022 until 05/29/2023 OUTSIDE SURG PATH SL MARLEE REVIEW OUTSIDE SURG PATH SLIDE REVIEW Lab Routine Ordered: 01/01/2022 [facility] Work Phone: Comment on above: Ordered: 01/01/2022 [facility] Immunizations Immunization Date Immunization Notes Care Provider Fa [facility] 10-14-2019 HPV, unspecified formulation Marcos DONATO [facility] 10-14-2019 human papilloma viru s vaccine, quadrivalent Randy Brown MD Work Phone: [facility] 10-14-2019 meningococcal ACWY vaccine, unspecified formulation Marcos DONATO [facility] 10-14-2019 meningococcal oligosaccharide (groups A, C, Y and W-135) diphtheria toxoid conjugate vaccine (MCV4O) Randy Brown MD Work Phone: [facility] 10-12-2018 HPV, unspecified formulation Marcos DONATO [facility] 10-12-2018 human papilloma viru s vaccine, quadrivalent Randy Brown MD Work Phone: [facility] 02-15-2016 meningococcal ACWY vaccine, unspecified formulation Marcos DONATO [facility] 02-15-2016 meningococcal oligosaccharide (groups A, C, Y and W-135) diphtheria toxoid conjugate vaccine (MCV4O) Randy Brown MD Work Phone: [facility] 02-15-2016 tetanus toxoid, redu ximena diphtheria toxoid, and acellular pertussis vaccine, adsorbed Marcos DONATO [facility] 02-23-2009 influenza virus vacc ine, H1N1, live Marcos DONATO [facility] 02-23-2009 novel Influenza-H1N1 -09, live virus for nasal administration Randy Brown MD Work Phone: [facility] 01-10-2009 Diphtheria, tetanus toxoids and acellular pertussis vaccine, and poliovirus vaccine, inactivated Marcos DONATO [facility] 01-10-2009 measles, mumps and rubella virus vaccine Marcos DONATO [facility] 01-10-2009 varicella virus vaccine Jessicar noemígraham DONATO [facility] 12-28-2007 diphtheria, tetanus toxoids and acellular pertussis vaccine Marcos DONATO [facility] 05-20-2006 measles, mumps, rube lla, and varicella virus vaccine Marcos DONATO [facility] 04-24-2006 DTaP-hepatitis B and poliovirus vaccine Marcos DONATO [facility] 04-24-2006 haemophilus influenz ae type b vaccine, PRP-T conjugate Marcos DONATO [facility] 04-24-2006 pneumococcal conjuga te vaccine, 7 valent Randy Brown MD Work Phone: [facility] 2003 DTaP-hepatitis B and poliovirus vaccine Marcoswin DONATO [facility] 2003 haemophilus influenz ae type b vaccine, PRP-T conjugate Marcoswin DONATO [facility] 2003 pneumococcal conjuga te vaccine, 7 valent Randy Brown MD Work Phone: [facility] 2003 DTaP-hepatitis B and poliovirus vaccine Marcos DONATO [facility] 2003 haemophilus influenz ae type b vaccine, PRP-T conjugate Marcos DONATO [facility] 2003 hepatitis B vaccine, pediatric or pediatric/adolescent dosage Marcos DONATO [facility] Payers Date Payer Category Payer Self-pay 2023 Unknown [id number] 2017 Private Health Insurance [employer] A ETNA CHOICE POS II [id number] 2017-Present [phone] [address] [place] [address] POS [id number] 2003 Unknown [id number] 2.16.840.1.945027.3.579.2. 593 2003 Unknown [id number] 2.16.840.1.036144.3.579.2. 593 2003 Unknown [id number] 2.16.840.1.386789.3.579.2. 593 2003 Unknown [id number] 2.16.840.1.078096.3.579.2. 593 2003 Unknown [id number] 2.16.840.1.099109.3.579.2. 593 2003 Unknown [id number] 2.16.840.1.547883.3.579.2. 593 2003 Unknown [id number] 2.16.840.1.385659.3.579.2. 593 2003 Unknown [id number] 2.16.840.1.665338.3.579.2. 727 2003 Unknown [id number] 2.16.840.1.563759.3.579.2. 727 2003 Unknown [id number] 2.16.840.1.959296.3.579.2. 727 2003 Unknown [id number] 2.16.840.1.673561.3.579.2. 727 2003 Unknown [id number] 2.16.840.1.283146.3.579.2. 727 2003 Unknown [id number] 2.16.840.1.859687.3.579.2. 727 2003 Unknown [id number] 2.16.840.1.325342.3.579.2. 727 2003 Unknown [id number] 2.16.840.1.114647.3.579.2. 727 2003 Unknown [id number] 2.16.840.1.695382.3.579.2. 727 1959 Private Health Insurance [facility] [id number] Unknown [id number] 2.16.840.1.096644.3.579.2. 531 Social History Date Type Detail Facility Start: 11-12-2021 End: 12-28-2021 Tobacco smoking status Never smoked tobacco (finding) [facility] Sex Assigned At Male [facility] Tobacco smoking status NHIS Tobacco smoking consumption unknown [facility] Start: 2003 Sex Assigned At Not on file [facility] History of tobacco use Passive smoker [facility] Start: 01-01-2022 Tobacco use and exposure Smokeless tobacco non-user [facility] Start: 01-01-2022 End: 04-29-2022 Alcohol intake Ex-drinker (finding) [facility] Start: 12-22-2021 End: 01-29-2022 Exposure to SARS-CoV-2 (event) Not sure [facility] Start: 2003 Sex Assigned At Male F [facility] Functional Status Date Assessment Result Facility 01-25-2022 Functional Status N/A [facility] [facility] 12-28-2021 Functional Status N/A [facility] 12-07-2021 N/A [facility] 11-12-2021 Functional Status N/A [facility] Clinical Notes 11-12-2021 to 10-25-2023 Randy Brown MD - 04/29/2022 8:16 AM Radha Brown MD - 01/29/2022 7:51 AM EDTTelephone Encounter - [facility] - 01/01/2022 12:48 PM Jessica Brown MD - 01/01/2022 6:51 AM EDT Note Date & Type Note Facility 10-25-2023 Note [facility] Sperm Rapid Progressive October 25, 2023 11:20am 2 % 10-25-2023 Note [facility] Sperm Non-Progressive October 25, 2023 11:20am 24 % 06-28-2022 Hospital Discharge instructions Follow Up Care 06/28/2022 09:10:09 With:MARIYA VICENTE, Marcos Ross, URL Address: [address] [place], [place] [id number]- When: Unknown [facility] 04-29-2022 Note HNO ID: [id number] Author: Randy Brown MD Service: ? Author Type: Physician Type: Progress Notes Filed: 05/01/2022 6:57 AM Note Text: PATIENT NAME: Omaira Cohen DATE: 04/29/2022 PRIMARY CARE PHYSICIAN: Brittany Navratil, SCHOOL BASED THERAPIST OTHER PHYSICIANS: Dr. Donato Portions of this [...] swelling, and atrophy. PATHOLOGY: 12/20/2021 Left orchiectomy ([facility]) Testicular scar consistent with regressed germ [...] RADIOLOGY/OTHER STUDIES: 12/31/2021 CT chest, abdomen, pelvis ([facility]) No evidence of metastatic disease. No suspicious findings. 12/06/2021 Scrotal ultrasound ([facility]) Left testicle contains a 1.4 cm hypoechoic vascular mass within the inferior pole. Right testicle homogeneous texture, no visible mass. ASSESSMENT/PLAN: 1. Malignant neoplasm of descended left testis (H (more content not included)... [facility] 04-29-2022 History of Present illness Narrative [...] swelling, and atrophy. PATHOLOGY: 12/20/2021 Left orchiectomy ([facility]) Testicular scar consistent with regressed germ [...] RADIOLOGY/OTHER STUDIES: 12/31/2021 CT chest, abdomen, pelvis ([facility]) No evidence of metastatic disease. No suspicious findings. 12/06/2021 Scrotal ultrasound ([facility]) Left testicle contains a 1.4 cm [...] his next scans to be done at [facility] at the end of this month. I will see him back in 2 months for follow-up and labs. Randy Brown MD CC: Dr. Donato documented in this encounter [facility] 01-29-2022 Note HNO ID: [id number] Author: Randy Brown MD Service: ? Author Type: Physician Type: Progress Notes Filed: 01/30/2022 6:53 AM Note Text: PATIENT NAME: Omaira Cohen DATE: 01/29/2022 PRIMARY CARE PHYSICIAN: Brittany Ramirez, SCHOOL BASED THERAPIST OTHER PHYSICIANS: Dr. Donato Portions of this encounter note have been copied from my note from 01/01/2022 and has been updated where appropriate, and reflect my current medical decision making from today. CC: This is an 16 year old male with recently diagnosed testicular cancer, referred for further management. INTERIM HISTORY: Since the patient's initial visit here his pathology was reviewed at [facility], and the diagnosis of testicular scar consistent [...] swelling, and atrophy. 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 The scar area measures 1.3 cm in greatest dimension. It is limited to the testis. Germ cell neoplasia in situ. Epididymis and spermatic cord with no significant pathological findings. LABS: 12/11/2021: CMP and CBC within normal limits AFP hCG LDH 12/11/2021 2.4 <1 164 RADIOLOGY/OTHER STUDIES: 12/31/2021 CT chest, abdomen, pelvis ([facility]) No evidence of metastatic disease. No suspicious findings. 12/06/2021 Scrotal ultrasound ([facility]) Left testicle contains a 1.4 cm hypoechoic vascular mass within the inferior pole. Right testicle homogeneous texture, no visible mass. (more content not included)... [facility] 01-29-2022 History of Present illness Narrative PATIENT NAME: Omaira Cohen DATE: 01/29/2022 PRIMARY CARE PHYSICIAN: Brittany Ramirez, SCHOOL BASED THERAPIST OTHER PHYSICIANS: Dr. Donato Portions of this encounter note have been copied from my note from 01/01/2022 and has been updated where appropriate, and reflect my current medical decision making from today. CC: This is an 16 year old male with recently diagnosed testicular cancer, referred for further management. INTERIM HISTORY: Since the patient's initial visit here his pathology was reviewed at [facility], and the diagnosis of testicular scar consistent [...] swelling, and atrophy. 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 The scar area measures 1.3 cm in greatest dimension. It is limited to the testis. Germ cell neoplasia in situ. Epididymis and spermatic cord with no significant pathological findings. LABS: 12/11/2021: CMP and CBC within normal limits AFP hCG LDH 12/11/2021 2.4 <1 164 RADIOLOGY/OTHER STUDIES: 12/31/2021 CT chest, abdomen, pelvis ([facility]) No evidence of metastatic disease. No suspicious findings. 12/06/2021 Scrotal ultrasound ([facility]) Left testicle contains a 1.4 cm [...] regressed germ cell tumor was confirmed by [facility] pathology.) Staging scans showed no evidence of [...] CC: Dr. Donato documented in this encounter [facility] 01-25-2022 Hospital Discharge instructions Patient Education 01/25/2022 [...] children. Follow these instructions at home: Take xmzl-[id number] and prescription medicines only as told by [...] 02/28/2006 Document Revised: 07/29/2019 Document Reviewed: 07/04/2017 [employer] Patient Education 2020 [employer]. Follow Up Care 12/28/2021 09:47:13 With:MARIYA VICENTE, Marcos Ross, URL Address: [address] [place], [place] [id number]- When: Unknown [facility] 01-01-2022 Miscellaneous Notes 2nd opinion pathology requested to be sent from [facility] to [facility] for review. documented in this encounter [facility] 01-01-2022 Note HNO ID: [id number] Author: Randy Brown MD Service: ? 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 MEDICATIONS: No current outpatient medications on [...] swelling, and atrophy. 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 The scar area measures 1.3 cm in greatest dimension. It is limited to the testis. Germ cell neoplasia in situ. Epididymis and spermatic cord with no significant pathological findings. LABS: 12/11/2021: CMP and CBC within normal limits AFP hCG LDH 12/11/2021 2.4 <1 RADIOLOGY/OTHER STUDIES: 12/31/2021 CT chest, abdomen, pelvis ([facility]) No evidence of metastatic disease. No suspicious findings. 12/06/2021 Scrotal ultrasound ([facility]) Left (more content not included)... [facility] 01-01-2022 History of Present illness Narrative PATIENT NAME: Omaira Cohen DATE: 01/01/2022 PRIMARY CARE PHYSICIAN: Brittany Ramirez, SCHOOL BASED THERAPIST OTHER PHYSICIANS: Dr. 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 MEDICATIONS: No current outpatient medications on [...] swelling, and atrophy. 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 The scar area measures 1.3 cm in greatest dimension. It is limited to the testis. Germ cell neoplasia in situ. Epididymis and spermatic cord with no significant pathological findings. LABS: 12/11/2021: CMP and CBC within normal limits AFP hCG LDH 12/11/2021 2.4 <1 RADIOLOGY/OTHER STUDIES: 12/31/2021 CT chest, abdomen, pelvis ([facility]) No evidence of metastatic disease. No suspicious findings. 12/06/2021 Scrotal ultrasound ([facility]) Left testicle contains a 1.4 cm [...] to refer his recent surgical specimen to [facility] pathology for second opinion. We will repeat labs today. Assuming the diagnosis of a regressed germ cell tumor is confirmed and labs remain negative standard of care would be routine follow-up. I will see him back in 4 weeks for follow-up. Randy Brown MD documented in this encounter [facility] 12-28-2021 Hospital Discharge instructions Patient Education 12/28/2021 [...] including vitamins, herbs, eye drops, creams, and vzbm-yal-whpjkwg medicines. Any problems you or family members [...] 03/07/2006 Document Revised: 03/20/2018 Document Reviewed: 02/27/2017 [employer] Patient Education 2020 [employer]. Follow Up Care 12/07/2021 10:58:41 With:MARIYA VICENTE, Marcos Ross, URL Address: [address] [place] [address] [place] [id number]- When: Unknown [facility] [place] 12-07-2021 Hospital Discharge instructions [...] 07/14/2001 Document Revised: 07/29/2019 Document Reviewed: 03/03/2017 [employer] Patient Education 2020 [employer]. Follow Up Care 11/12/2021 11:41:21 With:MARIYA VICENTE, Marcos Ross, URL Address: [facility] [address], [place] [address]- When: Unknown [facility] 11-12-2021 Note Chief Complaint Referral for testicular [...] [facility] [address], [place] [address] [phone] Additional Instructions: Scrotal US Patient Education Testicular Self-Exam, Qzqg-oa-Cmva I, Terrie Almendarez, personally scribed for Dr. [...] Protein Urine Dipstick: Negative (11/12/21 10:39:00) Specific Tarpley Urine Dipstick: 1.020 (11/12/21 10:39:00) Urine Appearance Urine Dipstick: Clear (11/12/21 10:39:00) Urine Color Urine Dipstick: Yellow (11/12/21 10:39:00) Urobilinogen Urine Dipstick: Normal 0.2-1 EU/dl (11/12/21 10:39:00) pH Urine Dipstick: 7 (11/12/21 10:39:00) D (more content not included)... [facility] Comment on above: Result Comment: Elec tronically Signed By: Marcos DONATO MD\.br\Date and Time Signed: 11/12/21 11:37 EDT\.br\Electronically Co-Signed By: Terrie Almendarez MA\.br\Date and Time Co-Signed: 11/12/21 11:31 EDT 11-12-2021 Hospital Discharge instructions Patient Education 11/12/2021 11:14:03 Testicular Self-Exam, Xxbf-xg-Wfdh Testicular Self-Exam A self-exam of your testicles [...] 07/04/2009 Document Revised: 07/29/2019 Document Reviewed: 03/03/2017 [employer] Patient Education 2020 [employer]. Follow Up Care 11/06/2021 11:13:38 With:Marcos DONATO MD, URL Address: [facility] [address], [place] [address] [phone] When:12/10/2021 Comments:Scrotal US [facility] Evaluation + Plan note Future Appointments Appointment Date:12/07/2021 09:15:00 AM Scheduled Provider:Marcos DONATO MD Location:[facility] Appointment Type:URO Office Visit [facility] Evaluation + Plan note Future Appointments Appointment Date:12/28/2021 08:45:00 AM Scheduled Provider:Marcos DONATO MD Location:[facility] Appointment Type:URO Office Visit [facility] Evaluation + Plan note Future Appointments Appointment Date:01/25/2022 09:45:00 AM Scheduled Provider:Marcos DONATO MD Location:[facility] Appointment Type:URO Office Visit [facility] Evaluation + Plan note Future Appointments Appointment Date:06/28/2022 08:30:00 AM Scheduled Provider:Marcos DONATO MD Location:[facility] Appointment Type:URO Office Visit [facility] [employer] Evaluation note Diagnosis 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 Malignant neoplasm of other and unspecified testis [facility] 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 Malignant neoplasm of other and unspecified testis [facility] Diagnosis 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 Malignant neoplasm of other and unspecified testis [facility] noteNo assessment information availableWilson Health Work Phone: Hospital course Narrative No data available for this section [facility] [employer] progress note No data available for this section [facility] reason for referral (narrative) Referred by: Marcos DONATO MD [facility] [employer] Summary Purpose Family History No Family History [...] COMPUTED TOMOGRAPHY THORAX W/CONTRAST Randy Brown MD [address] [place] [address] [place] [address] Ct Imaging Referral ID Status Reason Start Date Expiration Date Visits Requested Visits Authorized [id number] Pending Review Auto-Generat ed Referral 04/29/2022 05/29/2023 1 1 Specialty Diagnoses / Procedures Referred By Doug montalvo Referred To Contact CT IMAGING Diagnoses 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) Procedures CT ABD/PEL W IVCON CT ABD & PELVIS W/CONTRAST Randy Brown MD [address] [place] [address] [place] [address] Ct Imaging Referral ID Status Reason Start Date Expiration Date Visits Requested Visits Authorized [id number] Pending Review Auto-Generat ed Referral 04/29/2022 05/29/2023 1 1 Chief Complaint and Reason for Visit Chief Complaint See order Additional Source Comments (unrecognized sect ion and content) No Status Records FoundNo Status Records FoundNo Status Records FoundNo Status Records FoundNo Status Records Found INFORMATION SOURCE (unrecogn ized section and content) DATE CREATED AUTHOR 11/09/2021 [facility] dical Specialist DATE CREATED AUTHOR AUTHOR'S ORGANIZ ATION 05/01/2022 [facility] DATE CREATED AUTHOR AUTHOR'S ORGANIZ ATION 05/23/2022 [facility] [place] [facility] DATE CREATED AUTHOR AUTHOR'S ORGANIZ ATION 10/19/2022 [facility] DATE CREATED AUTHOR AUTHOR'S ORGANIZ ATION 10/26/2023 [facility] ysician Group Care Team (unrecognized sect ion and content) Shuttle Preparation Supervisor Relationship Specialty Start Date End Date KarlenehayleyMeredith, AIR LIAISON AND SPECIAL STAFF [address] [place] [address] PCP - General Family Practice 01/01/22 Shuttle Preparation Supervisor Relationship Specialty Start Date End Date KarlenehayleyMeredith, AIR LIAISON AND SPECIAL STAFF [address] [place] [address] PCP - General Family Practice 01/01/22 Shuttle Preparation Supervisor Relationship Specialty Start Date End Date Ashley Meredith, AIR LIAISON AND SPECIAL STAFF [address] [place] [address] PCP - General Family Medicine 01/01/22 Marcos Donato MD [address] [place] [address] Urology 01/29/22 Shuttle Preparation Supervisor Relationship Specialty Start Date End Date Meredith Ramirez, AIR LIAISON AND SPECIAL STAFF [address] [place] [address] PCP - General Family Medicine 01/01/22 Marcos Donato MD [address] [place] [address] Urology 01/29/22 Team Status: Active Member Role [...] or prosecute any alcohol or drug abuse patient.[facility] the event this information is protected by the Federal Confidentiality of Alcohol and Drug Abuse Patient Records regulations: The Federal rules restrict any use of the information to criminally investigate or prosecute any alcohol or drug abuse patient.[facility] the event this information is protected by the Federal Confidentiality of Alcohol and Drug Abuse Patient Records regulations: The Federal rules restrict any use of the information to criminally investigate or prosecute any alcohol or drug abuse patient.[facility] the event this information is protected by the Federal Confidentiality of Alcohol and Drug Abuse Patient Records regulations: The Federal rules restrict any use of the information to criminally investigate or prosecute any alcohol or drug abuse patient.[facility] the event this information is protected by the Federal Confidentiality of Alcohol and Drug Abuse Patient Records regulations: The Federal rules restrict any use of the information to criminally investigate or prosecute any alcohol or drug abuse patient.[facility] Reason for Visit (unrecogniz ed section and [...] BE BASED ON THE PRIMARY CLINICAL RECORDS. [employer] [facility]. provides no warranty or guarantee of the accuracy or completeness of information in this document.
== END 2024-10-16 09:45 | disposition home or self-care (01) ==
PROVIDERS: PCP Family Medicine; Visit Provider Family Medicine
DX: Z00.00 Encounter for general adult medical examination without abnormal findings (principal); C62.90 Malignant neoplasm of unspecified testis, unspecified whether descended or undescended
CPT/HCPCS: 36415; 80053; 80061; 82105; 83036; 84436; 84443; 84481; 84702; 85025

== ENCOUNTER 2024-10-29 09:40 | Outpatient (OUT) | payer OTHER, BC, SELFPAY ==
--- OUTSIDE RECORDS SUMMARY | 2024-10-29 09:51 | XMS_ITS | CCD ---
Author Organization [facility] Care Team Providers Care Pricing Coordinator Name Role Phone BRITTANY RAMIREZ Primary Care Physician [phone] Unavailable Primary Care Provider Unavailabl e Ashley RAIL TRANSPORTATION TABELER, Meredith Primary Care Provider [phone] Ashley RESENDIZ, Meredith Primary Care Provider [phone] Marcos Donato MD Unavailable [phone] Ashley RESENDIZ Meredith Primary Care Provider [phone] Marcos Donato MD Unavailable RANDY BROWN Attending Unavailable MARCOS DONATO Referring Unavailable [facility] Primary Care Unavailable RANDY BROWN Referring Unavailable RANDY BROWN Attending Unavailable [facility] Primary Care Unavailable RANDY BROWN Referring Unavailable RANDY BROWN Attending Unavailable [facility] Primary Care Unavailable RANDY BROWN [...] 2 Weal (disorder), Hives [facility] (1 source) Amoxicillin Drug Allergy [facility] Repository Medications Current Medications Medication Drug Class(es) Dates Sig (Normalized) Sig (Original) doxycycline hyclate 100 mg oral capsule (1 source) Tetracycline-clas s Drug Start: 11-12-2021 End: 12-03-2021 take 1 capsule by mouth twice daily doxycycline hyclate 100 mg Cap 100 mg = 1 cap(s), Oral, BID, X 3 week(s), # 42 cap(s), Refills(s) 0, Pharmacy: Acceptd #[id number], 187, cm, 11/12/21 10:47:00 EDT, Height/Length Dosing, [...] Saunders on 10-25-2023 Semen Analysis Comment . [facility] Comment on above: No Abnormal specimen characteristics noted. Semen Round Cell Concentration Moderate [facility] Semen WBC Concentration <1.0 M/mL <0.9 [facility] Sperm % Non-Motile 74 % [facility] Sperm Motility Total 26.0 % Low >40 [facility] Qualitative semen viscosityO rdered By: Alfred Saunders on 10-25-2023 Viscosity Ql (Ashlie) Abnormal Abnormal Normal [facility] Semen Analysis, Fertilityon 10-25-2023 Debris/Round Cells Moderate Normal [facility] Comment on above: Order Comment: Metho d of Collection:: Masturbation Has the patient had a vasectomy?: N Type of Specimen Container:: Sterile Container Abstinence Period:: 2 DAYS Kept at body temperature?: Y Any Collection or Transport Problems?: N/A Performed By: #### S EMCOMP #### [address] Immotile Sperm 74 % Normal [facility] Comment on above: Order Comment: Metho d of Collection:: Masturbation Has the patient had a vasectomy?: N Type of Specimen Container:: Sterile Container Abstinence Period:: 2 DAYS Kept at body temperature?: Y Any Collection or Transport Problems?: N/A Performed By: #### S EMCOMP #### [address] Non-Progression Sperm Motili 24 % Normal [facility] Comment on above: Order Comment: Metho d of Collection:: Masturbation Has the patient had a vasectomy?: N Type of Specimen Container:: Sterile Container Abstinence Period:: 2 DAYS Kept at body temperature?: Y Any Collection or Transport Problems?: N/A Performed By: #### S EMCOMP #### [address] Normal Sperm Morphology 2.0 % Low >=4.0 [facility] Comment on above: Order Comment: Metho d of Collection:: Masturbation Has the patient had a vasectomy?: N Type of Specimen Container:: Sterile Container Abstinence Period:: 2 DAYS Kept at body temperature?: Y Any Collection or Transport Problems?: N/A Performed By: #### S EMCOMP #### [address] Rapid Progression Sperm Motili 2 % Normal [facility] Comment on above: Order Comment: Metho d of Collection:: Masturbation Has the patient had a vasectomy?: N Type of Specimen Container:: Sterile Container Abstinence Period:: 2 DAYS Kept at body temperature?: Y Any Collection or Transport Problems?: N/A Performed By: #### S EMCOMP #### [address] Semen Comment . Normal [facility] Comment on above: Order Comment: Metho d of Collection:: Masturbation Has the patient had a vasectomy?: N Type of Specimen Container:: Sterile Container Abstinence Period:: 2 DAYS Kept at body temperature?: Y Any Collection or Transport Problems?: N/A Result Comment: No A bnormal specimen characteristics noted. PERFORMED BY: [place] [address] PATHOLOGIST MECHANICAL ORDNANCE ASSEMBLER JIANLAN SUN M.D. Performed By: #### S EMCOMP #### [address] Semen Liquefaction Abnormal Critically abnormal <=60 min [facility] Comment on above: Order Comment: Metho d of Collection:: Masturbation Has the patient had a vasectomy?: N Type of Specimen Container:: Sterile Container Abstinence Period:: 2 DAYS Kept at body temperature?: Y Any Collection or Transport Problems?: N/A Performed By: #### S EMCOMP #### [address] Semen Viscosity Abnormal Critically abnormal Normal [facility] Comment on above: Order Comment: Metho d of Collection:: Masturbation Has the patient had a vasectomy?: N Type of Specimen Container:: Sterile Container Abstinence Period:: 2 DAYS Kept at body temperature?: Y Any Collection or Transport Problems?: N/A Performed By: #### S EMCOMP #### [address] Semen Volume 4.0 mL Normal >=1.5 [facility] Comment on above: Order Comment: Metho d of Collection:: Masturbation Has the patient had a vasectomy?: N Type of Specimen Container:: Sterile Container Abstinence Period:: 2 DAYS Kept at body temperature?: Y Any Collection or Transport Problems?: N/A Performed By: #### S EMCOMP #### [place] [address] [place] Sperm Concentration 7.5 Low >=15 [facility] Comment on above: Order Comment: Metho d of Collection:: Masturbation Has the patient had a vasectomy?: N Type of Specimen Container:: Sterile Container Abstinence Period:: 2 DAYS Kept at body temperature?: Y Any Collection or Transport Problems?: N/A Performed By: #### S EMCOMP #### [place] [address] [place] Total Motility ([employer]) 26.0 % Low >=40 ([employer]) [facility] Comment on above: Order Comment: Metho d of Collection:: Masturbation Has the patient had a vasectomy?: N Type of Specimen Container:: Sterile Container Abstinence Period:: 2 DAYS Kept at body temperature?: Y Any Collection or Transport Problems?: N/A Performed By: #### S EMCOMP #### [facility] [address] [place] [address] WBC Concent, Semen <1.0 Normal <1.0 [facility] Comment on above: Order Comment: Metho d of Collection:: Masturbation Has the patient had a vasectomy?: N Type of Specimen Container:: Sterile Container Abstinence Period:: 2 DAYS Kept at body temperature?: Y Any Collection or Transport Problems?: N/A Performed By: #### S EMCOMP #### [facility] [address] [place] [address] Semen Analysis, FertilityOrd ered By: Alfred Saunders on 10-25-2023 Semen Appearance Normal Normal Normal [facility] Comment on above: Order Comment: Metho d of Collection:: Masturbation Has the patient had a vasectomy?: N Type of Specimen Container:: Sterile Container Abstinence Period:: 2 DAYS Kept at body temperature?: Y Any Collection or Transport Problems?: N/A Performed By: #### S EMCOMP #### [facility] [address] [place] [address] Semen pH 8.5 Normal >=7.2 [facility] Comment on above: Order Comment: Metho d of Collection:: Masturbation Has the patient had a vasectomy?: N Type of Specimen Container:: Sterile Container Abstinence Period:: 2 DAYS Kept at body temperature?: Y Any Collection or Transport Problems?: N/A Performed By: #### S EMCOMP #### [facility] [address] [place] [address] Semen liquefaction time sherita urementOrdered By: Alfred Saunders on 10-25-2023 Liquefaction (Ashlie) [Time] Abnormal Abnormal <=[address] [facility] Semen volumeOrdered By: Yannick Saunders on 10-25-2023 Specimen volume (Ashlie) 4.0 mL >1.5 [facility] Sperm countOrdered By: Alfred Saunders on 10-25-2023 Spermatozoa (Ashlie) [#/Vol] 7.5 M/mL Low >15 [facility] Sperm morphologyOrdered By: Alfred Saunders on 10-25-2023 Spermatozoa Nom (Ashlie) 2.0 % Low >4.0 [facility] Provider Letteron 10-18-2022 Provider Letter (Inserted Image. Rosalva ble to display) October 18, 2022 [facility] [address] [place] [id number] : 2005 Dear Omaira Zavala , This letter is to inform you the the providers of [place] (Dr. Marcos Donato) will no longer be [...] of area physicians can be found on [facility]'s website at [email or web address] or you may contact your health plan. We will be glad to forward your records to your new physician as long as we receive a signed release of records form. Sincerely, Marcos Donato M.D., F.A.C.S. [facility] [address] [place] [address] , option 3 SENT REGULAR/CERT MAIL Normal [facility] Provider Letter (Inserted Image. Rosalva ble to display) October 18, 2022 OMAIRA ZAVALA [address] [address] : 2005 Dear Omaira Zavala , This letter is to inform you the the providers of [place] (Dr. Marcos Donato) will no longer be [...] of area physicians can be found on [facility]'s website at [email or web address] or you may contact your health plan. We will be glad to forward your records to your new physician as long as we receive a signed release of records form. Sincerely, Marcos Donato M.D., F.A.C.S. [facility] [address] [place], [place] [address] , option 3 Normal [facility] Provider Letter (Inserted Image. Rosalva ble to display) October 18, 2022 OMAIRA ZAVALA [address] [address] : 2005 Dear Omaira Zavala , This letter is to inform you the the providers of [facility] [employer] [facility], [facility] (Dr. Marcos Donato) will no longer be responsible for your routine medical care due to your repeated non compliance with your cancer care. Emergency care only will be provided for the thirty (30) days following this letter. During this time period we suggest that you find another physician for your medical needs. A listing of area physicians can be found on [facility]'s website at [email or web address] or you may contact your health plan. We will be glad to forward your records to your new physician as long as we receive a signed release of records form. Sincerely, Marcos Donato M.D., F.A.C.S. [facility] [address] [place], [place] [address] , option 3 Normal [facility] Patient Letter FTon 2022 Patient Letter [facility] (Inserted Image. Rosalva ble to display) August 01, 2022 OMAIRA ZAVALA [address] [address] Dear Mr. Omaira Cohen, Our records indicate you have missed 2 follow up appointments to your testicular cancer. It is very important you are seen and evaluated after surgery and treatments , so we can continue to monitor your progress. You advised the office you now are living in [place]. We will be more than willing to send your records to a new urologist and oncologist in your area if you schedule an appointment. Please call the office to get back on the schedule for a follow up appointment, or to forward your records. Thank you for your cooperation in this matter. Sincerely, Marcos Donato M.D., F.A.C.S. [facility] [address] [place], [place] [address] Option #3 SENT REGULAR/CERTIFIED MAIL [facility] Patient Letter [facility] (Inserted Image. Rosalva ble to display) August 01, 2022 OMAIRA ZAVALA [address] [address] Dear Frank Omaira Ole, Our records indicate you have missed 2 follow up appointments to your testicular cancer. It is very important you are seen and evaluated after surgery and treatments , so we can continue to monitor your progress. You advised the office you now are living in [place]. We will be more than willing to send your records to a new urologist and oncologist in your area if you schedule an appointment. Please call the office to get back on the schedule for a follow up appointment, or to forward your records. Thank you for your cooperation in this matter. Sincerely, Marcos Donato M.D., F.A.C.S. [facility] [address] [place], [place] [address] [facility] RAD - CT Reporton 07-25-2022 RAD - CT Report [id number]:127 [facility] RAD - CT Report [id number]:127 [facility] Provider Letteron 07-19-2022 Provider Letter (Inserted Image. Rosalva ble to display) July 19, 2022 OMAIRA ZAVALA [address] [address] OMAIRA ZAVALA 2005 Dear Omaira , You [...] [facility] [address], [place] [address] Normal [facility] [address] ABD/PELV W CONon 05-20-19 CT [...] by: GERRY ALDANA Date: 2022-05-20 16:27 Normal [facility] CT CHEST W CONon 05-19-2022 CT [...] by: HAIM CARMONA Date: 2022-05-19 16:03 Normal [facility] Consultation Noteon 05-06-19 Consultation Note [id number]:127 Normal [facility] CNOVSPon 04-29-2022 CNOVS Visit (SP) Office ([facility]) -- OMAIRA COHEN ([id number]) 1 M Date Time Provider Department 04/29/22 [...] swelling, and atrophy. PATHOLOGY: 12/20/2021 Left orchiectomy ([facility]) Testicular scar consistent with regressed germ [...] RADIOLOGY/OTHER STUDIES: 12/31/2021 CT chest, abdomen, pelvis ([facility]) No evidence o (more content not included)... Normal [facility] AFP (TUMOR MARKER)on 022 AFP, Serum, Tumor Marker 2.8 ng/mL Normal 0.0-5.7 [facility] Comment on above: Result Comment: [employer] Electrochemiluminescence Immunoassay (ECLIA) . Values obtained with different assay methods or kits cannot be used interchangeably. Results cannot be interpreted as absolute evidence of the presence or absence of malignant disease. . This test is not interpretable in females. Performed By: #### A FP. ####[facility] [address] [address]Dr. Janee Ordaz HCG QUANT TUMOR MARKERon HCG QNT TUMOR MARKER <1 Normal 0-3 [facility] Comment on above: Result Comment: [employer] Electrochemiluminescence Immunoassay (ECLIA) . The [employer] [...] developed and its performance characteristics determined by [employer]. It has not been cleared or approved by the Food and Drug Administration for use as a tumor marker. . This test is not interpretable as a tumor marker in females. Performed By: #### H CGTMOR ####[facility] [address] [address]Dr. Jnaee Ordaz Lab Reportson 2022 Lab Reports [id number]:127 Normal [facility] Lab Reports [id number]:127 Normal [facility] CBC AUTO DIFFon 04-08-2022 BASO # 0.0 103/ul Normal 0.0-0.1 [facility] Comment on above: Performed By: #### C BC #### [facility] [address] [address] [address] Janee Ordaz Basophils/100 WBC (Bld) 0.3 % Normal 0.2-2.0 [facility] Comment on above: Performed By: #### C BC #### [facility] [address] [address] [address] Janee Ordaz EO # 0.8 103/ul Critically high 0.0-0.7 [facility] Comment on above: Performed By: #### C BC #### [facility] [address] [place] [address] Dr. Janee Ordaz Eosinophils/100 WBC (Bld) 5.9 % Normal 0.9-7.0 [facility] Comment on above: Performed By: #### C BC #### [facility] [address] [place] [address] Dr. Janee Ordaz Erythrocyte distribution width (RBC) [Ratio] 12.3 % Normal 11.0-15.0 [facility] Comment on above: Performed By: #### C BC #### [facility] [address] [place] [address] Dr. Janee Ordaz Hematocrit (Bld) [Volume fraction] 41.8 % Critically low 42.0-54.0 [facility] Comment on above: Performed By: #### C BC #### [facility] [address] [place] [address] Dr. Janee Ordaz Hemoglobin (Bld) [Mass/Vol] 13.9 g/dL Critically low 14.0-18.0 [facility] Comment on above: Performed By: #### C BC #### [facility] [address] [place] [address] Dr. Janee Ordaz IG # 0.05 10e3/ul Critically high 0.00-0.03 [facility] Comment on above: Performed By: #### C BC #### [facility] [address] [place] [address] Dr. Janee Ordaz IG % 0.4 % Normal 0.0-0.5 [facility] Comment on above: Performed By: #### C BC #### [facility] [address] [place] [address] Dr. Janee Ordaz LYMPH # 2.7 103/ul Normal 1.2-3.8 [facility] Comment on above: Performed By: #### C BC #### [facility] [address] [place] [address] Dr. Janee Ordaz Lymphocytes/100 WBC (Bld) 19.3 % Critically low 20.5-60.0 [facility] Comment on above: Performed By: #### C BC #### [facility] [address] [place] [address] Dr. Janee Ordaz MANUAL DIFF REQ NO Normal [facility] Comment on above: Performed By: #### C BC #### [facility] [address] [place] [address] Dr. Janee Ordaz MCH (RBC) [Entitic mass] 28.4 pg Normal 25.9-34.0 [facility] Comment on above: Performed By: #### C BC #### [facility] [address] [place] [address] Dr. Janee Ordaz MCHC (RBC) [Mass/Vol] 33.3 g/dL Normal 29.9-35.2 [facility] Comment on above: Performed By: #### C BC #### [facility] [address] [place] [address] Dr. Janee Ordaz MCV (RBC) [Entitic vol] 85.5 fL Normal 80.0-94.0 [facility] Comment on above: Performed By: #### C BC #### [facility] [address] [place] [address] Dr. Janee Ordaz MONO # 1.2 103/ul Critically high 0.3-0.8 [facility] Comment on above: Performed By: #### C BC #### [facility] [address] [place] [address] Dr. Janee Ordaz Monocytes/100 WBC (Bld) 8.5 % Normal 1.7-12.0 [facility] Comment on above: Performed By: #### C BC #### [facility] [address] [place] [address] Dr. Janee Ordaz NEUT # 9.2 103/ul Critically high 1.4-6.5 [facility] Comment on above: Performed By: #### C BC #### [facility] [address] [place] [address] Dr. Janee Ordaz Neutrophils/100 WBC (Bld) 65.6 % Normal 43.0-75.0 [facility] Comment on above: Performed By: #### C BC #### [facility] [address] [place] [address] Dr. Janee Ordaz Platelet mean volume (Bld) [Entitic vol] 10.3 fL Normal 9.5-13.5 [facility] Comment on above: Performed By: #### C BC #### [facility] [address] [place] [address] Dr. Janee Ordaz PLT 226 103/ul Normal 150-450 [facility] Comment on above: Performed By: #### C BC #### [facility] [address] [place] [address] Dr. Janee Ordaz RBC 4.89 106/ul Normal 4.70-6.10 [facility] Comment on above: Performed By: #### C BC #### [facility] [address] [place] [address] Dr. Janee Ordaz WBC 14.0 103/ul Critically high 4.0-11.0 [facility] Comment on above: Performed By: #### C BC #### [facility] [address] [place] [address] Dr. Janee Ordaz LDHon 04-08-2022 LDH 136 U/L Normal 85-227 [facility] Comment on above: Performed By: #### L DH, CMP #### [facility] [address] [place] [address] Dr. Janee Ordaz PROF 14(COMP METB)on 12-19-2 022 Albumin [Mass/Vol] 4.5 g/dL Normal 3.4-5.0 [facility] Comment on above: Performed By: #### L , CMP #### [facility] [address] [place] [address] Dr. Janee Ordaz Albumin/Globulin [Mass ratio] 1.3 {ratio} Normal [facility] Comment on above: Performed By: #### L , CMP #### [facility] [address] [place] [address] Dr. Janee Ordaz ALP [Catalytic activity/Vol] 87 U/L Normal 46-116 [facility] Comment on above: Performed By: #### L RITA, CMP #### [facility] [address] [place] [address] Dr. Janee Ordaz ALT [Catalytic activity/Vol] 17 U/L Normal 16-63 [facility] Comment on above: Performed By: #### L , CMP #### [facility] [address] [place] [address] Dr. Janee Ordaz Anion gap [Moles/Vol] 14.2 mmol/L Normal [facility] Comment on above: Performed By: #### L , CMP #### [facility] [address] [place] [address] Dr. Janee Ordaz AST [Catalytic activity/Vol] 15 U/L Normal 15-37 [facility] Comment on above: Performed By: #### L RITA, CMP #### [facility] [address] [place] [address] Dr. Janee Ordaz Bilirubin [Mass/Vol] 0.4 mg/dL Normal 0.2-1.0 [facility] Comment on above: Performed By: #### L , CMP #### [facility] [address] [place] [address] Dr. Janee Ordaz Calcium [Mass/Vol] 9.3 mg/dL Normal 8.5-10.1 [facility] Comment on above: Performed By: #### L RITA, CMP #### [facility] [address] [place] [address] Dr. Janee Ordaz Chloride [Moles/Vol] 103 mmol/L Normal 98-107 [facility] Comment on above: Performed By: #### L DH, CMP #### [facility] [address] [place] [address] Dr. Janee Ordaz CO2 [Moles/Vol] 28.8 mmol/L Normal 21.0-32.0 [facility] Comment on above: Performed By: #### L DH, CMP #### [facility] [address] [place] [address] Dr. Janee Ordaz Creatinine [Mass/Vol] 0.91 mg/dL Normal 0.70-1.30 [facility] Comment on above: Performed By: #### L DH, CMP #### [facility] [address] [place] [address] Dr. Janee Ordaz EGFR-AF MONEGASQUE >60 Normal >=60 [facility] Comment on above: Performed By: #### L DH, CMP #### [facility] [address] [place] [address] Dr. Janee Ordaz EGFR-NON AF MONEGASQUE >60 Normal >=60 [facility] Comment on above: Performed By: #### L DH, CMP #### [facility] [address] [place] [address] Dr. Janee Ordaz Globulin (S) [Mass/Vol] 3.4 g/dL Normal [facility] Comment on above: Performed By: #### L DH, CMP #### [facility] [address] [place] [address] Dr. Janee Ordaz Glucose [Mass/Vol] 55 mg/dL Critically low 74-106 Th [facility] Comment on above: Performed By: #### L DH, CMP #### [facility] [address] [place] [address] Dr. Janee Ordaz Potassium [Moles/Vol] 4.0 mmol/L Normal 3.5-5.1 [facility] Comment on above: Performed By: #### L DH, CMP #### [facility] [address] [place] [address] Dr. Janee Ordaz Protein [Mass/Vol] 7.9 g/dL Normal 6.4-8.2 [facility] Comment on above: Performed By: #### L DH, CMP #### [facility] [address] [address] [address] Janee Ordaz Sodium [Moles/Vol] 142 mmol/L Normal 136-145 [facility] Comment on above: Performed By: #### L DH, CMP #### [facility] [address] [address] [address] Janee Ordaz Urea nitrogen [Mass/Vol] 16.0 mg/dL Normal 6.4-19.3 [facility] Comment on above: Performed By: #### L DH, CMP #### [facility] [address] [address] [address] Janee Ordaz Urea nitrogen/Creatinine [Mass ratio] 17.6 mg/mg Normal [facility] Comment on above: Performed By: #### L DH, CMP #### [facility] [address] [address] [address] Janee Ordaz Pathology Noteon 02-01-2022 Pathology Note [id number]:127 Normal [facility] Consultation Noteon 01-31-20 Consultation Note [id number]#[id number]:127 Normal [facility] CNOVSPon 01-29-2022 CNOVS Visit (SP) Office ([facility]) -- OMAIRA COHEN ([id number]) 1 M Date Time Provider Department 01/29/22 [...] visit here his pathology was reviewed at [facility], and the diagnosis of testicular scar consistent [...] swelling, and atrophy. 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 The scar area measures 1.3 cm in greatest dimension. It is limited to the testis. Germ cell neoplasia in situ. Epididymis and spermatic cord with no significant pathological findings. LABS: 12/11/2021: CMP and CBC within normal limits AFP hCG LDH 12/11/2021 2.4 <1 164 RADIOLOGY/OTHER STUDIES: (more content not included)... Normal [facility] Ambulatory Visit Summaryon 1 Ambulatory Visit Summary OMAIRA ZAVALA :2005 Visit Date:11/06/2021 Ambulatory Visit Instructions Your Care Team Primary Care Physician - BRITTANY JORDAN Performed Orchiectomy (12/20/2021). What to do next Scheduled Follow-Up Appointments Friday 8:30 AM EST With: Marcos DONATO MD Where: [facility] Patient Educationon 01-26-20 22 Patient Education Oncology [...] Follow these instructions at home: ? Take ptbw-ecd-xrnnmrh and prescription medicines only as told by [...] 02/28/2006 Document Revised: 07/29/2019 Document Reviewed: 07/04/2017 [employer] Patient Education ? 2019 [employer]. [facility] Provider Letteron 01-25-2022 Provider Letter (Inserted Image. Rosalva ble to display) January 25, 2022 OMAIRA ZAVALA [address] [address] OMAIRA ZAVALA 2005 To Whom It May Concern, Please excuse above patient from work. Date of illness: From: _ To: 02/01/22 May Return to Work On:02/04/2022 Restrictions: None Comments: Any questions, please call our office. Sincerely, [facility] [address] [facility], [place] [address] [facility] Urology Office/Clinic Noteon 01-25-2022 Urology Office/Clinic Note [...] disease, no suspicious findings. Consulted with Dr. Borwn on 01/01/22, consultation note reviewed. Surgical specimen was sent to [facility] pathology for second opinion. Assuming the diagnosis [...] Information MARIYA VICENTE, Marcos Ross, URL [address] [place] [address]- Additional Instructions: 5 months Patient Education Testicular [...] 2005 Recorded dip (more content not included)... [facility] Comment on above: Result Comment: Elec tronically Signed By: Marcos DONATO MD\.br\Date and Time Signed: 01/25/22 11:19 EDT\.br\Electronically Co-Signed By: Yusra Kahn\Date and Time Co-Signed: 01/25/22 11:17 EDT OUTSIDE SURG PATH SLIDE REVI Kristopher 01-09-2022 CASE REPORT Normal [facility] Comment on above: Order Comment: Speci men Type: SLIDE Ordering Facility: [facility] Address: ATTN: [place] [address] Result Comment: Surg ical Pathology Report Case: [id number] Authorizing Provider: Randy Brown MD Collected: 01/09/2022 11:02 AM Ordering Location: [facility] Received: 01/09/2022 11:00 AM Pathologist: Morteza Larios MD Specimen: SLIDE(S), 12 SLIDES; [id number] Performed By: #### L [id number] #### [facility] CLIA [id number] [address] [place] [address] DIAGNOSIS COMMENT 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 The slides are reviewed with Dr. Thorne who concurs. 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 - Epididymis with no significant pathologic findings. - Spermatic cord with no significant pathologic findings. LEXIS/vipin 01/10/2022 Performed By: #### L [id number] #### [facility] CLIA [id number] [address] [place] [address] [place] FIN[facility] PERFORMING LAB Normal [facility] Comment on above: Order Comment: Speci men Type: SLIDE Ordering Facility: [facility] Address: ATTN: [employer], [place] [address] Result Comment: Diag nostic interpretation performed at [facility], [address] [place] [address] CLIA# [id number] Boat Outfitter: Nilton Rubin M.D. Performed By: #### L [id number] #### [facility] CLIA [id number] [address] [place] [address] [place] Consultation Noteon 01-03-20 22 Consultation Note [id number]#[id number]:127 Normal [facility] RAD - CT Reporton 01-02-2022 RAD - CT Report [id number]#1.00CD:127 Normal [facility] RAD - CT Report [id number]:127 Normal [facility] RAD - CT Report [id number]#[id number]:127 Normal [facility] AFP SerPl-mCncon 01-01-2022 AFP [Mass/Vol] 3.2 ng/mL Normal <11.0 [facility] Comment on above: Order Comment: Speci men Type: BLOOD SPECIMEN Ordering Facility: [facility] Address: [address] [place], [place] [address] Result Comment: Resu lt rechecked. The test [...] interchangeably. Performed By: #### 1 834-1 #### [facility] CLIA [id number] [address] [place], [place] [address]K [address] BETA HCG QUANT TUMOR MARKERo n 01-01-2022 BETA HCG QUANT TUMOR MARKER <1 Normal 0-3 [facility] Comment on above: Order Comment: Speci men Type: BLOOD SPECIMEN Ordering Facility: [facility] Address: [address] [place] [address] Result Comment: INTE RPRETIVE INFORMATION: Beta hCG, [...] reference intervals for this test in the [facility] Test Directory ([employer]). This test was developed and its performance characteristics determined by [facility]. It has not been cleared or approved by the [place] Food and Drug Administration. This test was performed in a CLIA certified laboratory and is intended for clinical purposes. Performed By: [facility] [address] [place] [address] Boat Outfitter: Morteza Kay MD, PhD Performed By: #### B HCG #### [facility] CLIA [id number] [address] [place] [address] CBC W Auto Differential pane l (Bld)on 01-01-2022 Basophils (Bld) [#/Vol] 0.03 10*3/uL Normal <0.11 [facility] Comment on above: Order Comment: Speci men Type: BLOOD SPECIMEN Ordering Facility: [facility] Address: [address] [address] Performed By: #### 5 7021-8 #### [facility] CLIA [id number] [address] [place] [address] Basophils/100 WBC (Bld) 0.3 % Normal [facility] Comment on above: Order Comment: Speci men Type: BLOOD SPECIMEN Ordering Facility: [facility] Address: [address] [address] Performed By: #### 5 7021-8 #### [facility] CLIA [id number] [address] [place] [address] Differential cell count method Nom (Bld) Auto Normal [facility] Comment on above: Order Comment: Speci men Type: BLOOD SPECIMEN Ordering Facility: [facility] Address: [address] [address] Performed By: #### 5 7021-8 #### [facility] CLIA [id number] [address] [place] [address] Eosinophils (Bld) [#/Vol] 0.51 10*3/uL High <0.46 [facility] Comment on above: Order Comment: Speci men Type: BLOOD SPECIMEN Ordering Facility: [facility] Address: [address] [address] Performed By: #### 5 7021-8 #### [facility] CLIA [id number] [address] [place] [address] Eosinophils/100 WBC (Bld) 5.4 % Normal [facility] Comment on above: Order Comment: Speci men Type: BLOOD SPECIMEN Ordering Facility: [facility] Address: [address] [place] [address] Performed By: #### 5 7021-8 #### [facility] CLIA [id number] [address] [place] [address] Erythrocyte distribution width (RBC) [Ratio] 12.3 % Normal 11.5-15.0 [facility] Comment on above: Order Comment: Speci men Type: BLOOD SPECIMEN Ordering Facility: [facility] Address: [address] [address] Performed By: #### 5 7021-8 #### [facility] CLIA [id number] [address] [place] [address] Hematocrit (Bld) [Volume fraction] 42.8 % Normal 39.0-51.0 [facility] Comment on above: Order Comment: Speci men Type: BLOOD SPECIMEN Ordering Facility: [facility] Address: [address] [address] Performed By: #### 5 7021-8 #### [facility] CLIA [id number] [address] [place] [address] Hemoglobin (Bld) [Mass/Vol] 14.4 g/dL Normal 13.0-17.0 [facility] Comment on above: Order Comment: Speci men Type: BLOOD SPECIMEN Ordering Facility: [facility] Address: [address] [address] Performed By: #### 5 7021-8 #### [facility] CLIA [id number] [address] [place] [address] IMMATURE GRAN % 0.5 % Normal [facility] Comment on above: Order Comment: Speci men Type: BLOOD SPECIMEN Ordering Facility: [facility] Address: [address] [address] Performed By: #### 5 7021-8 #### [facility] CLIA [id number] [address] [place] [address] IMMATURE GRAN ABS 0.05 k/uL Normal <0.10 [facility] Comment on above: Order Comment: Speci men Type: BLOOD SPECIMEN Ordering Facility: [facility] Address: [address] [address] Performed By: #### 5 7021-8 #### [facility] CLIA [id number] [address] [place] [address]666 Lymphocytes (Bld) [#/Vol] 1.80 10*3/uL Normal 1.00-4.00 [facility] Comment on above: Order Comment: Speci men Type: BLOOD SPECIMEN Ordering Facility: [facility] Address: [address] [address] Performed By: #### 5 7021-8 #### [facility] CLIA [id number] [address] [place] [address]561 Lymphocytes/100 WBC (Bld) 18.9 % Normal [facility] Comment on above: Order Comment: Speci men Type: BLOOD SPECIMEN Ordering Facility: [facility] Address: [address] [address] Performed By: #### 5 7021-8 #### [facility] CLIA [id number] [address] [place] [address] 82142 MCH (RBC) [Entitic mass] 28.8 pg Normal 26.0-34.0 [facility] Comment on above: Order Comment: Speci men Type: BLOOD SPECIMEN Ordering Facility: [facility] Address: [address] [place], [place] [address] Performed By: #### 5 7021-8 #### [facility] CLIA [id number] [address] [place] [address]394 MCHC (RBC) [Mass/Vol] 33.6 g/dL Normal 30.5-36.0 [facility] Comment on above: Order Comment: Speci men Type: BLOOD SPECIMEN Ordering Facility: [facility] Address: [address] [place], [place] [address] Performed By: #### 5 7021-8 #### [facility] CLIA [id number] [address] [place] [address] 15280 MCV (RBC) [Entitic vol] 85.6 fL Normal 80.0-100.0 [facility] Comment on above: Order Comment: Speci men Type: BLOOD SPECIMEN Ordering Facility: [facility] Address: [address] [address] Performed By: #### 5 7021-8 #### [facility] CLIA [id number] [address] [place] [address] Monocytes (Bld) [#/Vol] 0.87 10*3/uL High <0.87 [facility] Comment on above: Order Comment: Speci men Type: BLOOD SPECIMEN Ordering Facility: [facility] Address: [address] [address] Performed By: #### 5 7021-8 #### [facility] CLIA [id number] [address] [place] [address]12 Monocytes/100 WBC (Bld) 9.2 % Normal [facility] Comment on above: Order Comment: Speci men Type: BLOOD SPECIMEN Ordering Facility: [facility] Address: [address] [address] Performed By: #### 5 7021-8 #### [facility] CLIA [id number] [address] [place] [address]38 Neutrophils (Bld) [#/Vol] 6.24 10*3/uL Normal 1.45-7.50 [facility] Comment on above: Order Comment: Speci men Type: BLOOD SPECIMEN Ordering Facility: [facility] Address: [address] [place], [place] [address] Performed By: #### 5 7021-8 #### [facility] CLIA [id number] [address] [place] [address]82 Neutrophils/100 WBC (Bld) 65.7 % Normal [facility] Comment on above: Order Comment: Speci men Type: BLOOD SPECIMEN Ordering Facility: [facility] Address: [address] Performed By: #### 5 7021-8 #### [facility] CLIA [id number] [address] [place] [address] Nucleated RBC (Bld) [#/Vol] 10*3/uL Normal <0.01 [facility] Comment on above: Order Comment: Speci men Type: BLOOD SPECIMEN Ordering Facility: [facility] Address: [address] [place], [place] [address] Performed By: #### 5 7021-8 #### [facility] CLIA [id number] [address] [place] [address]6583 Nucleated RBC/100 WBC (Bld) [Ratio] 0.0 /100 WBC Normal [facility] Comment on above: Order Comment: Speci men Type: BLOOD SPECIMEN Ordering Facility: [facility] Address: [address] [place], [place] [address] Performed By: #### 5 7021-8 #### [facility] CLIA [id number] [address] [place] [address] Platelet mean volume (Bld) [Entitic vol] 9.8 fL Normal 9.0-12.7 [facility] Comment on above: Order Comment: Speci men Type: BLOOD SPECIMEN Ordering Facility: [facility] Address: [address] [place], [place] [address] Performed By: #### 5 7021-8 #### [facility] CLIA [id number] [address] [place] [address]329 Platelets (Bld) [#/Vol] 202 10*3/uL Normal 150-400 [facility] Comment on above: Order Comment: Speci men Type: BLOOD SPECIMEN Ordering Facility: [facility] Address: [address] [place], [place] [address] Performed By: #### 5 7021-8 #### [facility] CLIA [id number] [address] [place] [address]2010 RBC (Bld) [#/Vol] 5.00 10*6/uL Normal 4.20-6.00 [facility] Comment on above: Order Comment: Speci men Type: BLOOD SPECIMEN Ordering Facility: [facility] Address: [address] [address] Performed By: #### 5 7021-8 #### [facility] CLIA [id number] [address] [place] [address]605 WBC (Bld) [#/Vol] 9.50 10*3/uL Normal 3.70-11.00 [facility] Comment on above: Order Comment: Speci men Type: BLOOD SPECIMEN Ordering Facility: [facility] Address: [address] [address] Performed By: #### 5 7021-8 #### [facility] CLIA [id number] [address] [place], [place] [address] Abs Immature Gran 0.05 k/uL <0.10 k/uL [facility] Basophils (Bld) [#/Vol] 0.03 10*3/uL <0.11 k/uL [facility] Basophils/100 WBC (Bld) 0.3 % [facility] Differential cell count method Nom (Bld) Auto [facility] Eosinophils (Bld) [#/Vol] 0.51 10*3/uL High <0.46 k/uL [facility] Eosinophils/100 WBC (Bld) 5.4 % [facility] Erythrocyte distribution width (RBC) [Ratio] 12.3 % 11.5 - 15.0 % [facility] Hematocrit (Bld) [Volume fraction] 42.8 % 39.0 - 51.0 % [facility] Hemoglobin (Bld) [Mass/Vol] 14.4 g/dL 13.0 - 17.0 g/dL [facility] Immature Gran % 0.5 % [facility] Lymphocytes (Bld) [#/Vol] 1.80 10*3/uL 1.00 - 4.00 k/uL [facility] Lymphocytes/100 WBC (Bld) 18.9 % [facility] MCH (RBC) [Entitic mass] 28.8 pg 26.0 - 34.0 pg [facility] MCHC (RBC) [Mass/Vol] 33.6 g/dL 30.5 - 36.0 g/dL [facility] MCV (RBC) [Entitic vol] 85.6 fL 80.0 - 100.0 fL [facility] Monocytes (Bld) [#/Vol] 0.87 10*3/uL High <0.87 k/uL [facility] Monocytes/100 WBC (Bld) 9.2 % [facility] Neutrophils (Bld) [#/Vol] 6.24 10*3/uL 1.45 - 7.50 k/uL [facility] Neutrophils/100 WBC (Bld) 65.7 % [facility] Nucleated RBC (Bld) [#/Vol] <0.01 k/uL [facility] Nucleated RBC/100 WBC (Bld) [Ratio] 0.0 /100 WBC [facility] Platelet mean volume (Bld) [Entitic vol] 9.8 fL 9.0 - 12.7 fL [facility] Platelets (Bld) [#/Vol] 202 10*3/uL 150 - 400 k/uL [facility] RBC (Bld) [#/Vol] 5.00 10*6/uL 4.20 - 6.0 0 m/uL [facility] WBC (Bld) [#/Vol] 9.50 10*3/uL 3.70 - 11.00 k/uL [facility] CNOVSPon 01-01-2022 CNOVSP Visit (SP) Office ([facility]) -- OMAIRA COHEN ([id number]) 1 M Date Time Provider Department 01/01/22 [...] 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 MEDICATIONS: No current outpatient medications on file. [...] swelling, and atrophy. 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 The scar area measures 1.3 cm in greatest dimension. It is limited to the testis. Germ cell neoplasia in situ. Epididymis and spermatic cord with no significant (more content not included)... Normal [facility] CNPNon 01-01-2022 CNPN Telephone ([facility]) -- OMAIRA COHEN ([id number]) 1 M Date Time Provider Department 01/01/22 RANDY BROWN During your visit today, we recorded the following information about you: Sherry Haile 01/01/2022 12:49 PM Signed 2nd opinion pathology requested to be sent from [facility] to [facility] for review. Allergies As of Date: 01/01/2022 Noted Allergy Reaction AMOXICILLIN 12/31/2021 4 - Hives Date Reviewed: 12/31/2021 Reviewed by: Montse Pederson - Fully Assessed Reason for Visit: 2nd opinion pathology [Other] Problem List As Of Date: 01/01/2022 (None) Encounter Status:Closed by SHERRY ARAYA on 01/01/22 Normal [facility] Comprehensive metabolic 2000 panelon 01-01-2022 Albumin [Mass/Vol] 5.1 g/dL High 3.9-4.9 [facility] Comment on above: Order Comment: Speci men Type: BLOOD SPECIMEN Ordering Facility: [facility] Address: [address] [place] [address] Performed By: #### 2 4323-8, 2531-0 #### [facility] CLIA [id number] [address] [place] [address]663 ALP [Catalytic activity/Vol] 90 U/L Normal 55-149 [facility] Comment on above: Order Comment: Speci men Type: BLOOD SPECIMEN Ordering Facility: [facility] Address: [address] [place] [address] Performed By: #### 2 4323-, 2532-0 #### [facility] CLIA [id number] [address] [place] [address] ALT [Catalytic activity/Vol] 15 U/L Normal 10-54 [facility] Comment on above: Order Comment: Speci men Type: BLOOD SPECIMEN Ordering Facility: [facility] Address: [address] [address] Performed By: #### 2 4323-8, 2-0 #### [facility] CLIA [id number] [address] [place] [address] Anion gap [Moles/Vol] 10 mmol/L Normal 9-18 [facility] Comment on above: Order Comment: Speci men Type: BLOOD SPECIMEN Ordering Facility: [facility] Address: [address] [address] Performed By: #### 2 4328, 2531-0 #### [facility] CLIA [id number] [address] [place] [address]372 AST [Catalytic activity/Vol] 18 U/L Normal 14-40 [facility] Comment on above: Order Comment: Speci men Type: BLOOD SPECIMEN Ordering Facility: [facility] Address: [address] [address] Performed By: #### 2 4328, 2531-0 #### [facility] CLIA [id number] [address] [place] [address]1877 Bilirubin [Mass/Vol] 0.4 mg/dL Normal 0.2-1.3 [facility] Comment on above: Order Comment: Speci men Type: BLOOD SPECIMEN Ordering Facility: [facility] Address: [address] [address] Performed By: #### 2 4323-8, 2532-0 #### [facility] CLIA [id number] [address] [place] [address] 11342 Calcium [Mass/Vol] 10.4 mg/dL High 8.5-10.2 [facility] Comment on above: Order Comment: Speci men Type: BLOOD SPECIMEN Ordering Facility: [facility] Address: [address] Performed By: #### 2 4323-8, 2532-0 #### [facility] CLIA [id number] [address] [place] [address] 61777 Chloride [Moles/Vol] 100 mmol/L Normal 97-105 [facility] Comment on above: Order Comment: Speci men Type: BLOOD SPECIMEN Ordering Facility: [facility] Address: [address] Performed By: #### 2 4323-8, 2532-0 #### [facility] CLIA [id number] [address] [place] [address] 70810 CO2 [Moles/Vol] 28 mmol/L Normal 22-30 [facility] Comment on above: Order Comment: Speci men Type: BLOOD SPECIMEN Ordering Facility: [facility] Address: [address] [place] [address] Performed By: #### 2 4323-8, 2532-0 #### [facility] CLIA [id number] [address] [place] [address]00 Creatinine [Mass/Vol] 0.87 mg/dL Normal 0.73-1.22 [facility] Comment on above: Order Comment: Speci men Type: BLOOD SPECIMEN Ordering Facility: [facility] Address: [address] Performed By: #### 2 4323-8, 2532-0 #### [facility] CLIA [id number] [address] [place] [address]10 ESTIMATED GLOMERULAR FILTRATION RATE 128 mL/min/1.73m??? Normal >=60 [facility] Comment on above: Order Comment: Speci men Type: BLOOD SPECIMEN Ordering Facility: [facility] Address: [address] [place] [address] Result Comment: Nannette mated Glomerular Filtration Rate [...] Performed By: #### 2 4323-8, 2531-0 #### [facility] CLIA [id number] [address] [place] [address] 15204 Glucose [Mass/Vol] 102 mg/dL High 74-99 [facility] Comment on above: Order Comment: Edwin mcmillan Type: BLOOD SPECIMEN Ordering Facility: [facility] Address: [address] [id number] Result Comment: The [place] Diabetes Association (ADA) provides guidance for cutoff [...] Standards of Medical Care in Diabetes 2016, [place] Diabetes Association. Diabetes Care. 2016.39(Suppl 1). Performed By: #### 2 4323-8, 2531-0 #### [facility] CLIA [id number] [address] [place] [address]31 Potassium [Moles/Vol] 4.4 mmol/L Normal 3.7-5.1 [facility] Comment on above: Order Comment: Edwin mcmillan Type: BLOOD SPECIMEN Ordering Facility: [facility] Address: [address] [place] [address] Performed By: #### 2 4323-8, 2531-0 #### [facility] CLIA [id number] [address] [place] [address]23 Protein [Mass/Vol] 7.5 g/dL Normal 6.3-8.0 [facility] Comment on above: Order Comment: Speci men Type: BLOOD SPECIMEN Ordering Facility: [facility] Address: [address] Performed By: #### 2 4323-8, 2531-0 #### [facility] CLIA [id number] [address] [place] [address] Sodium [Moles/Vol] 138 mmol/L Normal 136-144 [facility] Comment on above: Order Comment: Speci men Type: BLOOD SPECIMEN Ordering Facility: [facility] Address: [facility] [address] [place] [place] [address] Performed By: #### 2 4323-8, 2531-0 #### [facility] CLIA [id number] [address] [place] [address] Urea nitrogen [Mass/Vol] 17 mg/dL Normal 9-24 [facility] Comment on above: Order Comment: Speci men Type: BLOOD SPECIMEN Ordering Facility: [facility] Address: [facility] [address] [place] [place] [address] Performed By: #### 2 4323-8, 0 #### [facility] CLIA [id number] [address] [place] [address] 56615 Albumin [Mass/Vol] 5.1 g/dL High 3.9 - 4.9 g/dL [facility] ALP [Catalytic activity/Vol] 90 U/L 55 - 149 U/L [facility] ALT [Catalytic activity/Vol] 15 U/L 10 - 54 U/L [facility] Anion gap [Moles/Vol] 10 mmol/L 9 - 18 mmol/L [facility] AST [Catalytic activity/Vol] 18 U/L 14 - 40 U/L [facility] Bilirubin [Mass/Vol] 0.4 mg/dL 0.2 - 1 .3 mg/dL [facility] Calcium [Mass/Vol] 10.4 mg/dL High 8.5 - 10. 2 mg/dL [facility] Chloride [Moles/Vol] 100 mmol/L 97 - 10 5 mmol/L [facility] CO2 [Moles/Vol] 28 mmol/L 22 - 30 mmol/L [facility] Creatinine [Mass/Vol] 0.87 mg/dL 0.73 - 1.22 mg/dL [facility] Estimated Glomerular Filtration Rate 128 mL/min/1.73m >=60 mL/min/1.73 m [facility] Glucose [Mass/Vol] 102 mg/dL High 74 - 99 mg/dL [facility] Potassium [Moles/Vol] 4.4 mmol/L 3.7 - 5.1 mmol/L [facility] Protein [Mass/Vol] 7.5 g/dL 6.3 - 8.0 g/dL [facility] Sodium [Moles/Vol] 138 mmol/L 136 - 144 mmol/L [facility] Urea nitrogen [Mass/Vol] 17 mg/dL 9 - 24 mg/dL [facility] LD LACTATE DEHYDROon 022 LDH [Catalytic activity/Vol] 164 U/L 135 - 225 U/L [facility] LDH SerPl-cCncon 01-01-2022 LDH [Catalytic activity/Vol] 164 U/L Normal 135-225 [facility] Comment on above: Order Comment: Speci men Type: BLOOD SPECIMEN Ordering Facility: [facility] Address: [address] [place], [place] [id number] Result Comment: Hemo lysis present. The origin [...] Performed By: #### 2 4323-8, 2532-0 #### [facility] CLIA [id number] [address] [place], [place] [address] CT CHEST W CONon 12-31-2021 CT CHEST [...] by: GERRY ALDANA Date: 2021-12-31 13:31 Normal [facility] Pathology Noteon 12-31-2021 Pathology Note [id number]:127 Normal [facility] Ambulatory Visit Summaryon 0 12-28-2021 Ambulatory [...] with MARIYA VICENTE, BERNARDO Hines When: Where: [facility] [address]- Someone Will Contact You Regarding These Appointments [facility] Ambulatory Referral, Oncology, [facility] oncology for [...] including vitamins, herbs, eye drops, creams, and ntsw-nga-gzoykfy medicines. ? Any problems you or family [...] will b (more content not included)... Normal [facility] Patient Educationon 12-29-19 Patient Education Oncology [...] including vitamins, herbs, eye drops, creams, and wies-fgq-qvxwzmy medicines. ? Any problems you or family [...] care provider (more content not included)... Normal [facility] Urology Office/Clinic Noteon 12-28-2021 Urology Office/Clinic [...] CT chest & AP. Referral placed to [facility] oncology for a second opinion. Follow up in 1 month. Follow-up With When Contact Information MARIYA VICENTE, Marcos Ross, L [facility] [place] [id number]- Additional Instructions: 1 month Patient Education Orchiectomy [...] Recorded hepa (more content not included)... Normal [facility] Comment on above: Result Comment: Elec tronically Signed By: Marcos DONATO MD\.br\Date and Time Signed: 12/28/21 09:46 EDT\.br\Electronically Co-Signed By: Yusra Kahn.br\Date and Time Co-Signed: 12/28/21 09:44 EDT Operative Reporton Operative Report [id number]:127 Normal [facility] Lab Reportson 12-19-2021 Lab Reports [id number]#[id number]:127 [facility] Covid-19 PCR (CVDTB)on 11-20 SARS-CoV-2 (COVID-19) RNA CHRISTIANO+probe Ql (Unsp spec) Not detected Normal NOT DETECTED [facility] Comment on above: Result Comment: This test is not yet approved or cleared by the [place] FDA. When there are no FDA-approved or cleared tests available, and other criteria are met, FDA can make tests available under an emergency access mechanism called an Emergency Use Authorization (EUA). The EUA for this test is supported by the Flotation Tank Operator of Health and Human Service's (HHS's) [...] consistent with SARS-CoV-2. Performed By: #### [facility] #### [facility] [address] [place] [address] Dr. Janee Ordaz Insurance Correspondenceon 0 12-14-2021 Insurance Correspondence [id number]:127 Normal [facility] Lab Reportson 12-14-2021 Lab Reports [id number]#1.00CD:127 Normal [facility] AFP (TUMOR MARKER)on 022 AFP, Serum, Tumor Marker 2.4 ng/mL Normal 0.0-5.7 [facility] Comment on above: Result Comment: [employer] Electrochemiluminescence Immunoassay (ECLIA) . Values obtained with different assay methods or kits cannot be used interchangeably. Results cannot be interpreted as absolute evidence of the presence or absence of malignant disease. . This test is not interpretable in females. Performed By: #### A . #### [facility] [address] [place] [address] Dr. Janee Ordaz HCG QUANT TUMOR MARKERon HCG QNT TUMOR MARKER <1 Normal 0-3 [facility] Comment on above: Result Comment: [employer] Electrochemiluminescence Immunoassay (ECLIA) . The Jody [...] developed and its performance characteristics determined by [employer]. It has not been cleared or approved by the Food and Drug Administration for use as a tumor marker. . This test is not interpretable as a tumor marker in females. Performed By: #### H CGTMOR ####[facility] [address] [address]DrFrank Janee Orlin RAD - Ultrasound Reporton RAD - Ultrasound Report [id number]#[id number]:127 Normal [facility] CBC AUTO DIFFon 12-11-2021 BASO # 0.0 103/ul Normal 0.0-0.1 [facility] Comment on above: Performed By: #### C BC ####[facility] [address] [address]DrFrank Ordaz Basophils/100 WBC (Bld) 0.4 % Normal 0.2-2.0 [facility] Comment on above: Performed By: #### C BC ####[facility] [address] [place], [place] [address]DrFrank Ordaz EO # 0.6 103/ul Normal 0.0-0.7 [facility] Comment on above: Performed By: #### C BC ####[facility] [address] [place] [address]DrFrank Ordaz Eosinophils/100 WBC (Bld) 7.7 % Critically high 0.9-7.0 [facility] Comment on above: Performed By: #### C BC ####[facility] [address] [address]Dr. Janee Oradz Erythrocyte distribution width (RBC) [Ratio] 12.6 % Normal 11.0-15.0 [facility] Comment on above: Performed By: #### C BC ####[facility] [address] [place], [place] [address]DrFrank Ordaz Hematocrit (Bld) [Volume fraction] 45.1 % Normal 42.0-54.0 [facility] Comment on above: Performed By: #### C BC ####[facility] [address] [place], [place] [address]DrFrank Ordaz Hemoglobin (Bld) [Mass/Vol] 14.8 g/dL Normal 14.0-18.0 [facility] Comment on above: Performed By: #### C BC ####[facility] [address] [place] [address] [address]Dr. Janee Ordaz IG # 0.02 10e3/ul Normal 0.00-0.03 [facility] Comment on above: Performed By: #### C BC ####[facility] [address] [place] [address]Dr. Janee Ordaz IG % 0.2 % Normal 0.0-0.5 [facility] Comment on above: Performed By: #### C BC ####[facility] [address] [place], [place] [address]DrFrank Ordaz LYMPH # 2.2 103/ul Normal 1.2-3.8 [facility] Comment on above: Performed By: #### C BC ####[facility] [address] [place], [place] [address]Dr. Janee Ordaz Lymphocytes/100 WBC (Bld) 27.2 % Normal 20.5-60.0 [facility] Comment on above: Performed By: #### C BC ####[facility] [address] [place], [place] [address]DrFrank Ordaz MANUAL DIFF REQ NO Normal [facility] Comment on above: Performed By: #### C BC ####[facility] [address] [address]Dr. Janee Ordaz MCH (RBC) [Entitic mass] 28.7 pg Normal 25.9-34.0 [facility] Comment on above: Performed By: #### C BC ####[facility] [address] [place], [place] [address]Dr. Janee Ordaz MCHC (RBC) [Mass/Vol] 32.8 g/dL Normal 29.9-35.2 [facility] Comment on above: Performed By: #### C BC ####[facility] [address] [place] [address]Dr. Janee Ordaz MCV (RBC) [Entitic vol] 87.4 fL Normal 80.0-94.0 [facility] Comment on above: Performed By: #### C BC ####[facility] [address] [place] [id number]. Janee Ordaz MONO # 0.8 103/ul Normal 0.3-0.8 [facility] Comment on above: Performed By: #### C BC ####[facility] [address] [place] [address]Dr. Janee Ordaz Monocytes/100 WBC (Bld) 9.5 % Normal 1.7-12.0 [facility] Comment on above: Performed By: #### C BC ####[facility] [address] [place], [place] [address]Dr. Janee Ordaz NEUT # 4.5 103/ul Normal 1.4-6.5 [facility] Comment on above: Performed By: #### C BC ####[facility] T[address] [place], [place] [address]Dr. Janee Ordaz Neutrophils/100 WBC (Bld) 55.0 % Normal 43.0-75.0 [facility] Comment on above: Performed By: #### C BC ####[facility] [address] [place], [place] [address]Dr. Janee Ordaz Platelet mean volume (Bld) [Entitic vol] 9.9 fL Normal 9.5-13.5 [facility] Comment on above: Performed By: #### C BC ####[facility] [address] [place] [address]Dr. Janee Ordaz PLT 211 103/ul Normal 150-450 [facility] Comment on above: Performed By: #### C BC ####[facility] [address] [place], [place] [address]Dr. Janee Ordaz RBC 5.16 106/ul Normal 4.70-6.10 [facility] Comment on above: Performed By: #### C BC ####[facility] [address] [place] [address]Dr. Janee Ordaz WBC 8.2 103/ul Normal 4.0-11.0 [facility] Comment on above: Performed By: #### C BC ####[facility] [address] [place] [address]Dr. Maddisonmaico Orlin LDHon 12-11-2021 LDH 135 U/L Normal 85-227 [facility] Comment on above: Performed By: #### B MP, LDH ####[facility] [address] [place] [address]Dr. Janee Ordaz PROF CHEM 8 (BAS METB)on Anion gap [Moles/Vol] 11.3 mmol/L Normal [facility] Comment on above: Performed By: #### B MP, LDH ####[facility] [address] [place] [address]Dr. Janee Ordaz Calcium [Mass/Vol] 9.8 mg/dL Normal 8.5-10.1 [facility] Comment on above: Performed By: #### B MP, LDH ####[facility] [address] [place], [place] [address]Dr. Janee Ordaz Chloride [Moles/Vol] 103 mmol/L Normal 98-107 [facility] Comment on above: Performed By: #### B MP, LDH ####[facility] [address] [place], [place] [address]Dr. Janee Ordaz CO2 [Moles/Vol] 30.7 mmol/L Normal 21.0-32.0 [facility] Comment on above: Performed By: #### B MP, LDH ####[facility] [address] [place], [place] [address]Dr. Janee Ordaz Creatinine [Mass/Vol] 0.96 mg/dL Normal 0.70-1.30 [facility] Comment on above: Performed By: #### B MP, LDH ####[facility] [address] [place] [address]Dr. Janee Ordaz EGFR-AF MONEGASQUE >60 Normal >=60 [facility] Comment on above: Performed By: #### B MP, LDH ####[facility] [address] [place] [address]Dr. Janee Ordaz EGFR-NON AF MONEGASQUE >60 Normal >=60 [facility] Comment on above: Performed By: #### B MP, LDH ####[facility] [address] [place] [address]Dr. Janee Ordaz Glucose [Mass/Vol] 90 mg/dL Normal 74-106 [facility] Comment on above: Performed By: #### B MP, LDH ####[facility] [address] [place] [address]Dr. Janee Ordaz Potassium [Moles/Vol] 4.0 mmol/L Normal 3.5-5.1 [facility] Comment on above: Performed By: #### B MP, LDH ####[facility] [address] [place] [address]Dr. Janee Ordaz Sodium [Moles/Vol] 141 mmol/L Normal 136-145 [facility] Comment on above: Performed By: #### B MP, LDH ####[facility] [address] [place] [address]Dr. Janee Ordaz Urea nitrogen [Mass/Vol] 18.0 mg/dL Normal 6.4-19.3 [facility] Comment on above: Performed By: #### B MP, LDH ####[facility] [address] [place] [address]Dr. Janee Ordaz Urea nitrogen/Creatinine [Mass ratio] 18.8 mg/mg Normal [facility] Comment on above: Performed By: #### B MP, LDH ####[facility] [address] [place] [address]Dr. Janee Ordaz PROTIMEon 12-11-2021 INR Coag (PPP) [Relative time] 1.00 {INR} Normal [facility] Comment on above: Performed By: #### P T, PTT #### [facility] [address] [address] [address] Janee Ordaz INR GUIDELINES SEE BELOW Normal [facility] Comment on above: Result Comment: ADITYA RED INR: 2.0 - 3.0 CONDITIONS NOT LISTED BELOW 2.5 - 3.5 FOR PROSTHETIC HEART VALVE REPLACEMENT 2.5 - 3.5 RECURRENT THROMBOSIS Performed By: #### P T, PTT #### [facility] [address] [place], [place] [address] Dr. Janee Ordaz PT Coag (PPP) [Time] 10.8 s Normal 9.0-11.6 [facility] Comment on above: Performed By: #### P T, PTT #### [facility] [address] [place], [place] [address] Dr. Janee Ordaz PTTon 12-11-2021 aPTT Coag (Bld) [Time] 28.8 s Normal 22.3-36.2 [facility] Comment on above: Performed By: #### P T, PTT #### [facility] [address] [address] [address] Janee Ordaz Ambulatory Visit Summaryon 0 12-07-2021 Ambulatory Visit Summary OMAIRA ZAVALA Juhi :2005 Visit Date:12/07/2021 Ambulatory Visit Instructions Your Diagnosis Testicular mass Tests Performed Urnls Dip Stick Auto w/o Microscopy POC 60738 Your Care Team Attending Physician - Marcos [...] Where: [facility] [address] [place] [address]- Test Results Urnls Dip Stick Auto w/o Microscopy POC 50736 (12/07/2021) Bilirubin Urine Dipstick - Negative Blood Urine Dipstick - Trace-intact Glucose Urine Dipstick - Negative Ketones Urine Dipstick - Negative Leukocytes Urine Dipstick - Negative Nitrite Urine Dipstick - Negative Protein Urine Dipstick - Negative Specific [place] Urine Dipstick - 1.025 Urine Appearance Urine [...] 07/14/2001 Document Revised: 07/29/2019 Document Reviewed: 03/03/2017 [employer] Patient Education ? 2019 [employer]. Normal [facility] Patient Educationon 12-08-19 Patient Education Urology [...] 07/14/2001 Document Revised: 07/29/2019 Document Reviewed: 03/03/2017 [employer] Patient Education ? 2019 [employer] [facility] Physician Orderon 12-07-2021 Physician Order [id number]#[id number]:127 [facility] Provider Letter FTMCon 12-07 Provider Letter [facility] (Inserted Image. Un able to display) December 07, 2021 OMAIRA ZAVALA [address] [address] OMAIRA ZAVALA 2005 To Whom It May Concern, Please excuse above patient from work. Date of Illness: From: 12/20/2021 To: 01/31/2022 May Return to Work On:02/01/2022 Restrictions: No work 12/20/21 to 01/31/2022, return to work 02/01/2022. Comments: Patient has appt 12/11/21 @ 8am, [facility], and surgery scheduled 12/20/2021. Sincerely, Marcos Donato M.D., F.A.C.S. [facility] [address] [place], [place] [address]dg [place], [place] [address] Wally Issa [facility] Urology Office/Clinic Noteon 12-07-2021 Urology Office/Clinic [...] genital organs) Scrotal US done 12/06/21 at [facility] shows left 1.4cm hypoechoic vascular mass within [...] [facility] [address], [place] [address]- Additional Instructions: Patient Education Testicular Self-Exam Maida, [...] Protein Urine Dipstick: Negative (12/07/21 09:30:00) Specific [place] Urine Dipstick: 1.025 (12/07/21 09:30:00 (more content not included)... Normal [facility] Comment on above: Result Comment: Elec [...] GERRY ALDANA Date: 2021-12-06 09:30 Normal [facility] Ambulatory Visit Summaryon 0 11-12-2021 Ambulatory Visit Summary OMAIRA ZAVALA :2005 Visit Date:11/12/2021 Ambulatory Visit Instructions Your Diagnosis Testicular mass Tests Performed Urnls Dip Stick Auto w/o Microscopy POC 08657 US Scrotum (Contents) -- Results Pending -- [...] Scrotal US Where: [facility] [address] [place] [id number] Medications What How Much When Instructions New doxycycline (doxycycline hyclate 100 mg Cap) 1 Capsules By Mouth 2 times a day Duration: 3 Weeks Pickup at [id number] Unchanged fluconazole (fluconazole 50 mg oral tablet) By Mouth Every day Contact prescribing physician if questions or concerns Pharmacy Information [id number]: [address] [place], [place] [phone] Test Results Urnls Dip Stick Auto w/o Microscopy POC 12304 (11/12/2021) Bilirubin Urine Dipstick - Negative Blood Urine Dipstick - Negative Glucose Urine Dipstick - Negative Ketones Urine Dipstick - Negative Leukocytes Urine Dipstick - Negative Nitrite Urine Dipstick - Negative Protein Urine Dipstick - Negative Specific [place] Urine Dipstick - 1.020 Urine Appearance Urine [...] 07/04/2009 Document Revised: 07/29/2019 Document Reviewed: 03/03/2017 [employer] Patient Education ? 2019 [employer]. Normal [facility] Formson 11-12-2021 Forms [id number]:127 Normal [facility] Patient Educationon 11-13-19 Patient Education Urology [...] 07/04/2009 Document Revised: 07/29/2019 Document Reviewed: 03/03/2017 [employer] Patient Education ? 2019 [employer] Normal [facility] Physician Referralon 022 Physician Referral [id number]#1.00CD:127 Normal [facility] Physician Referral [id number]#[id number]:127 Normal [facility] US Testicular/Scrotumon 10-19 US Testicular/Scrotum HISTORY: [...] by Rich Banda on 11/05/2021 1102 Normal [facility] Specialist Vital Signs Date Time Vital Sign Value Performing Clinician Facility 04-29-2022 15:48-0500 Body height 190.5 cm Randy Brown MD Work Phone: [facility] 04-29-2022 15:48-0500 Body temperature 98.49 [degF] Randy Brown MD Work Phone: [facility] 04-29-2022 15:48-0500 Body weight 83.64 kg Randy Brown MD Work Phone: [facility] 04-29-2022 15:48-0500 Diastolic blood pressure 64 mm[Hg] Randy Brown MD Work Phone: [facility] 04-29-2022 15:48-0500 Heart rate 62 /min Randy Brown MD Work Phone: [facility] 04-29-2022 15:48-0500 Respiratory rate 16 /min Randy Brown MD Work Phone: [facility] 04-29-2022 15:48-0500 SaO2% (BldA) [Mass fraction] 99 % Randy Brown MD Work Phone: [facility] 04-29-2022 15:48-0500 Systolic blood pressure 138 mm[Hg] Randy Brown MD Work Phone: [facility] 01-29-2022 13:06-0400 Body height 190.5 cm Randy Brown MD Work Phone: [facility] 01-29-2022 13:06-0400 Body mass index (BMI) [Percentile] Per age and sex 62.51 % Randy Brown MD Work Phone: [facility] 01-29-2022 13:06-0400 Body temperature 97.11 [degF] Randy Brown MD Work Phone: [facility] 01-29-2022 13:06-0400 Body weight 84.82 kg Randy Brown MD Work Phone: [facility] 01-29-2022 13:06-0400 Diastolic blood pressure 62 mm[Hg] Randy Brown MD Work Phone: [facility] 01-29-2022 13:06-0400 Heart rate 64 /min Randy Brown MD Work Phone: [facility] 01-29-2022 13:06-0400 Respiratory rate 16 /min Randy Brown MD Work Phone: [facility] 01-29-2022 13:06-0400 SaO2% (BldA) [Mass fraction] 100 % Randy Brown MD Work Phone: [facility] 01-29-2022 13:06-0400 Systolic blood pressure 133 mm[Hg] Randy Brown MD Work Phone: [facility] 01-25-2022 10:56-0400 Blood Pressure Location Marcos DONATO [facility] 01-25-2022 10:56-0400 Diastolic blood pressure 67 mm[Hg] Marcos DONATO [facility] 01-25-2022 10:56-0400 Heart rate 61 /min Marcos DONATO [facility] 01-25-2022 10:56-0400 Systolic blood pressure 123 mm[Hg] Marcos DONATO [facility] 01-01-2022 10:34-0400 Body height 190.5 cm Randy Brown MD Work Phone: [facility] 01-01-2022 10:34-0400 Body mass index (BMI) [Percentile] Per age and sex 51.74 % Randy Brown MD Work Phone: [facility] 01-01-2022 10:34-0400 Body temperature 98.1 [degF] Randy Brown MD Work Phone: [facility] 01-01-2022 10:34-0400 Body weight 81.47 kg Randy Brown MD Work Phone: [facility] 01-01-2022 10:34-0400 Diastolic blood pressure 62 mm[Hg] Randy Brown MD Work Phone: [facility] 01-01-2022 10:34-0400 Heart rate 56 /min Randy Brown MD Work Phone: [facility] 01-01-2022 10:34-0400 Respiratory rate 16 /min Randy Brown MD Work Phone: [facility] 01-01-2022 10:34-0400 SaO2% (BldA) [Mass fraction] 98 % Randy Brown MD Work Phone: [facility] 01-01-2022 10:34-0400 Systolic blood pressure 128 mm[Hg] Randy Brown MD Work Phone: [facility] 12-28-2021 09:04-0400 Blood Pressure Location Marcos DONATO [facility] 12-28-2021 09:04-0400 Diastolic blood pressure 68 mm[Hg] Marcos DONATO [facility] 12-28-2021 09:04-0400 Heart rate 69 /min Marcos DONATO [facility] 12-28-2021 09:04-0400 Respiratory rate 16 /min Marcos DONATO [facility] 12-28-2021 09:04-0400 Systolic blood pressure 125 mm[Hg] Marcos DONATO [facility] 12-07-2021 09:28-0400 Blood Pressure Location Marcos DONATO [facility] 12-07-2021 09:28-0400 Diastolic blood pressure 74 mm[Hg] Marcos DONATO [facility] 12-07-2021 09:28-0400 Heart rate 61 /min Marcos DONATO [facility] 12-07-2021 09:28-0400 Respiratory rate 16 /min Marcos DONATO [facility] 12-07-2021 09:28-0400 Systolic blood pressure 120 mm[Hg] Marcos DONATO [facility] 11-12-2021 10:30-0400 Blood Pressure Location Marcos DONATO [facility] 11-12-2021 10:30-0400 Diastolic blood pressure 80 mm[Hg] Marcos DONATO [facility] 11-12-2021 10:30-0400 Heart rate 80 /min Marcos DONATO [facility] 11-12-2021 10:30-0400 Respiratory rate 16 /min Marcos DONATO [facility] 11-12-2021 10:30-0400 Systolic blood pressure 103 mm[Hg] Marcos DONATO [facility] Encounters Encounter Date Encounter Type Care Provider Facility Start: 10-25-2023 End: 10-25-2023 Patient encounter procedure [facility] [place] Work Phone: Start: 10-25-2023 End: 10-25-2023 ambulatory Marcos Donato Facility:[facility] Start: 07-19-2022 End: 07-20-2022 ambulatory Marcos DONATO Facility:[facility] Start: 07-19-2022 End: 07-19-2022 Patient encounter procedure Marcos DONATO [facility] Start: 06-28-2022 End: 06-29-2022 ambulatory Mracos DONATO Facility:[facility] Start: 05-18-2022 End: 05-19-2022 ambulatory BRITTANY RAMIREZ Facility: Start: 04-29-2022 End: 04-29-2022 ambulatory RANDY BROWN Facility:[facility] Start: 04-29-2022 End: 04-29-2022 ambulatory Randy Brown MD Work Phone: Hematology/Oncology Comment on above: 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) Start: 04-29-2022 End: 04-29-2022 Patient encounter procedure Randy Brown MD Work Phone: [facility] Start: 04-08-2022 End: [address] RANDY BROWN Facility: Start: 01-29-2022 End: 01-29-2022 ambulatory RANDY BROWN Facility:[facility] Start: 01-29-2022 End: 01-29-2022 ambulatory Randy Brown MD Work Phone: Hematology/Oncology Comment on above: 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) Start: 01-01-2022 End: 01-01-2022 Patient encounter procedure Randy Brown MD Work Phone: [facility] Start: 12-31-2021 Chart abstracting Randy edge MD Work Phone: Hematology/Oncology Start: 12-31-2021 End: 01-01-[address] MARCOS DONATO Facility:[facility] Start: 12-28-2021 End: 12-29-2021 ambulatory Marcos DONATO Facility:[facility] Start: 12-28-2021 End: 12-28-2021 Patient encounter procedure Marcos DONATO [facility] Start: 12-20-2021 End: 12-21-[address] MARCOS DONATO Facility:[facility] Start: 12-19-2021 Encounter for preprocedural laboratory examination DR MARCOS DONATO [facility] Start: 12-17-2021 End: 12-18-[address] MARCOS DONATO Facility:[facility] Start: 12-17-2021 End: 12-18-2021 Encounter for preprocedural laboratory examination DR MARCOS DONATO Facility:[facility] Start: 12-11-2021 End: 12-12-[address] MARCOS DONATO Facility: Start: 12-07-2021 End: 12-08-2021 ambulatory Marcos DONATO Facility:[facility] Start: 12-07-2021 End: 12-07-2021 Patient encounter procedure Marcos DONATO [facility] Start: 12-05-2021 End: 12-06-[address] MARCOS DONATO Facility: Start: 11-12-2021 End: 11-13-2021 ambulatory Marcos DONATO Facility:[facility] Start: 11-12-2021 End: 11-12-2021 Patient encounter procedure Marcos DONATO [facility] Start: 11-06-2021 ambulatory Marcos DONATO Facility :[facility] Start: 11-06-2021 ambulatory Marcos DONATO Facility : [facility] Procedures Date Procedure Procedure Detail Performing Clinician Start: 12-20-2021 Total orchidectomy Lisa DONATO Plan of Treatment Date Care Activity Detail Author Start: 02-14-2026 Urine microalbumin profile DTAP,TDAP,TD (6 - Td or Tdap) [facility] Start: 04-29-2022 End: 06-29-2022 [id number] [Mass/volume] in Serum or Plasma ALPHA FETOPROTEIN BL Lab Routine 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) Expected: 04/29/2022, Expires: 06/29/2022 [facility] Work Phone: Comment on above: Expected: 04/29/2022 , Expires: 06/29/2022 Start: 04-29-2022 End: 06-29-2022 CBC W Auto Differential panel - Blood CBC + DIFF Lab Routine 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) Expected: 04/29/2022, Expires: 06/29/2022 [facility] Work Phone: Comment on above: Expected: 04/29/2022 , Expires: 06/29/2022 Start: 04-29-2022 End: 06-29-2022 Choriogonadotropin.beta subunit [Units/volume] in Serum or Plasma BETA HCG QUANT TUMOR MARKER Lab Routine 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) Expected: 04/29/2022, Expires: 06/29/2022 [facility] Work Phone: Comment on above: Expected: 04/29/2022 , Expires: 06/29/2022 Start: 04-29-2022 End: 06-29-2022 Comprehensive metabolic 2000 panel - Serum or Plasma COMP METABOLIC PANEL Lab Routine 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) Expected: 04/29/2022, Expires: 06/29/2022 [facility] Work Phone: Comment on above: Expected: 04/29/2022 , Expires: 06/29/2022 Start: 04-29-2022 End: 06-29-2022 Lactate dehydrogenase [Enzymatic activity/volume] in Serum or Plasma LD LACTATE DEHYDRO Lab Routine 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) Expected: 04/29/2022, Expires: 06/29/2022 [facility] Work Phone: Comment on above: Expected: 04/29/2022 , Expires: 06/29/2022 Start: 04-21-2022 DEPRESSION ASSESSMENT DEPRESSION ASS ESSMENT [facility] Start: 02-26-2022 End: 04-28-2022 [id number] [Mass/volume] in Serum or Plasma ALPHA FETOPROTEIN BL Lab Routine 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) Expected: 02/26/2022 (Approximate), Expires: 04/28/2022 [facility] Work Phone: Comment on above: Expected: 02/26/2022 (Approximate), Expires: 04/28/2022 Start: 02-26-2022 End: 04-28-2022 CBC W Auto Differential panel - Blood CBC + DIFF Lab Routine 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) Expected: 02/26/2022 (Approximate), Expires: 04/28/2022 [facility] Work Phone: Comment on above: Expected: 02/26/2022 (Approximate), Expires: 04/28/2022 Start: 02-26-2022 End: 04-28-2022 Choriogonadotropin.beta subunit [Units/volume] in Serum or Plasma BETA HCG QUANT TUMOR MARKER Lab Routine 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) Expected: 02/26/2022 (Approximate), Expires: 04/28/2022 [facility] Work Phone: Comment on above: Expected: 02/26/2022 (Approximate), Expires: 04/28/2022 Start: 02-26-2022 End: 04-28-2022 Comprehensive metabolic 2000 panel - Serum or Plasma COMP METABOLIC PANEL Lab Routine 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) Expected: 02/26/2022 (Approximate), Expires: 04/28/2022 [facility] Work Phone: Comment on above: Expected: 02/26/2022 (Approximate), Expires: 04/28/2022 Start: 02-26-2022 End: 04-28-2022 Lactate dehydrogenase [Enzymatic activity/volume] in Serum or Plasma LD LACTATE DEHYDRO Lab Routine 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) Expected: 02/26/2022 (Approximate), Expires: 04/28/2022 [facility] Work Phone: Comment on above: Expected: 02/26/2022 (Approximate), Expires: 04/28/2022 Start: 01-01-2022 End: 03-03-2022 [id number]-[id number] [Mass/volume] in Serum or Plasma [facility] Work Phone: Comment on above: Expected: 01/01/2022 , Expires: 03/03/2022 Start: 01-01-2022 End: 03-03-2022 Choriogonadotropin.beta subunit [Units/volume] in Serum or Plasma [facility] Work Phone: Comment on above: Expected: 01/01/2022 , Expires: 03/03/2022 Start: 12-20-2021 Influenza vaccination INFLUENZA (#1) [facility] Start: 04-21-2021 DEPRESSION ASSESSMENT DEPRESSION ASS ESSMENT [facility] Start: 2021 HEPATITIS C SCREENING HEPATITIS C SC REENING [facility] Start: 2021 HIV SCREENING HIV SCREENING [facility] Start: 02-13-2020 HPV VACCINE (3 - Mal e 3-dose series) HPV VACCINE (3 - Male 3-dose series) [facility] Start: 2019 MENINGOCOCCAL CONJUG ATE (1 - 2-dose series) MENINGOCOCCAL CONJUGATE (1 - 2-dose series) [facility] Start: 2017 PEDS TO ADULT TRANSI TION ANNUAL ASSESSMENT PEDS TO ADULT TRANSITION ANNUAL ASSESSMENT [facility] Start: 2015 Adult depression screening assessment DEPRESSION SCREENING [facility] Start: 2015 PEDS TO ADULT TRANSI TION INITIAL DISCUSSION PEDS TO ADULT TRANSITION INITIAL DISCUSSION [facility] Start: 2014 HPV VACCINE (1 - Mal e 2-dose series) HPV VACCINE (1 - Male 2-dose series) [facility] Start: 2010 Urine microalbumin profile DTAP,TDAP,TD (1 - Tdap) [facility] Start: 2003 COVID-19 VACCINE (#1) COVID-19 VACCI NE (#1) [facility] Start: 2003 HEPATITIS B (1 of 3 - 3-dose series) HEPATITIS B (1 of 3 - 3-dose series) [facility] End: 05-29-2023 Ct abdomen & pelvis w/contrast material CT ABD/PEL W IVCON Radiology Routine 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) 1 Occurrences starting 04/29/2022 until 05/29/2023 [facility] Work Phone: Comment on above: 1 Occurrences starti ng 04/29/2022 until 05/29/2023 End: 05-29-2023 CT CHEST W IVCON CT CHEST W IVCON Radiology Routine 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) 1 Occurrences starting 04/29/2022 until 05/29/2023 [facility] Work Phone: Comment on above: 1 Occurrences starti ng 04/29/2022 until 05/29/2023 OUTSIDE SURG PATH SL MARLEE REVIEW OUTSIDE SURG PATH SLIDE REVIEW Lab Routine Ordered: 01/01/2022 [facility] Work Phone: Comment on above: Ordered: 01/01/2022 [facility] Immunizations Immunization Date Immunization Notes Care Provider [facility] 10-14-2019 HPV, unspecified formulation Marcos DONATO [facility] 10-14-2019 human papilloma viru s vaccine, quadrivalent Randy Brown MD Work Phone: [facility] 10-14-2019 meningococcal ACWY vaccine, unspecified formulation Marcos DONATO [facility] 10-14-2019 meningococcal oligosaccharide (groups A, C, Y and W-135) diphtheria toxoid conjugate vaccine (MCV4O) Randy Brown MD Work Phone: [facility] 10-12-2018 HPV, unspecified formulation Marcos DONATO [facility] 10-12-2018 human papilloma viru s vaccine, quadrivalent Randy Brown MD Work Phone: [facility] 02-15-2016 meningococcal ACWY vaccine, unspecified formulation Marcos DONATO [facility] 02-15-2016 meningococcal oligosaccharide (groups A, C, Y and W-135) diphtheria toxoid conjugate vaccine (MCV4O) Randy Brown MD Work Phone: [facility] 02-15-2016 tetanus toxoid, redu ximena diphtheria toxoid, and acellular pertussis vaccine, adsorbed Marcos DONATO [facility] 02-23-2009 influenza virus vacc ine, H1N1, live aMrcos DONATO [facility] 02-23-2009 novel Influenza-H1N1 -09, live virus for nasal administration Randy Brown MD Work Phone: [facility] 01-10-2009 Diphtheria, tetanus toxoids and acellular pertussis vaccine, and poliovirus vaccine, inactivated Marcos DONATO [facility] 01-10-2009 measles, mumps and rubella virus vaccine Marcos DONATO [facility] 01-10-2009 varicella virus vaccine Jessicar noemígraham DONATO [facility] 12-28-2007 diphtheria, tetanus toxoids and acellular pertussis vaccine Marcos DONATO [facility] 05-20-2006 measles, mumps, rube lla, and varicella virus vaccine Marcos DONATO [facility] 04-24-2006 DTaP-hepatitis B and poliovirus vaccine Marcos DONATO [facility] 04-24-2006 haemophilus influenz ae type b vaccine, PRP-T conjugate Marcos DONATO [facility] 04-24-2006 pneumococcal conjuga te vaccine, 7 valent Randy Brown MD Work Phone: [facility] 2003 DTaP-hepatitis B and poliovirus vaccine Marcoswin DONATO [facility] 2003 haemophilus influenz ae type b vaccine, PRP-T conjugate Marcoswin DONATO [facility] 2003 pneumococcal conjuga te vaccine, 7 valent Randy Brown MD Work Phone: [facility] 2003 DTaP-hepatitis B and poliovirus vaccine Marcos DONATO [facility] 2003 haemophilus influenz ae type b vaccine, PRP-T conjugate Marcos DONATO [facility] 2003 hepatitis B vaccine, pediatric or pediatric/adolescent dosage Marcos DONATO [facility] Payers Date Payer Category Payer Self-pay 2023 Unknown [id number] 2017 Private Health Insurance [employer] A ETNA CHOICE POS II [id number] 2017-Present [phone] [address] [place] [address] POS [id number] 2003 Unknown [id number] [id number]. 593 2003 Unknown [id number] [id number]. 593 2003 Unknown [id number] 2.16.840.1.548343.3.579.2. 593 2003 Unknown [id number] 2.16.840.1.816701.3.579.2. 593 2003 Unknown [id number] 2.16.840.1.720258.3.579.2. 593 2003 Unknown [id number] 2.16.840.1.427995.3.579.2. 593 2003 Unknown [id number] 2.16.840.1.458314.3.579.2. 593 2003 Unknown [id number] 2.16.840.1.707363.3.579.2. 727 2003 Unknown [id number] 2.16.840.1.115855.3.579.2. 727 2003 Unknown [id number] 2.16.840.1.452083.3.579.2. 727 2003 Unknown [id number] 2.16.840.1.672660.3.579.2. 727 2003 Unknown [id number] 2.16.840.1.872097.3.579.2. 727 2003 Unknown [id number] 2.16.840.1.250542.3.579.2. 727 2003 Unknown [id number] 2.16.840.1.432741.3.579.2. 727 2003 Unknown [id number] 2.16.840.1.947916.3.579.2. 727 2003 Unknown [id number] 2.16.840.1.160861.3.579.2. 727 1959 Private Health Insurance [facility] [id number] Unknown [id number]. 531 Social History Date Type Detail Facility Start: 11-12-2021 End: 12-28-2021 Tobacco smoking status Never smoked tobacco (finding) [facility] Sex Assigned At Male [facility] Tobacco smoking status NHIS Tobacco smoking consumption unknown [facility] Start: 2003 Sex Assigned At Not on file [facility] History of tobacco use Passive smoker [facility] Start: 01-01-2022 Tobacco use and exposure Smokeless tobacco non-user [facility] Start: 01-01-2022 End: 04-29-2022 Alcohol intake Ex-drinker (finding) [facility] Start: 12-22-2021 End: 01-29-2022 Exposure to SARS-CoV-2 (event) Not sure [facility] Start: 2003 Sex Assigned At Male [facility] Functional Status Date Assessment Result Facility 01-25-2022 Functional Status N/A [facility] 12-28-2021 Functional Status N/A [facility] 12-07-2021 N/A [facility] 11-12-2021 Functional Status N/A [facility] Clinical Notes 11-12-2021 to 10-25-2023 Randy Brown MD - 04/29/2022 8:16 AM Radha Brown MD - 01/29/2022 7:51 AM EDTTelephone Encounter - Sherry Turner [facility] - 01/01/2022 12:48 PM Jessica Brown MD - 01/01/2022 6:51 AM EDT Note Date & Type Note Facility 10-25-[address] [facility] Sperm Rapid Progressive October 25, 2023 11:20am 2 % 10-25-[address] [facility] Sperm Non-Progressive October 25, 2023 11:20am 24 % 06-28-2022 Hospital Discharge instructions Follow Up Care 06/28/2022 09:10:09 With:MARIYA VICENTE, Marcos Ross, URL Address: [address] [place], [place] [id number]- When: Unknown [facility] 04-29-2022 Note HNO ID: [id number] Author: Randy Brown MD Service: ? Author Type: Physician Type: Progress Notes Filed: 05/01/2022 6:57 AM Note Text: PATIENT NAME: Omaira Cohen DATE: 04/29/2022 PRIMARY CARE PHYSICIAN: Brittany Navratil, [employer]PER[employer] OTHER PHYSICIANS: Dr. Donato Portions of this [...] swelling, and atrophy. PATHOLOGY: 12/20/2021 Left orchiectomy ([facility]) Testicular scar consistent with regressed germ [...] RADIOLOGY/OTHER STUDIES: 12/31/2021 CT chest, abdomen, pelvis ([facility]) No evidence of metastatic disease. No suspicious findings. 12/06/2021 Scrotal ultrasound ([facility]) Left testicle contains a 1.4 cm hypoechoic vascular mass within the inferior pole. Right testicle homogeneous texture, no visible mass. ASSESSMENT/PLAN: 1. Malignant neoplasm of descended left testis (H (more content not included)... [facility] 04-29-2022 History of Present illness Narrative PATIENT [...] swelling, and atrophy. PATHOLOGY: 12/20/2021 Left orchiectomy ([facility]) Testicular scar consistent with regressed germ [...] RADIOLOGY/OTHER STUDIES: 12/31/2021 CT chest, abdomen, pelvis ([facility]) No evidence of metastatic disease. No suspicious findings. 12/06/2021 Scrotal ultrasound ([facility]) Left testicle contains a 1.4 cm [...] his next scans to be done at [facility] at the end of this month. I will see him back in 2 months for follow-up and labs. Randy Brown MD CC: Dr. Donato documented in this encounter [facility] 01-29-2022 Note HNO ID: [id number] Author: Randy Brown MD Service: ? Author Type: Physician Type: Progress Notes Filed: 01/30/2022 6:53 AM Note Text: PATIENT NAME: Omaira Cohen DATE: 01/29/2022 PRIMARY CARE PHYSICIAN: Brittany Ramirez, [employer]PER[employer] OTHER PHYSICIANS: Dr. Donato Portions of this encounter note have been copied from my note from 01/01/2022 and has been updated where appropriate, and reflect my current medical decision making from today. CC: This is an 16 year old male with recently diagnosed testicular cancer, referred for further management. INTERIM HISTORY: Since the patient's initial visit here his pathology was reviewed at [facility], and the diagnosis of testicular scar consistent [...] swelling, and atrophy. 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 The scar area measures 1.3 cm in greatest dimension. It is limited to the testis. Germ cell neoplasia in situ. Epididymis and spermatic cord with no significant pathological findings. LABS: 12/11/2021: CMP and CBC within normal limits AFP hCG [facility]DH 12/11/2021 2.4 <1 164 RADIOLOGY/OTHER STUDIES: 12/31/2021 CT chest, abdomen, pelvis ([facility]) No evidence of metastatic disease. No suspicious findings. 12/06/2021 Scrotal ultrasound ([facility]) Left testicle contains a 1.4 cm hypoechoic vascular mass within the inferior pole. Right testicle homogeneous texture, no visible mass. (more content not included)... [facility] 01-29-2022 History of Present illness Narrative PATIENT NAME: Omaira Cohen DATE: 01/29/2022 PRIMARY CARE PHYSICIAN: Brittany Ramirez, [employer]PER[employer]OR OTHER PHYSICIANS: Dr. Donato Portions of this encounter note have been copied from my note from 01/01/2022 and has been updated where appropriate, and reflect my current medical decision making from today. CC: This is an 16 year old male with recently diagnosed testicular cancer, referred for further management. INTERIM HISTORY: Since the patient's initial visit here his pathology was reviewed at [facility], and the diagnosis of testicular scar consistent [...] swelling, and atrophy. 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 The scar area measures 1.3 cm in greatest dimension. It is limited to the testis. Germ cell neoplasia in situ. Epididymis and spermatic cord with no significant pathological findings. LABS: 12/11/2021: CMP and CBC within normal limits AFP hCG [facility] 12/11/2021 2.4 <1 164 RADIOLOGY/OTHER STUDIES: 12/31/2021 CT chest, abdomen, pelvis ([facility]) No evidence of metastatic disease. No suspicious findings. 12/06/2021 Scrotal ultrasound ([facility]) Left testicle contains a 1.4 cm [...] regressed germ cell tumor was confirmed by [facility] pathology.) Staging scans showed no evidence of [...] CC: Dr. Donato documented in this encounter [facility] 01-25-2022 Hospital Discharge instructions Patient Education [...] children. Follow these instructions at home: Take tkyt-uxh-lojrcqe and prescription medicines only as told by [...] 02/28/2006 Document Revised: 07/29/2019 Document Reviewed: 07/04/2017 Quick2LAUNCH Patient Education 2020 [employer]. Follow Up Care 12/28/2021 09:47:13 With:MARIYA VICENTE, Marcos Ross, URL Address: [address] [place], [place] [id number]- When: Unknown [facility] 01-01-2022 Miscellaneous Notes 2nd opinion pathology requested to be sent [facility] to [facility] for review. documented in this encounter [facility] 01-01-2022 Note HNO ID: [id number] Author: Randy Brown MD Service: ? 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 MEDICATIONS: No current outpatient medications on file. [...] swelling, and atrophy. 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 The scar area measures 1.3 cm in greatest dimension. It is limited to the testis. Germ cell neoplasia in situ. Epididymis and spermatic cord with no significant pathological findings. LABS: 12/11/2021: CMP and CBC within normal limits AFP hCG [facility] 12/11/2021 2.4 <1 RADIOLOGY/OTHER STUDIES: 12/31/2021 CT chest, abdomen, pelvis ([facility]) No evidence of metastatic disease. No suspicious findings. 12/06/2021 Scrotal ultrasound ([facility]) Left (more content not included)... [facility] 01-01-2022 History of Present illness Narrative PATIENT NAME: Omaira Cohen DATE: 01/01/2022 PRIMARY CARE PHYSICIAN: Brittany Ramirez, AUTO RENTAL SUPERVISOR OTHER PHYSICIANS: Dr. 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 MEDICATIONS: No current outpatient medications on file. [...] swelling, and atrophy. 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 The scar area measures 1.3 cm in greatest dimension. It is limited to the testis. Germ cell neoplasia in situ. Epididymis and spermatic cord with no significant pathological findings. LABS: 12/11/2021: CMP and CBC within normal limits AFP hCG [facility] 12/11/2021 2.4 <1 RADIOLOGY/OTHER STUDIES: 12/31/2021 CT chest, abdomen, pelvis ([facility]) No evidence of metastatic disease. No suspicious findings. 12/06/2021 Scrotal ultrasound ([facility]) Left testicle contains a 1.4 cm [...] to refer his recent surgical specimen to [facility] pathology for second opinion. We will repeat labs today. Assuming the diagnosis of a regressed germ cell tumor is confirmed and labs remain negative standard of care would be routine follow-up. I will see him back in 4 weeks for follow-up. Randy Brown MD documented in this encounter [facility] 12-28-2021 Hospital Discharge instructions Patient Education [...] including vitamins, herbs, eye drops, creams, and ayke-qzm-juxqkna medicines. Any problems you or family members [...] 03/07/2006 Document Revised: 03/20/2018 Document Reviewed: 02/27/2017 Quick[employer]UNCH Patient Education 2020 [employer]. Follow Up Care 12/07/2021 10:58:41 With:MARIYA VICENTE, Marcos Ross, URL Address: [address] [place] [address] [place] [id number]- When: Unknown [facility] [place] 12-07-2021 Hospital Discharge instructions Patient [...] 07/14/2001 Document Revised: 07/29/2019 Document Reviewed: 03/03/2017 Quick[employer]LAUNCH Patient Education 2020 [employer]. Follow Up Care 11/12/2021 11:41:21 With:MARIYA VICENTE, Marcos Ross, URL Address: [facility] [address], [place] [address]- When: Unknown [facility] 11-12-2021 Note Chief Complaint Referral for [...] [facility] [address], [place] [address] [phone] Additional Instructions: Scrotal US Patient Education Testicular Self-Exam, Spdu-qk-Jujm I, Terrie Almendarez, personally scribed for Dr. [...] Protein Urine Dipstick: Negative (11/12/21 10:39:00) Specific [place] Urine Dipstick: 1.020 (11/12/21 10:39:00) Urine Appearance Urine Dipstick: Clear (11/12/21 10:39:00) Urine Color Urine Dipstick: Yellow (11/12/21 10:39:00) Urobilinogen Urine Dipstick: Normal 0.2-1 EU/dl (11/12/21 10:39:00) pH Urine Dipstick: 7 (11/12/21 10:39:00) D (more content not included)... [facility] Comment on above: Result Comment: Elec tronically Signed By: Marcos DONATO MD\.br\Date and Time Signed: 11/12/21 11:37 EDT\.br\Electronically Co-Signed By: Terrie Almendarez MA\.br\Date and Time Co-Signed: 11/12/21 11:31 EDT 11-12-2021 Hospital Discharge instructions Patient Education 11/12/2021 11:14:03 Testicular Self-Exam, Qeyk-it-Yrax Testicular Self-Exam A self-exam of your testicles [...] 07/04/2009 Document Revised: 07/29/2019 Document Reviewed: 03/03/2017 Quick2LAUNCH Patient Education 2020 [employer]. Follow Up Care 11/06/2021 11:13:38 With:Marcos DONATO MD, URL Address: [facility] [address], [place] [phone] When:12/10/2021 Comments:Scrotal US [facility] Evaluation + Plan note Future Appointments Appointment Date:12/07/2021 09:15:00 AM Scheduled Provider:Marcos DONATO MD Location:[facility] Appointment Type:URO Office Visit [facility] Evaluation + Plan note Future Appointments Appointment Date:12/28/2021 08:45:00 AM Scheduled Provider:Marcos DONATO MD Location:[facility] Appointment Type:URO Office Visit [facility] Evaluation + Plan note Future Appointments Appointment Date:01/25/2022 09:45:00 AM Scheduled Provider:Marcos DONATO MD Location:[facility] Appointment Type:URO Office Visit [facility] Evaluation + Plan note Future Appointments Appointment Date:06/28/2022 08:30:00 AM Scheduled Provider:Marcos DONATO MD Location:[facility] Appointment Type:URO Office Visit [facility] Evaluation note Diagnosis 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 Malignant neoplasm of other and unspecified testis [facility] 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 Malignant neoplasm of other and unspecified testis [facility] Diagnosis 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 Malignant neoplasm of other and unspecified testis [facility] Work Phone: Hospital course Narrative No data available for this section [facility] progress note No data available for this section [facility] reason for referral (narrative) Referred by: Marcos DONATO MD [facility] Summary Purpose Family History No Family History [...] COMPUTED TOMOGRAPHY THORAX W/CONTRAST Randy Brown MD [address] [place] [address] [place] [address] Ct Imaging Referral ID Status Reason Start Date Expiration Date Visits Requested Visits Authorized [id number] Pending Review Auto-Generat ed Referral 04/29/2022 05/29/2023 1 1 Specialty Diagnoses / Procedures Referred By Doug montalvo Referred To Contact CT IMAGING Diagnoses 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) Procedures CT ABD/PEL W IVCON CT ABD & PELVIS W/CONTRAST Randy Brown MD [address] [place] [address] [place] [address] Ct Imaging Referral ID Status Reason Start Date Expiration Date Visits Requested Visits Authorized [id number] Pending Review Auto-Generat ed Referral 04/29/2022 05/29/2023 1 1 Chief Complaint and Reason for Visit Chief Complaint See order Additional Source Comments (unrecognized sect ion and content) No Status Records FoundNo Status Records FoundNo Status Records FoundNo Status Records FoundNo Status Records Found INFORMATION SOURCE (unrecogn ized section and content) DATE CREATED AUTHOR 11/09/2021 [facility] dical Specialist DATE CREATED AUTHOR AUTHOR'S ORGANIZ ATION 05/01/2022 [facility] DATE CREATED AUTHOR AUTHOR'S ORGANIZ ATION 05/23/2022 [facility] [place] [facility] DATE CREATED AUTHOR AUTHOR'S ORGANIZ ATION 10/19/2022 [facility] DATE CREATED AUTHOR AUTHOR'S ORGANIZ ATION 10/26/2023 [facility] ys[facility] Group Care Team (unrecognized sect ion and content) Pricing Coordinator Relationship Specialty Start Date End Date KarlenehayleyMeredith, RAIL TRANSPORTATION TABELER [address] [place] [address] PCP - General Family Practice 01/01/22 Pricing Coordinator Relationship Specialty Start Date End Date KarlenehayleyMeredith, RAIL TRANSPORTATION TABELER [address] [place] [address] PCP - General Family Practice 01/01/22 Pricing Coordinator Relationship Specialty Start Date End Date Ashley Meredith, RAIL TRANSPORTATION TABELER [address] [place] [address] PCP - General Family Medicine 01/01/22 Marcos Donato MD [address] [place] [address] Urology 01/29/22 Pricing Coordinator Relationship Specialty Start Date End Date Meredith Ramirez, RAIL TRANSPORTATION TABELER [address] [place] [address] PCP - General Family Medicine 01/01/22 Marcos Donato MD [address] [place] [address] Urology 01/29/22 Team Status: Active Member Role [...] or prosecute any alcohol or drug abuse patient.[facility] the event this information is protected by the Federal Confidentiality of Alcohol and Drug Abuse Patient Records regulations: The Federal rules restrict any use of the information to criminally investigate or prosecute any alcohol or drug abuse patient.[facility] the event this information is protected by the Federal Confidentiality of Alcohol and Drug Abuse Patient Records regulations: The Federal rules restrict any use of the information to criminally investigate or prosecute any alcohol or drug abuse patient.[facility] Hospital[facility] the event this information is protected by the Federal Confidentiality of Alcohol and Drug Abuse Patient Records regulations: The Federal rules restrict any use of the information to criminally investigate or prosecute any alcohol or drug abuse patient.[facility] the event this information is protected by the Federal Confidentiality of Alcohol and Drug Abuse Patient Records regulations: The Federal rules restrict any use of the information to criminally investigate or prosecute any alcohol or drug abuse patient.[facility] Reason for Visit (unrecogniz ed section [...] BE BASED ON THE PRIMARY CLINICAL RECORDS. [employer] [facility]. provides no warranty or guarantee of the accuracy or completeness of information in this document.
[2024-10-30 13:09] LABS: Rapid Plasma Reagin, Quant Non Reactive titer (NonRea<1:1)
[2024-11-01 23:08] LABS: Neisseria gonorrhoeae, NAA Negative (Negative)
== END 2024-10-29 09:41 | disposition home or self-care (01) ==
PROVIDERS: PCP Family Medicine; Visit Provider Obstetrics & Gynecology Reproductive Endocrinology
DX: Z11.3 Encounter for screening for infections with a predominantly sexual mode of transmission (principal)
CPT/HCPCS: 36415; 86592; 86704; 86803; 87340; 87389; 87491; 87591

== ENCOUNTER 2025-03-21 22:43 | Emergency (ER) | payer BC, SELFPAY ==
[2025-03-21 22:54] VITALS: BP 150/80; PULSE 104; TEMP 38; O2SAT 97; BMI 25.7
--- NOTE | 2025-03-21 23:00 | XR_ITS ---
[place] [id number] Patient Name: OMAIRA ZAVALA MRN: [id number] date: 2005 Sex: M Assigned Patient Location: ER Current Patient Location: ED.MAIN Accession/Order Number: [id number] Exam Date: 03/21/2025 23:10 Report Date: 03/21/2025 23:32 At the request of: ALECIA JIMENEZ MD Procedure: XR chest 2V PA AND LATERAL CHEST: CLINICAL HISTORY: cough COMPARISON: 02/13/2024 FINDINGS: Unremarkable cardiomediastinal. Lungs clear. No effusion or pneumothorax. XR/XR chest 2V IMPRESSION: NO ACUTE CARDIOPULMONARY ABNORMALITY. Impression dictated by: Gabriel Braden M.D. 03/21/2025 11:32 PM Dictation Location: [place] [address] Electronically authenticated by: [id number] Y Date: 03/21/2025 23:32
--- NOTE | 2025-03-21 23:08 | ED.GENADUL1 ---
HPI HPI - General Adult General Chief complaint: Fever Stated complaint: WEAKNESS, FEVER, RIGHT TESTICAL PAIN Time Seen by Provider: 03/21/25 22:57 Source: patient Mode of arrival: walk-in Limitations: no limitations History of Present Illness HPI narrative: past history of testicle CA s/p orchiectomy. Now presents complaining of testicle pain that reminds him of the pain he had when diagnosed with testicle CA. He also has a fever and cough along with body aches. Not short of breath. No nausea or vomiting or complaint of dysuria Related Data Home Medications ?Medication ?Instructions ?Recorded ?Confirmed No Known Home Medications 03/21/25 03/21/25 Allergies Allergy/AdvReac Type Severity Reaction Status Date / Time amoxicillin AdvReac Unknown Hives Verified 03/21/25 22:54 Opioid HPI Opioid Management Most Recent Opioid Data: Last Pain Scale 5 03/21/25, 22:59 Review of Systems ROS Status of ROS 10 or more systems reviewed and unremarkable except as noted in history and below PFSH PFSH Social History Little interest or pleasure in doing things: not at all Feeling down, depressed, or hopeless: not at all Exam Constitutional Vital Signs, click to edit/add: Last Vital Signs Temp 100.4 F 03/21/25 22:54 Pulse 64 03/22/25 02:02 Resp 19 03/21/25 22:54 BP 136/76 03/22/25 02:00 Pulse Ox 99 03/22/25 02:00 O2 Del Method Room Air 03/21/25 22:54 Common normals: no apparent distress, average body habitus, oriented x3, no limitations, healthy appearing, alert and well nourished [facility] Common normals: normocephalic and head/scalp atraumatic Eye Common normals: EOMs intact bilaterally and conjunctivae normal Respiratory Common normals: normal respiratory effort, no retractions, no use of accessory muscles and clear to auscultation bilaterally Cardio Common normals: S1 normal heart sound and S2 normal heart sound Rate: tachycardic GI Common normals: Normal to inspection, nondistended, normoactive bowel sounds present, soft to palpation and non-tender Other: mild testicle tenderness. No obvious swelling Extremity Common normals: normal to inspection and full ROM Neuro Common normals: oriented x3, CN's II-XII intact bilaterally, moves all extremities and no focal motor deficits Psych Appearance: grossly normal Course Vital Signs Vital signs: Vital Signs Temperature 100.4 F 03/21/25 22:54 Pulse Rate 104 H 03/21/25 22:54 Respiratory Rate 19 03/21/25 22:54 Blood Pressure 150/80 H 03/21/25 22:54 Pulse Oximetry 97 03/21/25 22:54 Oxygen Delivery Method Room Air 03/21/25 22:54 Temperature 100.4 F 03/21/25 22:54 Pulse Rate 64 03/22/25 02:02 Respiratory Rate 19 03/21/25 22:54 Blood Pressure 136/76 03/22/25 02:00 Pulse Oximetry 99 03/22/25 02:00 Oxygen Delivery Method Room Air 03/21/25 22:54 Medical Decision Making MDM Narrative Medical decision making narrative: patient presents with past history of testicle pain, body aches and cough. No dyspnea. No UTI symptoms. Past testicle CA with orchiectomy and states current testicle pain reminiscent of past CA testicle pain. US scrotum with normal finding of his remaining testes. cxray clear. COVID 19 positive. Patient in no respiratory distress. UA clear. Patient discharged home Lab Data Labs: Lab Results 03/21/25 03/21/25 03/22/25 Range/Units 23:16 23:20 00:41 WBC 8.5 (4.0-11.0) 10^3/uL RBC 4.57 L (4.70-6.10) 10^6/uL Hgb 13.2 L (14.0-18.0) g/dL Hct 38.3 L (42.0-54.0) % MCV 83.8 (80.0-94.0) fL MCH 28.9 (25.9-34.0) pg MCHC 34.5 (29.9-35.2) g/dL RDW 12.5 (11.0-15.0) % Plt Count 203 (150-450) 10^3/uL MPV 10.4 (9.5-13.5) fL Seg Neuts % (Manual) 82.0 H (43.0-75.0) Lymphocytes % (Manual) 4.0 L (20.5-60.0) % Atypical Lymphs % (Man) 1.0 % Monocytes % (Manual) 11.0 (1.7-12.0) % Eosinophils % (Manual) 2.0 (0.9-7.0) % Basophils % (Manual) 0.0 L (0.2-2.0) % Neutrophils # (Manual) 6.97 H (1.4-6.5) 10^3/uL Lymphocytes # (Manual) 0.34 L (1.20-3.80) 10^3/uL Abs Atypical Lymphs Man 0.08 Monocytes # (Manual) 0.93 H (0.30-0.80) 10^3/uL Eosinophils # (Manual) 0.17 (0.00-0.70) 10^3/uL Basophils # (Manual) 0.00 (0.00-0.10) 10^3/uL Sodium 139 (136-145) mmol/L Potassium 3.3 L (3.5-5.1) mmol/L Chloride 101 (98-107) mmol/L Carbon Dioxide 27.1 (21.0-32.0) mmol/L Anion Gap 14.2 BUN 9.0 (7.0-18.0) mg/dL Creatinine 1.03 (0.70-1.30) mg/dL Est GFR ( Amer) >60 (>=60 mL/min/1.73m^2) Est GFR (Non-Af Amer) >60 (>=60 mL/min/1.73m^2) BUN/Creatinine Ratio 8.7 Glucose 116 H (74-106) mg/dL Lactate 0.7 (0.4-2.0) mmol/L Calcium 9.2 (8.5-10.1) mg/dL Total Bilirubin 0.7 (0.2-1.0) mg/dL AST 18 (15-37) U/L ALT 28 (16-63) U/L Alkaline Phosphatase 74 (46-116) U/L Total Protein 7.9 (6.4-8.2) g/dL Albumin 4.7 (3.4-5.0) g/dL Globulin 3.2 g/dL Albumin/Globulin Ratio 1.5 Urine Color Lt. yellow (YELLOW) Urine Clarity Clear (CLEAR) Urine pH 6.0 (5.0-9.0) Ur Specific [place] 1.010 (1.005-1.025) Urine Protein Negative (NEG/TRACE) mg/dL Urine Glucose (UA) Negative (NEGATIVE) mg/dL Urine Ketones Negative (NEGATIVE) mg/dL Urine Occult Blood Negative (NEGATIVE) Urine Nitrite Negative (NEGATIVE) Urine Bilirubin Negative (NEGATIVE) Urine Urobilinogen 0.2 (0.2-1.0) EU/dL Ur Leukocyte Esterase Negative (NEGATIVE) Urine RBC None seen (0-2) #/HPF Urine WBC None seen (NONE SEEN) #/HPF Ur Squamous Epith Cells None seen (NONE/RARE) #/LPF Urine Crystals None seen (None Seen) #/HPF Urine Bacteria None seen (NONE SEEN) #/HPF Urine Casts None seen (NONE SEEN) #/LPF Urine Mucus None seen (NONE SEEN) Ur Culture Indicated? No Influenza Type A Ag Negative Influenza Type B Ag Negative SARS-CoV-2 Ag (CV2AG) Positive A (NEGATIVE) Discharge Plan Discharge Chief Complaint: Fever Clinical Impression: COVID-19 Patient Disposition: Home, Self-Care Prescriptions / Home Meds: No Action No Known Home Medications Print Language: Greek Instructions: COVID-19 (Coronavirus Disease 2019) (ED) Referrals: Placido Sherman MD [Primary Care Provider, [facility]] - 1 week
[2025-03-21 23:15] VITALS: BP 137/81; O2SAT 98
--- OUTSIDE RECORDS SUMMARY | 2025-03-21 23:15 | XMS_ITS | CCD ---
Author Organization [facility] Care Team Providers Care Pharmacy Resource Tech Name Role Phone BRITTANY RAMIREZ Primary Care Physician [phone] Unavailable Primary Care Provider Unavailabl e Ashley ENROLLER, Meredith Primary Care Provider [phone] Ashley RESENDIZ, Meredith Primary Care Provider [phone] Marcos Meraz MD Unavailable Ashley RESENDIZ Meredith Primary Care Provider [phone] Marcos Meraz MD Unavailable RANDY BROWN Attending Unavailable MARCOS MERAZ Referring Unavailable [facility] Primary Care Unavailable RANDY BROWN Referring Unavailable RANDY BROWN Attending Unavailable [facility] Primary Care Unavailable RANDY BROWN Referring Unavailable RANDY BROWN Attending Unavailable [facility] Primary Care Unavailable RANDY BROWN Referring Unavailable BAILEYRATIL, MEREDITH Primary Care Unavailable RANDY BROWN Referring Unavailable NAVRATIL, MEREDITH Primary Care Unavailable MARIYA, DR RODRÍGUEZ Consulting Unavailable MARIYA, DR RODRÍGUEZ Admitting Unavailable NAVRATIL, BRITTANY Primary Care Unavailable MERAZ, DR RODRÍGUEZ Attending Unavailable KARIE RUELAS Consulting Unavailable MERAZ, DR RODRÍGUEZ Consulting Unavailable NAVRATIL, BRITTANY Primary Care Unavailable MERAZ, DR RODRÍGUEZ Admitting Unavailable MARIYA, DR RODRÍGUEZ Attending Unavailable MARIYA, DR RODRÍGUEZ Consulting Unavailable NAVRATIL, BRITTANY Primary Care Unavailable MERAZ, DR RODRÍGUEZ Admitting Unavailable MARIYA, DR RODRÍGUEZ Attending Unavailable DANIEL LI Consulting Unavailable MARCI MARCH Consulting Unavaila ble MARIYA, DR RODRÍGUEZ Consulting Unavailable MARIYA, DR RODRÍGUEZ Admitting Unavailable NAVRATIL, BRITTANY Primary Care Unavailable MARIYA, DR RODRÍGUEZ Attending Unavailable JOVAN, DR GERRY Ross Consulting Unavailable MARIYA, DR RODRÍGUEZ Attending Unavailable NAVRATIL, BRITTANY Primary Care Unavailable MERAZ, DR RODRÍGUEZ Consulting Unavailable MARIYA, DR RODRÍGUEZ [...] Ross Consulting Unavailable HAIM CARMONA Consulting Unavailable MERAZ, Marcos R Attending Unavailable ASHLEY, BRITTANY Referring Unavailable MERAZ, Marcos R Attending Unavailable MERAZ, Marcos R Attending Unavailable MERAZ, Marcos R Attending Unavailable MERAZ, Marcos R Attending Unavailable MERAZ, Marcos Ross Attending Unavailable MERAZ, Marcos Ross Attending Unavailable Meraz, Marcos Admitting Unavailable Meraz, Marcos Attending Unavailable NON STAFF Primary Care Unavailable NON STAFF Primary Care Provider MD Marcos Vivas Attending Provider Allergies Allergy ClassificationReported Allergen(s)Allergy TypeDate of OnsetReaction(s) Facility (12 sources)Amoxicillin; Translations: [amoxicillin]Drug Ocmlipj86-68-9660Dgwo (disorder), HivesExecutive [facility]rology of [facility] (1 source)AmoxicillinDrug AllergyThe [facility] Repository Medications Current Medications MedicationDrug Class(es)DatesSig (Normalized)Sig (Original)doxycycline hyclate 100 mg oral capsule (1 source)Tetracycline-class DrugStart: 11-12-2021 End: 68-89-3471kvng 1 capsule by mouth twice dailydoxycycline hyclate 100 mg Cap 100 mg = 1 cap(s), Oral, BID, X 3 week(s), # 42 cap(s), Refills(s) 0, Pharmacy: [facility] #[id number], 187, cm, 11/12/21 10:47:00 EDT, Height/Length Dosing, 72, kg, 11/12/21 10:47:00 EDT, Weight Dosing Start Date: 11/12/21 Stop Date: 12/03/21 Status: Orderedfluconazole 50 mg oral tablet (1 source)Azole AntifungalStart: 23-40-6422sauy 1 mg by mouth once daily fluconazole 50 mg oral tablet mg tab(s), Oral, Daily, Refills(s) 0 Start Date: 11/12/21 Status: Ordered Completed/Discontinued Medications MedicationDrug Class(es)DatesSig (Normalized)Sig (Original)enteric contrast (will be provided with radiology test) (1 source)Start: 04-29-2022 End: 14-61-3101bfjmfcn contrast (will be provided with radiology test) For CT CHESTABD/PEL W IVCON Routine order Administer, As Directed One Time Only, via Oral, Rectal, both Oral and Rectal, Enteric Tube, Stoma orIndwelling Catheter, Enteric Contrast as designated per enteric contrast guidelines 1 Each 0 023 04/30/2022 ExpiredComment on above:For CT CHESTABD/PEL W IVCON Routine order Administer, As Directed One Time Only, via Oral, Rectal, both Oral and Rectal, Enteric Tube, Stoma or Indwelling Catheter, Enteric Contrast as designated per enteric contrast guidelinesiv contrast (will be provided with radiology test) (1 source)Start: 04-29-2022 End: 00-50-3156vg contrast (will be provided with radiology test) CT Chest ABD/PEL-Inject, intravenously, once for1 dose.No IV access, insert saline lock prior to the beginning of sedation, infusion, injection of imaging exam. Discontinue saline lock post exam. If Pt. has a central line or IVAD, may access for administration according to line specific nursing protocol. Once exam is complete flush line and de-access according to line specific nursing protocol in the CT contrast administration guidelines link.1 Each 0 04/29/2022 04/30/2022 ExpiredComment on above:CT Chest ABD/PEL-Inject, intravenously, once for 1 dose.No IV access, insert saline lock prior to the beginning of sedation, infusion, injection of imaging exam. Discontinue saline lock post exam. IfPt. has a central line or IVAD, may access for administration according to line specific nursing protocol. Once exam is complete flush line and de-access according to line specific nursing protocol in the CT contrast administration guidelines link. 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; Translations: [CA IN SITU OTH MALE GENITAL ORGANS]Onset: 10-59-7303YbvjfjxZfogsr of testis (17 sources)Malignant tumor of testis; Translations: [Malignant neoplasm of unspecified testis, unspecified whether descended or undescended]Onset: 47-25-6898MdyrnsxUvver male genital disorders (2 sources)Disorder of male genital organ; Translations: [Other specified disorders of the male genital organs]Onset: 85-56-7887FbwnfufdGtqrn male genital disorders (5 sources)Testicular rgzx57-47-4774WcteayxaQyqpyorualwj (1 source)CONTACT W/AND (SUSP) EXPOS COVID-19; Translations: [CONTACT W/AND (SUSP) EXPOS COVID-19]Onset: 12-19-2021 Past or Other Problems Problem ClassificationProblemDateDocumented DateEpisodic/ChronicOther male genital disorders (4 sources)Other specified disorders of the male genital organs; Translations: [OTHER SPEC D/O MALE GENITAL ORGANS]Onset: 71-96-0756GtsedcabYqyyi male genital disorders (1 source)Disorder of male genital organs, unspecified; Translations: [DISORDER MALE GENITAL ORGANS UNS]Onset: 24-04-6968Reorshuc Results Test NameValueInterpretationReference RangeFacilityNo Panel InformationOrdered By: Alfred Saunders on 77-87-3828Xnpzn Analysis Comment.Mercy HealthComment on above:No Abnormal specimen characteristics noted.Semen Round Cell ConcentrationModerateSCCI Hospital Limaemen WBC Concentration<1.0 M/mL<0.9[facility] Limaperm % Non-Sthtnd79 %[facility] Limaperm Motility Total26.0 %Low>40Mercy HealthQualitative semen viscosityOrdered By: Alfred Saunders on 45-52-3011Ngtiogpzo Ql (Ashlie)AbnormalAbnormalNormalSCCI Hospital Limaemen Analysis, Fertilityon 39-92-9715Uvxysr/Round CellsModerateNormalThe [facility] Physician GroupComment on above:Order Comment: Method of Collection:: Masturbation Has the patient had a vasectomy?: N Type of Specimen Container:: Sterile Container Abstinence Period:: 2 DAYS Kept at body temperature?: Y Any Collection or Transport Problems?: N/APerformed By: #### SEMCOMP #### [address] [place] [address] USAImmotile Sperm74 %NormalThe [facility]ician Group Comment on above:Order Comment: Method of Collection:: Masturbation Has the patient had a vasectomy?: N Type of Specimen Container:: Sterile Container Abstinence Period:: 2 DAYS Kept at body temperature?: Y Any Collection or Transport Problems?: N/APerformed By: #### SEMCOMP #### [address] [place] [address] USANon-Progression Sperm Giayvb54 %NormalThe [facility] Physician GroupComment on above:Order Comment: Method of Collection:: Masturbation Has the patient had a vasectomy?: N Type of Specimen Container:: Sterile Container Abstinence Period:: 2 DAYS Kept at body temperature?: Y Any Collection or Transport Problems?: N/APerformed By: #### SEMCOMP #### [address] [address] USANormal Sperm Morphology2.0 %Low>=4.0The [facility] Physician GroupComment on above:Order Comment: Method of Collection:: Masturbation Has the patient had a vasectomy?: N Type of Specimen Container:: Sterile Container Abstinence Period:: 2 DAYS Kept at body temperature?: Y Any Collection or Transport Problems?: N/APerformed By: #### SEMCOMP #### [address] [address] USARapid Progression Sperm Motili2 %NormalThe [facility] Physician GroupComment on above:Order Comment: Method of Collection:: Masturbation Has the patient had a vasectomy?: N Type of Specimen Container:: Sterile Container Abstinence Period:: 2 DAYS Kept at body temperature?: Y Any Collection or Transport Problems?: N/APerformed By: #### SEMCOMP #### [address] [address] USASemen Comment.NormalThe [facility] Physician GroupComment on above:Order Comment: Method of Collection:: Masturbation Has the patient had a vasectomy?: N Type of Specimen Container:: Sterile Container Abstinence Period:: 2 DAYS Kept at body temperature?: Y Any Collection or Transport Problems?: N/AResult Comment: No Abnormal specimen characteristics noted. PERFORMED BY: [place] [address] PATHOLOGIST FORMAT PROOFREADER SANDER SEWELL M.D.Performed By: #### SEMCOMP #### [place] [address] USASemen LiquefactionAbnormalCritically abnormal<=60 minThe [facility] Physician GroupComment on above:Order Comment: Method of Collection:: Masturbation Has the patient had a vasectomy?: N Type of Specimen Container:: Sterile Container Abstinence Period:: 2 DAYS Kept at body temperature?: Y Any Collection or Transport Problems?: N/APerformed By: #### SEMCOMP #### [place] [address] USASemen ViscosityAbnormalCritically abnormalNormalThe [facility] Physician GroupComment on above:Order Comment: Method of Collection:: Masturbation Has the patient had a vasectomy?: N Type of Specimen Container:: Sterile Container Abstinence Period:: 2 DAYS Kept at body temperature?: Y Any Collection or Transport Problems?: N/APerformed By: #### SEMCOMP #### [place] [address] USASemen Volume4.0 mLNormal>=1.5The [facility] Comment on above:Order Comment: Method of Collection:: Masturbation Has the patient had a vasectomy?: N Type of Specimen Container:: Sterile Container Abstinence Period:: 2 DAYS Kept at body temperature?: Y Any Collection or Transport Problems?: N/APerformed By: #### SEMCOMP #### [place] [address] USASperm Concentration7.5Low>=15The [facility] Comment on above:Order Comment: Method of Collection:: Masturbation Has the patient had a vasectomy?: N Type of Specimen Container:: Sterile Container Abstinence Period:: 2 DAYS Kept at body temperature?: Y Any Collection or Transport Problems?: N/APerformed By: #### SEMCOMP #### [address] [place] [address] USATotal Motility (CO+ARCHITECTURAL DRAFTER)26.0 %Low>=40 (CO+ARCHITECTURAL DRAFTER)The [facility] Physician GroupComment on above:Order Comment: Method of Collection:: Masturbation Has the patient had a vasectomy?: N Type of Specimen Container:: Sterile Container Abstinence Period:: 2 DAYS Kept at body temperature?: Y Any Collection or Transport Problems?: N/APerformed By: #### SEMCOMP #### [place] [address] USAWBC Concent, Semen<1.0Normal<1.0The [facility] Physician GroupComment on above:Order Comment: Method of Collection:: Masturbation Has the patient had a vasectomy?: N Type of Specimen Container:: Sterile Container Abstinence Period:: 2 DAYS Kept at body temperature?: Y Any Collection or Transport Problems?: N/APerformed By: #### SEMCOMP #### [place] [address] USASemen Analysis, FertilityOrdered By: Alfred Saunders on 46-81-9883Spird AppearanceNormalNormalNormalMercy Health Comment on above:Order Comment: Method of Collection:: Masturbation Has the patient had a vasectomy?: N Type of Specimen Container:: Sterile Container Abstinence Period:: 2 DAYS Kept at body temperature?: Y Any Collection or Transport Problems?: N/APerformed By: #### SEMCOMP #### [place] [id number] USASemen pH8.5Normal>=7.2FLouis Stokes [facility] Comment on above:Order Comment: Method of Collection:: Masturbation Has the patient had a vasectomy?: N Type of Specimen Container:: Sterile Container Abstinence Period:: 2 DAYS Kept at body temperature?: Y Any Collection or Transport Problems?: N/APerformed By: #### SEMCOMP #### [place] [id number] USASemen liquefaction time measurementOrdered By: Alfred Saunders on 78-56-0952Yfehtdelgrga (Ashlie) [Time]AbnormalAbnormal<=60 minSCCI Hospital Limaemen volumeOrdered By: Alfred Saunders on 76-68-7986Olgioobz volume (Ashlie)4.0 mL>1.5FWilson Healthperm countOrdered By: Alfred Saunders on 55-16-2602Unnivzzvoff (Ashlie) [#/Vol]7.5 M/mLLow>15[facility] Limaperm morphologyOrdered By: Alfred Saunders on 56-05-6864Bncoprbhpzw Nom (Ashlie)2.0 %Low>4.0Mercy HealthProvider Letteron 07-66-9832Pzpclshy Letter October 18, 2022 OMAIRA ORANTES [address] [place] [id number] : 2005 Dear Omaira Orantes , This letter is to inform you the the providers of [place] [facility] (Dr. Marcos Meraz) will no longer be responsible for your routine medical care due to your repeated non compliance with your cancer care follow up appointments. Emergency care only will be provided for the thirty (30) days following this letter. During this time period we suggest that you find another physician for your medical needs. A listing of area physicians can be found on [facility]'s website at [email or web address] or you may contact your health plan. We will be glad to forward your records to your new physician as long as we receive a signed release of records form. Sincerely, Marcos Meraz M.D., F.A.C.S. [facility] [address] [place], [place] [id number] , option 3 SENT REGULAR/CERT MAILNormalOhio Valley Surgical HospitalProvider Letter October 18, 2022 OMAIRA ORANTES [address] [address] : 2005 Dear Omaira Orantes , This letter is to inform you the the providers of [place] [employer] (Dr. Marcos Meraz) will no longer be responsible for your routine medical care due to your repeated non compliance with your cancer care follow up appointments. Emergency care only will be provided for the thirty (30) days following this letter. During this time period we suggest that you find another physician for your medical needs. A listing of area physicians can be found on [facility]'s website at [email or web address] or you may contact your health plan. We will be glad to forward your records to your new physician as long as we receive a signed release of records form. Sincerely, Marcos Meraz M.D., F.A.C.S. [facility] [address] [place], [place] [address], [place] [address] , option 3[facility] Medical CenterProvider Letter October 18, 2022 OMAIRA ORANTES [address] [address] : 2005 Dear Omaira Orantes , This letter is to inform you the the providers of [place] (Dr. Marcos Meraz) will no longer be responsible for your routine medical care due to your repeated non compliance with your cancer care. Emergency care only will be provided for the thirty (30) days following this letter. During this time period we suggest that you find another physician for your medical needs. A listing of area physicians can be found on [facility]'s website at [email or web address] or you may contact your health plan. We will be glad to forward your records to your new physician as long as we receive a signed release of records form. Sincerely, Marcos Meraz M.D., F.A.C.S. [facility] [address] Hospitaltim [address] [place], [place] [address] , option 3Regional Medical CenterPatient Letter FTMCon 40-42-1312Gswtgzj Letter [facility] August 01, 2022 OMAIRA ORANTES [address] [address] Dear Mr. Omaira Cohen, Our records indicate you have missed 2 follow up appointments to your testicular cancer. It is veryimportant you are seen and evaluated after surgery and treatments , so we can continue to monitor your progress. You advised the office you now are living in [place]. We will be more than willing tosend your records to a new urologist and oncologist in your area if you schedule an appointment. Please call the office to get back on the schedule for a follow up appointment, or to forward your records. Thank you for your cooperation in this matter. Sincerely, Marcos Meraz M.D., F.A.C.S. [facility] [address] [place] [address] Option #3 SENT REGULAR/CERTIFIED [facility] HospitalPatient Letter [facility] August 01, 2022 OMAIRA ORANTES [address] [address] Dear Mr. Omaira Cohen, Our records indicate you have missed 2 follow up appointments to your testicular cancer. It is veryimportant you are seen and evaluated after surgery and treatments , so we can continue to monitor your progress. You advised the office you now are living in [place]. We will be more than willing tosend your records to a new urologist and oncologist in your area if you schedule an appointment. Please call the office to get back on the schedule for a follow up appointment, or to forward your records. Thank you for your cooperation in this matter. Sincerely, Marcos Meraz M.D., F.A.C.S. [facility] [address] [place] [address] Regional Medical CenterRAD - CT Reporton [id number] - CT [id number]#1.00CD:127Regional Medical CenterRAD - CT Report [id number]#1.00CD:127NoSelect Medical Specialty Hospital - Southeast OhioProvider Letteron 26-55-2553Eyysusee Letter July 19, 2022 OMAIRA ORANTES [address] [address] ALEXSANDRA OMAIRA COOK 2005 Dear Omaira , You missed your scheduled appointment on: July 19, [address] Marcos Meraz and the purpose ofthis letter is to inform you of our [...] [facility] [address], [place] [address] GjcknwHyfwoyRegional Medical CenterCT ABD/PELV W CONon 57-39-5389EX ABD/PELV W CONEXAMINATION: CT ABD/PELV W CON HISTORY: Primary malignant [...] Electronically authenticated by: GERRY ALDANA Date: 2022-05-20 16:27NoGrant HospitalCT CHEST W CONon 09-74-9599ZE CHEST W CONEXAMINATION: CT CHEST W CON HISTORY: Primary malignant neoplasm of descended testis diagnosed in 2021, status post left orchiectomy. No current complaints. [...] Electronically authenticated by: HAIM CARMONA Date: 2022-05-19 16:03Wilson Memorial HospitalConsultation Noteon 31-54-7406Pyhwluxquain Note [id number]#1.00CD:127Regional Medical CenterCNOVSPon 42-54-0143UNEJBAZubsp (SP) Office ([place]) OMAIRA COHEN ([id number]) 1 M Date Time Provider Department 04/29/22 3:45 PM RANDY BROWN During your visit today, we recorded the following information about you: Temperature Pulse Respiration Blood pressure 98.5 degrees 62/minute 16/minute 138/64 Weight Height 83.6 kg 1.905 m Randy Brown MD 05/01/2022 6:57 AM Signed PATIENT NAME: Omaira Cohen DATE: 04/29/2022 PRIMARY CARE PHYSICIAN: RYANN Jane OTHER PHYSICIANS: Dr. Meraz Portions of this encounter note have been [...] on all 4 extremities. Reflexes symmetric for biceps/brachioradial/patella/achilles. MUSCULOSKELETAL: Negative examination of joints, bones, muscles/tendons of all four extremities for inspection, percussion, and palpation. Negative for misallignment, asymmetry, crepitation, tenderness, mass, effusions. Range of motion normal. Negative for joint instability, laxity, dislocation. Gait steady. Negative for swelling, erythema, tenderness, soft tissue swelling, and atrophy. 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 The scar area measures 1.3 cm in greatest dimension. It is limited to the testis. Germ cell neoplasia in situ. Epididymis and spermatic cord with no significant pathological findings. LABS: 12/11/2021: CMP and CBC within normal limits AFP hCG LDH 12/11/2021 2.4 <1 164 04/08/2022 2.8 <1 136 RADIOLOGY/OTHER STUDIES: 12/31/2021 CT chest, abdomen, pelvis ([facility]) No evidence o (more content not included)...NormalAdams County Hospital (TUMOR MARKER)on 55-96-0814WWH, Serum, Tumor Marker2.8 ng/mLNormal0.0-5.7The [facility] SystemComment on above:Result Comment: [employer] Electrochemiluminescence Immunoassay (ECLIA) . Values obtained with different assay methods or kits cannot be used interchangeably. Results cannot be interpreted as absolute evidence of the presence or absence of malignant disease. . This test is not interpretable in females.Performed By: #### AFP. ####[facility] [address] [place], [place] [address]Rh. Yilan ChangHCG QUANT TUMOR MARKERon 40-57-3840UYI QNT TUMOR MARKER<3Itdcgx4-2Lkn [facility] SystemComment on above:Result Comment: [employer] Electrochemiluminescence Immunoassay (ECLIA) . The [employer] [...] developed and its performance characteristics determined by [facility]. It has not been cleared or approved by the Food and Drug Administration for use as a tumor marker. . This test is not interpretable as a tumor marker in females.Performed By: #### HCGTMOR ####[facility] [address] [place] [address]Dr. Janee Stoll Reportson 99-35-5044Jeg [id number]#[id number]:127NormalOhio Valley Surgical HospitalLab [id number]#1.00CD:127 Regional Medical CenterCBC AUTO DIFFon 27-07-3377AAAD #0.0 103/ul Normal0.0-0.1The [facility] SystemComment on above:Performed By: #### CBC #### [facility] [address] [place] [address] Dr. Janee OrdazBasophils/100 WBC (Bld)0.3 %Normal0.2-2.0[facility] Comment on above:Performed By: #### CBC #### [facility] [address] [address] [address] Janee Jain #0.8 103/ulCritically high0.0-0.7The [facility] SystemComment on above:Performed By: #### CBC #### [facility] [address] [address] [address] Janee Alexanderosinophils/100 WBC (Bld)5.9 %Normal0.9-7.0[facility] Comment on above:Performed By: #### CBC #### [facility] [address] [address] [address] Janee Alexanderrythrocyte distribution width (RBC) [Ratio]12.3 %Esgufz19.0-15.0 [facility] HospitalComment on above:Performed By: #### CBC #### [facility] [address] [place] [address] Dr. Janee OrdazHematocrit (Bld) [Volume fraction]41.8 %Critically low42.0-54.0 The [facility] HospitalComment on above:Performed By: #### CBC #### [facility] [address] [address] [address] Janee OrdazHemoglobin (Bld) [Mass/Vol]13.9 g/dLCritically low14.0-18.0The [facility] SystemComment on above:Performed By: #### CBC #### [facility] [address] [address] [address] Janee Omalley #0.05 10e3/ulCritically high0.00-0.03The [facility] Comment on above:Performed By: #### CBC #### [facility] [facility] [address] [place] [address] Dr. Janee Omalley %0.4 %Normal0.0-0.5The [facility] SystemComment on above: Performed By: #### CBC #### [facility] [address] [place] [address] Dr. Janee Gutierrez #2.7 103/ulNormal1.2-3.8The [facility] SystemComment on above:Performed By: #### CBC #### [facility] [address] [place] [address] Dr. Janee Hodgsonhocytes/100 WBC (Bld)19.3 %Critically low20.5-60.0The [facility] SystemComment on above:Performed By: #### CBC #### [facility] [address] [address] [address] Janee VelasquezUAL DIFF REQNONormalThe [facility] SystemComment on above: Performed By: #### CBC #### [facility] [address] [address] [address] Janee Brown (RBC) [Entitic mass]28.4 yrAzvfyh25.9-34.0The [facility] SystemComment on above:Performed By: #### CBC #### [facility] [address] [place] [address] Dr. Janee Salinas (RBC) [Mass/Vol]33.3 g/fPJheqoq33.9-35.2The [facility] SystemComment on above:Performed By: #### CBC #### [facility] [address] [place] [address] Dr. Janee SalinasV (RBC) [Entitic vol]85.5 pESjvjib01.0-94.0The [facility] SystemComment on above:Performed By: #### CBC #### [facility] [address] [place] [address] Dr. Janee Contreras #1.2 103/ulCritically high0.3-0.8The [facility] Comment on above:Performed By: #### CBC #### [facility] [address] [place] [address] Dr. Janee Gageocytes/100 WBC (Bld)8.5 %Normal1.7-12.0[facility] Comment on above:Performed By: #### CBC #### [facility] [address] [place] [address] Dr. Janee Chavez #9.2 103/ulCritically high1.4-6.5ThOhioHealth [facility]in [facility] Comment on above:Performed By: #### CBC #### [facility] [address] [place] [address] Dr. Janee Dyerutrophils/100 WBC (Bld)65.6 %Csutvc99.0-75.0The [facility] SystemComment on above:Performed By: #### CBC #### [facility] [address] [place] [address] Dr. Janee Araujolet mean volume (Bld) [Entitic vol]10.3 fLNormal9.5-13.5The [facility] SystemComment on above:Performed By: #### CBC #### [facility] [address] [place] [address] Dr. Janee OrdazPLT226 103/mnQfxefk295-843Ted [facility] SystemComment on above: Performed By: #### CBC #### [facility] [address] [place] [address] Dr. Janee OrdazRBC4.89 106/ulNormal4.70-6.10The [facility] SystemComment on above:Performed By: #### CBC #### [facility] [address] [address] [address] Janee OrdazWBC14.0 103/ulCritically high4.0-11.0The [facility] SystemComment on above:Performed By: #### CBC #### [facility] [address] [place] [address] Dr. Janee Best 25-56-2883QIM044 U/JWaicbn39-317Lqe [facility] Comment on above:Performed By: #### LDH, CMP #### [facility] [address] [place] [address] Dr. Janee Cuevas 14(COMP METB)on 46-13-3889Jfrkgkn [Mass/Vol]4.5 g/dLNormal 3.4-5.0The [facility] SystemComment on above:Performed By: #### LDH, CMP #### [facility] [address] [place] [address] Dr. Janee OrdazAlbumin/Globulin [Mass ratio]1.3 {ratio}NormalThe [facility] SystemComment on above:Performed By: #### LDH, CMP #### [facility] [address] [place] [address] Dr. Janee Alexis [Catalytic activity/Vol]87 U/HAqlrre29-096Kmr [facility] SystemComment on above:Performed By: #### LDH, CMP #### [facility] [address] [place] [address] Dr. Janee Fernandez [Catalytic activity/Vol]17 U/LAwmssy08-06Vnm The [facility] SystemComment on above:Performed By: #### LDH, CMP #### [facility] [address] [place] [address] Dr. Janee Abdul gap [Moles/Vol]14.2 mmol/LNormalThe [facility] Comment on above:Performed By: #### LDH, CMP #### [facility] [address] [place] [address] Dr. Yilan ChangAST [Catalytic activity/Vol]15 U/PDyqjzd33-69Nhe [facility] SystemComment on above:Performed By: #### LDH, CMP #### [facility] [address] [place] [address] Dr. Janee OrdazBilirubin [Mass/Vol]0.4 mg/dLNormal0.2-1.0[facility] Comment on above:Performed By: #### LDH, CMP #### [facility] [address] [place] [address] Dr. Janee OrdazCalcium [Mass/Vol]9.3 mg/dLNormal8.5-10.1The [facility] Comment on above:Performed By: #### LDH, CMP #### [facility] [address] [place] [address] Dr. Janee OrdazChloride [Moles/Vol]103 mmol/MUgtstg37-823Ewm [facility] Comment on above:Performed By: #### LDH, CMP #### [facility] [address] [place] [address] Dr. Janee OrdazCO2 [Moles/Vol]28.8 mmol/JCvuwhi89.0-32.0The [facility] Comment on above:Performed By: #### LDH, CMP #### [facility] [address] [place] [address] Dr. Janee OrdazCreatinine [Mass/Vol]0.91 mg/dLNormal0.70-1.30The [facility] SystemComment on above:Performed By: #### LDH, CMP #### [facility] [address] [place] [address] Dr. Janee AlexanderGFR-AF SPANISH>60Normal>=60The [facility] SystemComment on above:Performed By: #### LDH, CMP #### [facility] [address] [place] [address] Dr. Janee AlexanderGFR-NON AF SPANISH>60Normal>=60The [facility] SystemComment on above:Performed By: #### LDH, CMP #### [facility] [address] [place] [address] Dr. Janee OrdazGlobulin (S) [Mass/Vol]3.4 g/dLNormWVUMedicine Barnesville HospitalComment on above:Performed By: #### LDH, CMP #### [facility] [address] [place] [address] Dr. Janee OrdazGlucose [Mass/Vol]55 mg/dLCritically gag37-517Ypr [facility] SystemComment on above:Performed By: #### LDH, CMP #### [facility] [address] [place] [address] Dr. Janee OrdazPotassium [Moles/Vol]4.0 mmol/LNormal3.5-5.1The [facility] Comment on above:Performed By: #### LDH, CMP #### [facility] [address] [place] [address] Dr. Janee OrdazProtein [Mass/Vol]7.9 g/dLNormal6.4-8.2The [facility] Comment on above:Performed By: #### LDH, CMP #### [facility] [address] [place] [address] Dr. Janee OrdazSodium [Moles/Vol]142 mmol/EDmmwnb563-547Qss [facility] Comment on above:Performed By: #### LDH, CMP #### [facility] [address] [place] [address] Dr. Janee OrdazUrea nitrogen [Mass/Vol]16.0 mg/dLNormal6.4-19.3The [facility] SystemComment on above:Performed By: #### LDH, CMP #### [facility] [address] [place] [address] Dr. Janee OrdazUrea nitrogen/Creatinine [Mass ratio]17.6 mg/mgNoGrant HospitalComment on above:Performed By: #### LDH, CMP #### [facility] [address] [place] [address] Dr. Janee OrdazPathology Noteon 40-72-9325Dkovjfovt Note [id number]#1.00CD:127NoSelect Medical Specialty Hospital - Southeast OhioConsultation Noteon 53-97-3838Dtnyjokomaaf Note [id number]#1.00CD:127NoRigoberto Mt. [facility] Pediatric HospitalCNOVSPon 41-73-4391IKXIAJNskyv (SP) Office (HEMASA) OMAIRA COHEN ([id number]) [birth year] Date Time Provider Department 01/29/22 1:30 PM RANDY BROWN During your visit today, we recorded the following information about you: Temperature Pulse Respiration Blood pressure 97.1 degrees 64/minute 16/minute 133/62 Weight Height 84.8 kg 1.905 m Randy Brown MD 01/30/2022 6:53 AM Signed PATIENT NAME: Omaira Cohen DATE: 01/29/2022 PRIMARY CARE PHYSICIAN: RYANN Jane OTHER PHYSICIANS: Dr. Meraz Portions of this encounter note have been copied from my note from 01/01/2022 and has been updated where appropriate, and reflect my current medical decision making from today. CC: This is an 16 year old male with recently diagnosed testicular cancer, referred for further management. INTERIM HISTORY: Since the patient's initial visit here his pathology was reviewed at [facility], and the diagnosis of testicular scar [...] on all 4 extremities. Reflexes symmetric for biceps/brachioradial/patella/achilles. MUSCULOSKELETAL: Negative examination of joints, bones, muscles/tendons of all four extremities for inspection, percussion, and palpation. Negative for misallignment, asymmetry, crepitation, tenderness, mass, effusions. Range of motion normal. Negative for joint instability, laxity, dislocation. Gait steady. Negative for swelling, erythema, tenderness, soft tissue swelling, and atrophy. 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 The scar area measures 1.3 cm in greatest dimension. It is limited to the testis. Germ cell neoplasia in situ. Epididymis and spermatic cord with no significant pathological findings. LABS: 12/11/2021: CMP and CBC within normal limits AFP hCG LDH 12/11/2021 2.4 <1 164 RADIOLOGY/OTHER STUDIES: (more content not included)...NormalSuburban Community Hospital & Brentwood HospitalAmbulatory Visit Summaryon 77-20-2370Vdsipoxfkz Visit Summary OMAIRA ORANTES Juhi :2005 Visit Date:11/06/2021 Ambulatory Visit Instructions Your Care Team Primary Care Physician - BRITTANY JORDAN Performed Orchiectomy (12/20/2021). What to do next Scheduled Follow-Up Appointments Friday 8:30 AM EST With: MARIYA VICENTE, Marcos Ross [facility] CenterPatient Educationon 67-42-9669Ocqizzz EducationOncology Testicular Cancer Testicular cancer is the presence [...] treatment and your options if you want tohave children. Follow these instructions at home: ? Take utkg-wfr-csnyapz and prescription medicines only as told by [...] in one or both of the male sexglands that produce testosterone and sperm (testicles). ? [...] 02/28/2006 Document Revised: 07/29/2019 Document Reviewed: 07/04/2017 [employer] Patient Education ? 2019 [facility] Provider Letteron [id number] Letter January 25, 2022 OMAIRA ORANTES [address] [id number] OMAIRA ORANTES 2005 To Whom It May Concern, Please excuse above patient from work. Date of illness: From: _ To: 02/01/22 May Return to Work On:02/04/2022 Restrictions: None Comments: Any questions, please call our office. Sincerely, [facility] [address] [facility], [place] [address] JsiuctDtetbmRegional Medical CenterUrology Office/Clinic Noteon 02-57-1164Ocgdple Office/Clinic NoteChief Complaint 1 month PO HPI Staff Omaira [...] and history for this patient from Dr. Meraz. I have reviewed and verified the staff [...] denies hematuria, denies discharge, denies urinary frequency, deniesurinary hesitancy, denies nocturia, denies incontinence, denies genital [...] note reviewed. Surgical specimen was sent to [facility] pathology for second opinion. Assuming the [...] there. 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 Follow-up With When Contact Information MARIYA VICENTE, Marcos Ross, URL [facility] [id number]- Additional Instructions: 5 months Patient Education Testicular Cancer I, Yusra Kahn, personally scribed for Dr. Meraz on 01/25/2022 11:16:54. . Documentation recorded by the scribe, Yusra Kahn, accurately reflects the services(s) I performed and decisions made by me. Authenticated by Dr. Meraz on 01/25/2022 11:19:45. Problem List/Past Medical History [...] 01/10/2009 Recorded measles/mumps/rubella virus vaccine 01/10/2009 Recorded diphtheria/pertussis,acel/tetanus/polio 01/10/2009 Recorded diphtheria/pertussis, acel/tetanus ped 12/28/2007 Recorded measles/mumps/rubella/varicella vaccine 05/20/2006 Recorded haemophilus b conjugate (PRP-T) vaccine 04/24/2006 Recorded diphth/hepB/pertussis,acel/polio/tetanus 04/24/2006 Recorded haemophilus b conjugate (PRP-T) vaccine 2003 Recorded dip (more content not included)...Regional Medical CenterComment on above:Result Comment: Electronically Signed By: Marcos MERAZ MD\.br\Date and Time Signed: 01/25/22 11:19 EDT\.br\Electronically Co-Signed By: Yusra Kahn.br\Date and Time Co-Signed: 01/25/2211:17 EDTOUTSIDE SURG PATH SLIDE REVIEWon [id number] REPORTNormWadsworth-Rittman HospitalComment on above:Order Comment: Specimen Type: SLIDE Ordering Facility: [facility] Address: ATTN: [facility]IM[facility]ESSIONING DEPT, [place], [place] [address]Result Comment: Surgical Pathology Report Case: [id number] Authorizing Provider: Randy Brown MD Collected: 01/09/2022 11:02 AM Ordering Location: [facility] Received: 01/09/2022 11:00 AM Pathologist: Morteza Larios MD Specimen: SLIDE(S), 12 SLIDES; [id number] By: #### [id number] #### [facility] CLIA [id number] [address] [place] [address] [place] STATES OF AMERICADIAGNOSIS COMMENT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 The slides are reviewed with Dr. 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 - Epididymis with no significant pathologic findings. - Spermatic cord with no significant pathologic findings. LEXIS/vipin 01/10/2022 Performed By: #### [id number] #### [facility] CLIA [id number] [address] [place] [address] PERFORMING LABNormal [facility] on above:Order Comment: Specimen Type: SLIDE Ordering Facility: [facility] Address: ATTN: [facility]IM[facility] [address] [place] [id number] Comment: Diagnostic interpretation performed at [facility], [address] [place] [address] CLIA# [id number] Parks Recreation Coordinator: Nilton Rubin M.D.Performed By: #### [id number] #### [facility] CLIA [id number] [address] [place], [place] [address]Consultation Noteon 31-19-4719Tcfgjcdipzmz [id number]:127 NormalFisher Yordan Medical CenterRAD - CT Reporton [id number] - CT Report [id number]#1.00CD:127NormalLuis Manuel [facility] Pediatric HospitalRAD - CT [id number]#1.00CD:127Nomeagan Issa [facility] HospitalRAD - CT Report [id number]#1.00CD:127WallyOhio Valley Surgical HospitalAFP SerPl-mCncon 39-59-1137HDA [Mass/Vol]3.2 ng/mLNormal<11.0[facility] & Brentwood HospitalComment on above:Order Comment: Specimen Type: BLOOD SPECIMEN Ordering Facility: [facility] Address: [address] [place], [place] [address] Comment: Result rechecked. The test is typically used as [...] assay methods or kits cannot be used interchangeably.Performed By: #### 1834-1 #### [facility] CLIA [id number] [address] [place] [id number] [place] [address] [place] STATES OF AMERICABETA HCG QUANT TUMOR MARKER on 68-10-1097EARR HCG QUANT TUMOR MARKER<0Juslzj9-5QozmckkjjOhio State Health System Comment on above:Order Comment: Specimen Type: BLOOD SPECIMEN Ordering Facility: [facility] Address: [address] [place] [id number] Comment: INTERPRETIVE INFORMATION: Beta hCG, Serum Quantitation Tumor Marker [...] reference intervals for this test in the [facility] Test Directory (sickweather). This test was developed and its performance characteristics determined by [facility]. It has not been cleared or approved by the [place] Food and Drug Administration. This test was performed in a CLIA certified laboratory and is intended for clinical purposes. Performed By: [facility] [address] [place] [address] Parks Recreation Coordinator: Morteza Kay MD, PhDPerformed By: #### BHCG #### [facility] CLIA [id number] [address] [place], [place] [address]JRZ W Auto Differential panel (Bld)on 01-01-2022 Basophils (Bld) [#/Vol]0.03 10*3/uLNormal<0.11COhio State Health SystemComment on above:Order Comment: Specimen Type: BLOOD SPECIMEN Ordering Facility: [facility] Address: [address] [address]Performed By: #### 74747-9 #### [facility] CLIA [id number] [address] [place] [address]Kuowzoric/100 WBC (Bld)0.3 %NormalSuburban Community Hospital & [facility] Comment on above:Order Comment: Specimen Type: BLOOD SPECIMEN Ordering Facility: [facility] Address: [address] [address]Performed By: #### 16271-8 #### [facility] CLIA [id number] [address] [place] [address]Wfpdyznzcwcv cell count method Nom (Bld)AutoNormalCMetroHealth Cleveland Heights Medical Center on above:Order Comment: Specimen Type: BLOOD SPECIMEN Ordering Facility: [facility] Address: [address] [place], [place] [address]Performed By: #### 68819-3 #### [facility] CLIA [id number] [address] [place] [address]Qrnyclmceih (Bld) [#/Vol]0.51 10*3/uLHigh<0.46[facility] on above:Order Comment: Specimen Type: BLOOD SPECIMEN Ordering Facility: [facility] Address: [address] [place], [place] [address]Performed By: #### 60114-3 #### [facility] CLIA [id number] [address] [place] [address]Zyvtuddwfuu/100 WBC (Bld)5.4 %NormalSuburban Community Hospital & [facility] Comment on above:Order Comment: Specimen Type: BLOOD SPECIMEN Ordering Facility: [facility] Address: [address] [place], [place] [address]Performed By: #### 20797-6 #### [facility] CLIA [id number] [address] [place] [address]Abzsbnvtwgu distribution width (RBC) [Ratio]12.3 %Normal 11.5-15.0[facility] on above:Order Comment: Specimen Type: BLOOD SPECIMEN Ordering Facility: [facility] Address: [address] [place], [place] [address]Performed By: #### 56454-0 #### [facility] CLIA [id number] [address] [place] [address]Alapmjules (Bld) [Volume fraction]42.8 %Vajcby16.0-51.0 [facility] on above:Order Comment: Specimen Type: BLOOD SPECIMEN Ordering Facility: [facility] Address: [address] [place] [address]Performed By: #### 97404-9 #### [facility] CLIA [id number] [address] [place] [address]Vlkoiwfkuz (Bld) [Mass/Vol]14.4 g/jZFrunhl15.0-17.0[facility] on above:Order Comment: Specimen Type: BLOOD SPECIMEN Ordering Facility: [facility] Address: [address] [place], [place] [address]Performed By: #### 27827-7 #### [facility] CLIA [id number] [address] [place], [place] [address]KEUNOEYR GRAN %0.5 %NormalRegency Hospital Cleveland East on above:Order Comment: Specimen Type: BLOOD SPECIMEN Ordering Facility: [facility] Address: [address] [place], [place] [address]Performed By: #### 08474-6 #### [facility] CLIA [id number] [address] [place] [address]CEPGYGBM GRAN ABS0.05 k/uLNormal<0.10[facility] on above:Order Comment: Specimen Type: BLOOD SPECIMEN Ordering Facility: [facility] Address: [address] [place], [place] [address]Performed By: #### 49379-8 #### [facility] CLIA [id number] [address] [place] [address]Onjaqowejyi (Bld) [#/Vol]1.80 10*3/uLNormal1.00-4.00[facility] on above:Order Comment: Specimen Type: BLOOD SPECIMEN Ordering Facility: [facility] Address: [address] [place], [place] [address]Performed By: #### 50513-7 #### [facility] CLIA [id number] [address] [place] [address]Eqxzwlkyeqx/100 WBC (Bld)18.9 %NormalRegency Hospital Cleveland East on above:Order Comment: Specimen Type: BLOOD SPECIMEN Ordering Facility: [facility] Address: [address] [place], [place] [address]Performed By: #### 54890-6 #### [facility] CLIA [id number] [address] [place] [address]GMF (RBC) [Entitic mass]28.8 rhAxzeng90.0-34.0[facility] on above:Order Comment: Specimen Type: BLOOD SPECIMEN Ordering Facility: [facility] Address: [address] [place], [place] [address]Performed By: #### 87336-8 #### [facility]CHRISTIANO [facility] CLIA [id number] [address] [place] [address]PGPO (RBC) [Mass/Vol]33.6 g/kHKwjvqk25.5-36.0[facility] on above:Order Comment: Specimen Type: BLOOD SPECIMEN Ordering Facility: [facility] Address: [address] [place], [place] [address]Performed By: #### 63791-7 #### [facility] CLIA [id number] [address] [place] [address]AYU (RBC) [Entitic vol]85.6 jTCcwuib03.0-100.0[facility] on above:Order Comment: Specimen Type: BLOOD SPECIMEN Ordering Facility: [facility] Address: [address] [place], [place] [address]Performed By: #### 71238-2 #### [facility] CLIA [id number] [address] [place] [address]Dtqqtqtax (Bld) [#/Vol]0.87 10*3/uLHigh<0.87[facility] on above:Order Comment: Specimen Type: BLOOD SPECIMEN Ordering Facility: [facility] Address: [address] [place], [place] [address]Performed By: #### 51071-3 #### [facility] CLIA [id number] [address] [place], [place] [address]Algsdrgvs/100 WBC (Bld)9.2 %NormalSuburban Community Hospital & [facility] Comment on above:Order Comment: Specimen Type: BLOOD SPECIMEN Ordering Facility: [facility] Address: [address] [place], [place] [address]Performed By: #### 03159-0 #### [facility] CLIA [id number] [address] [place] [address]Elvonmmkxud (Bld) [#/Vol]6.24 10*3/uLNormal1.45-7.50[facility] on above:Order Comment: Specimen Type: BLOOD SPECIMEN Ordering Facility: [facility] Address: [address] [place], [place] [address]Performed By: #### 93125-3 #### [facility] CLIA [id number] [address] [place] [address]Yawaedtgawe/100 WBC (Bld)65.7 %NormalRegency Hospital Cleveland East on above:Order Comment: Specimen Type: BLOOD SPECIMEN Ordering Facility: [facility] Address: [address] [place], [place] [address]Performed By: #### 37730-9 #### [facility] CLIA [id number] [address] [place] [address]Xquvkblor RBC (Bld) [#/Vol]10*3/uLNormal<0.01[facility] on above:Order Comment: Specimen Type: BLOOD SPECIMEN Ordering Facility: [facility] Address: [address] [place], [place] [address]Performed By: #### 54852-9 #### [facility] CLIA [id number] [address] [place] [address] 33218Dcgnkcnqm RBC/100 WBC (Bld) [Ratio]0.0 /100 WBCNormalCMetroHealth [facility] Heights Medical Center on above:Order Comment: Specimen Type: BLOOD SPECIMEN Ordering Facility: [facility] Address: [address] [place], [place] [address]Performed By: #### 46608-7 #### [facility] CLIA [id number] [address] [place] [address] 67316Jvrwuypu mean volume (Bld) [Entitic vol]9.8 fLNormal9.0-12.7 [facility] on above:Order Comment: Specimen Type: BLOOD SPECIMEN Ordering Facility: [facility] Address: [address] [place], [place] [address]Performed By: #### 49895-5 #### [facility] CLIA [id number] [address] [place] [address] 82874Nwmezsbnx (Bld) [#/Vol]202 10*3/cVZvpcpa420-687PwakljfupRegency Hospital [facility] on above:Order Comment: Specimen Type: BLOOD SPECIMEN Ordering Facility: [facility] Address: [address] [place], [place] [address]Performed By: #### 08923-5 #### [facility] CLIA [id number] [address] [place] [address] 76164RYM (Bld) [#/Vol]5.00 10*6/uLNormal4.20-6.00[facility] on above:Order Comment: Specimen Type: BLOOD SPECIMEN Ordering Facility: [facility] Address: [address] [place], [place] [address]Performed By: #### 75101-9 #### [facility] CLIA [id number] [address] [place] [address] 34041DHH (Bld) [#/Vol]9.50 10*3/uLNormal3.70-11.00[facility] on above:Order Comment: Specimen Type: BLOOD SPECIMEN Ordering Facility: [facility] Address: [address] [place], [place] [address]Performed By: #### 43381-7 #### [facility] CLIA [id number] [address] [place] [address] 14656Niu Immature Gran0.05 k/uL<0.10 k/uLCaldwell ClinicBasophils (Bld) [#/Vol]0.03 10*3/uL<0.11 k/uLMercy Health – The Jewish HospitalBasophils/100 WBC (Bld)0.3 % [facility] HospitalDifferential cell count method Nom (Bld)AutoCleveland Clinic Eosinophils (Bld) [#/Vol]0.51 10*3/uLHigh<0.46 k/uLMercy Health – The Jewish Hospital Eosinophils/100 WBC (Bld)5.4 %[facility] HospitalErythrocyte distribution width (RBC) [Ratio]12.3 %11.5 - 15.0 %[facility] HospitalHematocrit (Bld) [Volume fraction]42.8 %39.0 - 51.0 %[facility] HospitalHemoglobin (Bld) [Mass/Vol]14.4 g/dL 13.0 - 17.0 g/dLMercy Health – The Jewish HospitalImmature Gran %0.5 %[facility] HospitalLymphocytes (Bld) [#/Vol]1.80 10*3/uL1.00 - 4.00 k/uLMercy Health – The Jewish HospitalLymphocytes/100 WBC (Bld)18.9 %[facility] CenterH (RBC) [Entitic mass]28.8 pg26.0 - 34.0 pg [facility] CenterHC (RBC) [Mass/Vol]33.6 g/dL30.5 - 36.0 g/dLMercy Health – The Jewish Hospital MCV (RBC) [Entitic vol]85.6 fL80.0 - 100.0 fLCleveland ClinicMonocytes (Bld) [#/Vol]0.87 10*3/uLHigh<0.87 k/uLCaldwell ClinicMonocytes/100 WBC (Bld)9.2 % [facility] HospitalNeutrophils (Bld) [#/Vol]6.24 10*3/uL1.45 - 7.50 k/uLMercy Health – The Jewish HospitalNeutrophils/100 WBC (Bld)65.7 %[facility] HospitalNucleated RBC (Bld) [#/Vol] <0.01 k/uLCleveland ClinicNucleated RBC/100 WBC (Bld) [Ratio]0.0 /100 WBC [facility] HospitalPlatelet mean volume (Bld) [Entitic vol]9.8 fL9.0 - 12.7 fL Caldwell ClinicPlatelets (Bld) [#/Vol]202 10*3/uL150 - 400 k/[facility] RBC (Bld) [#/Vol]5.00 10*6/uL4.20 - 6.00 m/[facility] HospitalWBC (Bld) [#/Vol] 9.50 10*3/uL3.70 - 11.00 k/[facility] HospitalCNOVSPon 74-39-7396OTDNTVVsrlj (SP) Office ([place]MASA) OMAIRA COHEN ([id number]) [birth year] M Date Time Provider Department 01/01/22 11:00 AM RANDY BROWN During your visit today, we recorded the following information about you: Temperature Pulse Respiration Blood pressure 98.1 degrees 56/minute 16/minute 128/62 Weight Height 81.5 kg 1.905 m Randy Brown MD 01/02/2022 9:04 AM Signed PATIENT NAME: Omaira Cohen DATE: 01/01/2022 PRIMARY CARE PHYSICIAN: RYANN Jane OTHER PHYSICIANS: Dr. 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 MEDICATIONS: No current outpatient medications on file. [...] on all 4 extremities. Reflexes symmetric for biceps/brachioradial/patella/achilles. MUSCULOSKELETAL: Negative examination of joints, bones, muscles/tendons of all four extremities for inspection, percussion, and palpation. Negative for misallignment, asymmetry, crepitation, tenderness, mass, effusions. Range of motion normal. Negative for joint instability, laxity, dislocation. Gait steady. Negative for swelling, erythema, tenderness, soft tissue swelling, and atrophy. 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 The scar area measures 1.3 cm in greatest dimension. It is limited to the testis. Germ cell neoplasia in situ. Epididymis and spermatic cord with no significant (more content not included)... NormalMartins Ferry HospitalPNon [id number] (CHINTAN) OMAIRA COHEN ([id number]) 1 M Date Time Provider Department 01/01/22 RANDY BROWN During your visit today, we recorded the following information about you: Sherry Turner Sec 01/01/2022 12:49 PM Signed 2nd opinion pathology requested to be sent from [facility] to [facility] for review. Allergies As of Date: 01/01/2022 Noted Allergy Reaction AMOXICILLIN 12/31/2021 4 - Hives Date Reviewed: 12/31/2021 Reviewed by: Montse Pederson - Fully Assessed Reason for Visit: 2nd opinion pathology [Other] Problem List As Of Date: 01/01/2022 (None) Encounter Status:Closed by SHERRY ARAYA on 01/01/22NormalCOhio State Health SystemComprehensive metabolic 2000 panelon 46-99-0081Amcjltz [Mass/Vol]5.1 g/dLHigh3.9-4.9CMetroHealth [facility] on above:Order Comment: Specimen Type: BLOOD SPECIMEN Ordering Facility: [facility] Address: [address] [place], [place] [address]Performed By: #### 54399-8, 2532-0 #### [facility] CLIA [id number] [address] [place] [address] 12432GOO [Catalytic activity/Vol]90 U/QUewgod42-906OfcfgaspwRegency Hospital [facility] East on above:Order Comment: Specimen Type: BLOOD SPECIMEN Ordering Facility: [facility] Address: [address] [place], [place] [address]Performed By: #### 08166-2, 2532-0 #### [facility] CLIA [id number] [address] [place] [address] 17219QGQ [Catalytic activity/Vol]15 U/OPirovz96-15SzdrzivkuRegency Hospital [facility] East on above:Order Comment: Specimen Type: BLOOD SPECIMEN Ordering Facility: [facility] Address: [address] [place], [place] [address]Performed By: #### 87023-0, 2532-0 #### [facility] CLIA [id number] [address] [place], [place] [address]Aknnp gap [Moles/Vol]10 mmol/LNormal9-18[facility] on above:Order Comment: Specimen Type: BLOOD SPECIMEN Ordering Facility: [facility] Address: [address] [place], [place] [address]Performed By: #### 50595-1, 2532-0 #### [facility] CLIA [id number] [address] [place] [address] 82000KWB [Catalytic activity/Vol]18 U/MEavnrf87-61NpnfelnegRegency Hospital [facility] East on above:Order Comment: Specimen Type: BLOOD SPECIMEN Ordering Facility: [facility] Address: [address] [place], [place] [address]Performed By: #### 20593-8, 2532-0 #### [facility] CLIA [id number] [address] [place] [address] 77386Mhwbhyxig [Mass/Vol]0.4 mg/dLNormal0.2-1.3CMetroHealth [facility] on above:Order Comment: Specimen Type: BLOOD SPECIMEN Ordering Facility: [facility] Address: [address] [place], [place] [address]Performed By: #### 68288-5, 2532-0 #### [facility] CLIA [id number] [address] [place] [address] 28875Wdyjmfa [Mass/Vol]10.4 mg/dLHigh8.5-10.2CMetroHealth [facility] Center on above:Order Comment: Specimen Type: BLOOD SPECIMEN Ordering Facility: [facility] Address: [address] [place], [place] [address]Performed By: #### 41281-2, 2532-0 #### [facility] CLIA [id number] [address] [place] [address] 26085Lpievjrw [Moles/Vol]100 mmol/VEtrpyq06-990EnvzlxsmzRegency Hospital [facility] on above:Order Comment: Specimen Type: BLOOD SPECIMEN Ordering Facility: [facility] Address: [address] [place], [place] [address]Performed By: #### 38954-7, 2532-0 #### [facility] CLIA [id number] [address] [place] [address] 72101DH4 [Moles/Vol]28 mmol/DQejrrk34-76UoeawrtadSuburban Community Hospital & [facility] Comment on above:Order Comment: Specimen Type: BLOOD SPECIMEN Ordering Facility: [facility] Address: [address] [place], [place] [address]Performed By: #### 14701-2, 2532-0 #### [facility] IA [id number] [address] [place] [address] 61920Grftdflhrq [Mass/Vol]0.87 mg/dLNormal0.73-1.22[facility] & Brentwood HospitalComment on above:Order Comment: Specimen Type: BLOOD SPECIMEN Ordering Facility: [facility] Address: [address] [place], [place] [address]Performed By: #### 76663-8, 2531-0 #### [facility] IA [id number] [address] [place] [address] 98628NPYTZBSUK GLOMERULAR FILTRATION OAKM045 mL/min/1.73m???Normal >=60[facility] & Brentwood HospitalComment on above:Order Comment: Specimen Type: BLOOD SPECIMEN Ordering Facility: [facility] Address: [address] [place], [place] [address]Result Comment: Estimated Glomerular Filtration Rate (eGFR) is calculated using the 2020 CKD-EPI cre atinine equation. This equation utilizes serum creatinine, sex, and age as parameters. The creatinine assay has traceable calibration to isotope dilution- mass spectrometry. Refer to KDIGO guidelines for clinical interpretation. In patients with unstable renal function, e.g. those with acute kidney injury, the eGFR may not accurately reflect actual GFR.Performed By: #### 08222-2, 2532-0 #### [facility] IA [id number] [address] [place] [address] 34568Ovrocfx [Mass/Vol]102 mg/wZQfek06-76LxsixompuSuburban Community Hospital & [facility] Comment on above:Order Comment: Specimen Type: BLOOD SPECIMEN Ordering Facility: [facility] Address: [address] [place], [place] [address]Result Comment: The [place] Diabetes Association (ADA) provides guidance for cutoff [...] Standards of Medical Care in Diabetes 2016, [place] Diabetes Association. Diabetes Care. 2016.39(Suppl 1).Performed By: #### 99140-0, 2531-0 #### [facility] CLIA [id number] [address] [place] [address] 46345Onvwulejj [Moles/Vol]4.4 mmol/LNormal3.7-5.1CMetroHealth [facility] on above:Order Comment: Specimen Type: BLOOD SPECIMEN Ordering Facility: [facility] Address: [address] [place], [place] [address]Performed By: #### 67002-2, 2531-0 #### [facility] CLIA [id number] [address] [place] [address] 91032Ztcitqw [Mass/Vol]7.5 g/dLNormal6.3-8.0[facility] on above:Order Comment: Specimen Type: BLOOD SPECIMEN Ordering Facility: [facility] Address: [address] [place], [place] [address]Performed By: #### 69055-3, 2531-0 #### [facility] CLIA [id number] [address] [place] [address] 30499Zrdenx [Moles/Vol]138 mmol/BPcgrlf281-237RzboccxhxRegency Hospital [facility] on above:Order Comment: Specimen Type: BLOOD SPECIMEN Ordering Facility: [facility] Address: [address] [place], [place] [address]Performed By: #### 74463-7, 2531-0 #### [facility] CLIA [id number] [address] [place], [place] [address]Fdoy nitrogen [Mass/Vol]17 mg/dLNormal9-24[facility] & Brentwood HospitalComment on above:Order Comment: Specimen Type: BLOOD SPECIMEN Ordering Facility: [facility] Address: [address] [place], [place] [address]Performed By: #### 52325-8, #### [facility] CLIA [id number] [address] [place] [address] 48912Ohtvvua [Mass/Vol]5.1 g/dLHigh3.9 - 4.9 g/dLMercy Health – [facility] Jewish Hospital ALP [Catalytic activity/Vol]90 U/L55 - 149 U/LCleveland ClinicALT [Catalytic activity/Vol]15 U/L10 - 54 U/LCleveland ClinicAnion gap [Moles/Vol]10 mmol/L9 - 18 mmol/LCleveland ClinicAST [Catalytic activity/Vol]18 U/L14 - 40 U/LCleveland ClinicBilirubin [Mass/Vol]0.4 mg/dL0.2 - 1.3 mg/dLCaldwell ClinicCalcium [Mass/Vol]10.4 mg/dLHigh8.5 - 10.2 mg/dLCaldwell ClinicChloride [Moles/Vol]100 mmol/L97 - 105 mmol/LCleveland ClinicCO2 [Moles/Vol]28 mmol/L22 - 30 mmol/L [facility] HospitalCreatinine [Mass/Vol]0.87 mg/dL0.73 - 1.22 mg/dLMercy Health – [facility] Jewish Hospital Estimated Glomerular Filtration Padz117 mL/min/1.73m>=60 mL/min/1.73mCleveland ClinicGlucose [Mass/Vol]102 mg/aAArlj83 - 99 mg/dLCaldwell ClinicPotassium [Moles/Vol]4.4 mmol/L3.7 - 5.1 mmol/LCleveland ClinicProtein [Mass/Vol]7.5 g/dL 6.3 - 8.0 g/dLCaldwell ClinicSodium [Moles/Vol]138 mmol/L136 - 144 mmol/L [facility] HospitalUrea nitrogen [Mass/Vol]17 mg/dL9 - 24 mg/dLMary [facility] Hospital LACTATE DEHYDROon 49-97-1524LBD [Catalytic activity/Vol]164 U/L135 - 225 U/L [facility] SerPl-cCncon 25-09-3116BJP [Catalytic activity/Vol]164 U/L Fepcuy113-011UdrqbfzaoSuburban Community Hospital & Brentwood HospitalComment on above:Order Comment: Specimen Type: BLOOD SPECIMEN Ordering Facility: [facility] Address: [facility] [place] [address]Bamwsd Comment: Hemolysis present. The origin of the hemolysis, in vitro versus an in vivo hemolytic process, cannot be distinguished via this assay alone. In vitro hemolysis may lead to non-physiological (spurious) elevation in lactate dehydrogenase (LDH) results. The result should be interpreted in context of the clinical setting and other test results. Suggest reorder as clinically indicated.Performed By: #### 07121-0, 2532-0 #### [facility] CLIA [id number] [address] [place] [address] 69816AD CHEST W CONon 05-81-8007AG CHEST W CONEXAMINATION: CT CHEST W CON, CT ABD/PELV W CON HISTORY: [...] Electronically authenticated by: GERRY ALDANA Date: 2021-12-31 13:31[facility] HospitalPathology Noteon 12-58-2056Kmtqyxzva Note [id number]#1.00CD:127[facility] Medical CenterAmbulatory Visit Summaryon 38-50-7878Uzdncbpeut Visit Summary OMAIRA ORANTES :2005 Visit Date:12/28/2021 Ambulatory Visit Instructions Your Diagnosis Testicular cancer Tests Performed CT Abdomen/Pelvis w/ Contrast -- Results Pending -- CT Chest w/ Contrast -- Results Pending -- Please visit your patient portal for your results or contact your primary care physician. Your Care Team Attending Physician - Marcos MERAZ MD Primary Care Physician - BRITTANY JORDAN Discharge Vitals Heart Rate (Peripheral) 69 Respiratory Rate 16 Blood Pressure 125/68 Height 187.0 cm Height 187 cm Weight 72.0 kg Weight 72 kg BMI 20.59 What to do next You Need to Schedule the Following Appointments Follow Up with Marcos MERAZ MD, BERNARDO When: Where: [address] [place] [address]- Someone Will Contact You Regarding These Appointments [facility] External Ambulatory Referral, Oncology, [facility] oncology for testicular [...] cancer, or to prevent cancer in men whosetesticles did not develop normally. An orchiectomy may also be needed when an injury to a testicle cannot be repaired. The testicles can be replaced with artificial testicles (prosthesis). Tell a health care provider about: ? Any allergies you have. ? All medicines you are taking, including vitamins, herbs, eye drops, creams, and uung-pbz-nudrrnd medicines. ? Any problems you or family [...] foods such as meat, fried foods, or fattyfoods. ? 6 hours before the procedure ? [...] the space in the scrotum where the testiclewas removed. ? If your procedure is for treatment of testicular cancer: ? A cut (incision) will be made in the groin. ? The testicle and the spermatic cord will be removed through the groin incision. ? A prosthetic filled with saline may be inserted to fill the space in the scrotum where the testiclewas removed. ? After the removal, the incision will b (more content not included)...Normal [facility] Educationon 46-97-0301Wknfsby Education Oncology Orchiectomy An orchiectomy is the removal of one or both testicles. It is most often done to treat cancer of the prostate or testicles. It may be done in men with breast cancer, or to prevent cancer in men whosetesticles did not develop normally. An orchiectomy may also be needed when an injury to a testicle cannot be repaired. The testicles can be replaced with artificial testicles (prosthesis). Tell a health care provider about: ? Any allergies you have. ? All medicines you are taking, including vitamins, herbs, eye drops, creams, and ngnu-zmp-wfmpkzn medicines. ? Any problems you or family [...] support irritates your incision site, you may removethe support. ? You will have a sterile [...] your health care provider (more content not included)...[facility] Office/Clinic Noteon 18-14-0640Zjvdjwh Office/Clinic NoteChief Complaint PO orchiectomy HPI Staff Omaira is [...] and history for this patient from Dr. Meraz. I have reviewed and verified the staff [...] denies hematuria, denies discharge, denies urinary frequency, deniesurinary hesitancy, denies nocturia, denies incontinence, denies genital [...] CT chest & AP. Referral [facility] to [facility] oncology for a second opinion. Follow up in 1 month. Follow-up With When Contact Information MARIYA VICENTE, Marcos Ross, URL [address] [place] [address]- Additional Instructions: 1 month Patient Education Orchiectomy I, Yusra Kahn, personally scribed for Dr. Meraz on 12/28/2021 09:44:19. Electronically signedby christina Kahn on 12/28/2021 09:44:19. Documentation recorded by the scribe, Yusra Kahn, accurately reflects the services(s) I performed and decisions made by me. Authenticated by Dr. Meraz on 12/28/2021 09:46:29. Problem List/Past Medical History [...] 01/10/2009 Recorded measles/mumps/rubella virus vaccine 01/10/2009 Recorded diphtheria/pertussis,acel/tetanus/polio 01/10/2009 Recorded diphtheria/pertussis, acel/tetanus ped 12/28/2007 Recorded measles/mumps/rubella/varicella vaccine 05/20/2006 Recorded haemophilus b conjugate (PRP-T) vaccine 04/24/2006 Recorded diphth/hepB/pertussis,acel/polio/tetanus 04/24/2006 Recorded haemophilus b conjugate (PRP-T) vaccine 2003 Recorded diphth/hepB/pertussis,acel/polio/tetanus 2003 Recorded haemophilus b conjugate (PRP-T) vaccine 2003 Recorded diphth/hepB/pertussis,acel/polio/tetanus 2003 Recorded hepa (more content not included)...[facility]ional Medical CenterComment on above:Result Comment: Electronically Signed By: Marcos MERAZ MD\.br\Date and Time Signed: 12/28/21 09:46 EDT\.br\Electronically Co-Signed By: Yusra Kahn\.br\Date and Time Co-Signed: 12/28/2208:44 EDTOperative Reporton 60-95-5610Ueafnhufo [id number]:127 NormalMercy Health [facility] Reportson 76-26-0851Atu Reports [id number]:127NoSelect Medical Specialty Hospital - Southeast OhioCovid-19 PCR (CVDTBH)on 95-55-7288HUHY-CoV-2 (COVID-19) RNA CHRISTIANO+probe Ql (Unsp spec)Not detectedNormalNOT DETECTEDThe [facility] SystemComment on above: Result Comment: This test is not yet approved or cleared by the [place] FDA. When there are no FDA-approved or cleared tests available, and other criteria are met, FDA can make tests available under an emergency access mechanism called an Emergency Use Authorization (EUA). The EUA for this test is supported by the [place] [employer] of Health and Human Service's (HHS's) [...] of clinical signs and symptoms consistent with SARS-CoV-2.Performed By: #### CVDTBH #### [facility] [address] [place] [address] Dr. Janee OrdazInsurance Correspondenceon 05-60-3068Dptrokzll Correspondence [id number]:127NoMer[facility] Reportson 33-33-8344Zzx Reports [id number]#1.00CD:[address] [place], [place] [address]AFP (TUMOR MARKER)on 98-29-7986KDJ, Serum, Tumor Marker2.4 ng/mLNormal 0.0-5.7The [facility] SystemComment on above:Result Comment: [employer] Electrochemiluminescence Immunoassay (ECLIA) . Values obtained with different assay methods or kits cannot be used interchangeably. Results cannot be interpreted as absolute evidence of the presence or absence of malignant disease. . This test is not interpretable in females.Performed By: #### AFP. #### [facility] [address] [place], [place] [address] Dr. Janee Oscar QUANT TUMOR MARKERon 54-38-0700MLB QNT TUMOR MARKER<1Normal 0-3The [facility] SystemComment on above:Result Comment: [employer] Electrochemiluminescence Immunoassay (ECLIA) . The [employer] [...] developed and its performance characteristics determined by [employer]. It has not been cleared or approved by the Food and Drug Administration for use as a tumor marker. . This test is not interpretable as a tumor marker in females.Performed By: #### HCGTMOR ####[facility] [address] [place], [place] [address]ZcDr. Janee Mathis - Ultrasound Reporton 20-45-8640FWO - Ultrasound Report [id number]#1.00CD:[address] [place], [place] [address]CBC AUTO DIFFon 89-29-2086SURK #0.0 103/ulNormal0.0-0.1The [facility] SystemComment on above:Performed By: #### CBC ####[facility] [address] [place] [address]Dr.Yilan ChangBasophils/100 WBC (Bld)0.4 %Normal0.2-2.0The [facility] SystemComment on above:Performed By: #### CBC ####[facility] [address] [place], [place] [address]Dr.Yilan ChangEO #0.6 103/ulNormal0.0-0.7The [facility] SystemComment on above:Performed By: #### CBC ####[facility] Rf[address]omky[address] [place], [place] [address]Dr.Yilan ChangEosinophils/100 WBC (Bld)7.7 %Critically high0.9-7.0The [facility] SystemComment on above:Performed By: #### CBC ####[facility] [address] [place], [place] [address]Dr. Yilan ChangErythrocyte distribution width (RBC) [Ratio]12.6 %Pkcwnm69.0-15.0The [facility] SystemComment on above:Performed By: #### CBC ####[facility] [address] [place], [place] [address]Dr.Yilan ChangHematocrit (Bld) [Volume fraction]45.1 %Athygs29.0-54.0The [facility] on above:Performed By: #### CBC ####[facility] [address] [place], [place] [address]Dr.Yilan ChangHemoglobin (Bld) [Mass/Vol]14.8 g/dL Yrtroo63.0-18.0The [facility] SystemComment on above:Performed By: #### CBC ####[facility] [address] [place], [place] [address]Dr. Yilan ChangIG #0.02 10e3/ulNormal0.00-0.03The [facility] SystemComment on above: Performed By: #### CBC ####[facility] An[address]rf[address] [place], [place] [address]Dr.Yilan ChangIG %0.2 %Normal0.0-0.5The [facility] HospitalComment on above:Performed By: #### CBC ####[facility] [address] [place] [address]Dr.Janee OrdazLYMPH #2.2 103/ulNormal1.2-3.8The [facility] SystemComment on above:Performed By: #### CBC ####[facility] [address]duektkn[address] [place], [place] [address]Dr. Janee OrdazLymphocytes/100 WBC (Bld)27.2 %Gsrpoi09.5-60.0The [facility] Comment on above:Performed By: #### CBC ####[facility] [address] [place], [place] [address]Dr.Janee OrdazMANUAL DIFF REQNONormalThe [facility] SystemComment on above:Performed By: #### CBC ####[facility] Cfwlmghcza[address] [place], [place] [address]Dr.Maddisonmaico OrdazH (RBC) [Entitic mass]28.7 czVvelgh65.9-34.0The [facility] SystemComment on above: Performed By: #### CBC ####[facility] C[address]wjzkcyc[address] [place], [place] [address]Dr.Janee OrdazMCHC (RBC) [Mass/Vol]32.8 g/dLNormal 29.9-35.2The [facility] SystemComment on above:Performed By: #### CBC ####[facility] Kyuuwdsjvb[address] [place], [place] [address]Dr. Maddisonmaico OrilnV (RBC) [Entitic vol]87.4 dECmxfbj79.0-94.0The [facility] Comment on above:Performed By: #### CBC ####[facility] Avgowlkmuj4[address] [place], [place] [address]Dr.Janee OrdazMONO #0.8 103/ulNormal0.3-0.8 The [facility] SystemComment on above:Performed By: #### CBC ####[facility] Zoibrexzbq[address] [place], [place] [address]Dr.Maddisonmaico Ordaz Monocytes/100 WBC (Bld)9.5 %Normal1.7-12.0The [facility] SystemComment on above: Performed By: #### CBC ####[facility] Zbfchfkdfq[address] [place], [place] [address]Dr.Janee OrdazNEUT #4.5 103/ulNormal1.4-6.5The [facility] SystemComment on above:Performed By: #### CBC ####[facility] Ahleuyoldt[address] [place], [place] [address]Dr.Janee OrdazNeutrophils/100 WBC (Bld)55.0 %Hdxrbs09.0-75.0The [facility] SystemComment on above:Performed By: #### CBC ####[facility] Wlobgxtvci[address] [place], [place] [address]Dr.Janee OrdazPlatelet mean volume (Bld) [Entitic vol]9.9 fLNormal9.5-13.5 The [facility] SystemComment on above:Performed By: #### CBC ####[facility] Nlyzvdqzwr[address] [place], [place] [address]Dr.Janee RvfllEEU554 103/vdUsuolh815-093Fvg [facility] SystemComment on above:Performed By: #### CBC ####[facility] Zjcbidfugv027[address] [place], [place] [address]Dr. Janee ChangRBC5.16 106/ulNormal4.70-6.10The [facility] SystemComment on above: Performed By: #### CBC ####[facility] Kznkmogcrt6[address] [place], [place] [address]Dr.Janee ChangWBC8.2 103/ulNormal4.0-11.0The [facility] SystemComment on above:Performed By: #### CBC ####[facility] Iybpyifptg[address] [place], [place] [address]Dr.Janee OrdazLDHon 29-27-6385ZBH709 U/WYshhzv99-908Szh [facility] SystemComment on above:Performed By: #### BMP, LDH ####[facility] Lolsiwlmmo[address] [place], [place] [address]Dr. Yilan ChangPROF CHEM 8 (BAS METB)on 10-88-8400Wfviz gap [Moles/Vol]11.3 mmol/LNormalThe [facility] SystemComment on above:Performed By: #### BMP, LDH ####[facility] Wpfjcilkfw[address] [place], [place] [address]Dr. Yilan ChangCalcium [Mass/Vol]9.8 mg/dLNormal8.5-10.1The [facility] SystemComment on above:Performed By: #### BMP, LDH ####[facility] Nbnfpajpfh12[address] [place], [place] [address]Dr. Yilan ChangChloride [Moles/Vol]103 mmol/UEjuvtu35-314Ire [facility] SystemComment on above:Performed By: #### BMP, LDH ####[facility] Kyzcthpcew[address] [place], [place] [address]Dr. Yilan ChangCO2 [Moles/Vol]30.7 mmol/LNormal 21.0-32.0The [facility] SystemComment on above:Performed By: #### BMP, LDH ####[facility] Qjxovnleie[address] [place], [place] [address]Dr. Yilan ChangCreatinine [Mass/Vol]0.96 mg/dLNormal0.70-1.30The [facility] Comment on above:Performed By: #### BMP, LDH ####[facility] Pbrvgljsfs8[address] [place], [place] [address]Dr. Yilan ChangEGFR-AF SPANISH>60Normal>=60The [facility] SystemComment on above:Performed By: #### BMP, LDH ####[facility] Lavfimkguk[address] [place], [place] [address]Dr. Yilan ChangEGFR-NON AF SPANISH>60Normal>=60The [facility] Comment on above:Performed By: #### BMP, LDH ####[facility] H[address]ksmxqbju[address] [place], [place] [address]Dr. Yilan ChangGlucose [Mass/Vol]90 mg/wIXdhluy27-779Bxx [facility] SystemComment on above:Performed By: #### BMP, LDH ####[facility] [address] [address]Dr. Janee ChangPotassium [Moles/Vol]4.0 mmol/LNormal3.5-5.1The [facility] SystemComment on above:Performed By: #### BMP, LDH ####[facility] [address] [address]Dr. Janee Ordaz Sodium [Moles/Vol]141 mmol/MOemfbc827-608Bmf [facility] SystemComment on above: Performed By: #### BMP, LDH ####[facility] [address] [address]Dr. Maddisonmaico ChangUrea nitrogen [Mass/Vol]18.0 mg/dL Normal6.4-19.3TOur Lady of Mercy HospitalComment on above:Performed By: #### BMP, LDH ####[facility] [address] [address]Dr. Maddisonlan ChangUrea nitrogen/Creatinine [Mass ratio]18.8 mg/mgNormalThOhioHealth Hardin Memorial HospitalComment on above:Performed By: #### BMP, LDH ####[facility] [address] [address]Dr. Janee OrdazPROTIMEon 33-43-5725JHM Coag (PPP) [Relative time]1.00 {INR}NormalHarrison Community Hospital Comment on above:Performed By: #### PT, PTT #### [facility] [address] [address] [address] Janee Green GUIDELINESSEE BELOWWilson Memorial HospitalComment on above:Result Comment: DESIRED INR: 2.0 - 3.0 CONDITIONS NOT LISTED BELOW 2.5 - 3.5 FOR PROSTHETIC HEART VALVE REPLACEMENT 2.5 - 3.5 RECURRENT THROMBOSIS Performed By: #### PT, PTT #### [facility] [address] [address] [address] Janee OrdazPT Coag (PPP) [Time]10.8 sNormal9.0-11.6ThOhioHealth Hardin Memorial Hospital Comment on above:Performed By: #### PT, PTT #### [facility] [address] [address] [address] Janee Davila 08-38-4396eMAJ Coag (Bld) [Time]28.8 zCvkbhz72.3-36.2The [facility] SystemComment on above:Performed By: #### PT, PTT #### [facility] [address] [address] [address] Janee OrdazAmbulatory Visit Summaryon 59-19-7814Zutgzupmgy Visit Summary OMAIRA ORANTES :2005 Visit Date:12/07/2021 Ambulatory Visit Instructions Your Diagnosis Testicular mass Tests Performed Urnls Dip Stick Auto w/o Microscopy POC 69147 Your Care Team Attending Physician - Marcos MERAZ MD Primary Care Physician - BRITTANY JORDAN Discharge Vitals Heart Rate (Peripheral) 61 Respiratory Rate 16 Blood Pressure 120/74 Height 187.0 cm Height 187 cm Weight 72.0 kg Weight 72 kg BMI 20.59 What to do next You Need to Schedule the Following Appointments Follow Up with Marcos MERAZ MD, URL When: Where: [facility] [address] [place] [address]- Test Results Urnls Dip Stick Auto w/o Microscopy POC 68699 (12/07/2021) Bilirubin Urine Dipstick - Negative Blood Urine Dipstick - Trace-intact Glucose Urine Dipstick - Negative Ketones Urine Dipstick - Negative Leukocytes Urine Dipstick - Negative Nitrite Urine Dipstick - Negative Protein Urine Dipstick - Negative Specific Secor Urine Dipstick - 1.025 Urine Appearance Urine [...] smooth and not tender. The spermatic cord canbe felt as a firm, spaghetti-like cord at [...] 07/14/2001 Document Revised: 07/29/2019 Document Reviewed: 03/03/2017 Elsevier Patient Education ? 2019 [employer]. [facility] Medical CenterPatient Educationon 12-07-2021 Patient EducationUrology Testicular Self-Exam A self-examination of your testicles [...] smooth and not tender. The spermatic cord canbe felt as a firm, spaghetti-like cord at [...] 07/14/2001 Document Revised: 07/29/2019 Document Reviewed: 03/03/2017 Elsevier Patient Education ? 2019 [employer].[facility] Physician Orderon 28-99-8230Xagbmhsjd Order [id number]:127NoSelect Medical Specialty Hospital - Southeast OhioProvider Letter FTMCon 89-68-2694Kkqsefvl Letter [facility] December 07, 2021 OMAIRA ORANTES [address] [address] OMAIRA ORANTES 2005 To Whom It May Concern, Please excuse above patient from work. Date of Illness: From: 12/20/2021 To: 01/31/2022 May Return to Work On:02/01/2022 Restrictions: No work 12/20/21 to 01/31/2022, return to work 02/01/2022. Comments: Patient has appt 12/11/21 @ 8am, [facility], and surgery scheduled 12/20/2021. Sincerely, Marcos Meraz M.D., F.A.C.S. [facility] [address] [place] [address] [facility] Medical CenterUrology Office/Clinic Noteon 44-94-2761Ibjzoex Office/Clinic NoteChief Complaint F/u to scrotal US187 HPI Staff Pt is here to f/u from scrotal US done 12/05/21. Previous dx of left testicular mass. Pt states he is doing well overall. Has some tenderness to the left side of his scrotum sometimes from the rubbingof his pants when he is physically active. [...] and history for this patient from Dr. Meraz There have been no associated fever, chills, [...] denies hematuria, denies discharge, denies urinary frequency, deniesurinary hesitancy, denies nocturia, denies incontinence, denies genital [...] genital organs) Scrotal US done 12/06/21 at [facility] shows left 1.4cm hypoechoic vascular mass [...] URL [facility] [address], [place] [address]- Additional Instructions: Patient Education Testicular Self-Exam IYvrose, personally scribed for Dr. Meraz on 12/07/2021 10:49:37. . Documentation recorded by the scribe, Yvrose Márquez, accurately reflects the services(s) I performed and decisions made by me. Authenticated by Dr. Meraz on 12/07/2021 10:54:00. Problem List/Past Medical History [...] Protein Urine Dipstick: Negative (12/07/21 09:30:00) Specific Secor Urine Dipstick: 1.025 (12/07/21 09:30:00 (more content not included)...[facility] Medical CenterComment on above:Result Comment: Electronically Signed By: Tamra Vang\Date and Time Signed: 12/07/21 11:41 EDTUS SCROTUMon 43-81-9332UV SCROTUMEXAMINATION: US SCROTUM HISTORY: Disorder of male genital organ ; [...] Electronically authenticated by: GERRY ALDANA Date: 2021-12-06 09:30[facility] HospitalAmbulatory Visit Summaryon 31-82-9779Uirskefysi Visit Summary OMAIRA ORANTES :2005 Visit Date:11/12/2021 Ambulatory Visit Instructions Your Diagnosis Testicular mass Tests Performed Urnls Dip Stick Auto w/o Microscopy POC 75004 US Scrotum (Contents) -- Results Pending -- Please visit your patient portal for your results or contact your primary care physician. Your Care Team Attending Physician - Marcos MERAZ MD Primary Care Physician - Meredith Wilkinson [...] the Following Appointments Follow Up with Marcos MERAZ MD, URL When: In 4 weeks 12/10/2021 EDT Comments: Scrotal US Where: [facility] [address] , [place] [phone] Medications What How Much When Instructions New doxycycline (doxycycline hyclate 100 mg Cap) 1 Capsules By Mouth 2 times a day Duration: 3 Weeks Pickup at [id number] Unchanged fluconazole (fluconazole 50 mg oral tablet) By Mouth Every day Contact prescribing physician if questions or concerns Pharmacy Information [id number]: [address] [place], [place] [id number] [phone] Test Results Urnls Dip Stick Auto w/o Microscopy POC 64326 (11/12/2021) Bilirubin Urine Dipstick - Negative Blood Urine Dipstick - Negative Glucose Urine Dipstick - Negative Ketones Urine Dipstick - Negative Leukocytes Urine Dipstick - Negative Nitrite Urine Dipstick - Negative Protein Urine Dipstick - Negative Specific Secor Urine Dipstick - 1.020 Urine Appearance Urine [...] the testicles. You may be at risk ifyou have: ? A testicle that has not [...] 07/04/2009 Document Revised: 07/29/2019 Document Reviewed: 03/03/2017 Elsevier Patient Education ? 2019 [place]. Regional Medical CenterFormson 06-43-1025Qqvay [id number]#1.00CD:127NormalTrinity Health System Educationon 34-31-3360Dthnrmb EducationUrology Testicular Self-Exam A self-exam of your testicles [...] the testicles. You may be at risk ifyou have: ? A testicle that has not [...] 07/04/2009 Document Revised: 07/29/2019 Document Reviewed: 03/03/2017 comScore Patient Education ? 2019 [employer] Physician Referralon 00-31-9493Bcarducjd Referral [id number]:127NormalOhio Valley Surgical HospitalPhysician [id number]#1.00CD:127 [facility] Medical CenterUS Testicular/Scrotumon 90-64-9841AH Testicular/ScrotumHISTORY: Lump FINDINGS: Right Testicle4.6 x 2.8 x [...] and signed by Rich Banda on 11/05/2021 1102NormalNorthonorhealth john c. lincoln medical centern [place] [employer] Vital Signs Date TimeVital SignValuePerforming LxrdpeqyyMqdqivtk15-41-2028 15:48-0500Body vvbhko435.5 cmRandy Brown MD Work Phone: [facility]01-09-2023 15:48-0500Body temperature 98.49 [degF]Randy Brown MD Work Phone: [facility]01-09-2023 15:48-0500Body zlvrau10.64 kgRandy Brown MD Work Phone: [facility]01-09-2023 15:48-0500Diastolic blood rphzevpk90 mm[Hg]Randy Brown MD Work Phone: [facility]01-09-2023 15:48-0500Heart rate62 /min Randy Brown MD Work Phone: [facility]01-09-2023 15:48-0500Respiratory rate 16 /minRandy Brown MD Work Phone: [facility]01-09-2023 15:48-1774KnN7% (BldA) [Mass fraction]99 %Randy Brown MD Work Phone: [facility]01-09-2023 15:48-0500Systolic blood yzgbkjcp525 mm[Hg]Randy Brown MD Work Phone: [facility]10-11-2022 13:06-0400Body pxyeme336.5 cmRandy Brown MD Work Phone: [facility]10-11-2022 13:06-0400Body mass index (BMI) [Percentile] Per age and sex62.51 %Randy Brown MD Work Phone: [facility]10-11-2022 13:06-0400Body temperature 97.11 [degF]Randy Brown MD Work Phone: [facility]10-11-2022 13:06-0400Body bwuvbg81.82 kgRandy Brown MD Work Phone: [facility]10-11-2022 13:06-0400Diastolic blood fkejlksh64 mm[Hg]Randy Brown MD Work Phone: [facility]10-11-2022 13:06-0400Heart rate64 /min Randy Brown MD Work Phone: [facility]10-11-2022 13:06-0400Respiratory rate 16 /minRandy Brown MD Work Phone: [facility]10-11-2022 13:06-0357LuF3% (BldA) [Mass fraction]100 %Randy Brown MD Work Phone: [facility]10-11-2022 13:06-0400Systolic blood inmqclie696 mm[Hg]Randy Brown MD Work Phone: [facility]10-07-2022 10:56-0400Blood Pressure LocationPatipk MARIYA [facility]10-07-2022 10:56-0400Diastolic blood mnykebbn54 mm[Hg]Marcos MERAZ [facility]10-07-2022 10:56-0400Heart rate61 /minParobbie MERAZ [facility]10-07-2022 10:56-0400Systolic blood rjzpoctm926 mm[Hg]Marcos MERAZ [facility]09-13-2022 10:34-0400Body rhzxyj101.5 cmRandy Brown MD Work Phone: [facility]09-13-2022 10:34-0400Body mass index (BMI) [Percentile] Per age and sex51.74 %Randy Brown MD Work Phone: [facility]09-13-2022 10:34-0400Body temperature 98.1 [degF]Randy Brown MD Work Phone: [facility]09-13-2022 10:34-0400Body .47 kgRandy Brown MD Work Phone: [facility]09-13-2022 10:34-0400Diastolic blood rvaxwrvr81 mm[Hg]Randy Bronw MD Work Phone: [facility]09-13-2022 10:34-0400Heart rate56 /min Randy Brown MD Work Phone: [facility]09-13-2022 10:34-0400Respiratory rate 16 /minRandy Brown MD Work Phone: [facility]09-13-2022 10:34-9738GlZ3% (BldA) [Mass fraction]98 %Randy Brown MD Work Phone: [facility]09-13-2022 10:34-0400Systolic blood iukjakvn515 mm[Hg]Randy Brown MD Work Phone: [facility]09-09-2022 09:04-0400Blood Pressure LocationPatricgraham MERAZ [facility]09-09-2022 09:04-0400Diastolic blood igttfbdz26 mm[Hg]Marcos MERAZ [facility]09-09-2022 09:04-0400Heart rate69 /minMarcos MERAZ [facility]09-09-2022 09:04-0400Respiratory rate16 /minMarcos MERAZ [facility]09-09-2022 09:04-0400Systolic blood ofuxupnq061 mm[Hg]Marcoswin MERAZ [facility]08-19-2022 09:28-0400Blood Pressure LocationPatrick MERAZ [facility] 08-19-2022 09:28-0400Diastolic blood kgjwpdce98 mm[Hg] Marcos MERAZ [facility] 08-19-2022 09:28-0400Heart rate61 /minPatrick MERAZ [facility] 08-19-2022 09:28-0400Respiratory rate16 /minPatrick MERAZ [facility] 08-19-2022 09:28-0400Systolic blood yeykpyjp663 mm[Hg] Marcos MERAZ [facility] 07-25-2022 10:30-0400Blood Pressure LocationPatrick [place]ola [facility] 07-25-2022 10:30-0400Diastolic blood wrihaknp19 mm[Hg] Marcos MERAZ [facility] 07-25-2022 10:30-0400Heart rate80 /minPatrick MERAZ [facility] 07-25-2022 10:30-0400Respiratory rate16 /minMarcos MERAZ [facility] 07-25-2022 10:30-0400Systolic blood ekwhtxfy701 mm[Hg] Marcos MERAZ [facility] Encounters Encounter DateEncounter TypeCare ProviderFacilityStart: 10-25-2023 End: 87-80-2979Alokoxt encounter procedureCenterville-[facility] Work Phone: Start: 10-25-2023 End: 38-09-0187wptgbmwubkWsifrom WatersFacility:[facility] Limatart: 07-19-2022 End: 85-00-8044sysqkxqhjwAgquxsp R WATERSFacility:EU SwitchbackevueStart: 07-19-2022 End: 91-98-2141Linzhhv encounter procedureMarcos Ross MARIYA [facility] start: 06-28-2022 End: 95-76-9782dgftldoybeZpsqyrx R WATERSFacility:EU BellevueStart: 05-18-2022 End: 87-20-9796twxuddqvnfKQB NAVRATILFacility:T5Lsshc: 04-29-2022 End: 39-64-1872rmjtaudrxnLUEJS R MURPHYFacility:[facility] Northtart: 04-29-2022 End: 60-47-8220joemjqlvknFegtzDuane Brown MD Work Phone: Hematology/OncologyComment on above: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)Start: 04-29-2022 End: 85-73-1532Qndgdie encounter Joaquin Brown MD Work Phone: SANDUSKYStart: 04-08-2022 End: 18-84-0226mgalwzzuysMT BRIAN MURPHYFacility:I1Flvjw: 01-29-2022 End: 58-89-4643fykftjwisjKPUGA R MURPHYFacility:[facility] Northtart: 01-29-2022 End: 82-25-4954fpwdlphxznZwhbaDuane Brown MD Work Phone: Hematology/OncologyComment on above: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)Start: 01-29-2022 End: 74-88-7661Qurfjww encounter Joaquin Brown MD Work Phone: SANDUSKYStart: 01-25-2022 End: 19-73-6724nquzwbamzqMjpvmre R WATERSFacility:DIANA MaravillaueStart: 01-25-2022 End: 80-93-2268Jeeekzb encounter Sophy MERAZ [facility] Julia start: 41-32-6169Itxetstay encounterRandy Brown MD Work Phone: Cancer Appts MCComment on above:2nd opinion pathology Start: 01-01-2022 End: 84-62-8559xuuafrtfiiQubcqDuane Brown MD Work Phone: Hematology/OncologyComment on above: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 start: 12-20-2021 End: 62-50-9607oyaxzagzgiLM MARCOS MARIYAFacility:F7Vftkt: 93-59-0878Behbfyfkt for preprocedural laboratory examinationDR MARCOS [facility] Start: 12-17-2021 End: 21-42-0791iazzzvlqqdFK MARCOS MERAZFacility:B3Shanx: 12-17-2021 End: 11-60-8904Nhxqcceot for preprocedural laboratory examinationDR MARCOS MERAZFacility:O3Psrch: 12-11-2021 End: 65-58-8528kfwkxblysgQA MARCOS MARIYAFacility:F0Fasif: 12-07-2021 End: 22-83-2704jykqgjrmicPinhiop R WATERSFacility:EU BellevueStart: 12-07-2021 End: 50-49-3846Gdyrezm encounter procedurePatricgraham Ross MERAZ [facility] start: 12-05-2021 End: 69-68-3514qyvyizchbgDJ MARCOS WATERSFacility:J0Nrrnk: 11-12-2021 End: 48-10-9171fqrzdbmesePnoacsy R WATERSFacility:EU BellevueStart: 11-12-2021 End: 94-32-3738Vaycgki encounter procedurePatricgraham Ross MERAZ 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) Expected: 04/29/2022, Expires: 06/29/2022[facility] Work Phone: Comment on above:Expected: 04/29/2022, Expires: 06/29/2022Start: 04-29-2022 End: 52-40-0989YMC W Auto Differential panel - BloodCBC + DIFF Lab Routine 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) Expected: 04/29/2022, Expires: 06/29/2022[facility] Work Phone: Comment on above:Expected: 04/29/2022, Expires: 06/29/2022Start: 04-29-2022 End: 38-11-5521Hwpfnooemwpxsxdjia.beta subunit [Units/volume] in Serum or Plasma BETA HCG QUANT TUMOR MARKER Lab Routine 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) Expected:04/29/2022, Expires: 06/29/2022[facility] Work Phone: Comment on above:Expected: 04/29/2022, Expires: 06/29/2022Start: 04-29-2022 End: 46-04-7206Neaepecfizvky metabolic 2000 panel - Serum or PlasmaCOMP METABOLIC PANEL Lab Routine 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) Expected: 04/29/2022, Expires: 06/29/2022[facility] Work Phone: Comment on above:Expected: 04/29/2022, Expires: 06/29/2022Start: 04-29-2022 End: 57-70-2322Uhdeswn dehydrogenase [Enzymatic activity/volume] in Serum or PlasmaLD LACTATE DEHYDRO Lab Routine 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) Expected: 04/29/2022, Expires: 06/29/2022[facility] Work Phone: Comment on above:Expected: 04/29/2022, Expires: 06/29/2022Start: 01-13-5344NOKEVAJWNQ ASSESSMENTDEPRESSION ASSESSMENTKettering Health Daytontart: 02-26-2022 End: 29-98-5982Tynyt-1-Fetoprotein [Mass/volume] in Serum or PlasmaALPHA FETOPROTEIN BL Lab Routine 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) Expected: 02/26/2022 (Approximate), Expires: 04/28/2022[facility] Work Phone: Comment on above:Expected: 02/26/2022 (Approximate), Expires: 04/28/2022Start: 02-26-2022 End: 89-34-3764MDT W Auto Differential panel - BloodCBC + DIFF Lab Routine 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) Expected: 02/26/2022 (Appro ximate), Expires: 04/28/2022[facility] Work Phone: Comment on above:Expected: 02/26/2022 (Approximate), Expires: 04/28/2022Start: 02-26-2022 End: 35-25-0338Zlmpmvyfgaqoaxjhwh.beta subunit [Units/volume] in Serum or Plasma BETA HCG QUANT TUMOR MARKER Lab Routine 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) Expected:02/26/2022 (Approximate), Expires: 04/28/2022[facility] Work Phone: Comment on above:Expected: 02/26/2022 (Approximate), Expires: 04/28/2022Start: 02-26-2022 End: 11-31-2994Opygsepkxcssh metabolic 2000 panel - Serum or PlasmaCOMP METABOLIC PANEL Lab Routine 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) Expected: 02/26/2022 (Approximate), Expires: 04/28/2022[facility] Work Phone: Comment on above:Expected: 02/26/2022 (Approximate), Expires: 04/28/2022Start: 02-26-2022 End: 79-82-3173Tbcjybh dehydrogenase [Enzymatic activity/volume] in Serum or PlasmaLD LACTATE DEHYDRO Lab Routine 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) Expected: 02/26/2022 (Approximate), Expires: 04/28/2022[facility] Work Phone: Comment on above:Expected: 02/26/2022 (Approximate), Expires: 04/28/2022Start: 01-01-2022 End: 84-37-4135Acape-1-Fetoprotein [Mass/volume] in [facility] or PlasmaCommunity [facility] Work Phone: Comment on above:Expected: 01/01/2022, Expires: 03/03/2022tart: 01-01-2022 End: 35-06-7033Trgmyikrnucqwdvfzb.beta subunit [Units/volume] in Serum or Plasma [facility] Work Phone: Comment on above:Expected: 01/01/2022, Expires: 03/03/2022tart: 44-47-4322Tpncuvttj vaccinationINFLUENZA (#1)[facility] Start: 78-14-2082RUKIRHREVI ASSESSMENTDEPRESSION ASSESSMENTMercy Health – [facility] Start: 73-87-8199LINLNUZGG C SCREENINGHEPATITIS C SCREENINGMer[facility] Health – [facility] Start: 96-34-1882PZH SCREENINGHIV SCREENINGKettering Health Daytontart: 92-02-2506YHR VACCINE (3 - Male 3-dose series)HPV VACCINE (3 - Male 3-dose series)[facility]: 04-93-4872TDIFDPHWCCYRC CONJUGATE (1 - 2-dose series)MENINGOCOCCAL CONJUGATE (1 - 2-dose series)[facility]: 05-64-1547DTCK TO ADULT TRANSITION ANNUAL ASSESSMENTPEDS TO ADULT TRANSITION ANNUAL ASSESSMENTKettering Health Daytontart: 95-47-6083Frmqc depression screening assessmentDEPRESSION SCREENING [facility]: 58-84-0865TMEA TO ADULT TRANSITION INITIAL DISCUSSIONPEDS TO ADULT TRANSITION INITIAL DISCUSSIONKettering Health Daytontart: 13-27-2148TTF VACCINE (1 - Male 2-dose series)HPV VACCINE (1 - Male 2-dose series)[facility]: 63-88-2457Mvhnp microalbumin profileDTAP,TDAP,TD (1 - Tdap) [facility]: 75-24-7021XHXTS-19 VACCINE (#1)COVID-19 VACCINE (#1) [facility]: 77-75-1781FQBZUNYFR B (1 of 3 - 3-dose series)HEPATITIS B (1 of 3 - 3-dose series)[facility] End: 55-82-7025Of abdomen & pelvis w/contrast materialCT ABD/PEL W IVCON Radiology Routine 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) 1 Occurrences starting 04/29/[address] [place] [address] Work Phone: Comment on above:1 Occurrences starting 04/29/2022 until 05/29/2023 End: 77-77-0323VZ CHEST W IVCONCT CHEST W IVCON Radiology Routine 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) 1 Occurrences starting 04/29/[address] [place] [address] Work Phone: Comment on above:1 Occurrences starting 04/29/2022 until 05/29/2023OUTSIDE SURG PATH SLIDE REVIEWOUTSIDE SURG PATH SLIDE REVIEW Lab Routine Ordered: [address] [place] [address] Work Phone: Comment on above:Ordered: [address] [place] [address] Immunizations Immunization DateImmunizationNotesCare KtjcgrgdQyxgucim27-16-3193KFS, unspecified formulationMarcos MERAZ [facility]ue06-25-2020human papilloma virus vaccine, quadrivalentRandy Brown MD Work Phone: [facility] HospitalShcsnr51-93-1363tjqbkzpsyfjes ACWY vaccine, unspecified formulationMarcos MERAZ [facility]06-25-2020meningococcal oligosaccharide (groups A, C, Y and W-135) diphtheria toxoid conjugate vaccine (MCV4O)Randy Brown MD Work Phone: [facility] HospitalAutxsl97-47-4451HLE, unspecified formulation Marcos MERAZ [facility]06-24-2019human papilloma virus vaccine, quadrivalentRandy Brown MD Work Phone: [facility] HospitalDktjta07-73-6050zxspzboxbtprr ACWY vaccine, unspecified formulationNeah Bay MERAZ [facility]10-27-2016meningococcal oligosaccharide (groups A, C, Y and W-135) diphtheria toxoid conjugate vaccine (MCV4O)Randy Brown MD Work Phone: [facility] HospitalYnxczc19-54-9875jeradfr toxoid, reduced diphtheria toxoid, and acellular pertussis vaccine, adsorbedNeah Bay MERAZ [facility]11-05-2009influenza virus vaccine, H1N1, liveNeah Bay MERAZ [facility]11-05-2009novel Klfrspjlp-T3N9-49, live virus for nasal administration Randy Brown MD Work Phone: [facility] HospitalSncuxj23-00-8516Lcncfhuafb, tetanus toxoids and acellular pertussis vaccine, and poliovirus vaccine, inactivatedThe Medical Centerk [place] [facility]09-22-2009measles, mumps and rubella virus vaccineNeah Bay [place] [facility]09-22-2009varicella virus vaccineThe Medical CenterZumbl [facility]09-08-2008diphtheria, tetanus toxoids and acellular pertussis vaccine Marcos MERAZ [facility]01-30-2007measles, mumps, rubella, and varicella virus vaccinePanorton hospitalgraham MERAZ [facility]01-04-2007DTaP-hepatitis B and poliovirus vaccineThe Medical Centergraham MERAZ [facility]01-04-2007haemophilus influenzae type b vaccine, PRP-T conjugateThe Medical Centergraham MERAZ [facility]01-04-2007pneumococcal conjugate vaccine, 7 Nae Brown MD Work Phone: [facility] HospitalVgteqi83-29-5795SHsP-lqeanhngn B and poliovirus vaccineThe Medical Centergraham MERAZ [facility]07-28-2004haemophilus influenzae type b vaccine, PRP-T conjugateThe Medical Centergraham MERAZ [facility]07-28-2004pneumococcal conjugate vaccine, 7 Nae Brown MD Work Phone: [facility] HospitalAphdlv62-78-6971NZsR-wkmevewyo B and poliovirus vaccineThe Medical Centergraham MERAZ [facility]03-12-2004haemophilus influenzae type b vaccine, PRP-T conjugateThe Medical Centergraham MERAZ [facility]2003hepatitis B vaccine, pediatric or pediatric/adolescent dosage Marcos MERAZ [facility] Payers DatePayer CategoryPayerPolicy [id number] Health InsuranceAETOMAR ELLISON CHOICE POS II [id number] 2017- Present [phone] [address] [place] [address] POS [id number] 2.16.840.1.245743.3.57[id number] 2.16.840.1.316120.3.57[id number] 2.16.840.1.825313.3.57[id number] 2.16.840.1.825144.3.57[id number] 2.16.840.1.064123.3.57[id number] 2.16.840.1.854046.3.57[id number] 2.16.840.1.943894.3.57[id number] 2.16.840.1.914017.3.57[id number] 2.16.840.1.213751.3.57[id number] 2.16.840.1.879767.3.57[id number] 2.16.840.1.806210.3.57[id number] 2.16.840.1.675555.3.57[id number] 2.16.840.1.901391.3.57[id number] 2.16.840.1.172801.3.57[id number] 2..840.1.217635.3.57[id number] 2.16.840.1.797453.3.579.2.72373-78-1470Ilrferx Health [id number] [id number] 2.16.840.1.268005.3.579.2.531 Social History DateTypeDetailFacilityStart: 11-12-2021 End: 07-56-4429Nkluuix smoking statusNever smoked tobacco (finding)[facility] sex Assigned At [facility] Tobacco smoking status NHISTobacco smoking consumption unknownKettering Health Daytontart: 38-23-9687Syy Assigned At BirthNot on file [facility] HospitalHistory of tobacco usePassive smokerKettering Health Daytontart: 63-53-2794Vhuepkc use and exposureSmokeless tobacco non-userMercy Health – The Jewish Hospital Start: 01-01-2022 End: 99-99-0186Eglcqtd intakeEx-drinker (finding)[facility]art: 12-22-2021 End: 63-43-7148Qktyinvk to SARS-CoV-2 (event)Not sureKettering Health Daytontart: 46-16-7977Scj Assigned At [facility] Functional Status RmxyUjrpodcpnzIejlvsNwwwuoaw94-23-8429Hufspizqsp StatusN/AExec[facility]09-09-2022Functional StatusN/A[facility]08-19-2022N/A[facility] 07508238-63-6468Wdstqvidtb StatusN/AExec[facility] Clinical Notes 11-12-2021 to 10-25-2023 Note Date & KllkZrcmTtjubrwx62-58-3097 NoteSperm Rapid ProgressiveJuly 2023 11:20am2 %[facility] [id number] [address]07-06-2024 NoteSperm Non-ProgressiveJuly 2023 11:20am24 %[facility] [id number] [address] [place], [place] 2820803-10-2023 Hospital Discharge instructions Follow Up Care 06/28/2022 09:10:09 With:MARIYA VICENTE, Marcos Ross, URL Address: [address] [place] [address]- When: Unknown [facility] 01-09-2023 NoteHNO ID: [id number] Author: Randy Brown MD Service: ? Author Type: Physician Type: Progress Notes Filed: 05/01/2022 6:57 AM Note Text: PATIENT NAME: Omaira Cohen DATE: 04/29/2022 PRIMARY CARE PHYSICIAN: RYANN Jane OTHER PHYSICIANS: Dr. Meraz Portions of this encounter note have been [...] on all 4 extremities. Reflexes symmetric for biceps/brachioradial/patella/achilles. MUSCULOSKELETAL: Negative examination of joints, bones, muscles/tendons of all four extremities for inspection, percussion, and palpation. Negative for misallignment, asymmetry, crepitation, tenderness, mass, effusions. Range of motion normal. Negative for joint instability, laxity, dislocation. Gait steady. Negative for swelling, erythema, tenderness, soft tissue swelling, and atrophy. 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 The scar area measures 1.3 cm in greatest dimension. It is limited to the testis. Germ cell neoplasia in situ. Epididymis and spermatic cord with no significant pathological findings. LABS: 12/11/2021: CMP and CBC within normal limits AFP hCG LDH 12/11/2021 2.4 <1 164 04/08/2022 2.8 <1 136 RADIOLOGY/OTHER STUDIES: 12/31/2021 CT chest, abdomen, pelvis ([facility]) No evidence of metastatic disease. No suspicious findings. 12/06/2021 Scrotal ultrasound ([facility]) Left testicle contains a 1.4 cm hypoechoic vascular mass within the inferior pole. Right testicle homogeneous texture, no visible mass. ASSESSMENT/PLAN: 1. Malignant neoplasm of descended left testis (H (more content not included)... [facility]01-09-2023 History of Present illness Narrative* Randy Brown MD - 04/29/2022 8:16 AM EST PATIENT NAME: Omaira Cohen DATE: 04/29/2022 PRIMARY CARE PHYSICIAN: Brittany Ramirez, SUPERVISOR [employer] OTHER PHYSICIANS: Dr. Meraz Portions of this encounter note have been [...] cold or heat intolerance, urinary frequency, urinary hesitancy,menorrhagia, or hematuria. PSYCH: Negative for anxiety, depression, [...] the upper and lower extremities and face. Negativefor palpations/nodules, purpura, and ecchymosis. EENT: Negative for [...] on all 4 extremities. Reflexes symmetric for biceps/brachioradial/patella/achilles. MUSCULOSKELETAL: Negative examination of joints, bones, muscles/tendons of all four extremities forinspection, percussion, and palpation. Negative for misallignment, asymmetry, crepitation, tenderness, mass, effusions. Range of motion normal. Negative for joint instability, laxity, dislocation. Gait steady. Negative for swelling, erythema, tenderness, soft tissue swelling, and atrophy. 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 The scar area measures 1.3 cm in greatest dimension. It is limited to the testis. Germ cell neoplasia in situ. Epididymis and spermatic cord with no significant pathological findings. LABS: 12/11/2021: CMP and CBC within normal limits AFP hCG LDH 12/11/2021 2.4 <1 164 04/08/2022 2.8 <1 136 RADIOLOGY/OTHER STUDIES: 12/31/2021 CT chest, abdomen, pelvis ([facility]) No evidence of metastatic disease. No suspicious findings. 12/06/2021 Scrotal ultrasound ([facility]) Left testicle contains a 1.4 cm hypoechoic [...] 6 months until year 5. Staging scans every6 months the first 2 years, then annually year 3 through year 5. We will arrange for his next scansto be done at [facility] at the end of this month. I will see him back in 2 months for follow-up and labs. Randy Brown MD CC: Dr. Meraz documented in this encounterMercy Health [facility]10-11-2022 NoteHNO ID: [id number] Author: Randy Brown MD Service: ? Author Type: Physician Type: Progress Notes Filed: 01/30/2022 6:53 AM Note Text: PATIENT NAME: Omaira Cohen DATE: 01/29/2022 PRIMARY CARE PHYSICIAN: RYANN Jane OTHER PHYSICIANS: Dr. Meraz Portions of this encounter note have been copied from my note from 01/01/2022 and has been updated where appropriate, and reflect my current medical decision making from today. CC: This is an 16 year old male with recently diagnosed testicular cancer, referred for further management. INTERIM HISTORY: Since the patient's initial visit here his pathology was reviewed at [facility], and the diagnosis of testicular scar [...] on all 4 extremities. Reflexes symmetric for biceps/brachioradial/patella/achilles. MUSCULOSKELETAL: Negative examination of joints, bones, muscles/tendons of all four extremities for inspection, percussion, and palpation. Negative for misallignment, asymmetry, crepitation, tenderness, mass, effusions. Range of motion normal. Negative for joint instability, laxity, dislocation. Gait steady. Negative for swelling, erythema, tenderness, soft tissue swelling, and atrophy. 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 The scar area measures 1.3 cm in greatest dimension. It is limited to the testis. Germ cell neoplasia in situ. Epididymis and spermatic cord with no significant pathological findings. LABS: 12/11/2021: CMP and CBC within normal limits AFP hCG LDH 12/11/2021 2.4 <1 164 RADIOLOGY/OTHER STUDIES: 12/31/2021 CT chest, abdomen, pelvis ([facility]) No evidence of metastatic disease. No suspicious findings. 12/06/2021 Scrotal ultrasound ([facility]) Left testicle contains a 1.4 cm hypoechoic vascular mass within the inferior pole. Right testicle homogeneous texture, no visible mass. (more content not included)...[facility]10-11-2022 History of Present illness Narrative* Randy Brown MD - 01/29/2022 7:51 AM EDT PATIENT NAME: Omaira Cohen DATE: 01/29/2022 PRIMARY CARE PHYSICIAN: Brittany Ramirez, SUPERVISOR [employer]ING OTHER PHYSICIANS: Dr. Meraz Portions of this encounter note have been copied from my note from 01/01/2022 and has been updated where appropriate, and reflect my current medical decision making from today. CC: This is an 16 year old male with recently diagnosed testicular cancer, referred for further management. INTERIM HISTORY: Since the patient's initial visit here his pathology was reviewed at [facility], and the diagnosis of testicular scar [...] cold or heat intolerance, urinary frequency, urinary hesitancy,menorrhagia, or hematuria. PSYCH: Negative for anxiety, depression, or other. PHYSICAL EXAM: BP 133/62 Pulse 64 Temp 36.2 C (97.1 F) (Temporal) Resp 16 Ht 190.5 cm (6' 3 ) Wt 84.8 kg (187 lb) SpO2 100% BMI 23.37 kg/m GENERAL EXAM: Well developed/well nourished; in no acute distress. SKIN: Negative for lesions, rashes, or ulcers on the upper and lower extremities and face. Negativefor palpations/nodules, purpura, and ecchymosis. EENT: Negative for [...] on all 4 extremities. Reflexes symmetric for biceps/brachioradial/patella/achilles. MUSCULOSKELETAL: Negative examination of joints, bones, muscles/tendons of all four extremities forinspection, percussion, and palpation. Negative for misallignment, asymmetry, crepitation, tenderness, mass, effusions. Range of motion normal. Negative for joint instability, laxity, dislocation. Gait steady. Negative for swelling, erythema, tenderness, soft tissue swelling, and atrophy. 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 The scar area measures 1.3 cm in greatest dimension. It is limited to the testis. Germ cell neoplasia in situ. Epididymis and spermatic cord with no significant pathological findings. LABS: 12/11/2021: CMP and CBC within normal limits AFP hCG LDH 12/11/2021 2.4 <1 164 RADIOLOGY/OTHER STUDIES: 12/31/2021 CT chest, abdomen, pelvis ([facility]) No evidence of metastatic disease. No suspicious findings. 12/06/2021 Scrotal ultrasound ([facility]) Left testicle contains a 1.4 cm hypoechoic vascular mass within the inferior pole. Right testicle homogeneous texture, no visible mass. ASSESSMENT/PLAN: 1. 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 Scrotal ultrasound 12/05/2021 confirmeda 1.4 cm mass involving the left testicle. He underwent a radical left orchiectomy on 12/20/2021. 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 The scar area measured 1.3 cm in greatest dimension and was limited to the testis. Also seen was germ cell neoplasia in situ. (The diagnosis of regressed germ cell tumor was confirmed by [facility] pathology.) Staging scans showedno evidence of metastases. Currently the patient has no evidence of disease. Options for further management were discussed at length with the patient and his mother. At this time we will continue surveillance per NCCN guidelines for low risk stage I testicular cancer. He willreturn in 1 month for follow-up and labs. We will restage again at 4 months (April 2022). Randy Brown MD CC: Dr. Meraz documented in this encounterMer[facility]10-[facility] Hospital Discharge instructions Patient Education 01/25/2022 11:11:29 [...] treatment and your options if you want tohave children. Follow these instructions at home: Take llsc-xeq-gqhagnu and prescription medicines only as told by your health care provider. Maintain a healthy diet. Talk with your dietitian, or your health care provider, about what dietarychoices are best for you. If you have [...] staged, you should discuss a treatment plan withyour health care provider. Based on the stage [...] 02/28/2006 Document Revised: 07/29/2019 Document Reviewed: 07/04/2017 [employer] Patient Education 2020 [employer]. Follow Up Care 12/28/2021 09:47:13 With:MARIYA VICENTE, Marcos Ross, URL Address: [address] [place] [address]- When: Unknown [facility] 09-13-2022 Miscellaneous Notes* Telephone Encounter - Sherry Haile - 01/01/2022 12:48 PM EDT 2nd opinion pathology requested to be sent from [facility] to [facility] for review. documented in this encounterMercy Health [facility]09-13-2022 NoteHNO ID: [id number] Author: Randy Brown MD Service: ? Author Type: Physician Type: Progress Notes Filed: 01/02/2022 9:04 AM Note Text: PATIENT NAME: Omaira Cohen DATE: 01/01/2022 PRIMARY CARE PHYSICIAN: RYANN Jane OTHER PHYSICIANS: Dr. 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 MEDICATIONS: No current outpatient medications on file. [...] on all 4 extremities. Reflexes symmetric for biceps/brachioradial/patella/achilles. MUSCULOSKELETAL: Negative examination of joints, bones, muscles/tendons of all four extremities for inspection, percussion, and palpation. Negative for misallignment, asymmetry, crepitation, tenderness, mass, effusions. Range of motion normal. Negative for joint instability, laxity, dislocation. Gait steady. Negative for swelling, erythema, tenderness, soft tissue swelling, and atrophy. 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 The scar area measures 1.3 cm in greatest dimension. It is limited to the testis. Germ cell neoplasia in situ. Epididymis and spermatic cord with no significant pathological findings. LABS: 12/11/2021: CMP and CBC within normal limits AFP hCG LDH 12/11/2021 2.4 <1 RADIOLOGY/OTHER STUDIES: 12/31/2021 CT chest, abdomen, pelvis ([facility]) No evidence of metastatic disease. No suspicious findings. 12/06/2021 Scrotal ultrasound ([facility]) Left (more content not included)...[facility]09-13-2022 History of Present illness Narrative* Randy Brown MD - 01/01/2022 6:51 AM EDT PATIENT NAME: Omaira Cohen DATE: 01/01/2022 PRIMARY CARE PHYSICIAN: RYANN Jane OTHER PHYSICIANS: Dr. 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 MEDICATIONS: No current outpatient medications on file. [...] cold or heat intolerance, urinary frequency, urinary hesitancy,menorrhagia, or hematuria. PSYCH: Negative for anxiety, depression, [...] the upper and lower extremities and face. Negativefor palpations/nodules, purpura, and ecchymosis. EENT: Negative for [...] on all 4 extremities. Reflexes symmetric for biceps/brachioradial/patella/achilles. MUSCULOSKELETAL: Negative examination of joints, bones, muscles/tendons of all four extremities forinspection, percussion, and palpation. Negative for misallignment, asymmetry, crepitation, tenderness, mass, effusions. Range of motion normal. Negative for joint instability, laxity, dislocation. Gait steady. Negative for swelling, erythema, tenderness, soft tissue swelling, and atrophy. 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 The scar area measures 1.3 cm in greatest dimension. It is limited to the testis. Germ cell neoplasia in situ. Epididymis and spermatic cord with no significant pathological findings. LABS: 12/11/2021: CMP and CBC within normal limits AFP hCG LDH 12/11/2021 2.4 <1 RADIOLOGY/OTHER STUDIES: 12/31/2021 CT chest, abdomen, pelvis ([facility]) No evidence of metastatic disease. No suspicious findings. 12/06/2021 Scrotal ultrasound ([facility]) Left testicle contains a 1.4 cm hypoechoic vascular mass within the inferior pole. Right testicle homogeneous texture, no visible mass. ASSESSMENT/PLAN: 1. 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 Scrotal ultrasound 12/05/2021 confirmeda 1.4 cm mass involving the left testicle. [...] to refer his recent surgical specimen to [facility] pathology for second opinion. We will repeat labstoday. Assuming the diagnosis of a regressed germ cell tumor is confirmed and labs remain negative standard of care would be routine follow-up. I will see him back in 4 weeks for follow-up. Randy Brown MD [facility] Discharge instructions Patient Education 12/28/2021 09:43:48 Orchiectomy Orchiectomy An orchiectomy is the removal of one or both testicles. It is most often done to treat cancer of the prostate or testicles. It may be done in men with breast cancer, or to prevent cancer in men whosetesticles did not develop normally. An orchiectomy may also be needed when an injury to a testicle cannot be repaired. The testicles can be replaced with artificial testicles (prosthesis). Tell a health care provider about: Any allergies you have. All medicines you are taking, including vitamins, herbs, eye drops, creams, and jagc-rrj-ifwunzp medicines. Any problems you or family members [...] blood oxygen level will be monitored until themedicines you were given have worn off. Once [...] the space in the scrotum where the testiclewas removed. This information is not intended to replace advice given to you by your health care provider. Make sure you discuss any questions you have with your health care provider. Document Released: 03/07/2006 Document Revised: 03/20/2018 Document Reviewed: 02/27/2017 [employer] Patient Education 2020 [employer] Follow Up Care 12/07/2021 10:58:41 With:MARIYA VICENTE, Marcos Ross, URL Address: [address] [place] [address]- When: Unknown [facility] [place] 08-19-2022 Hospital Discharge instructions Patient Education 12/07/2021 09:55:32 [...] smooth and not tender. The spermatic cord canbe felt as a firm, spaghetti-like cord at [...] 07/14/2001 Document Revised: 07/29/2019 Document Reviewed: 03/03/2017 [employer] Patient Education 2020 [employer]. Follow Up Care 11/12/2021 11:41:21 With:MARIYA VICENTE, Marcos Ross, URL Address: [facility] [address], [place] [address]- When: Unknown [facility] 07-25-2022 NoteChief Complaint Referral for testicular mass HPI Staff [...] denies hematuria, denies discharge, denies urinary frequency, deniesurinary hesitancy, denies nocturia, denies incontinence, denies genital [...] mass measuring 1.5x1.0x1.5 cm. Pt states that hedoes have some pain off and on and [...] dealing with, which are testicular infection, testicular cancer,or an infarction. Discussed with pt that we [...] male existence. Follow-up With When Contact Information MERAZ MD, Marcos R, URL In 4 weeks 12/10/2021 EDT [facility] [address], [place] [phone] Additional Instructions: Scrotal US Patient Education Testicular Self-Exam, Yksf-ct-Irij I, Terrie Almendarez, personally scribed for Dr. Meraz on 11/12/2021 11:30:59. . Documentation recorded by [...] Protein Urine Dipstick: Negative (11/12/21 10:39:00) Specific Secor Urine Dipstick: 1.020 (11/12/21 10:39:00) Urine Appearance Urine Dipstick: Clear (11/12/21 10:39:00) Urine Color Urine Dipstick: Yellow (11/12/21 10:39:00) Urobilinogen Urine Dipstick: Normal 0.2-1 EU/dl (11/12/21 10:39:00) pH Urine Dipstick: 7 (11/12/21 10:39:00) D (more content not included)...[facility] HospitalComment [facility]: Result Comment: Electronically Signed By: Marcos MERAZ MD\.br\Date and Time Signed: 11/12/21 11:37 EDT\.br\Electronically Co-Signed By: Terrie Almendarez MA\.br\Date and Time Co-Signed: 11/12/21 11:31 [id number] Hospital Discharge instructions Patient Education 11/12/2021 11:14:03 Testicular Self-Exam, Otzf-qb-Mnrj Testicular Self-Exam A self-exam of your testicles [...] the testicles. You may be at risk ifyou have: A testicle that has not descended [...] 07/04/2009 Document Revised: 07/29/2019 Document Reviewed: 03/03/2017 [employer] Patient Education 2020 [employer]. Follow Up Care 11/06/2021 11:13:38 With:MARIYA VICENTE, Marcos Ross, URL Address: [facility] [address], [place] [phone] When:12/10/2021 Comments:Scrotal US [facility] evaluation + Plan note Future Appointments Appointment Date:12/07/2021 09:15:00 AM Scheduled Provider:Marcos MERAZ MD Location:[facility] Appointment Type:URO Office Visit [facility] evaluation + Plan note Future Appointments Appointment Date:12/28/2021 08:45:00 AM Scheduled Provider:Marcos MERAZ MD Location:[facility] Appointment Type:URO Office Visit [facility] evaluation + Plan note Future Appointments Appointment Date:01/25/2022 09:45:00 AM Scheduled Provider:Marcos MERAZ MD Location:[facility] Appointment Type:URO Office Visit [facility] evaluation + Plan note Future Appointments Appointment Date:06/28/2022 08:30:00 AM Scheduled Provider:Marcos MERAZ MD Location:[facility] Appointment Type:URO Office Visit 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 Malignant neoplasm of other and unspecified testis documented [facility] [place] noteNo assessment information availableCenterville Work Phone: Hospital course Narrative No data available for this section [facility] progress note No data available for this section [facility] reason for referral (narrative) Referred by: MARIYA VICENTE, Marcos Ross [facility] Summary Purpose Family History No Family History Records FoundNo Family History Records FoundNo Family History Records FoundNo Family History Records FoundNo Family History Records Found Advance Directives Advance Directive Response Recorded Date/ Time Advance Directives No October 12 11:58am Reason for Referral SpecialtyDiagnoses / ProceduresReferred By ContactReferred To ContactCT IMAGING Diagnoses 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) Procedures CT CHEST W IVCON DIAGNOSTIC COMPUTED TOMOGRAPHY THORAX W/CONTRAST Randy Brown MD [address] [place] [address] [place] [address] Ct Imaging Referral IDStatusReasonStwest plains DateExpiration DateVisits RequestedVisits [id number] Review Auto-Generated Referral [id number] / ProceduresReferred By ContactReferred To ContactCT IMAGING Diagnoses 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) Procedures CT ABD/PEL W IVCON CT ABD & PELVIS W/CONTRAST Randy Brown MD [address] [place] [address] [place] [address] Ct Imaging Referral IDStatusReasonStart DateExpiration DateVisits RequestedVisits [id number] Review Auto-Generated Referral Chief Complaint and Reason for Visit Chief Complaint See order Additional Source Comments (unrecognized sect ion and content) No Status Records FoundNo Status Records FoundNo Status Records FoundNo Status Records FoundNo Status Records Found INFORMATION SOURCE (unrecogn ized section and content) DATE CREATED AUTHOR 11/09/2021 [facility] DATE CREATED AUTHOR AUTHOR'S ORGANIZ ATION 05/01/2022 [facility] DATE CREATED AUTHOR AUTHOR'S ORGANIZ ATION 05/23/2022 [facility] DATE CREATED AUTHOR AUTHOR'S ORGANIZ ATION 10/19/2022 [facility] DATE CREATED AUTHOR AUTHOR'S ORGANIZ ATION 10/26/2023 [facility] Care Team (unrecognized sect ion and content) Team MemberRelationshipSpecialtyStart DateEnd Date Meredith Ramirez, ASTRID [address] [place] [address] PCP - GeneralFamily Practice01/01/22Team MemberRelationshipSpecialtyStart DateEnd Date Meredith Ramirez, ENROLLER [address] [place] [address] PCP - GeneralFamily Practice01/01/22Team MemberRelationshipSpecialtyStart DateEnd Date Meredith Ramirez, ENROLLER [address] [place] [address] PCP - [facility]Family [facility]01/01/22 Marcos Meraz MD [address] [place] [address] Doeayvv55/11/22Team MemberRelationshipSpecialtyStart DateEnd Date Meredith Ramirez, ENROLLER [address] [place] [address] PCP - GeneralFamily Medicine01/01/22 Marcos Meraz MD [address] [place] [address] Knnqusl18/11/22 Team Status: Active Member Role Status Dates NON STAFF Primary Care Provider Active Team Status: Inactive Member Role Status Dates NON STAFF Primary Care Provider Active Start: October 25, 2023 End: October 24atricSejal Toscano ProviderActiveStart: October 25, 2023 End: October 25, 2023 Source Comments (unrecognize d section and content) In the event this informatio n is protected by the Federal Confidentiality of Alcohol and Drug Abuse Patient Records regulations: The Federal rules restrict any use of the information to criminally investigate or prosecute any alcohol or drug abuse patient.[facility] the event this information is protected by the Federal Confidentiality of Alcohol and Drug Abuse Patient Records regulations: The Federal rules restrict any use of the information to criminally investigate or prosecute any alcohol or drug abuse patient.[facility] Hospital[facility] the event this information is protected by the Federal Confidentiality of Alcohol and Drug Abuse Patient Records regulations: The Federal rules restrict any use of the information to criminally investigate or prosecute any alcohol or drug abuse patient.[facility] HospitalIn the event this information is protected by the Federal Confidentiality of Alcohol and Drug Abuse Patient Records regulations: The Federal rules restrict any use of the information to criminally investigate or prosecute any alcohol or drug abuse patient.[facility] HospitalIn the event this information is protected by the Federal Confidentiality of Alcohol and Drug Abuse Patient Records regulations: The Federal rules restrict any use of the information to criminally investigate or prosecute any alcohol or drug abuse patient.[facility] Reason for Visit (unrecogniz ed section and content) EzckkaZkebecae3ab opinion pathologyReasonCommentsTesticular CancerNew patient consultation ref Dr EubanksasonCommentsTesticular CancerFollow upReasonComments Testicular Cancer4 week follow up Goals (unrecognized section and [...] BE BASED ON THE PRIMARY CLINICAL RECORDS. [employer] [facility]. provides no warranty or guarantee of the accuracy or completeness of information in this document.
--- OUTSIDE RECORDS SUMMARY | 2025-03-21 23:16 | XMS_ITS | Clinical Summary ---
Author Organization [facility] Address [address] [place] [address] Care Team Providers Care Test Rack Operator Name Role Phone Dorothy Posey MD Primary Care Provider [phone] Social History Tobacco UseTypesPacks/DayYears UsedDateSmoking Tobacco: Never AssessedSex and Gender InformationValueDate RecordedSex Assigned at BirthNot on fileLegal Sex Male07/03/2022 9:34 PM EDTGender IdentityNot on fileSexual OrientationNot on file Last Filed Vital Signs Vital SignReadingTime TakenCommentsBlood Snuclyec888/8607 12:00 PM EDT Pulse--Temperature--Respiratory Rate--Oxygen Saturation--Inhaled Oxygen Concentration--Vrqetw30.9 kg (174 lb)11/02/2021 12:00 PM QYSQbomef515 cm (6' 2 ) 11/02/2021 12:00 PM EDTBody Mass Index22.3407 12:00 PM EDT Plan of Treatment Health MaintenanceDue DateLast DoneCommentsCOVID-19 Vaccine ( season) 2024Influenza Vaccine (#1)2024Pneumococcal Vaccine: Pediatrics (0 to 5 Years) and At-Risk Patients (6 to 64 Years)Aged OutNo longer eligible based on patient's age to complete this topic Insurance [facility] [place] [place] Address: [facility] [id number] [place] [phone] Care Teams Team MemberRelationshipSpecialtyStart DateEnd Date Dorothy Posey MD [address] [place] [address] PCP - GeneralFamily Medicine08/27/22
--- OUTSIDE RECORDS SUMMARY | 2025-03-21 23:16 | XMS_ITS | Clinical Summary ---
Author Organization [facility] Address [address] [place] [address] Care Team Providers Care Pipe Tester Name Role Phone Meredith Billings APRN.[employer] MARKETING VP Primary Care Provide r Jacky Donato MD Unavailable [phone] Allergies Active AllergyReactionsCriticalityNoted QmewXhdckbuzAtaabbaromrBbamq66/12/2022 Medications No known medications Immunizations ImmunizationAdministration DatesNext DueHaemophilus influenzae b (Hib PRP-T) vaccine, 4-dose series (ACTHIB, HIBERIX)04/24/2006,2003,2003 diphtheria tetanus pertussis (DTaP) vaccine, pediatric (INFANRIX)12/28/2007 diphtheria tetanus pertussis-hepatitis B-poliovirus (CPeX-OlwH-JNI) vaccine (PEDIARIX)04/24/2006,2003,2003diphtheria tetanus pertussis- poliovirus (DTaP-IPV) vaccine (KINRIX, QUADRACEL)01/10/2009hepatitis B (HepB) vaccine, 3-dose series, age 0 yr - 19 yr (ENGERIX B-PEDS, RECOMBIVAX HB-PEDS) 2003human papillomavirus (HPV4) vaccine, quadrivalent (GARDASIL)10/14/2019 ,10/12/2018measles mumps rubella (MMR) vaccine (M-M-R II, PRIORIX)01/10/2009 measles mumps rubella varicella (MMRV) vaccine (PROQUAD)05/20/2006meningococcal (MenACWY-CRM) vaccine, quadrivalent (MENVEO)10/14/2019,02/15/2016novel influenza (R7I8-65) vaccine, live, nasal02/23/2009pneumococcal (PCV7) vaccine, 7 valent (PREVNAR 7)04/24/2006,2003tetanus diphtheria pertussis (Tdap) vaccine, age 7+ yr (ADACEL, BOOSTRIX)02/15/2016varicella (LALY) vaccine (VARIVAX)01/10/2009 Social History Tobacco UseTypesPacks/DayYears UsedDateSmoking Tobacco: NeverPassive Smoke Exposure: PastSmokeless Tobacco: Never Tobacco Cessation:Counseling Given: No Alcohol UseStandard Drinks/WeekCommentsNot Currently0 (1 standard drink = 0.6 oz pure alcohol)PHQ-2AnswerDate RecordedPHQ-2 stzdx430ex and Gender InformationValueDate RecordedSex Assigned at BirthNot on fileLegal SexMale 12/28/2021 9:52 AM EDTGender IdentityNot on fileSexual OrientationNot on file Last Filed Vital Signs Vital SignReadingTime TakenCommentsBlood Zichsayf059/64004/29/2022 3:48 PM EST Kbtwu6489/09/2023 3:48 PM LRBUuhovadxvdv49.9 ??C (98.5 ??F)04/29/2022 3:48 PM ESTRespiratory Dprl908504/29/2022 3:48 PM ESTOxygen Eitljufqdb96%04/29/2022 3:48 PM ESTInhaled Oxygen Concentration--Ecsuay05.6 kg (184 lb 6.4 oz)04/29/2022 3:48 PM IEFMxiylz309.5 cm (6' 3 )04/29/2022 3:48 PM ESTBody Mass Index23.05004/29/2022 3:48 PM EST Plan of Treatment Health MaintenanceDue DateLast DoneCommentsPeds To Adult Transition Initial Xeouvwnojq53/20/2015Peds To Adult Transition Annual Irabmmjgkw56/20/2017 Meningococcal B Vaccine (1 of 2 - Standard)2019HPV Vaccine (3 - Male 3- dose series), 10/12/2018Anxiety Dmcfbejnt58/20/2021 Depression Neutbhlkw37/20/2021HIV Cuchosmzj61/20/2021Hepatitis C Screening 2021ovid-19 Vaccine ( - season)2024Influenza Vaccine (#1) 511/08/2008DTaP,Tdap,Td Vaccine (7 - Td or Tdap), 01/10/2009, 12/28/2007, Additional history existsHepatitis B VaccineCompleted 04/24/2006, 2003, 2003, Additional history exists Insurance * Guarantor: Omaira CohenAccount TypeRelation to PatientDate of BirthPhone Billing AddressPersonal/BbdxkhMaog[address] [address] Care Teams Team MemberRelationshipSpecialtyStart DateEnd Date Meredith Billings APRN.GROUP MARKETING VP PCP - GeneralFamily Medicine01/01/22 Jacky Donato MD Heqcazl50/11/22
[2025-03-21 23:20] VITALS: O2SAT 99
[2025-03-21 23:29] LABS: Hematocrit 38.3 % (42.0-54.0); Hemoglobin 13.2 g/dL (14.0-18.0); Mean Corpuscular HGB Conc 34.5 g/dL (29.9-35.2); Mean Corpuscular Hemoglobin 28.9 pg (25.9-34.0); Mean Corpuscular Volume 83.8 fL (80.0-94.0); Platelet Count 203 10^3/uL (150-450); Red Blood Count 4.57 10^6/uL (4.70-6.10); White Blood Count 8.5 10^3/uL (4.0-11.0)
[2025-03-21 23:30] VITALS: BP 135/78; O2SAT 98
[2025-03-21] MEDS: 0.9 % SODIUM CHLORIDE 1,000 ML 999 ML IV (23:32)
[2025-03-21 23:40] VITALS: O2SAT 97
[2025-03-21 23:43] LABS: Eosinophils Absolute Manual 0.17 10^3/uL (0.00-0.70); Eosinophils Percent Manual 2.0 % (0.9-7.0); Lymphocytes Absolute Manual 0.34 10^3/uL (1.20-3.80); Lymphocytes Percent Manual 4.0 % (20.5-60.0); Monocytes Absolute Manual 0.93 10^3/uL (0.30-0.80); Monocytes Percent Manual 11.0 % (1.7-12.0); Segmented Neut Absolute Manual 6.97 10^3/uL (1.4-6.5); Segmented Neutrophils % Manual 82.0 (43.0-75.0)
[2025-03-21 23:44] LABS: Atypical Lymphocytes % Manual 1.0 %; Atypical Lymphocytes Abs Man 0.08; Basophils Abs Manual 0.00 10^3/uL (0.00-0.10); Basophils Percent Manual 0.0 % (0.2-2.0)
[2025-03-21 23:45] LABS: SARS-CoV-2 Ag POSITIVE (NEGATIVE)
[2025-03-21 23:46] LABS: Lactate/Lactic Acid 0.7 mmol/L (0.4-2.0)
[2025-03-21 23:50] VITALS: O2SAT 99
[2025-03-21 23:53] LABS: Alanine Aminotransferase 28 U/L (16-63); Albumin Globulin Ratio 1.5; Albumin Level 4.7 g/dL (3.4-5.0); Alkaline Phosphatase 74 U/L (46-116); Anion Gap 14.2; Aspartate Amino Transferase 18 U/L (15-37); Blood Urea Nitrogen 9.0 mg/dL (7.0-18.0); Calcium 9.2 mg/dL (8.5-10.1); Carbon Dioxide 27.1 mmol/L (21.0-32.0); Chloride 101 mmol/L (98-107); Estimated GFR (African America >60 (>=60 mL/min/1.73m^2); Estimated GFR (Non-African Ame >60 (>=60 mL/min/1.73m^2); Globulin 3.2 g/dL; Glucose 116 mg/dL (74-106); Potassium 3.3 mmol/L (3.5-5.1); Sodium 139 mmol/L (136-145); Total Protein 7.9 g/dL (6.4-8.2)
[2025-03-22] VITALS (15 sets, daily range): BP systolic 114–140; BP diastolic 76–88; PULSE 64–66; TEMP 37.4; O2SAT 97–100
[2025-03-22 00:49] LABS: Glucose Urine UA NEGATIVE (NEGATIVE)
[2025-03-22 01:01] LABS: Cast Seen? NONE SEEN #/LPF (NONE SEEN); Crystals Seen? None Seen #/HPF (None Seen)
[2025-03-22 01:02] LABS: Urine Culture Indicated NO
--- NOTE | 2025-03-22 02:31 | PC.NURSE ---
i gave this patient verbal and written discharge orders along with 1 work note and this patient voices yes to understanding these. at time of discharge this patient voices no concerns, needs and shows no signs of distress
== END 2025-03-22 02:30 | disposition home or self-care (01) ==
PROVIDERS: Emergency Provider Internal Medicine; PCP Family Medicine
DX: U07.1 COVID-19 (principal); N50.811 Right testicular pain; Z85.47 Personal history of malignant neoplasm of testis; R50.9 Fever, unspecified
CPT/HCPCS: 36415; 71046; 76870; 80053; 81001; 83605; 85007; 85027; 87804; 87811; 93976; 99285